=== PATIENT | female | born 1955 | race Two or more races ===

== ENCOUNTER 2021-06-09 10:42 | Emergency (ER) | payer MEDICAID, OTHER ==
[~2021-06-09] VITALS: Ht 167.6 cm; Wt 81.6 kg
[2021-06-09 15:10] LABS: Basophils # (auto) 0 10 ^3/uL (0-0.2); Basophils % (auto) 0.7 % (0.0-2.0); Eosinophils # (auto) 0.1 10 ^3/uL (0-0.8); Eosinophils % (auto) 2.3 % (0.0-7.0); Hematocrit 38.5 % (36.0-46.0); Hemoglobin 12.9 g/dL (12.2-16.2); Lymphocytes # (auto) 1.7 10 ^3/uL (0.4-5.4); Mean Corpuscular Hgb Conc. 33.6 g/dL (32.0-36.0); Mean Corpuscular Volume 83.3 fL (80.0-100.0); Monocytes # (auto) 0.3 10 ^3/uL (0-1.3); Monocytes % (auto) 5.8 % (0.0-12.0); Neutrophils # (auto) 3.1 10 ^3/uL (1.6-8.6); Neutrophils % (auto) 59.2 % (37.0-80.0); Red Blood Cells 4.62 10^6/uL (4.0-5.20); Red Cell Distribution Width 14.3 % (11.8-14.3); White Blood Cell 5.3 10^3/uL (4.4-10.8)
[2021-06-09 15:26] LABS: Albumin 3.5 g/dL (3.4-5.0); Calcium 9.7 mg/dL (8.5-10.1); Potassium 4.1 mmol/L (3.5-5.1)
[2021-06-09 15:30] LABS: BUN/Creatinine Ratio 22.8
[2021-06-09 15:33] LABS: Bilirubin, Total 0.5 mg/dL (0.2-1.0); Total Protein 8.7 g/dL (6.4-8.2)
[2021-06-09 16:07] VITALS: BP 161/87
[2021-06-11 12:00] LABS: Hepatitis B Surface Antibody Negative (Negative)
== END 2021-06-09 16:12 | disposition home or self-care (01) ==
LOC: ER 10:42
DX: R60.9 Edema, unspecified (principal); E11.9 Type 2 diabetes mellitus without complications; I10 Essential (primary) hypertension; R06.02 Shortness of breath
CPT/HCPCS: 36415; 80053; 83880; 84484; 85025; 86703; 86706; 86803; 87340; 93970

== ENCOUNTER 2021-12-01 11:33 | Emergency (ER) | payer MEDICAID ==
[~2021-12-01] VITALS: Ht 170.2 cm; Wt 78.5 kg
[2021-12-01] MEDS ORDERED: SODIUM CHLORIDE 0.9% 1,000 ML IV ONE (12:15)
[2021-12-01] MEDS ORDERED: ONDANSETRON HCL 4 MG/2 ML VIAL IV ONE ×2 (12:15→15:30)
[2021-12-01] MEDS ORDERED: MORPHINE SULFATE 4 MG/ML SYR/VIAL IV ONE (12:15)
[2021-12-01 12:32] LABS: Basophils # (auto) 0 10 ^3/uL (0-0.2); Eosinophils # (auto) 0 10 ^3/uL (0-0.8); Lymphocytes # (auto) 0.4 10 ^3/uL (0.4-5.4)
[2021-12-01 12:34] LABS: Basophils % (auto) 0.3 % (0.0-2.0); Hematocrit 37.8 % (36.0-46.0); Hemoglobin 12.3 g/dL (12.2-16.2); Mean Corpuscular Hemoglobin 26.4 pg (28.0-32.0); Mean Corpuscular Hgb Conc. 32.5 g/dL (32.0-36.0); Monocytes # (auto) 0.3 10 ^3/uL (0-1.3); Monocytes % (auto) 4.7 % (0.0-12.0); Neutrophils # (auto) 4.7 10 ^3/uL (1.6-8.6); Red Blood Cells 4.66 10^6/uL (4.0-5.20); Red Cell Distribution Width 14.2 % (11.8-14.3); White Blood Cell 5.4 10^3/uL (4.4-10.8)
[2021-12-01 12:45] LABS: INR 1.03 (0.9-1.15); Magnesium 1.7 mg/dL (1.6-2.6)
[2021-12-01 12:46] LABS: Albumin 3.5 g/dL (3.4-5.0); Calcium 9.1 mg/dL (8.5-10.1); Potassium 3.8 mmol/L (3.5-5.1)
[2021-12-01 12:48] LABS: BUN/Creatinine Ratio 14.3
[2021-12-01 12:51] LABS: Bilirubin, Total 0.6 mg/dL (0.2-1.0); Total Protein 8.2 g/dL (6.4-8.2)
[2021-12-01] MEDS ORDERED: IOHEXOL 300 MG/ML 100ML BOTTLE IJ ONE (14:38)
[2021-12-01 15:04] LABS: Urine Bacteria FEW /hpf (None Seen); Urine Blood TRACE /uL (Negative); Urine Specific Gravity 1.016 (1.001-1.035); Urine WBC 3 /hpf (0 - 5)
[2021-12-01] MEDS ORDERED: MORPHINE SULFATE INJ 2 MG/ml SYRG IV ONE (15:30)
[2021-12-01 16:00] VITALS: BP 124/67
== END 2021-12-01 17:22 | disposition home or self-care (01) ==
LOC: EDBD 11:33 → ER 11:33
DX: R10.84 Generalized abdominal pain (principal); E11.9 Type 2 diabetes mellitus without complications; I10 Essential (primary) hypertension
CPT/HCPCS: 36415; 71046; 74177; 80053; 81001; 83690; 83735; 85025; 85610; 85730; 93005; 96361; 96374; 96375; 96376; 99285; J2270; J2405; J7030; Q9967

== ENCOUNTER 2021-12-11 19:15 | Inpatient (IN) | payer MEDICAID ==
[~2021-12-11] VITALS: Ht 152.4 cm; Wt 91.5 kg
[2021-12-11] MEDS ORDERED: PIPERACILLIN-TAZOB 3.375GM 100 ML IV ONE (20:15)
[2021-12-11] MEDS ORDERED: SODIUM CHLORIDE 0.9% 2,050 ML IV ONE (20:15)
[2021-12-11 20:58] LABS: Basophils # (auto) 0 10 ^3/uL (0-0.2); Basophils % (auto) 0.4 % (0.0-2.0); Eosinophils # (auto) 0.1 10 ^3/uL (0-0.8); Monocytes # (auto) 0.4 10 ^3/uL (0-1.3); Neutrophils # (auto) 4.4 10 ^3/uL (1.6-8.6); Red Cell Distribution Width 14.6 % (11.8-14.3); White Blood Cell 6.4 10^3/uL (4.4-10.8)
[2021-12-11 21:01] LABS: Eosinophils % (auto) 1.3 % (0.0-7.0); Hematocrit 34.5 % (36.0-46.0); Lymphocytes # (auto) 1.5 10 ^3/uL (0.4-5.4); Lymphocytes % (auto) 22.8 % (10.0-50.0); Mean Corpuscular Hemoglobin 26.5 pg (28.0-32.0); Mean Corpuscular Hgb Conc. 31.9 g/dL (32.0-36.0); Monocytes % (auto) 6.9 % (0.0-12.0); Neutrophils % (auto) 68.6 % (37.0-80.0); Red Blood Cells 4.15 10^6/uL (4.0-5.20)
[2021-12-11 21:13] LABS: INR 1.01 (0.9-1.15)
[2021-12-11 21:17] LABS: Calcium 8.7 mg/dL (8.5-10.1); Magnesium 1.9 mg/dL (1.6-2.6); Potassium 4.7 mmol/L (3.5-5.1)
[2021-12-11 21:21] LABS: BUN/Creatinine Ratio 19.6; Bilirubin, Total 0.3 mg/dL (0.2-1.0); Total Protein 7.1 g/dL (6.4-8.2)
[2021-12-11 22:00] LABS: Urine Amorphous Crystal FEW /hpf (None Seen); Urine Bacteria FEW /hpf (None Seen); Urine Blood Negative /uL (Negative); Urine Specific Gravity 1.006 (1.001-1.035); Urine WBC 5 /hpf (0 - 5)
[2021-12-11] MEDS ORDERED: SODIUM CHLORIDE 0.9% 1,000 ML IV SCH (23:00)
[2021-12-11] MEDS ORDERED: ALUM & MAG HYDROX-SIMETH LIQ(MAALOX) 30 ML PO PRN (23:00)
[2021-12-11] MEDS ORDERED: MORPHINE SULFATE INJ 2 MG/ml SYRG IV PRN (23:00)
[2021-12-11] MEDS ORDERED: ACETAMINOPHEN 325 MG TAB PO PRN (23:00)
[2021-12-11] MEDS ORDERED: NITROGLYCERIN 0.4 MG SL TAB SL PRN (23:00)
[2021-12-11] MEDS ORDERED: DOCUSATE SOD 100 MG CAP PO PRN (23:00)
[2021-12-11] MEDS ORDERED: ALBUTEROL SULF 2.5 MG/0.5ML(0.5%) NEB SOLN NEB PRN (23:30)
[2021-12-11] MEDS ORDERED: DEXTROSE (50%) 50ML SYRG IV PRN (23:30)
[2021-12-12 00:05] LABS: Creatinine, Urine 21 mg/dL (30.0-125.0); Sodium Urine 86 mmol/L (40-220)
[2021-12-12 00:24] LABS: % Iron Saturation 14.6 % (15-50)
[2021-12-12 03:00] VITALS: BP 121/41
[2021-12-12 06:22] LABS: Basophils # (auto) 0.1 10 ^3/uL (0-0.2); Eosinophils # (auto) 0.3 10 ^3/uL (0-0.8); Eosinophils % (auto) 2.9 % (0.0-7.0); Mean Corpuscular Hemoglobin 25.2 pg (28.0-32.0); Monocytes % (auto) 8.4 % (0.0-12.0); Nucleated Red Blood Cells % 0.1 %; Red Cell Distribution Width 17.4 % (11.8-14.3)
[2021-12-12 06:26] LABS: Cholesterol 169 mg/dL (< 200); HDL Cholesterol 39 mg/dL (40-59); LDL Cholesterol 96 mg/dL (< 100); Triglycerides 186 mg/dL (< 150)
[2021-12-12 06:27] LABS: Basophils % (auto) 0.9 % (0.0-2.0); Hematocrit 42.4 % (36.0-46.0); Hemoglobin 13.6 g/dL (12.2-16.2); Lymphocytes # (auto) 3.1 10 ^3/uL (0.4-5.4); Lymphocytes % (auto) 27.1 % (10.0-50.0); Mean Corpuscular Hgb Conc. 32.1 g/dL (32.0-36.0); Mean Corpuscular Volume 78.5 fL (80.0-100.0); Neutrophils % (auto) 60.7 % (37.0-80.0); Red Blood Cells 5.41 10^6/uL (4.0-5.20); White Blood Cell 11.4 10^3/uL (4.4-10.8)
[2021-12-12] MEDS: PIPERACILLIN-TAZOB 3.375GM 100 ML IV SCH ×3 (06:29→22:08)
[2021-12-12] MEDS: InsuLIN REG 1unit/0.01ml Soln (100units/ml) SC SCH ×4 (07:00→22:13)
[2021-12-12] MEDS: ACCU-CHEK COMFORT CURVE STRIP VI SCH ×4 (07:59→22:13)
[2021-12-12 09:43] LABS: BUN/Creatinine Ratio 20.3; Calcium 9.4 mg/dL (8.5-10.1); Potassium 4.4 mmol/L (3.5-5.1)
[2021-12-12] MEDS ORDERED: LORazepam 2MG/ML-1ML VIAL IV PRN (09:45)
[2021-12-12] MEDS: LEVOTHYROXINE SODIUM 25 MCG TAB PO SCH (10:00)
[2021-12-12] MEDS: APIXABAN 5 MG TAB PO SCH ×2 (10:01→22:08)
[2021-12-12] MEDS: PANTOPRAZOLE 40 MG TAB PO SCH (10:01)
[2021-12-12] MEDS: SODIUM CHLORIDE 0.9% 1,000 ML IV SCH (14:21)
[2021-12-12] MEDS: HYDROcodone-ACET 5/325MG TAB PO PRN (20:09)
[2021-12-12] MEDS: ONDANSETRON HCL 4 MG/2 ML VIAL IV PRN (20:09)
[2021-12-12 22:00] VITALS: BP 140/82
[2021-12-12] MEDS ORDERED: LEVO50TA7 PO (22:29)
[2021-12-12] MEDS ORDERED: LEV50T PO (22:29)
[2021-12-12] MEDS ORDERED: ALBU108A5 INH (22:29)
[2021-12-12] MEDS ORDERED: APIX5TAB PO (22:29)
[2021-12-12] MEDS ORDERED: EMPA1TAB3 PO (22:29)
[2021-12-12] MEDS ORDERED: HYDR-4798 PO (22:29)
[2021-12-12] MEDS ORDERED: GABA-339 PO (22:29)
[2021-12-12] MEDS ORDERED: INSU1INJ19 SC (22:29)
[2021-12-12] MEDS ORDERED: TIZA4TAB7 PO (22:29)
[2021-12-12] MEDS ORDERED: OMEP-260 PO (22:29)
[2021-12-12] MEDS ORDERED: BENA10TA15 PO (22:29)
[2021-12-13] MEDS: HYDROcodone-ACET 5/325MG TAB PO PRN ×4 (00:36→20:44)
[2021-12-13] MEDS: SODIUM CHLORIDE 0.9% 1,000 ML IV SCH ×2 (03:15→17:11)
[2021-12-13 05:00] VITALS: BP 137/81
[2021-12-13] MEDS: PIPERACILLIN-TAZOB 3.375GM 100 ML IV SCH ×2 (06:50→13:51)
[2021-12-13 06:51] LABS: Calcium 9.5 mg/dL (8.5-10.1); Potassium 4.1 mmol/L (3.5-5.1)
[2021-12-13 06:54] LABS: BUN/Creatinine Ratio 17.8
[2021-12-13] MEDS: InsuLIN REG 1unit/0.01ml Soln (100units/ml) SC SCH ×4 (06:57→22:31)
[2021-12-13] MEDS: ACCU-CHEK COMFORT CURVE STRIP VI SCH ×4 (06:57→22:00)
[2021-12-13 08:00] VITALS: BP 110/70
[2021-12-13 08:32] VITALS: BP 139/82
[2021-12-13] MEDS: APIXABAN 5 MG TAB PO SCH ×2 (09:13→21:11)
[2021-12-13] MEDS: LEVOTHYROXINE SODIUM 25 MCG TAB PO SCH (09:13)
[2021-12-13] MEDS: PANTOPRAZOLE 40 MG TAB PO SCH (09:13)
[2021-12-13 09:50] LABS: Basophils # (auto) 0 10 ^3/uL (0-0.2); Basophils % (auto) 0.5 % (0.0-2.0); Eosinophils # (auto) 0.1 10 ^3/uL (0-0.8); Eosinophils % (auto) 2.3 % (0.0-7.0); Hematocrit 36.7 % (36.0-46.0); Hemoglobin 11.6 g/dL (12.2-16.2); Lymphocytes # (auto) 1.8 10 ^3/uL (0.4-5.4); Lymphocytes % (auto) 39.2 % (10.0-50.0); Mean Corpuscular Hemoglobin 26.3 pg (28.0-32.0); Mean Corpuscular Hgb Conc. 31.6 g/dL (32.0-36.0); Mean Corpuscular Volume 83.1 fL (80.0-100.0); Monocytes # (auto) 0.4 10 ^3/uL (0-1.3); Monocytes % (auto) 8.4 % (0.0-12.0); Neutrophils # (auto) 2.3 10 ^3/uL (1.6-8.6); Neutrophils % (auto) 49.6 % (37.0-80.0); Nucleated Red Blood Cells % 0.2 %; Red Blood Cells 4.41 10^6/uL (4.0-5.20); Red Cell Distribution Width 14.8 % (11.8-14.3); White Blood Cell 4.6 10^3/uL (4.4-10.8)
[2021-12-13] MEDS: ONDANSETRON HCL 4 MG/2 ML VIAL IV PRN (12:22)
[2021-12-13 12:34] VITALS: BP 149/91
[2021-12-13 16:47] VITALS: BP 147/88
[2021-12-13] MEDS ORDERED: cefTRIAXone 1GM/50ML D5W 50 ML IV SCH (20:00)
[2021-12-13] MEDS ORDERED: TEMAZEPAM 15 MG CAP PO PRN (21:15)
[2021-12-13 22:00] VITALS: BP 132/83
[2021-12-14] MEDS: HYDROcodone-ACET 5/325MG TAB PO PRN (04:54)
[2021-12-14 05:00] VITALS: BP 136/69
[2021-12-14] MEDS: InsuLIN REG 1unit/0.01ml Soln (100units/ml) SC SCH ×2 (05:51→12:23)
[2021-12-14] MEDS: ACCU-CHEK COMFORT CURVE STRIP VI SCH ×2 (05:51→11:30)
[2021-12-14] MEDS: SODIUM CHLORIDE 0.9% 1,000 ML IV SCH (06:37)
[2021-12-14 08:00] VITALS: BP 140/70
[2021-12-14 09:20] VITALS: BP 143/71
[2021-12-14] MEDS ORDERED: CEFD300C2 PO (09:33)
[2021-12-14] MEDS: APIXABAN 5 MG TAB PO SCH (10:11)
[2021-12-14] MEDS: PANTOPRAZOLE 40 MG TAB PO SCH (10:11)
[2021-12-14] MEDS: LEVOTHYROXINE SODIUM 25 MCG TAB PO SCH (10:11)
[2021-12-14 15:31] VITALS: BP 132/80
== END 2021-12-14 17:18 | disposition home or self-care (01) | DRG 720 ==
LOC: EDBD 19:15 → ER 19:17 → TELE 23:19 → TELE-WESTW 12-12 20:20
PROVIDERS: ADMIT Nurse Practitioner Family; ATTEND Nurse Practitioner Acute Care
DX: A41.9 Sepsis, unspecified organism (principal); J96.01 Acute respiratory failure with hypoxia; R65.21 Severe sepsis with septic shock; N17.9 Acute kidney failure, unspecified; E11.42 Type 2 diabetes mellitus with diabetic polyneuropathy; I95.9 Hypotension, unspecified; D64.9 Anemia, unspecified; N30.90 Cystitis, unspecified without hematuria; E03.9 Hypothyroidism, unspecified; E11.65 Type 2 diabetes mellitus with hyperglycemia; E78.5 Hyperlipidemia, unspecified; E86.0 Dehydration; F17.200 Nicotine dependence, unspecified, uncomplicated; G43.909 Migraine, unspecified, not intractable, without status migrainosus; G89.29 Other chronic pain; I10 Essential (primary) hypertension; J98.11 Atelectasis; K42.9 Umbilical hernia without obstruction or gangrene; K44.9 Diaphragmatic hernia without obstruction or gangrene; Z20.822 Contact with and (suspected) exposure to COVID-19; Z90.721 Acquired absence of ovaries, unilateral; Z86.718 Personal history of other venous thrombosis and embolism; Z83.3 Family history of diabetes mellitus; Z82.49 Family history of ischemic heart disease and other diseases of the circulatory system; R65.20 Severe sepsis without septic shock; Z79.01 Long term (current) use of anticoagulants; Z79.4 Long term (current) use of insulin
CPT/HCPCS: 36415; 36600; 70450; 70551; 71045; 71250; 72125; 74176; 80048; 80053; 80061; 81001; 82570; 82805; 82962; 83036; 83540; 83550; 83605; 83735; 83880; 84100; 84300; 84443; 84484; 85025; 85379; 85610; 85730; 86850; 86900; 86901; 87040; 87081; 87086; 93005; 93306; 93886; 95819; 96365; 96366; 97163; G0378; J0696; J1815; J2405; J2543

== ENCOUNTER 2022-01-20 17:16 | Emergency (ER) | payer MEDICAID ==
[~2022-01-20] VITALS: Ht 157.5 cm; Wt 71.0 kg
[~2022-01-20 17:16] MED LIST: ALBU108A5 INH; APIX5TAB PO; BENA10TA15 PO; CEFD300C2 PO; EMPA1TAB3 PO; GABA-339 PO; HYDR-4798 PO; INSU1INJ19 SC; LEVO50TA7 PO; OMEP-260 PO; TIZA4TAB7 PO
[2022-01-20] MEDS ORDERED: ONDANSETRON HCL 4 MG/2 ML VIAL IV ONE (17:45)
[2022-01-20 18:35] LABS: Basophils # (auto) 0 10 ^3/uL (0-0.2); Basophils % (auto) 0.5 % (0.0-2.0); Eosinophils # (auto) 0.1 10 ^3/uL (0-0.8); Lymphocytes # (auto) 1.1 10 ^3/uL (0.4-5.4); Monocytes # (auto) 0.3 10 ^3/uL (0-1.3); Nucleated Red Blood Cells % 0.1 %
[2022-01-20 18:37] LABS: Eosinophils % (auto) 1.7 % (0.0-7.0); Hematocrit 40.1 % (36.0-46.0); Hemoglobin 13.1 g/dL (12.2-16.2); Lymphocytes % (auto) 20.8 % (10.0-50.0); Mean Corpuscular Hgb Conc. 32.7 g/dL (32.0-36.0); Mean Corpuscular Volume 82.6 fL (80.0-100.0); Monocytes % (auto) 5.3 % (0.0-12.0); Neutrophils # (auto) 3.9 10 ^3/uL (1.6-8.6); Neutrophils % (auto) 71.7 % (37.0-80.0); Red Blood Cells 4.85 10^6/uL (4.0-5.20); Red Cell Distribution Width 15.1 % (11.8-14.3); White Blood Cell 5.4 10^3/uL (4.4-10.8)
[2022-01-20 18:52] LABS: Albumin 3.5 g/dL (3.4-5.0); BUN/Creatinine Ratio 26.7; Calcium 9.3 mg/dL (8.5-10.1); Potassium 4.3 mmol/L (3.5-5.1)
[2022-01-20 18:55] LABS: Bilirubin, Total 0.5 mg/dL (0.2-1.0); Total Protein 8.6 g/dL (6.4-8.2)
[2022-01-20 19:18] LABS: Urine Bacteria NONE SEEN /hpf (None Seen); Urine Blood Negative /uL (Negative); Urine Specific Gravity 1.017 (1.001-1.035); Urine WBC 21 /hpf (0 - 5)
[2022-01-20] MEDS ORDERED: ONDA-144 PO (19:58)
[2022-01-20 23:20] VITALS: BP 122/72
== END 2022-01-20 23:22 | disposition home or self-care (01) ==
LOC: EDBD 17:16 → EDSEX 17:16 → ER 17:19
DX: R11.10 Vomiting, unspecified (principal); M25.512 Pain in left shoulder; E11.9 Type 2 diabetes mellitus without complications; I10 Essential (primary) hypertension; R06.02 Shortness of breath
CPT/HCPCS: 36415; 71045; 74176; 80053; 81001; 83690; 83880; 84484; 85025; 93005; 96374; 99285; J2405

== ENCOUNTER 2022-05-05 13:36 | Inpatient (IN) | payer MEDICARE, MEDICAID ==
[~2022-05-05] VITALS: Ht 160 cm; Wt 81.1 kg
[~2022-05-05 13:36] MED LIST changes: +ONDA-144 PO
[2022-05-05 15:22] LABS: Albumin 3.3 g/dL (3.4-5.0); BUN/Creatinine Ratio 25.2; Potassium 4.3 mmol/L (3.5-5.1)
[2022-05-05 15:25] LABS: Bilirubin, Total 0.4 mg/dL (0.2-1.0); Total Protein 8.2 g/dL (6.4-8.2)
[2022-05-05 15:32] LABS: Basophils # (auto) 0 10 ^3/uL (0-0.2); Basophils % (auto) 0.4 % (0.0-2.0); Eosinophils # (auto) 0.1 10 ^3/uL (0-0.8); Eosinophils % (auto) 1.5 % (0.0-7.0); Hematocrit 36.3 % (36.0-46.0); Hemoglobin 11.8 g/dL (12.2-16.2); Lymphocytes # (auto) 1.8 10 ^3/uL (0.4-5.4); Lymphocytes % (auto) 25.4 % (10.0-50.0); Mean Corpuscular Hemoglobin 28.6 pg (28.0-32.0); Mean Corpuscular Hgb Conc. 32.5 g/dL (32.0-36.0); Mean Corpuscular Volume 88.1 fL (80.0-100.0); Monocytes # (auto) 0.4 10 ^3/uL (0-1.3); Monocytes % (auto) 5.8 % (0.0-12.0); Neutrophils # (auto) 4.6 10 ^3/uL (1.6-8.6); Neutrophils % (auto) 66.9 % (37.0-80.0); Nucleated Red Blood Cells % 0.1 %; Red Blood Cells 4.12 10^6/uL (4.0-5.20); Red Cell Distribution Width 15.4 % (11.8-14.3); White Blood Cell 6.9 10^3/uL (4.4-10.8)
[2022-05-05 17:50] LABS: Urine Bacteria MANY /hpf (None Seen); Urine Blood Negative /uL (Negative); Urine Mucus FEW (None Seen); Urine Specific Gravity 1.022 (1.001-1.035); Urine WBC 60 /hpf (0 - 5)
[2022-05-05] MEDS ORDERED: cefTRIAXone 1GM/50ML D5W 50 ML IV ONE (20:00)
[2022-05-05] MEDS ORDERED: PANTOPRAZOLE 40 MG/10 ML VIAL INJ IV ONE (20:00)
[2022-05-05] MEDS ORDERED: SODIUM CHLORIDE 0.9% 1,000 ML IV ONE (20:00)
[2022-05-05] MEDS ORDERED: ACETAMINOPHEN 325 MG TAB PO PRN (20:45)
[2022-05-05] MEDS ORDERED: DEXTROSE (50%) 50ML SYRG IV PRN (20:45)
[2022-05-05] MEDS ORDERED: MORPHINE SULFATE INJ 2 MG/ml SYRG IV PRN (22:00)
[2022-05-05] MEDS ORDERED: NITROGLYCERIN 0.4 MG SL TAB SL PRN (22:00)
[2022-05-05] MEDS: HYDROcodone-ACET 5/325MG TAB PO PRN (23:21)
[2022-05-06] MEDS: ACCU-CHEK COMFORT CURVE STRIP VI SCH ×5 (00:45→23:59)
[2022-05-06] MEDS: InsuLIN REG 1unit/0.01ml Soln (100units/ml) SC SCH ×5 (00:49→23:59)
[2022-05-06] MEDS: ONDANSETRON HCL 4 MG/2 ML VIAL IV PRN ×4 (01:17→14:31)
[2022-05-06] MEDS: MORPHINE SULFATE INJ 2 MG/ml SYRG IV PRN ×5 (01:18→21:26)
[2022-05-06] MEDS: SOD CHL 0.45% 1,000 ML IV SCH ×3 (02:02→23:25)
[2022-05-06 03:09] VITALS: BP 158/93
[2022-05-06 04:52] VITALS: BP 135/80
[2022-05-06 06:02] LABS: Basophils # (auto) 0 10 ^3/uL (0-0.2); Basophils % (auto) 0.4 % (0.0-2.0); Eosinophils # (auto) 0.2 10 ^3/uL (0-0.8); Eosinophils % (auto) 2.3 % (0.0-7.0); Hematocrit 33.1 % (36.0-46.0); Hemoglobin 10.6 g/dL (12.2-16.2); Lymphocytes # (auto) 2.2 10 ^3/uL (0.4-5.4); Mean Corpuscular Hemoglobin 28.7 pg (28.0-32.0); Mean Corpuscular Volume 89.8 fL (80.0-100.0); Monocytes # (auto) 0.5 10 ^3/uL (0-1.3); Monocytes % (auto) 8.1 % (0.0-12.0); Neutrophils # (auto) 3.5 10 ^3/uL (1.6-8.6); Neutrophils % (auto) 55.2 % (37.0-80.0); Nucleated Red Blood Cells % 0.2 %; Red Blood Cells 3.69 10^6/uL (4.0-5.20); Red Cell Distribution Width 15.5 % (11.8-14.3); White Blood Cell 6.4 10^3/uL (4.4-10.8)
[2022-05-06 06:20] LABS: Albumin 3.1 g/dL (3.4-5.0); Calcium 8.4 mg/dL (8.5-10.1); Potassium 4.1 mmol/L (3.5-5.1)
[2022-05-06 06:24] LABS: BUN/Creatinine Ratio 31.1; Bilirubin, Total 0.4 mg/dL (0.2-1.0); Total Protein 7.2 g/dL (6.4-8.2)
[2022-05-06 09:00] VITALS: BP 145/78
[2022-05-06] MEDS: cefTRIAXone 1GM/50ML D5W 50 ML IV SCH (09:37)
[2022-05-06] MEDS: PANTOPRAZOLE 40 MG/10 ML VIAL INJ IV SCH (09:37)
[2022-05-06 12:30] VITALS: BP 128/68
[2022-05-06] MEDS ORDERED: CYCLOBENZAPRINE HCL 10 MG TAB PO PRN (14:30)
[2022-05-06 17:00] VITALS: BP 154/78
[2022-05-06] MEDS: metroNIDAZOLE 500MG/100ML 100 ML IV SCH (21:25)
[2022-05-07] MEDS: MORPHINE SULFATE INJ 2 MG/ml SYRG IV PRN ×4 (01:39→22:03)
[2022-05-07 04:56] VITALS: BP 130/65
[2022-05-07] MEDS: InsuLIN REG 1unit/0.01ml Soln (100units/ml) SC SCH ×3 (06:00→20:03)
[2022-05-07 06:15] LABS: Basophils # (auto) 0 10 ^3/uL (0-0.2); Basophils % (auto) 0.6 % (0.0-2.0); Eosinophils # (auto) 0.2 10 ^3/uL (0-0.8); Eosinophils % (auto) 3.2 % (0.0-7.0); Hematocrit 35.1 % (36.0-46.0); Hemoglobin 11.4 g/dL (12.2-16.2); Lymphocytes # (auto) 1.6 10 ^3/uL (0.4-5.4); Lymphocytes % (auto) 33.3 % (10.0-50.0); Mean Corpuscular Hemoglobin 28.3 pg (28.0-32.0); Mean Corpuscular Hgb Conc. 32.4 g/dL (32.0-36.0); Mean Corpuscular Volume 87.2 fL (80.0-100.0); Monocytes # (auto) 0.3 10 ^3/uL (0-1.3); Monocytes % (auto) 7.3 % (0.0-12.0); Neutrophils # (auto) 2.7 10 ^3/uL (1.6-8.6); Neutrophils % (auto) 55.6 % (37.0-80.0); Nucleated Red Blood Cells % 0.1 %; Red Blood Cells 4.02 10^6/uL (4.0-5.20); Red Cell Distribution Width 15.3 % (11.8-14.3); White Blood Cell 4.8 10^3/uL (4.4-10.8)
[2022-05-07 06:24] LABS: BUN/Creatinine Ratio 18.9; Calcium 8.9 mg/dL (8.5-10.1)
[2022-05-07] MEDS: ACCU-CHEK COMFORT CURVE STRIP VI SCH ×3 (06:29→19:31)
[2022-05-07] MEDS: metroNIDAZOLE 500MG/100ML 100 ML IV SCH ×3 (06:29→22:10)
[2022-05-07] MEDS: LEVOTHYROXINE SODIUM 50 MCG TAB PO SCH (06:29)
[2022-05-07 09:00] VITALS: BP 124/54
[2022-05-07] MEDS: cefTRIAXone 1GM/50ML D5W 50 ML IV SCH (09:30)
[2022-05-07] MEDS: PANTOPRAZOLE 40 MG/10 ML VIAL INJ IV SCH (10:00)
[2022-05-07 13:00] VITALS: BP 132/86
[2022-05-07] MEDS: ONDANSETRON HCL 4 MG/2 ML VIAL IV PRN ×2 (15:36→22:02)
[2022-05-07 17:00] VITALS: BP 118/67
[2022-05-07] MEDS: HYDROcodone-ACET 5/325MG TAB PO PRN (19:28)
[2022-05-07 22:00] VITALS: BP 124/79
[2022-05-08] MEDS: ACCU-CHEK COMFORT CURVE STRIP VI SCH ×5 (00:37→23:34)
[2022-05-08] MEDS: InsuLIN REG 1unit/0.01ml Soln (100units/ml) SC SCH ×5 (00:40→23:39)
[2022-05-08] MEDS: HYDROcodone-ACET 5/325MG TAB PO PRN (00:41)
[2022-05-08 05:00] VITALS: BP 141/83
[2022-05-08] MEDS: metroNIDAZOLE 500MG/100ML 100 ML IV SCH ×3 (06:03→22:30)
[2022-05-08] MEDS: ONDANSETRON HCL 4 MG/2 ML VIAL IV PRN ×3 (06:28→21:17)
[2022-05-08] MEDS: MORPHINE SULFATE INJ 2 MG/ml SYRG IV PRN ×3 (06:28→21:17)
[2022-05-08] MEDS: LEVOTHYROXINE SODIUM 50 MCG TAB PO SCH (06:30)
[2022-05-08 09:00] VITALS: BP 132/65
[2022-05-08] MEDS: cefTRIAXone 1GM/50ML D5W 50 ML IV SCH (09:45)
[2022-05-08] MEDS: PANTOPRAZOLE 40 MG/10 ML VIAL INJ IV SCH (09:46)
[2022-05-08] MEDS ORDERED: OXYCODONE W/ ACETAMINOPHEN 5/325MG TABLET PO PRN (12:00)
[2022-05-08] MEDS ORDERED: TEMAZEPAM 15 MG CAP PO PRN (12:00)
[2022-05-08 13:00] VITALS: BP 145/79
[2022-05-08 16:41] VITALS: BP 125/78
[2022-05-08 22:09] VITALS: BP 136/79
[2022-05-09] MEDS ORDERED: TEMAZEPAM 15 MG CAP PO ONE (00:45)
[2022-05-09] MEDS: ONDANSETRON HCL 4 MG/2 ML VIAL IV PRN ×4 (03:01→16:46)
[2022-05-09] MEDS: MORPHINE SULFATE INJ 2 MG/ml SYRG IV PRN ×5 (03:01→21:04)
[2022-05-09 05:00] VITALS: BP 143/72
[2022-05-09] MEDS: metroNIDAZOLE 500MG/100ML 100 ML IV SCH ×2 (05:51→15:38)
[2022-05-09] MEDS: ACCU-CHEK COMFORT CURVE STRIP VI SCH ×3 (06:01→17:56)
[2022-05-09] MEDS: InsuLIN REG 1unit/0.01ml Soln (100units/ml) SC SCH ×3 (06:03→17:53)
[2022-05-09] MEDS: LEVOTHYROXINE SODIUM 50 MCG TAB PO SCH (06:05)
[2022-05-09] MEDS: PANTOPRAZOLE 40 MG/10 ML VIAL INJ IV SCH (08:13)
[2022-05-09] MEDS: cefTRIAXone 1GM/50ML D5W 50 ML IV SCH (08:14)
[2022-05-09 09:27] VITALS: BP 141/78
[2022-05-09] MEDS: levoFLOXacin 500MG 100 ML IV SCH (10:55)
[2022-05-09] MEDS ORDERED: D5W/SOD CHL 0.45%/KCL 20MEQ 1,000 ML IV ONE (11:30)
[2022-05-09 13:00] VITALS: BP 137/92
[2022-05-09 16:54] VITALS: BP 124/67
[2022-05-09 22:00] VITALS: BP 118/64
[2022-05-10] MEDS: ONDANSETRON HCL 4 MG/2 ML VIAL IV PRN ×2 (00:35→11:38)
[2022-05-10] MEDS: ACCU-CHEK COMFORT CURVE STRIP VI SCH ×3 (00:53→11:28)
[2022-05-10] MEDS: InsuLIN REG 1unit/0.01ml Soln (100units/ml) SC SCH ×3 (00:56→11:31)
[2022-05-10] MEDS: MORPHINE SULFATE INJ 2 MG/ml SYRG IV PRN ×2 (02:53→07:03)
[2022-05-10 05:00] VITALS: BP 149/83
[2022-05-10] MEDS: LEVOTHYROXINE SODIUM 50 MCG TAB PO SCH (06:26)
[2022-05-10 06:33] LABS: Basophils # (auto) 0 10 ^3/uL (0-0.2); Basophils % (auto) 0.4 % (0.0-2.0); Eosinophils # (auto) 0.1 10 ^3/uL (0-0.8); Eosinophils % (auto) 2.9 % (0.0-7.0); Hematocrit 32.9 % (36.0-46.0); Hemoglobin 11.2 g/dL (12.2-16.2); Lymphocytes # (auto) 1.5 10 ^3/uL (0.4-5.4); Lymphocytes % (auto) 33.5 % (10.0-50.0); Mean Corpuscular Hemoglobin 29.3 pg (28.0-32.0); Mean Corpuscular Hgb Conc. 33.9 g/dL (32.0-36.0); Mean Corpuscular Volume 86.3 fL (80.0-100.0); Monocytes # (auto) 0.4 10 ^3/uL (0-1.3); Monocytes % (auto) 9.2 % (0.0-12.0); Neutrophils # (auto) 2.5 10 ^3/uL (1.6-8.6); Nucleated Red Blood Cells % 0.1 %; Red Blood Cells 3.81 10^6/uL (4.0-5.20); Red Cell Distribution Width 14.7 % (11.8-14.3); White Blood Cell 4.5 10^3/uL (4.4-10.8)
[2022-05-10 06:38] LABS: BUN/Creatinine Ratio 16.7; Calcium 9.4 mg/dL (8.5-10.1); Magnesium 1.9 mg/dL (1.6-2.6); Potassium 3.9 mmol/L (3.5-5.1)
[2022-05-10] MEDS ORDERED: HYDR-4902 PO (08:34)
[2022-05-10] MEDS ORDERED: ONDA-144 PO (08:34)
[2022-05-10] MEDS ORDERED: CIPR500T4 PO (08:34)
[2022-05-10] MEDS: PANTOPRAZOLE 40 MG/10 ML VIAL INJ IV SCH (08:57)
[2022-05-10] MEDS: levoFLOXacin 500MG 100 ML IV SCH (08:58)
[2022-05-10 09:00] VITALS: BP 147/88
[2022-05-10 10:34] VITALS: BP 142/86
== END 2022-05-10 12:17 | disposition home or self-care (01) | DRG 241 ==
LOC: ER 13:36 → OVERFLOW 21:53 → CENTRAL 05-06 02:45
PROVIDERS: ADMIT Nurse Practitioner Family; ATTEND Nurse Practitioner Acute Care
DX: K25.4 Chronic or unspecified gastric ulcer with hemorrhage (principal); K56.609 Unspecified intestinal obstruction, unspecified as to partial versus complete obstruction; E11.40 Type 2 diabetes mellitus with diabetic neuropathy, unspecified; N30.01 Acute cystitis with hematuria; E03.9 Hypothyroidism, unspecified; Z20.822 Contact with and (suspected) exposure to COVID-19; E66.9 Obesity, unspecified; K52.9 Noninfective gastroenteritis and colitis, unspecified; Z82.49 Family history of ischemic heart disease and other diseases of the circulatory system; Z83.3 Family history of diabetes mellitus; Z86.718 Personal history of other venous thrombosis and embolism; Z86.010 Personal history of colon polyps; Z68.30 Body mass index [BMI] 30.0-30.9, adult
CPT/HCPCS: 36415; 74176; 80048; 80053; 81001; 82270; 82962; 83036; 83735; 84443; 85025; 86850; 86900; 86901; 87045; 87086; 87088; 87186; 87426; 87427; 87493; 96365; 96375; C9113; G0378; J0696; J1815; J1956; J2405; J3490

== ENCOUNTER 2022-11-02 17:08 | Emergency (ER) | payer MEDICARE, MEDICAID ==
[~2022-11-02] VITALS: Ht 167.6 cm; Wt 88.7 kg
[~2022-11-02 17:08] MED LIST changes: +BENA-19 PO; -BENA10TA15 PO; +CIPR500T4 PO; +NITR1CAP23 PO; -OMEP-260 PO; +OMEP1CAP70 PO; +TIZA-142 PO; -TIZA4TAB7 PO
[2022-11-02 19:32] VITALS: PULSE 77; RESP 18; O2SAT 96
[2022-11-02 19:34] VITALS: BP 148/74; PULSE 77; RESP 18; TEMP 98.5; O2SAT 96
[2022-11-02] MEDS ORDERED: cefTRIAXone SOD 1,000 MG VL IM ONE (20:30)
[2022-11-02 20:52] LABS: Urine Bacteria NONE SEEN /hpf (None Seen); Urine Color Yellow (Yellow); Urine WBC 7 /hpf (0 - 5)
[2022-11-02 20:53] LABS: Urine Clarity CLEAR (Clear); Urine Protein, UAD Trace (Negative); Urine Urobilinogen Normal (Negative)
[2022-11-02 20:54] LABS: Urine Blood 4+ /uL (Negative)
[2022-11-02] MEDS ORDERED: CEPH500T PO (21:02)
[2022-11-02] MEDS ORDERED: PHEN-1045 PO (21:02)
[2022-11-02 21:18] LABS: Basophils # (auto) 0 10 ^3/uL (0-0.2); Basophils % (auto) 0.8 % (0.0-2.0); Eosinophils # (auto) 0.2 10 ^3/uL (0-0.8); Eosinophils % (auto) 4.6 % (0.0-7.0); Hemoglobin 10.8 g/dL (12.2-16.2); Lymphocytes # (auto) 1.4 10 ^3/uL (0.4-5.4); Lymphocytes % (auto) 28.3 % (10.0-50.0); Mean Corpuscular Hgb Conc. 31.8 g/dL (32.0-36.0); Mean Corpuscular Volume 84.7 fL (80.0-100.0); Monocytes # (auto) 0.3 10 ^3/uL (0-1.3); Monocytes % (auto) 6.8 % (0.0-12.0); Neutrophils # (auto) 2.9 10 ^3/uL (1.6-8.6); Neutrophils % (auto) 59.5 % (37.0-80.0); Nucleated Red Blood Cells % 0.1 %; Red Blood Cells 4.01 10^6/uL (4.0-5.20); White Blood Cell 4.9 10^3/uL (4.4-10.8)
[2022-11-02 21:33] LABS: Albumin 3.1 g/dL (3.4-5.0); Potassium 4.7 mmol/L (3.5-5.1)
[2022-11-02 21:37] LABS: BUN/Creatinine Ratio 25.5 (10.0-20.0); Bilirubin, Total 0.2 mg/dL (0.2-1.0); Total Protein 7.8 g/dL (6.4-8.2)
== END 2022-11-03 04:18 | disposition home or self-care (01) ==
LOC: ER 17:11
DX: T83.011A Breakdown (mechanical) of indwelling urethral catheter, initial encounter (principal); N39.0 Urinary tract infection, site not specified; E11.9 Type 2 diabetes mellitus without complications; K21.9 Gastro-esophageal reflux disease without esophagitis; I10 Essential (primary) hypertension; Z90.710 Acquired absence of both cervix and uterus
CPT/HCPCS: 36415; 51702; 80053; 81001; 85025

== ENCOUNTER 2022-11-06 18:19 | Emergency (ER) | payer MEDICARE, MEDICAID ==
[~2022-11-06] VITALS: Ht 167.6 cm; Wt 81.0 kg
[~2022-11-06 18:19] MED LIST changes: +CEPH500T PO; +PHEN-1045 PO
[2022-11-06 19:40] LABS: Basophils # (auto) 0 10 ^3/uL (0-0.2); Basophils % (auto) 0.7 % (0.0-2.0); Eosinophils # (auto) 0.2 10 ^3/uL (0-0.8); Eosinophils % (auto) 4.1 % (0.0-7.0); Hematocrit 35.6 % (36.0-46.0); Hemoglobin 11.6 g/dL (12.2-16.2); Lymphocytes # (auto) 1.6 10 ^3/uL (0.4-5.4); Lymphocytes % (auto) 38.5 % (10.0-50.0); Mean Corpuscular Hemoglobin 27.4 pg (28.0-32.0); Mean Corpuscular Hgb Conc. 32.5 g/dL (32.0-36.0); Mean Corpuscular Volume 84.2 fL (80.0-100.0); Monocytes # (auto) 0.4 10 ^3/uL (0-1.3); Monocytes % (auto) 10.5 % (0.0-12.0); Neutrophils # (auto) 1.9 10 ^3/uL (1.6-8.6); Neutrophils % (auto) 46.2 % (37.0-80.0); Red Blood Cells 4.23 10^6/uL (4.0-5.20); Red Cell Distribution Width 15.3 % (11.8-14.3); White Blood Cell 4.2 10^3/uL (4.4-10.8)
[2022-11-06 20:25] LABS: Urine Bacteria NONE SEEN /hpf (None Seen); Urine Blood 3+ /uL (Negative); Urine Clarity HAZY (Clear); Urine Mucus FEW (None Seen); Urine Protein, UAD 2+ (Negative); Urine Specific Gravity 1.022 (1.001-1.035); Urine Sperm PRESENT /hpf (None Seen); Urine Urobilinogen Normal (Negative); Urine WBC 76 /hpf (0 - 5)
[2022-11-06 20:26] LABS: Urine Color Yellow (Yellow)
[2022-11-06 20:29] LABS: Albumin 3.7 g/dL (3.4-5.0); Calcium 9.2 mg/dL (8.5-10.1); Potassium 4.2 mmol/L (3.5-5.1)
[2022-11-06] MEDS ORDERED: MORPHINE SULFATE 4 MG/ML SYR/VIAL IM ONE (20:30)
[2022-11-06 20:32] LABS: Bilirubin, Total 0.3 mg/dL (0.2-1.0); Total Protein 8.3 g/dL (6.4-8.2)
[2022-11-06 21:00] VITALS: BP 134/67; PULSE 82; RESP 17; O2SAT 98
[2022-11-06] MEDS ORDERED: CIPR-173 PO (21:46)
== END 2022-11-06 22:06 | disposition home or self-care (01) ==
LOC: ER 18:19
DX: N39.0 Urinary tract infection, site not specified (principal); R33.9 Retention of urine, unspecified; N81.10 Cystocele, unspecified; R10.9 Unspecified abdominal pain; F41.9 Anxiety disorder, unspecified; I10 Essential (primary) hypertension; E11.9 Type 2 diabetes mellitus without complications; K21.9 Gastro-esophageal reflux disease without esophagitis; Z90.710 Acquired absence of both cervix and uterus; Z98.890 Other specified postprocedural states; Z79.1 Long term (current) use of non-steroidal anti-inflammatories (NSAID); Z79.899 Other long term (current) drug therapy
CPT/HCPCS: 36415; 51702; 80053; 81001; 82962; 85025; 96372; 99284; J2270

== ENCOUNTER 2022-11-15 19:08 | Emergency (ER) | payer MEDICARE, MEDICAID ==
[~2022-11-15] VITALS: Ht 167.6 cm; Wt 77.2 kg
[~2022-11-15 19:08] MED LIST changes: +CIPR-173 PO
[2022-11-15 21:10] LABS: Urine Bacteria FEW /hpf (None Seen); Urine Blood 1+ /uL (Negative); Urine Clarity Clear (Clear); Urine Color Yellow (Yellow); Urine Mucus FEW (None Seen); Urine Protein, UAD 1+ (Negative); Urine Specific Gravity 1.023 (1.001-1.035); Urine Urobilinogen Normal (Negative); Urine WBC 20 /hpf (0 - 5); Urine pH 5.5 (5.0-8.0)
[2022-11-15] MEDS ORDERED: CIPR-173 PO (21:53)
[2022-11-15] MEDS ORDERED: cefTRIAXone SOD 1,000 MG VL IM ONE (22:00)
[2022-11-15 22:32] VITALS: BP 148/98; PULSE 88; RESP 18; TEMP 98.1; O2SAT 95
== END 2022-11-15 21:55 | disposition home or self-care (01) ==
LOC: ER 19:08
DX: N81.10 Cystocele, unspecified (principal); R33.9 Retention of urine, unspecified; N39.0 Urinary tract infection, site not specified; R07.89 Other chest pain; I10 Essential (primary) hypertension; E11.9 Type 2 diabetes mellitus without complications; K21.9 Gastro-esophageal reflux disease without esophagitis; Z90.710 Acquired absence of both cervix and uterus; Z79.2 Long term (current) use of antibiotics; Z79.899 Other long term (current) drug therapy
CPT/HCPCS: 71045; 81001; 99284; J0696

== ENCOUNTER 2022-11-26 20:58 | Emergency (ER) | payer MEDICARE, MEDICAID ==
[~2022-11-26] VITALS: Ht 167.6 cm; Wt 77.2 kg
[2022-11-26 21:56] LABS: Basophils # (auto) 0 10 ^3/uL (0-0.2); Basophils % (auto) 0.5 % (0.0-2.0); Eosinophils # (auto) 0.1 10 ^3/uL (0-0.8); Eosinophils % (auto) 1.4 % (0.0-7.0); Hematocrit 36.7 % (36.0-46.0); Hemoglobin 11.9 g/dL (12.2-16.2); Lymphocytes # (auto) 1.7 10 ^3/uL (0.4-5.4); Lymphocytes % (auto) 27.1 % (10.0-50.0); Mean Corpuscular Hemoglobin 27.2 pg (28.0-32.0); Mean Corpuscular Hgb Conc. 32.5 g/dL (32.0-36.0); Mean Corpuscular Volume 83.7 fL (80.0-100.0); Monocytes # (auto) 0.4 10 ^3/uL (0-1.3); Monocytes % (auto) 5.7 % (0.0-12.0); Neutrophils # (auto) 4.2 10 ^3/uL (1.6-8.6); Neutrophils % (auto) 65.3 % (37.0-80.0); Nucleated Red Blood Cells % 0.1 %; Red Blood Cells 4.38 10^6/uL (4.0-5.20); White Blood Cell 6.4 10^3/uL (4.4-10.8)
[2022-11-26 22:17] LABS: Alanine Aminotransferase 14 U/L (7-40); Albumin 4.3 g/dL (3.2-4.8); Alkaline Phosphatase 126 U/L (46-116); Anion Gap 8.2 (5-15); Aspartate Aminotransferase 18 U/L (13-40); BUN/Creatinine Ratio 20.2 (10.0-20.0); Bilirubin, Total 0.3 mg/dL (0.2-1.0); Blood Urea Nitrogen 24 mg/dL (9-23); Calcium 9.9 mg/dL (8.7-10.4); Carbon Dioxide 21.8 mmol/L (20-30); Chloride 109 mmol/L (98-107); Glucose 205 mg/dL (74-106); Magnesium 1.8 mg/dL (1.6-2.6); Sodium 139 mmol/L (136-145)
[2022-11-27 00:41] LABS: Urine Bacteria MANY /hpf (None Seen); Urine Blood Negative /uL (Negative); Urine Clarity HAZY (Clear); Urine Color Yellow (Yellow); Urine Mucus FEW (None Seen); Urine Protein, UAD TRACE (Negative); Urine Specific Gravity 1.024 (1.001-1.035); Urine Urobilinogen Normal (Negative); Urine WBC 20 /hpf (0 - 5)
[2022-11-27] MEDS ORDERED: cefTRIAXone 1GM/50ML D5W 50 ML IV ONE (01:30)
[2022-11-27] MEDS ORDERED: HYDROcodone-ACET 5/325MG TAB PO ONE (01:30)
[2022-11-27] MEDS ORDERED: SODIUM CHLORIDE 0.9% 1,000 ML IV ONE (01:30)
[2022-11-27] MEDS ORDERED: HYDR1TAB97 PO (04:52)
[2022-11-27 05:40] VITALS: BP 134/73; PULSE 80; RESP 20; TEMP 97.8; O2SAT 100
== END 2022-11-27 05:44 | disposition home or self-care (01) ==
LOC: ER 20:58
DX: R51.9 Headache, unspecified (principal); N39.0 Urinary tract infection, site not specified; E11.65 Type 2 diabetes mellitus with hyperglycemia; I10 Essential (primary) hypertension; F41.9 Anxiety disorder, unspecified; E03.9 Hypothyroidism, unspecified; Z90.710 Acquired absence of both cervix and uterus; Z90.49 Acquired absence of other specified parts of digestive tract; Z98.890 Other specified postprocedural states
CPT/HCPCS: 36415; 70450; 70460; 80053; 81001; 83735; 84484; 85025; 93005; 96365; 99285; J0696; Q9967

== ENCOUNTER 2022-11-27 23:22 | Emergency (ER) | payer MEDICARE, MEDICAID ==
[~2022-11-27] VITALS: Ht 170.2 cm; Wt 82.3 kg
[~2022-11-27 23:22] MED LIST changes: +HYDR1TAB97 PO
[2022-11-28 00:38] LABS: Basophils # (auto) 0 10 ^3/uL (0-0.2); Basophils % (auto) 0.4 % (0.0-2.0); Eosinophils # (auto) 0.2 10 ^3/uL (0-0.8); Eosinophils % (auto) 2.6 % (0.0-7.0); Hematocrit 34.5 % (36.0-46.0); Hemoglobin 11.4 g/dL (12.2-16.2); Lymphocytes # (auto) 1.7 10 ^3/uL (0.4-5.4); Lymphocytes % (auto) 24.9 % (10.0-50.0); Mean Corpuscular Hemoglobin 27.6 pg (28.0-32.0); Mean Corpuscular Hgb Conc. 32.9 g/dL (32.0-36.0); Mean Corpuscular Volume 83.8 fL (80.0-100.0); Monocytes # (auto) 0.5 10 ^3/uL (0-1.3); Neutrophils # (auto) 4.4 10 ^3/uL (1.6-8.6); Neutrophils % (auto) 65.1 % (37.0-80.0); Red Blood Cells 4.11 10^6/uL (4.0-5.20); Red Cell Distribution Width 15.2 % (11.8-14.3); White Blood Cell 6.8 10^3/uL (4.4-10.8)
[2022-11-28 00:51] LABS: Alanine Aminotransferase 12 U/L (7-40); Albumin 4.1 g/dL (3.2-4.8); Alkaline Phosphatase 123 U/L (46-116); Anion Gap 5.6 (5-15); Aspartate Aminotransferase 16 U/L (13-40); BUN/Creatinine Ratio 20.9 (10.0-20.0); Bilirubin, Total 0.2 mg/dL (0.2-1.0); Blood Urea Nitrogen 24 mg/dL (9-23); Calcium 9.4 mg/dL (8.7-10.4); Carbon Dioxide 22.4 mmol/L (20-30); Chloride 110 mmol/L (98-107); Glucose 261 mg/dL (74-106); Potassium 4.3 mmol/L (3.5-5.1); Sodium 138 mmol/L (136-145); Total Protein 7.8 g/dL (5.7-8.2)
[2022-11-28 01:07] LABS: Urine Bacteria NONE SEEN /hpf (None Seen); Urine Blood Negative /uL (Negative); Urine Clarity Clear (Clear); Urine Color Colorless (Yellow); Urine Protein, UAD TRACE (Negative); Urine Urobilinogen Normal (Negative); Urine WBC 5 /hpf (0 - 5)
[2022-11-28 01:24] VITALS: BP 143/80
[2022-11-28 01:30] VITALS: PULSE 85; RESP 17; O2SAT 93
== END 2022-11-28 03:35 | disposition home or self-care (01) ==
LOC: ER 23:22
DX: K44.9 Diaphragmatic hernia without obstruction or gangrene (principal); K42.9 Umbilical hernia without obstruction or gangrene; R33.9 Retention of urine, unspecified; I10 Essential (primary) hypertension; E11.9 Type 2 diabetes mellitus without complications; E78.5 Hyperlipidemia, unspecified; E03.9 Hypothyroidism, unspecified; K21.9 Gastro-esophageal reflux disease without esophagitis; Z90.710 Acquired absence of both cervix and uterus; Z79.4 Long term (current) use of insulin; Z79.2 Long term (current) use of antibiotics; Z79.899 Other long term (current) drug therapy; Z90.49 Acquired absence of other specified parts of digestive tract; Z86.73 Personal history of transient ischemic attack (TIA), and cerebral infarction without residual deficits
CPT/HCPCS: 36415; 51702; 74176; 80053; 81001; 85025

== ENCOUNTER 2022-12-28 04:04 | Emergency (ER) | payer MEDICARE, MEDICAID ==
[~2022-12-28] VITALS: Ht 167.6 cm; Wt 81.2 kg
[2022-12-28 04:44] VITALS: O2SAT 98
[2022-12-28 04:47] LABS: Urine Bacteria FEW /hpf (None Seen); Urine Blood Negative /uL (Negative); Urine Clarity Clear (Clear); Urine Color Colorless (Yellow); Urine Hyaline Cast FEW /lpf (0 - 2); Urine Mucus FEW (None Seen); Urine Protein, UAD Negative (Negative); Urine Specific Gravity 1.018 (1.001-1.035); Urine Urobilinogen Normal (Negative); Urine WBC 6 /hpf (0 - 5)
[2022-12-28] MEDS ORDERED: ONDANSETRON HCL 4 MG/2 ML VIAL IV ONE (05:00)
[2022-12-28] MEDS ORDERED: MORPHINE SULFATE INJ 2 MG/ml SYRG IV ONE ×2 (05:00→09:45)
[2022-12-28 05:08] LABS: Basophils # (auto) 0 10 ^3/uL (0-0.2); Basophils % (auto) 0.5 % (0.0-2.0); Eosinophils # (auto) 0.1 10 ^3/uL (0-0.8); Eosinophils % (auto) 2.6 % (0.0-7.0); Hematocrit 35.2 % (36.0-46.0); Hemoglobin 11.5 g/dL (12.2-16.2); Lymphocytes # (auto) 1.4 10 ^3/uL (0.4-5.4); Lymphocytes % (auto) 30.6 % (10.0-50.0); Mean Corpuscular Hemoglobin 27.4 pg (28.0-32.0); Mean Corpuscular Hgb Conc. 32.6 g/dL (32.0-36.0); Monocytes # (auto) 0.4 10 ^3/uL (0-1.3); Monocytes % (auto) 7.7 % (0.0-12.0); Neutrophils # (auto) 2.7 10 ^3/uL (1.6-8.6); Neutrophils % (auto) 58.6 % (37.0-80.0); Red Blood Cells 4.19 10^6/uL (4.0-5.20); Red Cell Distribution Width 14.5 % (11.8-14.3); White Blood Cell 4.7 10^3/uL (4.4-10.8)
[2022-12-28 05:32] LABS: Alanine Aminotransferase 16 U/L (7-40); Albumin 4.1 g/dL (3.2-4.8); Alkaline Phosphatase 137 U/L (46-116); Anion Gap 8 (5-15); Aspartate Aminotransferase 20 U/L (13-40); Bilirubin, Total 0.3 mg/dL (0.2-1.0); Blood Urea Nitrogen 19 mg/dL (9-23); Calcium 9.8 mg/dL (8.7-10.4); Carbon Dioxide 20 mmol/L (20-30); Chloride 110 mmol/L (98-107); Glucose 222 mg/dL (74-106); Potassium 4.3 mmol/L (3.5-5.1); Sodium 138 mmol/L (136-145); Total Protein 7.7 g/dL (5.7-8.2)
[2022-12-28 08:46] VITALS: PULSE 80; RESP 17; O2SAT 97
[2022-12-28 10:00] VITALS: BP 118/70; PULSE 74; RESP 14; TEMP 98; O2SAT 92
== END 2022-12-28 10:29 | disposition home or self-care (01) ==
LOC: ER 04:04
DX: R10.9 Unspecified abdominal pain (principal); E11.65 Type 2 diabetes mellitus with hyperglycemia; I10 Essential (primary) hypertension; F41.9 Anxiety disorder, unspecified; E78.5 Hyperlipidemia, unspecified; K21.9 Gastro-esophageal reflux disease without esophagitis; Z90.710 Acquired absence of both cervix and uterus; Z98.890 Other specified postprocedural states; Z79.1 Long term (current) use of non-steroidal anti-inflammatories (NSAID); Z79.4 Long term (current) use of insulin; Z79.899 Other long term (current) drug therapy
CPT/HCPCS: 36415; 74176; 80053; 81001; 82962; 85025; 96374; 96375; 96376; 99285; J2270; J2405

== ENCOUNTER 2023-01-27 21:51 | Inpatient (IN) | payer MEDICARE, MEDICAID ==
[~2023-01-27] VITALS: Ht 170.2 cm; Wt 81.4 kg
[2023-01-27 22:28] LABS: Basophils # (auto) 0 10 ^3/uL (0-0.2); Basophils % (auto) 0.5 % (0.0-2.0); Eosinophils # (auto) 0.1 10 ^3/uL (0-0.8); Eosinophils % (auto) 1.9 % (0.0-7.0); Hematocrit 37.8 % (36.0-46.0); Hemoglobin 12.2 g/dL (12.2-16.2); Lymphocytes # (auto) 2.3 10 ^3/uL (0.4-5.4); Mean Corpuscular Hemoglobin 27.2 pg (28.0-32.0); Mean Corpuscular Hgb Conc. 32.4 g/dL (32.0-36.0); Mean Corpuscular Volume 83.9 fL (80.0-100.0); Monocytes # (auto) 0.5 10 ^3/uL (0-1.3); Monocytes % (auto) 6.9 % (0.0-12.0); Neutrophils # (auto) 4.1 10 ^3/uL (1.6-8.6); Neutrophils % (auto) 57.7 % (37.0-80.0); Red Blood Cells 4.51 10^6/uL (4.0-5.20); Red Cell Distribution Width 14.6 % (11.8-14.3); White Blood Cell 7.1 10^3/uL (4.4-10.8)
[2023-01-27 22:44] LABS: Alanine Aminotransferase 12 U/L (7-40); Albumin 4.3 g/dL (3.2-4.8); Alkaline Phosphatase 141 U/L (46-116); Anion Gap 8 (5-15); Aspartate Aminotransferase 18 U/L (13-40); BUN/Creatinine Ratio 15.6 (10.0-20.0); Blood Urea Nitrogen 19 mg/dL (9-23); Calcium 9.9 mg/dL (8.7-10.4); Carbon Dioxide 23 mmol/L (20-30); Chloride 108 mmol/L (98-107); Glucose 204 mg/dL (74-106); Sodium 139 mmol/L (136-145)
[2023-01-27 22:45] LABS: Bilirubin, Total 0.3 mg/dL (0.2-1.0); Total Protein 8.1 g/dL (5.7-8.2)
[2023-01-27] MEDS ORDERED: ONDANSETRON HCL 4 MG/2 ML VIAL IV ONE (23:30)
[2023-01-27] MEDS ORDERED: MORPHINE SULFATE 4 MG/ML SYR/VIAL IV ONE (23:30)
[2023-01-28 00:18] VITALS: PULSE 81; RESP 20; O2SAT 97
[2023-01-28 05:23] LABS: Urine Amorphous Crystal FEW /hpf (None Seen); Urine Bacteria FEW /hpf (None Seen); Urine Blood 3+ /uL (Negative); Urine Clarity CLOUDY (Clear); Urine Color Yellow (Yellow); Urine Mucus FEW (None Seen); Urine Protein, UAD 2+ (Negative); Urine Specific Gravity 1.021 (1.001-1.035); Urine WBC 1675 /hpf (0 - 5); Urine WBC Clumps PRESENT /hpf (None Seen); Urine pH 5.5 (5.0-8.0)
[2023-01-28 05:37] LABS: Magnesium 1.7 mg/dL (1.6-2.6)
[2023-01-28 05:58] LABS: Lactic Acid w/Reflex 2.2 mmol/L (0.4-2.0)
[2023-01-28] MEDS ORDERED: LACTATED RINGER'S 1,000 ML IV ONE (07:15)
[2023-01-28] MEDS ORDERED: PIPERACILLIN-TAZOB 3.375GM 100 ML IV ONE (07:15)
[2023-01-28] MEDS ORDERED: DEXTROSE (50%) 50ML SYRG IV PRN (09:15)
[2023-01-28] MEDS ORDERED: KETOROLAC TROMETH 30 MG/ML 1ML VIAL IV ONE (09:15)
[2023-01-28] MEDS ORDERED: ACETAMINOPHEN 325 MG TAB PO PRN (09:15)
[2023-01-28] MEDS: MAGNESIUM SULFATE 1GM/100ML 100 ML IV SCH ×2 (09:15→10:15)
[2023-01-28 09:40] LABS: Free T3 3.06 pg/mL (2.3-4.2); Free T4 (Free Thyroxine) 0.95 ng/dL (0.89-1.76)
[2023-01-28] MEDS: cefTRIAXone 1GM/50ML D5W 50 ML IV SCH (11:26)
[2023-01-28] MEDS: BENAZEPRIL HCL 10 MG TAB PO SCH ×2 (11:28→22:00)
[2023-01-28] MEDS: GABAPENTIN 300 MG CAP PO SCH ×2 (11:29→18:03)
[2023-01-28] MEDS: APIXABAN 5 MG TAB PO SCH ×2 (11:29→22:48)
[2023-01-28] MEDS: ACCU-CHEK COMFORT CURVE STRIP VI SCH ×3 (11:30→22:00)
[2023-01-28] MEDS: InsuLIN REG 1unit/0.01ml Soln (100units/ml) SC SCH ×3 (12:49→22:00)
[2023-01-28] MEDS: SODIUM CHLORIDE 0.9% 1,000 ML IV SCH ×2 (15:04→22:35)
[2023-01-28] MEDS: HYDROcodone-ACET 5/325MG TAB PO PRN ×2 (15:41→23:03)
[2023-01-29 05:52] LABS: Basophils # (auto) 0 10 ^3/uL (0-0.2); Basophils % (auto) 0.8 % (0.0-2.0); Eosinophils # (auto) 0.2 10 ^3/uL (0-0.8); Eosinophils % (auto) 2.7 % (0.0-7.0); Hematocrit 33.5 % (36.0-46.0); Hemoglobin 10.7 g/dL (12.2-16.2); Lymphocytes # (auto) 1.3 10 ^3/uL (0.4-5.4); Lymphocytes % (auto) 23.1 % (10.0-50.0); Mean Corpuscular Hemoglobin 26.8 pg (28.0-32.0); Mean Corpuscular Hgb Conc. 31.9 g/dL (32.0-36.0); Mean Corpuscular Volume 84.2 fL (80.0-100.0); Monocytes # (auto) 0.3 10 ^3/uL (0-1.3); Monocytes % (auto) 4.7 % (0.0-12.0); Neutrophils # (auto) 3.9 10 ^3/uL (1.6-8.6); Neutrophils % (auto) 68.7 % (37.0-80.0); Red Blood Cells 3.97 10^6/uL (4.0-5.20); Red Cell Distribution Width 14.7 % (11.8-14.3); White Blood Cell 5.7 10^3/uL (4.4-10.8)
[2023-01-29 06:14] LABS: Alanine Aminotransferase 17 U/L (7-40); Albumin 3.6 g/dL (3.2-4.8); Alkaline Phosphatase 108 U/L (46-116); Anion Gap 9 (5-15); Aspartate Aminotransferase 33 U/L (13-40); BUN/Creatinine Ratio 15.3 (10.0-20.0); Bilirubin, Total 0.2 mg/dL (0.2-1.0); Carbon Dioxide 21 mmol/L (20-30); Chloride 111 mmol/L (98-107); Glucose 204 mg/dL (74-106); Potassium 4.4 mmol/L (3.5-5.1); Sodium 141 mmol/L (136-145); Total Protein 6.7 g/dL (5.7-8.2)
[2023-01-29 06:34] LABS: Blood Urea Nitrogen 36 mg/dL (9-23)
[2023-01-29] MEDS ORDERED: LEVOTHYROXINE SODIUM 50 MCG TAB PO SCH (07:00)
[2023-01-29] MEDS ORDERED: OMEPRAZOLE 40MG/20ML ORAL SUSP PO SCH (07:00)
[2023-01-29] MEDS: GABAPENTIN 300 MG CAP PO SCH ×4 (07:15→17:47)
[2023-01-29] MEDS: PANTOPRAZOLE 40 MG TAB PO SCH (07:16)
[2023-01-29] MEDS: ACCU-CHEK COMFORT CURVE STRIP VI SCH ×4 (07:22→22:17)
[2023-01-29] MEDS: InsuLIN REG 1unit/0.01ml Soln (100units/ml) SC SCH ×4 (07:25→22:21)
[2023-01-29 09:07] VITALS: BP 108/60; PULSE 74; RESP 16; TEMP 97.6; O2SAT 97
[2023-01-29] MEDS: SODIUM CHLORIDE 0.9% 1,000 ML IV SCH (09:30)
[2023-01-29] MEDS: cefTRIAXone 1GM/50ML D5W 50 ML IV SCH (09:30)
[2023-01-29] MEDS: HYDROcodone-ACET 5/325MG TAB PO PRN (09:30)
[2023-01-29] MEDS: APIXABAN 5 MG TAB PO SCH ×2 (09:31→22:17)
[2023-01-29] MEDS: BENAZEPRIL HCL 10 MG TAB PO SCH ×2 (09:35→22:16)
[2023-01-29 11:40] VITALS: RESP 16
[2023-01-29] MEDS ORDERED: LEVOTHYROXINE SODIUM 100 MCG/5 ML INJ IV ONE (12:00)
[2023-01-29 13:00] VITALS: BP 98/62; PULSE 65; RESP 16; TEMP 98; O2SAT 97
[2023-01-29] MEDS: HYDROmorphone HCL 2 MG TAB PO PRN ×2 (16:27→22:17)
[2023-01-29 17:36] VITALS: BP 121/68; PULSE 84; RESP 18; TEMP 98; O2SAT 94
[2023-01-29 20:00] VITALS: BP 109/60; PULSE 78; PULSE 96; RESP 19; TEMP 98.2; O2SAT 95
[2023-01-29 22:00] VITALS: BP 109/60; PULSE 96; RESP 16; TEMP 98.2; O2SAT 96
[2023-01-30] MEDS: GABAPENTIN 300 MG CAP PO SCH ×3 (00:24→13:03)
[2023-01-30] MEDS: SODIUM CHLORIDE 0.9% 1,000 ML IV SCH ×2 (01:15→06:31)
[2023-01-30 05:00] VITALS: BP 120/74; PULSE 76; RESP 16; TEMP 98.3; O2SAT 93
[2023-01-30] MEDS: HYDROmorphone HCL 2 MG TAB PO PRN (05:05)
[2023-01-30] MEDS: PANTOPRAZOLE 40 MG TAB PO SCH (06:26)
[2023-01-30] MEDS: ACCU-CHEK COMFORT CURVE STRIP VI SCH ×2 (06:27→11:30)
[2023-01-30] MEDS: InsuLIN REG 1unit/0.01ml Soln (100units/ml) SC SCH ×2 (06:30→13:05)
[2023-01-30 09:00] VITALS: BP 126/75; PULSE 79; RESP 16; TEMP 97.8; O2SAT 95
[2023-01-30] MEDS ORDERED: HYDROmorphone HCL 2 MG TAB PO ONE (09:00)
[2023-01-30] MEDS ORDERED: HYDR2TAB58 PO (09:17)
[2023-01-30] MEDS ORDERED: LEV100T PO (09:17)
[2023-01-30] MEDS ORDERED: CIPR-173 PO (09:17)
[2023-01-30] MEDS: APIXABAN 5 MG TAB PO SCH (09:19)
[2023-01-30] MEDS: BENAZEPRIL HCL 10 MG TAB PO SCH (09:19)
[2023-01-30] MEDS: cefTRIAXone 1GM/50ML D5W 50 ML IV SCH (09:19)
[2023-01-30] MEDS ORDERED: LEVOTHYROXINE SODIUM 100 MCG/5 ML INJ IV SCH (10:00)
[2023-01-30 14:35] VITALS: BP 126/75; TEMP 36.6
[2023-01-30] MEDS ORDERED: PHEN-1045 PO (23:26)
== END 2023-01-30 15:37 | disposition home or self-care (01) | DRG 466 ==
LOC: ER 21:51 → OVERFLOW 01-28 09:07 → EAST 01-29 08:41
PROVIDERS: ADMIT Nurse Practitioner Family; ATTEND Family Medicine
DX: T83.511A Infection and inflammatory reaction due to indwelling urethral catheter, initial encounter (principal); N17.0 Acute kidney failure with tubular necrosis; A41.9 Sepsis, unspecified organism; E87.20 Acidosis, unspecified; E83.42 Hypomagnesemia; E86.0 Dehydration; I10 Essential (primary) hypertension; K21.9 Gastro-esophageal reflux disease without esophagitis; N99.3 Prolapse of vaginal vault after hysterectomy; E11.65 Type 2 diabetes mellitus with hyperglycemia; E03.9 Hypothyroidism, unspecified; E66.01 Morbid (severe) obesity due to excess calories; E78.00 Pure hypercholesterolemia, unspecified; F41.9 Anxiety disorder, unspecified; J45.909 Unspecified asthma, uncomplicated; N39.0 Urinary tract infection, site not specified; Y84.6 Urinary catheterization as the cause of abnormal reaction of the patient, or of later complication, without mention of misadventure at the time of the procedure; Z90.710 Acquired absence of both cervix and uterus; Y92.89 Other specified places as the place of occurrence of the external cause; Z68.21 Body mass index [BMI] 21.0-21.9, adult
CPT/HCPCS: 36415; 74176; 80053; 81001; 82962; 83036; 83605; 83690; 83735; 84439; 84443; 84481; 85025; 87040; 87086; 96361; 96374; 96375; G0378; J0696; J1815; J1885; J2405; J2543; J3490

== ENCOUNTER 2023-01-30 19:22 | Emergency (ER) | payer MEDICARE, MEDICAID ==
[~2023-01-30] VITALS: Ht 167.6 cm; Wt 87.1 kg
[~2023-01-30 19:22] MED LIST changes: -CEFD300C2 PO; -CEPH500T PO; -CIPR500T4 PO; -HYDR1TAB97 PO; +HYDR2TAB58 PO; +LEV100T PO; -NITR1CAP23 PO; -ONDA-144 PO; -PHEN-1045 PO
[2023-01-30 22:15] LABS: Urine Bacteria NONE SEEN /hpf (None Seen); Urine Blood 3+ /uL (Negative); Urine Clarity HAZY (Clear); Urine Color Yellow (Yellow); Urine Protein, UAD 2+ (Negative); Urine Specific Gravity 1.019 (1.001-1.035); Urine Urobilinogen Normal (Negative); Urine WBC 80 /hpf (0 - 5)
[2023-01-30] MEDS ORDERED: PHEN-1045 PO (23:26)
[2023-01-30] MEDS ORDERED: cefTRIAXone SOD 1,000 MG VL IM ONE (23:30)
[2023-01-31 00:21] VITALS: BP 142/82; PULSE 95; RESP 16; TEMP 98.4; O2SAT 95
== END 2023-01-31 00:32 | disposition home or self-care (01) ==
LOC: ER 19:22
DX: T83.091A Other mechanical complication of indwelling urethral catheter, initial encounter (principal); N39.0 Urinary tract infection, site not specified; R33.9 Retention of urine, unspecified; E11.9 Type 2 diabetes mellitus without complications; K21.9 Gastro-esophageal reflux disease without esophagitis; E78.5 Hyperlipidemia, unspecified; I10 Essential (primary) hypertension; Z90.710 Acquired absence of both cervix and uterus
CPT/HCPCS: 51702; 81001; 96372; 99284; J0696

== ENCOUNTER 2023-01-31 17:20 | Emergency (ER) | payer MEDICARE, MEDICAID ==
[~2023-01-31] VITALS: Ht 167.6 cm; Wt 82.0 kg
[~2023-01-31 17:20] MED LIST changes: +PHEN-1045 PO
[2023-01-31 17:49] VITALS: BP 144/82; PULSE 86; RESP 18; O2SAT 98
== END 2023-01-31 19:48 | disposition home or self-care (01) ==
LOC: EDBD 17:20 → ER 17:20
DX: N39.0 Urinary tract infection, site not specified (principal); E11.9 Type 2 diabetes mellitus without complications; E78.00 Pure hypercholesterolemia, unspecified; K21.9 Gastro-esophageal reflux disease without esophagitis; E78.5 Hyperlipidemia, unspecified; I10 Essential (primary) hypertension; Z90.710 Acquired absence of both cervix and uterus

== ENCOUNTER 2023-02-01 23:49 | Emergency (ER) | payer MEDICARE, MEDICAID ==
[~2023-02-01] VITALS: Ht 167.6 cm; Wt 81.8 kg
[2023-02-02] MEDS ORDERED: ACETAMINOPHEN/CODEINE#3 (300/30mg) TAB PO ONE (00:15)
[2023-02-02] MEDS ORDERED: HYDROmorphone HCL 2 MG/ML VL/or syr IM ONE (00:45)
[2023-02-02] MEDS ORDERED: ONDANSETRON ODT 4 MG TAB PO ONE (00:45)
[2023-02-02 00:49] LABS: Basophils # (auto) 0 10 ^3/uL (0-0.2); Basophils % (auto) 0.3 % (0.0-2.0); Eosinophils # (auto) 0.2 10 ^3/uL (0-0.8); Eosinophils % (auto) 4.1 % (0.0-7.0); Hematocrit 34.8 % (36.0-46.0); Hemoglobin 11.2 g/dL (12.2-16.2); Lymphocytes # (auto) 1.8 10 ^3/uL (0.4-5.4); Lymphocytes % (auto) 31.5 % (10.0-50.0); Mean Corpuscular Hemoglobin 27.2 pg (28.0-32.0); Mean Corpuscular Hgb Conc. 32.3 g/dL (32.0-36.0); Mean Corpuscular Volume 84.2 fL (80.0-100.0); Monocytes # (auto) 0.4 10 ^3/uL (0-1.3); Monocytes % (auto) 7.1 % (0.0-12.0); Neutrophils # (auto) 3.2 10 ^3/uL (1.6-8.6); Red Blood Cells 4.13 10^6/uL (4.0-5.20); Red Cell Distribution Width 14.7 % (11.8-14.3); White Blood Cell 5.7 10^3/uL (4.4-10.8)
[2023-02-02 01:04] LABS: Urine Bacteria NONE SEEN /hpf (None Seen); Urine Blood 3+ /uL (Negative); Urine Clarity Clear (Clear); Urine Color Yellow (Yellow); Urine Mucus FEW (None Seen); Urine Protein, UAD 1+ (Negative); Urine Specific Gravity 1.018 (1.001-1.035); Urine Urobilinogen Normal (Negative); Urine WBC 27 /hpf (0 - 5)
[2023-02-02 01:09] LABS: Alanine Aminotransferase 15 U/L (7-40); Albumin 4.3 g/dL (3.2-4.8); Alkaline Phosphatase 138 U/L (46-116); Anion Gap 8 (5-15); Aspartate Aminotransferase 28 U/L (13-40); BUN/Creatinine Ratio 19.2 (10.0-20.0); Blood Urea Nitrogen 19 mg/dL (9-23); Calcium 10.2 mg/dL (8.7-10.4); Carbon Dioxide 21 mmol/L (20-30); Chloride 110 mmol/L (98-107); Glucose 177 mg/dL (74-106); Lipase 55 U/L (12-53); Sodium 139 mmol/L (136-145)
[2023-02-02 01:11] LABS: Bilirubin, Total 0.3 mg/dL (0.2-1.0); Total Protein 7.9 g/dL (5.7-8.2)
[2023-02-02] MEDS ORDERED: levoFLOXacin 250 MG TAB PO ONE (01:30)
[2023-02-02] MEDS ORDERED: PERCOT PO ×3 (01:38→15:33)
[2023-02-02] MEDS ORDERED: LEVO750T8 PO (01:38)
[2023-02-02 01:54] VITALS: TEMP 98.2; O2SAT 96
[2023-02-02 02:30] VITALS: BP 142/86; PULSE 82; RESP 17
== END 2023-02-02 02:36 | disposition home or self-care (01) ==
LOC: ER 23:49
DX: N39.0 Urinary tract infection, site not specified (principal); N28.9 Disorder of kidney and ureter, unspecified; N81.10 Cystocele, unspecified; I10 Essential (primary) hypertension; E11.9 Type 2 diabetes mellitus without complications; K21.9 Gastro-esophageal reflux disease without esophagitis; E78.5 Hyperlipidemia, unspecified; F41.9 Anxiety disorder, unspecified; Z98.890 Other specified postprocedural states; Z79.4 Long term (current) use of insulin; Z79.899 Other long term (current) drug therapy
CPT/HCPCS: 36415; 80053; 81001; 83690; 85025; 96372; 99283; J1170; Q0162

== ENCOUNTER 2023-05-01 16:13 | Emergency (ER) | payer MEDICARE, MEDICAID ==
[~2023-05-01] VITALS: Ht 157.5 cm; Wt 90.9 kg
[~2023-05-01 16:13] MED LIST changes: +AMOX875T4 PO; +LEVO750T8 PO; +PERCOT PO
[2023-05-01 17:22] LABS: Basophils # (auto) 0 10 ^3/uL (0-0.2); Basophils % (auto) 0.5 % (0.0-2.0); Eosinophils # (auto) 0.3 10 ^3/uL (0-0.8); Eosinophils % (auto) 4.5 % (0.0-7.0); Hematocrit 33.4 % (36.0-46.0); Hemoglobin 10.6 g/dL (12.2-16.2); Lymphocytes # (auto) 1.4 10 ^3/uL (0.4-5.4); Lymphocytes % (auto) 24.5 % (10.0-50.0); Mean Corpuscular Hgb Conc. 31.9 g/dL (32.0-36.0); Mean Corpuscular Volume 84.6 fL (80.0-100.0); Monocytes # (auto) 0.5 10 ^3/uL (0-1.3); Monocytes % (auto) 8.3 % (0.0-12.0); Neutrophils # (auto) 3.5 10 ^3/uL (1.6-8.6); Neutrophils % (auto) 62.2 % (37.0-80.0); Nucleated Red Blood Cells % 0.2 %; Red Blood Cells 3.95 10^6/uL (4.0-5.20); Red Cell Distribution Width 14.9 % (11.8-14.3); White Blood Cell 5.6 10^3/uL (4.4-10.8)
[2023-05-01 17:33] LABS: Chloride 110 mmol/L (98-107); Potassium 4.2 mmol/L (3.5-5.1); Sodium 137 mmol/L (136-145)
[2023-05-01 17:34] LABS: Anion Gap 5 (5-15); Calcium 9.2 mg/dL (8.7-10.4); Carbon Dioxide 22 mmol/L (20-30)
[2023-05-01 17:39] LABS: BUN/Creatinine Ratio 18.3 (10.0-20.0); Blood Urea Nitrogen 17 mg/dL (9-23); Glucose 164 mg/dL (74-106)
[2023-05-01] MEDS: HYDROmorphone HCL 2 MG/ML VL/or syr IV ONE (18:22)
[2023-05-01] MEDS ORDERED: MORP15TA PO (18:58)
[2023-05-01 20:12] VITALS: TEMP 97.7; O2SAT 99
[2023-05-01 20:13] VITALS: BP 153/74; PULSE 100; RESP 16
== END 2023-05-01 20:24 | disposition home or self-care (01) ==
LOC: EDBD 16:13 → ER 16:13
DX: G89.18 Other acute postprocedural pain (principal); G89.4 Chronic pain syndrome; R10.30 Lower abdominal pain, unspecified; I10 Essential (primary) hypertension; E11.9 Type 2 diabetes mellitus without complications; K21.9 Gastro-esophageal reflux disease without esophagitis; E78.5 Hyperlipidemia, unspecified; Z90.710 Acquired absence of both cervix and uterus; Z79.2 Long term (current) use of antibiotics; Z79.4 Long term (current) use of insulin; Z79.899 Other long term (current) drug therapy
CPT/HCPCS: 36415; 74176; 80048; 85025; 93005; 96374; 99285; J1170

== ENCOUNTER 2023-06-01 07:35 | Emergency (ER) | payer MEDICARE, MEDICAID ==
[~2023-06-01] VITALS: Ht 167.6 cm; Wt 79.5 kg
[~2023-06-01 07:35] MED LIST changes: +MORP15TA PO
[2023-06-01 09:20] LABS: Urine Bacteria FEW /hpf (None Seen); Urine Blood 1+ /uL (Negative); Urine Clarity Clear (Clear); Urine Color Yellow (Yellow); Urine Mucus FEW (None Seen); Urine Protein, UAD 1+ (Negative); Urine Specific Gravity 1.024 (1.001-1.035); Urine WBC 1 /hpf (0 - 5); Urine pH 5.5 (5.0-8.0)
[2023-06-01] MEDS ORDERED: NITR-87 PO (09:41)
[2023-06-01 10:20] VITALS: BP 132/94; PULSE 70; RESP 19; TEMP 98.2; O2SAT 96
== END 2023-06-01 11:03 | disposition home or self-care (01) ==
LOC: ER 07:35
DX: N39.0 Urinary tract infection, site not specified (principal); I10 Essential (primary) hypertension; E11.9 Type 2 diabetes mellitus without complications; E78.5 Hyperlipidemia, unspecified; K21.9 Gastro-esophageal reflux disease without esophagitis; Z90.710 Acquired absence of both cervix and uterus; Z79.2 Long term (current) use of antibiotics; Z79.899 Other long term (current) drug therapy
CPT/HCPCS: 81001

== ENCOUNTER 2023-09-28 07:06 | Inpatient (IN) | payer MEDICARE, MEDICAID ==
[~2023-09-28] VITALS: Ht 167.6 cm; Wt 86.9 kg
[~2023-09-28 07:06] MED LIST changes: -BENA-19 PO; +BENA10TA90 PO; +NITR-87 PO
[2023-09-28 07:55] LABS: Basophils # (auto) 0 10 ^3/uL (0-0.2); Eosinophils # (auto) 0.1 10 ^3/uL (0-0.8); Hemoglobin 10.8 g/dL (12.2-16.2); Lymphocytes # (auto) 1.7 10 ^3/uL (0.4-5.4); Monocytes # (auto) 0.4 10 ^3/uL (0-1.3); White Blood Cell 6.1 10^3/uL (4.4-10.8)
[2023-09-28 07:57] LABS: Basophils % (auto) 0.5 % (0.0-2.0); Eosinophils % (auto) 2.2 % (0.0-7.0); Hematocrit 34.6 % (36.0-46.0); Lymphocytes % (auto) 27.1 % (10.0-50.0); Mean Corpuscular Hemoglobin 26.1 pg (28.0-32.0); Mean Corpuscular Hgb Conc. 31.2 g/dL (32.0-36.0); Mean Corpuscular Volume 83.6 fL (80.0-100.0); Monocytes % (auto) 6.4 % (0.0-12.0); Neutrophils # (auto) 3.9 10 ^3/uL (1.6-8.6); Neutrophils % (auto) 63.8 % (37.0-80.0); Nucleated Red Blood Cells % 0.1 %; Red Blood Cells 4.14 10^6/uL (4.0-5.20)
[2023-09-28 08:02] LABS: Chloride 113 mmol/L (98-107); Potassium 3.8 mmol/L (3.5-5.1); Sodium 142 mmol/L (136-145)
[2023-09-28 08:03] LABS: Anion Gap 6 (5-15); Carbon Dioxide 23 mmol/L (20-30)
[2023-09-28 08:04] LABS: Calcium 9.6 mg/dL (8.5-10.1)
[2023-09-28] MEDS: DEXTROSE (50%) 50ML SYRG IV ONE (08:04)
[2023-09-28 08:08] LABS: BUN/Creatinine Ratio 18.9 (10.0-20.0); Blood Urea Nitrogen 18 mg/dL (9-23)
[2023-09-28 08:12] LABS: Glucose 45 mg/dL (74-106)
[2023-09-28] MEDS: DEXTROSE 10% 1,000 ML IV ONE (08:12)
[2023-09-28 09:34] VITALS: PULSE 85; RESP 12; O2SAT 95
[2023-09-28 09:48] LABS: Urine Bacteria None Seen /hpf (None Seen)
[2023-09-28 10:02] LABS: Urine Blood Negative /uL (Negative); Urine Clarity Clear (Clear); Urine Color Light-Yellow (Yellow); Urine Protein, UAD Negative (Negative); Urine Specific Gravity 1.016 (1.001-1.035); Urine Urobilinogen Normal (Negative); Urine WBC <1 /hpf (0 - 5); Urine pH 6.5 (5.0-9.0)
[2023-09-28] MEDS ORDERED: NITROGLYCERIN 0.4 MG SL TAB SL PRN (13:45)
[2023-09-28] MEDS ORDERED: DOCUSATE SOD 100 MG CAP PO PRN (13:45)
[2023-09-28] MEDS ORDERED: DEXTROSE (50%) 50ML SYRG IV PRN (13:45)
[2023-09-28] MEDS ORDERED: MORPHINE SULFATE INJ 2 MG/ml SYRG IV PRN (13:45)
[2023-09-28] MEDS ORDERED: ONDANSETRON HCL 4 MG/2 ML VIAL IV PRN (13:45)
[2023-09-28] MEDS ORDERED: GABA400C PO (14:09)
[2023-09-28] MEDS ORDERED: METH-1181 PO (14:09)
[2023-09-28] MEDS ORDERED: LOSA-533 PO (14:09)
[2023-09-28] MEDS ORDERED: ATOR20TA50 PO (14:09)
[2023-09-28] MEDS ORDERED: METHOCARBAMOL 500 MG TAB PO PRN (15:30)
[2023-09-28] MEDS: MORPHINE SULFATE INJ 2 MG/ml SYRG IV PRN (16:00)
[2023-09-28] MEDS: ACCU-CHEK COMFORT CURVE STRIP VI SCH (16:08)
[2023-09-28 17:35] VITALS: BP 135/70; PULSE 72; RESP 16; O2SAT 98
[2023-09-28] MEDS ORDERED: OFL50TS OT (18:55)
[2023-09-28] MEDS ORDERED: DICL1GEL73 TD (18:57)
[2023-09-28] MEDS ORDERED: KETO2CRE4 EX (18:58)
[2023-09-28 20:00] VITALS: PULSE 81; RESP 17; O2SAT 92
[2023-09-28 21:00] VITALS: BP 144/67; PULSE 75; RESP 17; TEMP 97.8; O2SAT 92
[2023-09-28] MEDS: BENAZEPRIL HCL 10 MG TAB PO SCH (21:01)
[2023-09-28] MEDS: APIXABAN 5 MG TAB PO SCH (21:01)
[2023-09-28] MEDS: GABAPENTIN 400 MG CAP PO SCH (21:01)
[2023-09-28] MEDS ORDERED: HYDROcodone-ACET 10/325MG TAB PO PRN (22:00)
[2023-09-29] VITALS (11 sets, daily range): BP systolic 96–140; BP diastolic 53–73; PULSE 70–88; RESP 16–21; TEMP 97.6–98.6; O2SAT 92–97
[2023-09-29] MEDS ORDERED: ALBUTEROL SULF 2.5 MG/0.5ML(0.5%) NEB SOLN NEB PRN (01:15)
[2023-09-29] MEDS: TEMAZEPAM 15 MG CAP PO ONE (01:22)
[2023-09-29] MEDS: PANTOPRAZOLE 40 MG TAB PO SCH (06:08)
[2023-09-29] MEDS: LEVOTHYROXINE SODIUM 50 MCG TAB PO SCH (06:08)
[2023-09-29 06:50] LABS: Basophils # (auto) 0 10 ^3/uL (0-0.2); Basophils % (auto) 0.6 % (0.0-2.0); Eosinophils # (auto) 0.2 10 ^3/uL (0-0.8); Monocytes # (auto) 0.4 10 ^3/uL (0-1.3); Nucleated Red Blood Cells % 0.1 %
[2023-09-29 06:52] LABS: Eosinophils % (auto) 3.7 % (0.0-7.0); Hemoglobin 10.5 g/dL (12.2-16.2); Lymphocytes # (auto) 1.7 10 ^3/uL (0.4-5.4); Lymphocytes % (auto) 36.9 % (10.0-50.0); Mean Corpuscular Hemoglobin 26.4 pg (28.0-32.0); Mean Corpuscular Volume 82.5 fL (80.0-100.0); Monocytes % (auto) 9.2 % (0.0-12.0); Neutrophils # (auto) 2.3 10 ^3/uL (1.6-8.6); Neutrophils % (auto) 49.6 % (37.0-80.0); Red Cell Distribution Width 16.7 % (11.8-14.3); White Blood Cell 4.5 10^3/uL (4.4-10.8)
[2023-09-29 06:57] LABS: Alanine Aminotransferase 19 U/L (7-40); Albumin 3.4 g/dL (3.2-4.8); Alkaline Phosphatase 109 U/L (46-116); Anion Gap 4 (5-15); Aspartate Aminotransferase 28 U/L (13-40); BUN/Creatinine Ratio 20.8 (10.0-20.0); Bilirubin, Total 0.7 mg/dL (0.2-1.0); Blood Urea Nitrogen 20 mg/dL (9-23); Calcium 9.3 mg/dL (8.7-10.4); Carbon Dioxide 24 mmol/L (20-30); Chloride 110 mmol/L (98-107); Glucose 76 mg/dL (74-106); Potassium 4.4 mmol/L (3.5-5.1); Sodium 138 mmol/L (136-145); Total Protein 6.8 g/dL (5.7-8.2)
[2023-09-29] MEDS: LOSARTAN POTASSIUM 25 MG TAB PO SCH (08:27)
[2023-09-29 16:31] LABS: Triglycerides 99 mg/dL (< 150)
[2023-09-29 16:32] LABS: LDL Cholesterol 66 mg/dL (< 100)
[2023-09-29 16:33] LABS: Cholesterol 130 mg/dL (< 200); HDL Cholesterol 43 mg/dL (40-59)
[2023-09-29 17:19] LABS: Lipase 27 U/L (12-53)
[2023-09-29 17:33] LABS: % Iron Saturation 52.8 % (15-50)
[2023-09-29] MEDS: ATORVASTATIN 20 MG TAB PO SCH (21:50)
[2023-09-30] VITALS (9 sets, daily range): BP systolic 94–147; BP diastolic 50–70; PULSE 65–88; RESP 15–21; TEMP 97.7–98.3; O2SAT 92–98
[2023-09-30 08:17] LABS: Basophils # (auto) 0 10 ^3/uL (0-0.2); Eosinophils # (auto) 0.2 10 ^3/uL (0-0.8); Lymphocytes # (auto) 1.5 10 ^3/uL (0.4-5.4); Lymphocytes % (auto) 32.3 % (10.0-50.0); Monocytes # (auto) 0.4 10 ^3/uL (0-1.3)
[2023-09-30 08:20] LABS: Basophils % (auto) 0.6 % (0.0-2.0); Eosinophils % (auto) 3.4 % (0.0-7.0); Hematocrit 32.7 % (36.0-46.0); Hemoglobin 10.4 g/dL (12.2-16.2); Mean Corpuscular Hemoglobin 26.2 pg (28.0-32.0); Mean Corpuscular Hgb Conc. 31.9 g/dL (32.0-36.0); Mean Corpuscular Volume 82.1 fL (80.0-100.0); Monocytes % (auto) 8.7 % (0.0-12.0); Neutrophils # (auto) 2.6 10 ^3/uL (1.6-8.6); Red Blood Cells 3.98 10^6/uL (4.0-5.20); Red Cell Distribution Width 16.3 % (11.8-14.3); White Blood Cell 4.7 10^3/uL (4.4-10.8)
[2023-09-30] MEDS: ERGOCALCIFEROL 50,000 UNIT(1.25MG) CAP PO SCH (16:40)
[2023-09-30] MEDS: INSULIN LANTUS (GLARGINE) 1 /0.01ml (100units/ml) SC SCH (16:42)
[2023-10-01] VITALS (8 sets, daily range): BP systolic 105–144; BP diastolic 60–77; PULSE 77–86; RESP 16–20; TEMP 36.6; O2SAT 93–96
[2023-10-01] MEDS: TEMAZEPAM 15 MG CAP PO ONE (01:37)
[2023-10-01 06:51] LABS: Basophils # (auto) 0 10 ^3/uL (0-0.2); Basophils % (auto) 0.4 % (0.0-2.0); Neutrophils # (auto) 2.9 10 ^3/uL (1.6-8.6); Nucleated Red Blood Cells % 0.1 %; Red Blood Cells 3.84 10^6/uL (4.0-5.20); Red Cell Distribution Width 16.2 % (11.8-14.3)
[2023-10-01 06:53] LABS: Eosinophils # (auto) 0.2 10 ^3/uL (0-0.8); Hematocrit 31.6 % (36.0-46.0); Hemoglobin 10.4 g/dL (12.2-16.2); Lymphocytes # (auto) 1.6 10 ^3/uL (0.4-5.4); Lymphocytes % (auto) 30.4 % (10.0-50.0); Mean Corpuscular Hgb Conc. 32.7 g/dL (32.0-36.0); Mean Corpuscular Volume 82.4 fL (80.0-100.0); Monocytes # (auto) 0.4 10 ^3/uL (0-1.3); Monocytes % (auto) 8.5 % (0.0-12.0); Neutrophils % (auto) 57.7 % (37.0-80.0); White Blood Cell 5.1 10^3/uL (4.4-10.8)
[2023-10-01 07:00] LABS: Calcium 9.4 mg/dL (8.5-10.1); Chloride 113 mmol/L (98-107); Potassium 4.9 mmol/L (3.5-5.1); Sodium 141 mmol/L (136-145)
[2023-10-01 07:01] LABS: Anion Gap 4 (5-15); Carbon Dioxide 24 mmol/L (20-30)
[2023-10-01 07:06] LABS: BUN/Creatinine Ratio 29.4 (10.0-20.0); Blood Urea Nitrogen 35 mg/dL (9-23); Glucose 133 mg/dL (74-106)
[2023-10-01] MEDS: LOPERAMIDE HCL 2 MG CAP/TAB PO ONE (11:53)
[2023-10-01] MEDS ORDERED: ERGO1CAP23 PO (13:43)
[2023-10-01] MEDS ORDERED: INSLANTI SC (13:43)
[2023-10-01] MEDS ORDERED: INSU-1639 XX (13:43)
[2023-10-01] MEDS ORDERED: INSREGI IV (13:43)
[2023-10-01] MEDS ORDERED: LANC28MI44 XX (13:43)
[2023-10-01] MEDS ORDERED: INSU100S4 SC (13:45)
[2023-10-01] MEDS ORDERED: INSU100I33 SC (16:19)
== END 2023-10-01 18:23 | disposition home or self-care (01) | DRG 639 ==
LOC: ER 07:06 → TELE 13:39 → TELE-CENTR 16:32
PROVIDERS: ADMIT Internal Medicine; ATTEND Internal Medicine
DX: E11.649 Type 2 diabetes mellitus with hypoglycemia without coma (principal); D64.9 Anemia, unspecified; I10 Essential (primary) hypertension; E78.5 Hyperlipidemia, unspecified; E11.40 Type 2 diabetes mellitus with diabetic neuropathy, unspecified; F41.9 Anxiety disorder, unspecified; M1A.9XX0 Chronic gout, unspecified, without tophus (tophi); E03.9 Hypothyroidism, unspecified; J44.89 Other specified chronic obstructive pulmonary disease; E55.9 Vitamin D deficiency, unspecified; K21.9 Gastro-esophageal reflux disease without esophagitis; Z90.710 Acquired absence of both cervix and uterus; Z87.440 Personal history of urinary (tract) infections; Z79.4 Long term (current) use of insulin; Z95.828 Presence of other vascular implants and grafts
CPT/HCPCS: 36415; 80048; 80053; 80061; 81001; 82270; 82306; 82962; 83036; 83540; 83550; 83690; 84439; 84443; 85025; 99291; G0378; J1815

== ENCOUNTER 2023-10-02 17:08 | Inpatient (IN) | payer MEDICARE, MEDICAID ==
[~2023-10-02] VITALS: Ht 167.6 cm; Wt 91.0 kg
[~2023-10-02 17:08] MED LIST changes: -ALBU108A5 INH; -AMOX875T4 PO; +ATOR20TA50 PO; -BENA10TA90 PO; -CIPR-173 PO; +DICL1GEL73 TD; -EMPA1TAB3 PO; +ERGO1CAP23 PO; -GABA-339 PO; +GABA400C PO; -HYDR2TAB58 PO; +INSREGI IV; +INSU-1639 XX; +INSU100I33 SC; -INSU1INJ19 SC; +KETO2CRE4 EX; +LANC28MI44 XX; -LEVO50TA7 PO; -LEVO750T8 PO; +LOSA-533 PO; +METH-1181 PO; -MORP15TA PO; -NITR-87 PO; +OFL50TS OT; -OMEP1CAP70 PO; -PERCOT PO; -PHEN-1045 PO; -TIZA-142 PO
[2023-10-02] MEDS: D5W 5% 1,000 ML IV ONE (19:45)
[2023-10-02 19:47] LABS: Basophils # (auto) 0 10 ^3/uL (0-0.2); Basophils % (auto) 0.5 % (0.0-2.0); Eosinophils # (auto) 0.1 10 ^3/uL (0-0.8); Eosinophils % (auto) 1.7 % (0.0-7.0); Hematocrit 33.3 % (36.0-46.0); Hemoglobin 10.5 g/dL (12.2-16.2); Lymphocytes # (auto) 0.9 10 ^3/uL (0.4-5.4); Lymphocytes % (auto) 14.1 % (10.0-50.0); Mean Corpuscular Hemoglobin 26.1 pg (28.0-32.0); Mean Corpuscular Hgb Conc. 31.7 g/dL (32.0-36.0); Mean Corpuscular Volume 82.5 fL (80.0-100.0); Monocytes # (auto) 0.5 10 ^3/uL (0-1.3); Monocytes % (auto) 8.5 % (0.0-12.0); Neutrophils # (auto) 4.8 10 ^3/uL (1.6-8.6); Neutrophils % (auto) 75.2 % (37.0-80.0); Red Blood Cells 4.04 10^6/uL (4.0-5.20); Red Cell Distribution Width 16.6 % (11.8-14.3); White Blood Cell 6.4 10^3/uL (4.4-10.8)
[2023-10-02 20:07] LABS: Alanine Aminotransferase 20 U/L (7-40); Albumin 4.2 g/dL (3.2-4.8); Alkaline Phosphatase 149 U/L (46-116); Anion Gap 6 (5-15); Aspartate Aminotransferase 22 U/L (13-40); BUN/Creatinine Ratio 28.6 (10.0-20.0); Blood Urea Nitrogen 34 mg/dL (9-23); Calcium 9.7 mg/dL (8.5-10.1); Carbon Dioxide 23 mmol/L (20-30); Chloride 113 mmol/L (98-107); Glucose 61 mg/dL (74-106); Potassium 4.7 mmol/L (3.5-5.1); Sodium 142 mmol/L (136-145)
[2023-10-02 20:08] LABS: Bilirubin, Total 0.3 mg/dL (0.2-1.0); Total Protein 7.8 g/dL (5.7-8.2)
[2023-10-02] MEDS: HYDROcodone-ACET 10/325MG TAB PO ONE (20:40)
[2023-10-03] MEDS: DEXTROSE 10% 1,000 ML IV ONE ×2 (03:17→08:50)
[2023-10-03 04:00] VITALS: PULSE 97; RESP 16; O2SAT 97
[2023-10-03] MEDS ORDERED: NITROGLYCERIN 0.4 MG SL TAB SL PRN (04:45)
[2023-10-03] MEDS ORDERED: DEXTROSE (50%) 50ML SYRG IV PRN (04:45)
[2023-10-03] MEDS ORDERED: DOCUSATE SOD 100 MG CAP PO PRN (04:45)
[2023-10-03] MEDS: SODIUM CHLORIDE 0.9% 1,000 ML IV SCH (05:40)
[2023-10-03] MEDS: LEVOTHYROXINE SODIUM 100 MCG TAB PO SCH (06:10)
[2023-10-03 06:12] LABS: Basophils # (auto) 0 10 ^3/uL (0-0.2); Eosinophils # (auto) 0.1 10 ^3/uL (0-0.8); Eosinophils % (auto) 1.9 % (0.0-7.0); Hemoglobin 9.8 g/dL (12.2-16.2); Lymphocytes # (auto) 0.7 10 ^3/uL (0.4-5.4); Monocytes # (auto) 0.5 10 ^3/uL (0-1.3)
[2023-10-03 06:15] LABS: Basophils % (auto) 0.3 % (0.0-2.0); Hematocrit 30.3 % (36.0-46.0); Lymphocytes % (auto) 14.7 % (10.0-50.0); Mean Corpuscular Hgb Conc. 32.2 g/dL (32.0-36.0); Mean Corpuscular Volume 83.8 fL (80.0-100.0); Monocytes % (auto) 10.5 % (0.0-12.0); Neutrophils # (auto) 3.5 10 ^3/uL (1.6-8.6); Neutrophils % (auto) 72.6 % (37.0-80.0); Nucleated Red Blood Cells % 0.1 %; Red Blood Cells 3.62 10^6/uL (4.0-5.20); Red Cell Distribution Width 16.8 % (11.8-14.3); White Blood Cell 4.8 10^3/uL (4.4-10.8)
[2023-10-03 06:33] LABS: Alanine Aminotransferase 17 U/L (7-40); Albumin 3.6 g/dL (3.2-4.8); Alkaline Phosphatase 118 U/L (46-116); Anion Gap 6 (5-15); Aspartate Aminotransferase 19 U/L (13-40); BUN/Creatinine Ratio 20.7 (10.0-20.0); Bilirubin, Total 0.5 mg/dL (0.2-1.0); Calcium 9.2 mg/dL (8.5-10.1); Carbon Dioxide 22 mmol/L (20-30); Chloride 108 mmol/L (98-107); Glucose 203 mg/dL (74-106); Potassium 4.4 mmol/L (3.5-5.1); Total Protein 6.8 g/dL (5.7-8.2)
[2023-10-03 06:35] LABS: Blood Urea Nitrogen 23 mg/dL (9-23); Sodium 136 mmol/L (136-145)
[2023-10-03] MEDS: InsuLIN REG 1unit/0.01ml Soln (100units/ml) SC SCH (06:54)
[2023-10-03] MEDS: ACCU-CHEK COMFORT CURVE STRIP VI SCH (06:55)
[2023-10-03] MEDS: ASPirin 81 mg TAB PO SCH (10:00)
[2023-10-03] MEDS: HYDROcodone-ACET 5/325MG TAB PO PRN (11:41)
[2023-10-03] MEDS: FAMOTIDINE (10MG/ML) 2ML VL IV ONE (18:00)
[2023-10-03 18:41] VITALS: PULSE 107; RESP 18; O2SAT 91
[2023-10-03 20:00] VITALS: PULSE 107; PULSE 109; RESP 18; O2SAT 91
[2023-10-03] MEDS: ONDANSETRON HCL 4 MG/2 ML VIAL IV PRN (20:09)
[2023-10-03] MEDS: MORPHINE SULFATE INJ 2 MG/ml SYRG IV PRN ×2 (20:11)
[2023-10-03 21:00] VITALS: BP 141/74; PULSE 107; RESP 18; TEMP 100.1; O2SAT 91
[2023-10-03] MEDS: ATORVASTATIN 20 MG TAB PO SCH (22:22)
[2023-10-03] MEDS: APIXABAN 5 MG TAB PO SCH (22:23)
[2023-10-03] MEDS: LOSARTAN POTASSIUM 25 MG TAB PO ONE (22:24)
[2023-10-03] MEDS: ACETAMINOPHEN 325 MG TAB PO PRN (22:24)
[2023-10-04] VITALS (8 sets, daily range): BP systolic 112–130; BP diastolic 62–74; PULSE 76–107; RESP 17–20; TEMP 97.9–98.9; O2SAT 93–98
[2023-10-04 07:21] LABS: Basophils # (auto) 0 10 ^3/uL (0-0.2); Basophils % (auto) 0.3 % (0.0-2.0); Eosinophils # (auto) 0.1 10 ^3/uL (0-0.8); Eosinophils % (auto) 2.5 % (0.0-7.0); Hematocrit 30.3 % (36.0-46.0); Lymphocytes # (auto) 0.9 10 ^3/uL (0.4-5.4); Lymphocytes % (auto) 22.9 % (10.0-50.0); Mean Corpuscular Hemoglobin 27.2 pg (28.0-32.0); Mean Corpuscular Volume 82.5 fL (80.0-100.0); Monocytes # (auto) 0.6 10 ^3/uL (0-1.3); Monocytes % (auto) 15.2 % (0.0-12.0); Neutrophils # (auto) 2.4 10 ^3/uL (1.6-8.6); Neutrophils % (auto) 59.1 % (37.0-80.0); Red Blood Cells 3.67 10^6/uL (4.0-5.20); Red Cell Distribution Width 16.5 % (11.8-14.3); White Blood Cell 4.1 10^3/uL (4.4-10.8)
[2023-10-04 07:38] LABS: Alanine Aminotransferase 17 U/L (7-40); Albumin 3.6 g/dL (3.2-4.8); Alkaline Phosphatase 106 U/L (46-116); Anion Gap 5 (5-15); Aspartate Aminotransferase 23 U/L (13-40); BUN/Creatinine Ratio 17.7 (10.0-20.0); Bilirubin, Total 0.5 mg/dL (0.2-1.0); Blood Urea Nitrogen 17 mg/dL (9-23); Calcium 9.7 mg/dL (8.7-10.4); Carbon Dioxide 24 mmol/L (20-30); Chloride 109 mmol/L (98-107); Glucose 127 mg/dL (74-106); Potassium 4.3 mmol/L (3.5-5.1); Sodium 138 mmol/L (136-145); Total Protein 7.1 g/dL (5.7-8.2)
[2023-10-04] MEDS: LOSARTAN POTASSIUM 25 MG TAB PO SCH (09:28)
[2023-10-04] MEDS: FAMOTIDINE (10MG/ML) 2ML VL IV SCH (09:28)
[2023-10-04] MEDS: ERGOCALCIFEROL 50,000 UNIT(1.25MG) CAP PO SCH (15:19)
[2023-10-04] MEDS: INSULIN LANTUS (GLARGINE) 1 /0.01ml (100units/ml) SC SCH (18:35)
[2023-10-05] VITALS (7 sets, daily range): BP systolic 118–169; BP diastolic 68–85; PULSE 82–91; RESP 18–20; TEMP 97.8–98.6; O2SAT 93–97
[2023-10-05 09:01] LABS: Basophils # (auto) 0 10 ^3/uL (0-0.2); Basophils % (auto) 0.6 % (0.0-2.0); Eosinophils # (auto) 0.2 10 ^3/uL (0-0.8); Eosinophils % (auto) 5.5 % (0.0-7.0); Hematocrit 33.2 % (36.0-46.0); Hemoglobin 10.9 g/dL (12.2-16.2); Lymphocytes % (auto) 30.5 % (10.0-50.0); Mean Corpuscular Hgb Conc. 32.7 g/dL (32.0-36.0); Mean Corpuscular Volume 82.6 fL (80.0-100.0); Monocytes # (auto) 0.5 10 ^3/uL (0-1.3); Monocytes % (auto) 15.5 % (0.0-12.0); Neutrophils # (auto) 1.5 10 ^3/uL (1.6-8.6); Neutrophils % (auto) 47.9 % (37.0-80.0); Nucleated Red Blood Cells % 0.1 %; Red Blood Cells 4.02 10^6/uL (4.0-5.20); Red Cell Distribution Width 15.9 % (11.8-14.3); White Blood Cell 3.1 10^3/uL (4.4-10.8)
[2023-10-05 09:10] LABS: Chloride 107 mmol/L (98-107); Potassium 4.6 mmol/L (3.5-5.1); Sodium 137 mmol/L (136-145)
[2023-10-05 09:11] LABS: Anion Gap 5 (5-15); Calcium 10.1 mg/dL (8.7-10.4); Carbon Dioxide 25 mmol/L (20-30)
[2023-10-05 09:16] LABS: BUN/Creatinine Ratio 18.9 (10.0-20.0); Blood Urea Nitrogen 18 mg/dL (9-23); Glucose 113 mg/dL (74-106)
[2023-10-05] MEDS: guaiFENesin-DM 100/10mg/5ml SYR PO PRN (15:54)
[2023-10-05] MEDS ORDERED: DEXT1SYP9 PO (16:24)
[2023-10-05] MEDS ORDERED: INSLANTI SC (16:24)
[2023-10-06 01:00] VITALS: BP 160/67; PULSE 90; RESP 19; TEMP 98.2; O2SAT 95
[2023-10-06 05:00] VITALS: BP 150/83; PULSE 77; RESP 18; TEMP 98; O2SAT 98
[2023-10-06 08:10] VITALS: PULSE 76; RESP 18
[2023-10-06 08:50] VITALS: BP 103/79; PULSE 76; RESP 18; TEMP 97.8; O2SAT 96
== END 2023-10-06 11:12 | disposition home or self-care (01) | DRG 639 ==
LOC: ER 17:08 → TELE 10-03 04:48 → TELE-CENTR 10-03 18:46 → CENTRAL 10-04 03:05
PROVIDERS: ADMIT Internal Medicine Geriatric Medicine; ATTEND Internal Medicine Geriatric Medicine
DX: E11.649 Type 2 diabetes mellitus with hypoglycemia without coma (principal); N17.9 Acute kidney failure, unspecified; E03.9 Hypothyroidism, unspecified; I10 Essential (primary) hypertension; T38.3X5A Adverse effect of insulin and oral hypoglycemic [antidiabetic] drugs, initial encounter; K21.9 Gastro-esophageal reflux disease without esophagitis; F41.9 Anxiety disorder, unspecified; J44.89 Other specified chronic obstructive pulmonary disease; E78.5 Hyperlipidemia, unspecified; N81.10 Cystocele, unspecified; E55.9 Vitamin D deficiency, unspecified; E11.40 Type 2 diabetes mellitus with diabetic neuropathy, unspecified; M1A.9XX0 Chronic gout, unspecified, without tophus (tophi); M19.09 Primary osteoarthritis, other specified site; Z79.01 Long term (current) use of anticoagulants; Z90.710 Acquired absence of both cervix and uterus; Z79.4 Long term (current) use of insulin; Y92.89 Other specified places as the place of occurrence of the external cause
CPT/HCPCS: 36415; 80048; 80053; 82533; 82962; 85025; 87081; 96360; 96361; 99291; G0378; J1815; J2405; J3490

== ENCOUNTER 2023-11-28 00:05 | Emergency (ER) | payer MEDICARE, MEDICAID ==
[~2023-11-28] VITALS: Ht 167.6 cm; Wt 80.0 kg
[~2023-11-28 00:05] MED LIST changes: +DEXT1SYP9 PO; +INSLANTI SC; -INSREGI IV; -INSU100I33 SC; -LEV100T PO; +LEVO-849 PO
[2023-11-28 00:39] VITALS: RESP 16
[2023-11-28] MEDS: HYDROcodone-ACET 5/325MG TAB PO ONE (01:37)
[2023-11-28] MEDS ORDERED: CEPH500C PO (04:15)
[2023-11-28 04:33] VITALS: BP 119/71; PULSE 77; TEMP 97.8; O2SAT 97
== END 2023-11-28 04:45 | disposition home or self-care (01) ==
LOC: ER 00:05
DX: L03.115 Cellulitis of right lower limb (principal); I10 Essential (primary) hypertension; E11.9 Type 2 diabetes mellitus without complications; K21.9 Gastro-esophageal reflux disease without esophagitis; E78.5 Hyperlipidemia, unspecified; F41.9 Anxiety disorder, unspecified; Z98.890 Other specified postprocedural states; Z90.710 Acquired absence of both cervix and uterus; Z79.899 Other long term (current) drug therapy
CPT/HCPCS: 93971

== ENCOUNTER → 2024-03-03 | Outpatient (CLI) | payer MEDICARE, MEDICAID ==
[~2024-03-03] VITALS: Ht 162.6 cm; Wt 77.1 kg
[~2024-03-03] MED LIST changes: +CEPH500C PO
[2024-03-03] MEDS: REGADENOSON 0.4 MG/5 ML SYRG IV ONE ×2 (11:16→11:18)
--- NOTE | 2024-03-03 17:21 | DVHSR ---
APPROVED REPORT Exam: Nuclear Stress Test Indication: cardiac clearance BMI: 0 Medical History Medical History: Asthma, Former smoker, PE, HTN, COPD, Syncope Stress Test Details Stress Test: Pharmacologic stress testing performed using 0.4 mg of regadenoson per 5 mL given IV ov er 10 seconds. HR Resting HR: 81 bpmMax Heart Rate (APMHR): 153.324034 bpm Max HR Achieved: 102 bpmTarget HR (85% APMHR): 130.082954 bpm % of APMHR: 66.67 Recovery HR: 92 bpm BP Resting BP: 137/74 mmHg Recovery BP: 120/68 mmHg ECG Resting ECG: Sinus Rhythm Clinical Reason for Termination: Completed protocol Stress ECG Conclusion Resting ECG shows normal sinus rhythm. At peak stress level no dynamic EKG changes was noted to sugg est ischemia. Resting images shows near homogeneous uptake of radioactive tracer throughout the myocardium without evidence of myocardial infarction. Stress images shows near homogeneous uptake of radioactive tracer throughout the myocardium without e vidence of myocardial ischemia. Well-preserved left ventricular systolic function at 73%. Impression: Negative stress test for ischemia, low risk study. NM EXAM: Myocardial Perfusion REST/STRESS Imaging Protocol: Rest Tc-99m/Stress Tc-99m 1 day Resting Data Rest SPECT myocardial perfusion imaging was performed in supine position 60 minutes following the int ravenous injection of 13.5 mCi of Tc-99m Sestamibi. Time of rest injection: 1010 Time of rest imagin Administration Route: IV Administration Site: Right AC Pharmacologic Stress Pharmacologic stress test was performed by injecting Regadenoson 0.4 mg IV push followed by the intra venous injection of 31.7 mCi of Tc-99m Sestamibi. Time of stress injection: 1119 Time of stress imagin Administration Route: IV Administration Site: Right AC Gated Stress SPECT was performed 60 minutes after stress injection. The images were gated to evaluate regional wall motion and calculate left ventricular ejection fracti on. Stress only was performed in the Supine position. Nuclear Conclusion ECG Findings: negative for ischemia Clinical Findings: negative for ischemia Nuclear Findings: negative for ischemia Exercise Capacity: not assessed Left Ventricular Function: normal Risk Study: low Resting ECG shows normal sinus rhythm. At peak stress level no dynamic EKG changes was noted to sugg est ischemia. Resting images shows near homogeneous uptake of radioactive tracer throughout the myocardium without evidence of myocardial infarction. Stress images shows near homogeneous uptake of radioactive tracer throughout the myocardium without e vidence of myocardial ischemia. Well-preserved left ventricular systolic function at 73%. Impression: Negative stress test for ischemia, low risk study.
== END | disposition home or self-care (01) ==
LOC: XYW 09:41
PROVIDERS: ATTEND Student in an Organized Health Care Education/Training Program
DX: Z01.810 Encounter for preprocedural cardiovascular examination (principal); I10 Essential (primary) hypertension; R32 Unspecified urinary incontinence; E11.65 Type 2 diabetes mellitus with hyperglycemia; E78.5 Hyperlipidemia, unspecified; R26.89 Other abnormalities of gait and mobility; D68.69 Other thrombophilia; Z79.4 Long term (current) use of insulin; Z86.718 Personal history of other venous thrombosis and embolism; Z86.711 Personal history of pulmonary embolism; Z87.891 Personal history of nicotine dependence
CPT/HCPCS: 78452; 93017; A9500; J2785

== ENCOUNTER 2024-06-08 10:06 | Emergency (ER) | payer MEDICARE, MEDICAID ==
[~2024-06-08] VITALS: Ht 167.6 cm; Wt 79.6 kg
[2024-06-08 10:47] VITALS: BP 165/85; PULSE 79; RESP 16; TEMP 97.9; O2SAT 96
--- NOTE | 2024-06-08 11:26 | ED.PDOC ---
[facility] [employer] HPI Comments 69 year old female presents for concerns of a papule to the L breast at 6 o'clock Noted yesterday and concerned about cx She is UPD on mammograms and never had breast issues Denies red flags Chief Complaint: Breast pain Time Seen by MD: 10:38 Reviewed Notes: Nurses Notes, Medications, Allergies Allergies: Coded Allergies: NO KNOWN ALLERGIES (Unverified , 06/09/21) Home Meds Active Scripts Cephalexin Monohydrate (Cephalexin) 500 Mg Cap, 500 MG PO TID for 7 Days, #21 MG Prov:RICHIE CRESPO [employer]ISON OFFICER 11/28/23 Dextromethorphan-Guaifenesin (Robitussin-Dm) 10 Ml Sr, 10 ML PO Q4HP PRN for 10 Days, #1 SYP Prov:BARBARA TOVAR MD 10/05/23 Insulin Glargine (Lantus) 100 Unit/Ml Inj, 10 UNITS SC QPM for 30 Days, #30 INJ Prov:BARBARA TOVAR MD 10/05/23 Lancets (ACTI-TOMAS LANCETS 28G) 28 G Mis, G XX AC, #200 3 Refills use to measure blood glucuse Prov:AKSHAT JENSEN RESIDENT 10/01/23 Insulin Syringe/Needle U-100 (Aq Insulin Syringe/1Ml/29 29G X 1/2" 1 ml) 1 Mis Mis, MIS XX AC, #200 3 Refills use to admisitration of insulin Prov:AKSHAT JENSEN RESIDENT 10/01/23 Ergocalciferol (VITAMIN D 85075 UNIT) 50,[place], [address] UNIT PO Q7D for 42 Days, #6 CAP take once every week Prov:AKSHAT JENSEN RESIDENT 10/01/23 Levothyroxine Sodium (SYNTHROID TABLET) 100 Mcg Tb, 1.5 TAB PO DAILY, #90 TAB 3 Refills Prov:KACEY VANG MD 01/30/23 Hydrocodone-Acetaminophen (Hydrocodone Bitartrate/AC 10-325 mg) 1 Tab Tab, 1 TAB PO TIDPRN, #30 TAB Prov:CHILO HILTON MD 11/01/22 Reported Medications Ketoconazole (Ketoconazole) 2 % Cre, 2 % EX DAILY for nail fungus, CRE 09/28/23 Diclofenac Sodium (Topical) (Diclofenac Sodium) 1 % Gel, 1 % TD DAILY for foot pain, GEL 09/28/23 Ofloxacin (Otic) (FLOXIN OTIC) [address], 1 DROP OT DAILY PRN for DRY EYES, DROP 09/28/23 Gabapentin (Neurontin) 400 Mg Cap, 1 CAP PO BID, #90 CAP 1 Refill 09/28/23 Methocarbamol (Methocarbamol) 500 Mg Tab, 500 MG PO BIDP PRN for FOR MUSCLE SPASM for 30 Days, MG 09/28/23 Losartan Potassium (Losartan Potassium) 25 Mg Tab, 25 MG PO DAILY for 30 Days, MG 09/28/23 Atorvastatin Calcium (ATORVASTATIN CALCIUM) 20 Mg Tab, 1 TAB PO DAILY, #30 TAB 5 Refills 09/28/23 Apixaban Base (ELIQUIS) 5 Mg Tab, 1 TAB PO BID 12/12/21 Information Source: Patient Past Medical History PAST MEDICAL HISTORY: Anxiety, DM, GERD, High Lipids, HTN, UTI'S Surgical History: , Hernia Repair, Hysterectomy APPARATUS CLEANER History: No Pertinent APPARATUS CLEANER History Family History Family History: Unknown Social History Smoker: Non-Smoker Alcohol: Denies ETOH Use Drugs: Denies Drug Use Lives In: Home All Other Systems: Reviewed and Negative (per hpi) Physical Exam General Appearance: No Apparent Distress, Normal HEENT: Normal ENT Inspection, Pharynx Normal, TMs Normal Neck: Full Range of Motion, Non-Tender, Normal, Normal Inspection Respiratory: Chest Non-Tender, Lungs Clear, No Accessory Muscle Use, No Respiratory Distress, Normal Breath Sounds Cardiovascular: No Edema, No JVD, No Murmur, No Gallop, Normal Peripheral Pulses, Regular Rate/Rhythm Breast Exam: Deferred Gastrointestinal: No Organomegaly, Non Tender, No Pulsatile Mass, Normal Bowel Sounds, Soft Genitalia: Deferred Pelvic: Deferred Rectal: Deferred Extremities: No calf tenderness, Normal capillary refill, Normal inspection, Normal range of motion, Non-tender, No pedal edema Musculoskeletal : Apperance: Normal Neurologic: Alert, desk manager II-XII nml as Tested, No Motor Deficits, Normal Affect, Normal Mood, No Sensory Deficits Cerebellar Function: Normal Reflexes: Normal Skin: Dry, Normal Color, Warm Lymphatic: No Adenopathy Was a procedure done? Was a procedure done?: No Images 1 - 1x1 mm circular brown mole. Differential Diagnosis (APPARATUS CLEANER) Vaginal Bleeding: Other X-Ray, Labs, Meds, VS Vital Signs Date Time Temp Pulse Resp B/P (MAP) Pulse Ox O2 Delivery O2 Flow Rate FiO2 06/08/24 10:47 79 16 96 Room Air 06/08/24 10:47 97.9 79 16 165/85 (111) 96 97.9 06/08/24 10:28 97.9 79 16 165/86 (112) 96 97.9 X-Ray, Labs, Meds, VS Comment Reassurance provided. Patient is stable for discharge at this time. External notes reviewed. Follow-up with PCP in 2 to 3 days Patient verbalized understanding and agreed to treatment plan Vital signs stable, afebrile, no acute distress noted Patient ambulatory with strong steady gait Advised to return precautions for any new or worsening symptoms, return to ER immediately for re-evaluation Patient is aware that the purpose of this visit was for an acute medical emergency requiring emergent stabilization. Chronic conditions, including malignancies have not been ruled out. Patient is instructed to follow up with PCP as directed and discharge instructions for continued care and workup. If unable to arrange follow-up, patient is to return to the emergency department for reassessment. Patient (parent or legal guardian if applicable) was given verbal and written discharge instructions and acknowledges understanding. Time of 1ST Reevaluation: 11:15 Reevaluation 1ST: Improved Patient Education/Counseling: Diagnosis, Treatment Family Education/Counseling: Diagnosis, Treatment Departure 1 Departure Time of Disposition: 11:25 Impression: Primary Impression: Neoplasm of left breast Disposition: HOME / SELF CARE / HOMELESS Condition: Stable Critical Care Note Critical Care Time?: No Stability Stability form required: No Heart Score Heart Score: Heart Score Response (Comments) Value History N/A 0 EKG N/A 0 Age N/A 0 Risk Factors N/A 0 Troponin N/A 0 Total 0 MORALES MONZON NP Jun 08, 2024 11:26
== END 2024-06-08 11:48 | disposition home or self-care (01) ==
LOC: ER 10:06
DX: D49.3 Neoplasm of unspecified behavior of breast (principal); I10 Essential (primary) hypertension; E11.9 Type 2 diabetes mellitus without complications; K21.9 Gastro-esophageal reflux disease without esophagitis; E78.5 Hyperlipidemia, unspecified; Z90.710 Acquired absence of both cervix and uterus; Z79.01 Long term (current) use of anticoagulants; Z79.890 Hormone replacement therapy; Z79.899 Other long term (current) drug therapy; Z98.890 Other specified postprocedural states

== ENCOUNTER → 2024-06-25 | Outpatient (CLI) | payer MEDICARE, MEDICAID ==
[~2024-06-25] MED LIST changes: +ALBUTEROL SULF 2.5 MG/0.5ML(0.5%) NEB SOLN ONE
== END | disposition home or self-care (01) ==
LOC: XYW 10:50
PROVIDERS: ATTEND Internal Medicine Pulmonary Disease
DX: J45.909 Unspecified asthma, uncomplicated (principal); R06.00 Dyspnea, unspecified
CPT/HCPCS: 94060; 94727; 94729

== ENCOUNTER → 2024-07-28 | Outpatient (CLI) | payer MEDICARE, MEDICAID ==
[~2024-07-28] MED LIST changes: -ALBUTEROL SULF 2.5 MG/0.5ML(0.5%) NEB SOLN ONE
== END | disposition home or self-care (01) ==
LOC: LAB 13:03
PROVIDERS: ATTEND Internal Medicine
DX: E03.9 Hypothyroidism, unspecified (principal); I10 Essential (primary) hypertension; E11.42 Type 2 diabetes mellitus with diabetic polyneuropathy
CPT/HCPCS: 36415; 84439; 84443

== ENCOUNTER 2024-08-11 13:47 | Inpatient (IN) | payer MEDICARE, MEDICAID ==
[~2024-08-11] VITALS: Ht 167.6 cm; Wt 92.0 kg
--- NOTE | 2024-08-11 16:06 | ED.PDOC ---
Musculoskeletal HPI Comments 69 year old female presents to the ED with chief complaint of fall injury. Patient reports that she had accidentally tripped and fell at 12pm today, landing on her knees and elbows. Patient relays that she now has bilateral knee and elbow pain along with lower back pain when getting up. Patient notes she is currently on Eliquis. Patient denies any head injury, LOC, dizziness, or further injury. Chief Complaint: Fall Injury Time Seen by MD: 16:02 Primary Care Provider: DR TODD Reviewed Notes: Nurses Notes, Medications, Allergies Allergies: Coded Allergies: NO KNOWN ALLERGIES (Unverified , 06/09/21) Home Meds Active Scripts Cephalexin Monohydrate (Cephalexin) 500 Mg Cap, 500 MG PO TID for 7 Days, #21 MG Prov:RICHIE CRESPO [employer]GER [employer] 11/28/23 Dextromethorphan-Guaifenesin (Robitussin-Dm) 10 Ml Sr, 10 ML PO Q4HP PRN for 10 Days, #1 SYP Prov:BARBARA TOVAR MD 10/05/23 Insulin Glargine (Lantus) 100 Unit/Ml Inj, 10 UNITS SC QPM for 30 Days, #30 INJ Prov:BARBARA TOVAR MD 10/05/23 Lancets (ACTI-TOMAS LANCETS 28G) 28 G Mis, G XX AC, #200 3 Refills use to measure blood glucuse Prov:AKSHAT JENSEN RESIDENT 10/01/23 Insulin Syringe/Needle U-100 (Aq Insulin Syringe/1Ml/29 29G X 1/2" 1 ml) 1 Mis Mis, MIS XX AC, #200 3 Refills use to admisitration of insulin Prov:AKSHAT JENSEN RESIDENT 10/01/23 Ergocalciferol (VITAMIN D 22152 UNIT) 50,000 [place], [address] UNIT PO Q7D for 42 Days, #6 CAP take once every week Prov:AKSHAT JENSEN RESIDENT 10/01/23 Levothyroxine Sodium (SYNTHROID TABLET) 100 Mcg Tb, 1.5 TAB PO DAILY, #90 TAB 3 Refills Prov:KACEY VANG MD 01/30/23 Hydrocodone-Acetaminophen (Hydrocodone Bitartrate/AC 10-325 mg) 1 Tab Tab, 1 TAB PO TIDPRN, #30 TAB Prov:CHILO HILTON MD 11/01/22 Reported Medications Ketoconazole (Ketoconazole) 2 % Cre, 2 % EX DAILY for nail fungus, CRE 09/28/23 Diclofenac Sodium (Topical) (Diclofenac Sodium) 1 % Gel, 1 % TD DAILY for foot pain, GEL 09/28/23 Ofloxacin (Otic) (FLOXIN OTIC) [address], 1 DROP OT DAILY PRN for DRY EYES, DROP 09/28/23 Gabapentin (Neurontin) 400 Mg Cap, 1 CAP PO BID, #90 CAP 1 Refill 09/28/23 Methocarbamol (Methocarbamol) 500 Mg Tab, 500 MG PO BIDP PRN for FOR MUSCLE SPASM for 30 Days, MG 09/28/23 Losartan Potassium (Losartan Potassium) 25 Mg Tab, 25 MG PO DAILY for 30 Days, MG 09/28/23 Atorvastatin Calcium (ATORVASTATIN CALCIUM) 20 Mg Tab, 1 TAB PO DAILY, #30 TAB 5 Refills 09/28/23 Apixaban Base (ELIQUIS) 5 Mg Tab, 1 TAB PO BID 12/12/21 Information Source: Patient Mode of Arrival: Ambulatory Location: Bilateral Extremity Location: Back, Elbow, Knee Timing: Hours Prehospital treatment: None Severity: Moderate Able to Move Extremity: Yes Bear Weight: Fully Pain: Moderate Mechanism: Blunt Trauma Circumstances: Fall Onset of Symptoms: After Trauma Symptoms: Pain DVT Risk Factors: NONE Associated signs and symptoms: Knee pain, Back pain, Elbow pain Past Medical History PAST MEDICAL HISTORY: Anxiety, Cancer, DM, GERD, High Lipids, HTN, UTI'S Surgical History: , Hernia Repair, Hysterectomy EDUCATIONAL INSTITUTION PRESIDENT History: No Pertinent EDUCATIONAL INSTITUTION PRESIDENT History Family History Family History: Unknown Social History Smoker: Non-Smoker Alcohol: Denies ETOH Use Drugs: Denies Drug Use Lives In: Home Constitutional: denies: chills, diaphoresis, fatigue, fever, malaise, sweats, weakness, others EENTM: denies: blurred vision, double vision, ear bleeding, ear discharge, ear drainage, ear pain, ear ringing, eye pain, eye redness, hearing loss, mouth pain, mouth swelling, nasal discharge, nose bleeding, nose congestion, nose pain, photophobia, tearing, throat pain, throat swelling, voice changes, others Respiratory: denies: cough, hemoptysis, orthopnea, SOB at rest, shortness of breath, SOB with excertion, stridor, wheezing, others Cardiovascular: denies: chest pain, dizzy spells, diaphoresis, Dyspnea on exertion, edema, irregular heart beat, left arm pain, lightheadedness, palpitations, PND, syncope, others Gastrointestinal: denies: abdomen distended, abdominal pain, blood streaked bowels, constipated, diarrhea, dysphagia, difficulty swallowing, hematemesis, melena, nausea, poor appetite, poor fluid intake, rectal bleeding, rectal pain, vomiting, others Genitourinary: denies: abnormal vagina bleeding, burning, dyspareunia, dysuria, flank pain, frequency, hematuria, incontinence, pain, , vagina discharge, urgency, others Neurological: denies: dizziness, fainting, headache, left sided numbness, left sided weakness, numbness, paresthesia, pre-existing deficit, right sided numbness, right sided weakness, seizure, speech problems, tingling, tremors, weakness, others Musculoskeletal: reports: back pain, others (Bilateral knee and elbow pain); denies: gout, joint pain, joint swelling, muscle pain, muscle stiffness, neck pain Integumetry: denies: bruises, change in color, change in hair/nails, dryness, laceration, lesions, lumps, rash, wounds, others Allergic/Immunocompromised: denies: Difficulty Healing, Frequent Infections, Hives, Itching, others Hematologic/Lymphatic: denies: anemia, blood clots, easy bleeding, easy br uising, swollen glands, others Endocrine: denies: excessive hunger, excessive sweating, excessive thirst, excessive urination, flushing, intolerance to cold, intolerance to heat, unexplained weight gain, unexplained weight loss, others Psychiatric: denies: anxiety, bipolar disorder, depression, hopeless, panic disorder, schizophrenia, sleepless, suicidal, others All Other Systems: Reviewed and Negative Physical Exam General Appearance: No Apparent Distress, Normal HEENT: Normal ENT Inspection, Pharynx Normal, TMs Normal Neck: Full Range of Motion, Non-Tender, Normal, Normal Inspection Respiratory: Chest Non-Tender, Lungs Clear, No Accessory Muscle Use, No Respiratory Distress, Normal Breath Sounds Cardiovascular: No Edema, No JVD, No Murmur, No Gallop, Normal Peripheral Pulses, Regular Rate/Rhythm Breast Exam: Deferred Gastrointestinal: No Organomegaly, Non Tender, No Pulsatile Mass, Normal Bowel Sounds, Soft Genitalia: Deferred Pelvic: Deferred Rectal: Deferred Extremities: No calf tenderness, Normal capillary refill, Normal inspection, Normal range of motion, Non-tender, No pedal edema Musculoskeletal : Location: Bilateral Extremity Location: Back, Elbow, Knee Apperance: Normal, Tenderness (Bilateral knee and elbow tenderness. Lumbar paraspinal tenderness.) Neurologic: Alert, group director II-XII nml as Tested, No Motor Deficits, Normal Affect, Normal Mood, No Sensory Deficits Cerebellar Function: Normal Reflexes: Normal Skin: Dry, Normal Color, Warm Lymphatic: No Adenopathy Was a procedure done? Was a procedure done?: No Differential Diagnosis EXT Differential Diagnosis: Fracture, Sprain, Dislocation, Contusion, Strain X-Ray, Labs, Meds, VS Vital Signs Date Time Temp Pulse Resp B/P (MAP) Pulse Ox O2 Delivery O2 Flow Rate FiO2 08/11/24 16:35 98.0 76 18 132/67 (88) 98 98.0 08/11/24 16:26 Room Air* 0 21 08/11/24 14:05 98.9 90 16 128/74 (92) 96 98.9 Lab Test 08/11/24 13:54 Range/Units POC Glucose 182 H 70-106 mg/dl Current Medications Medications (Trade) Dose Ordered Sig/Iliana Route Start Time Stop Time Status Last Admin Acetaminophen/ Hydrocodone Bitart ([place] 5/325MG Tab) 1 tab ONCE ONCE PO 08/11/24 15:45 08/11/24 15:46 DC 08/11/24 16:32 Time of 1ST Reevaluation: 17:02 Reevaluation 1ST: Unchanged Patient Education/Counseling: Diagnosis, Treatment Family Education/Counseling: No Family Present Additional Information Reviewed patient's previous visit(s): 06/08/24 for neoplasm of left breast The following tests were ordered, and results were reviewed by me: XR L-Spine, XR Rt Knee, XR Lt Knee, XR Rt Elbow, XR Lt Elbow Additional information was gathered from interviewing the following independent historian: None I reviewed and agreed with the following test results read by other provider: XR L-Spine, XR Rt Knee, XR Lt Knee, XR Rt Elbow, XR Lt Elbow I discussed treatments and results with medical personnel and: PATIENT Comprehensive systems review obtained and negative except for what is stated in the HPI. Departure 1 Departure Time of Disposition: 18:15 (Patient with intractable back pain with a recent fall found to have a fracture of T12 and L2. We will treat patient with analgesia and admit patient for further imaging and expert consultation) Impression: Primary Impression: T12 compression fracture Qualified Codes: S22.080A - Wedge compression fracture of T11-T12 vertebra, initial encounter for closed fracture Additional Impressions: L2 vertebral fracture Qualified Codes: S32.020A - Wedge compression fracture of second lumbar vertebra, initial encounter for closed fracture Fall Qualified Codes: W19.XXXA - Unspecified fall, initial encounter Intractable back pain Disposition: ADMITTED INPATIENT Admit to: Med Surg Condition: Serious Critical Care Note Critical Care Time?: No Stability Stability form required: No Heart Score Heart Score: Heart Score Response (Comments) Value History N/A 0 EKG N/A 0 Age N/A 0 Risk Factors N/A 0 Troponin N/A 0 Total 0 I personally scribed for MICKEY THAYER MD ([email or web address]) on 08/11/24 at 16:06. Electronically submitted by Eb Mcleod ([email or web address]). MICKEY THAYER MD August 11, 2024 16:06
--- NOTE | 2024-08-11 16:22 | DVH ---
EXAM: XY R ELBOW 2V XRAY CLINICAL INDICATION: FALL TECHNIQUE: XY R ELBOW 2V XRAY Comparison: None FINDINGS/IMPRESSION: There is no evidence of acute fracture or dislocation. The visualized joint space is well maintained. The alignment is anatomical. There is no radiopaque foreign body. Mild osteopenia
--- NOTE | 2024-08-11 16:23 | DVH ---
EXAM: XY L ELBOW 2 VIEW XRAY CLINICAL INDICATION: FALL TECHNIQUE: XY L ELBOW 2 VIEW XRAY Comparison: None FINDINGS/IMPRESSION: There is no evidence of acute fracture or dislocation. The visualized joint space is well maintained. The alignment is anatomical. There is no radiopaque foreign body.
--- NOTE | 2024-08-11 16:27 | DVH ---
INDICATION: FALL TECHNIQUE: Frontal and lateral views of the lumbar spine were obtained. COMPARISON: None FINDINGS: There is severe osteopenia. Vertebral body augmentation of T12. There is grade 3 compressio n fracture of L2 vertebral body. There are no fractures or subluxations. Vertebral body heights and d isc spaces are well maintained. Paravertebral soft tissues are unremarkable. There is an IVC filter at the level of L3-L4. There are surgical clips in the right upper quadrant fr om prior cholecystectomy IMPRESSION: 1. Compression fracture of T12 with vertebral body augmentation 2. Grade 3 compression fracture of L2 vertebral body 3 Severe osteopenia.
--- NOTE | 2024-08-11 16:28 | DVH ---
EXAM: XY R KNEE 3V XRAY CLINICAL INDICATION: FALL TECHNIQUE: XY R KNEE 3V XRAY Comparison: None FINDINGS/IMPRESSION: There is no evidence of acute fracture or dislocation. The visualized joint space is well maintained. The alignment is anatomical. There is no radiopaque foreign body. Mild osteopenia Atherosclerotic change of the right popliteal artery right superficial femoral artery and trifurcatio n vessels with calcified plaque.
[2024-08-11] MEDS: HYDROcodone-ACET 5/325MG TAB PO ONE (16:32)
--- NOTE | 2024-08-11 16:35 | DVH ---
EXAM: XY L KNEE 3V XRAY CLINICAL INDICATION: FALL TECHNIQUE: XY L KNEE 3V XRAY Comparison: None FINDINGS/IMPRESSION: There is no evidence of acute fracture or dislocation. The visualized joint space is well maintained. The alignment is anatomical. There is no radiopaque foreign body. There is atherosclerotic changes of the left popliteal artery and superficial femoral artery and trif urcation vessels with calcified plaque..
[2024-08-11 19:18] LABS: Basophils # (auto) 0 10 ^3/uL (0-0.2); Basophils % (auto) 0.3 % (0.0-2.0); Eosinophils # (auto) 0.1 10 ^3/uL (0-0.8); Eosinophils % (auto) 2.2 % (0.0-7.0); Hematocrit 37.2 % (36.0-46.0); Hemoglobin 11.9 g/dL (12.2-16.2); Lymphocytes # (auto) 1.3 10 ^3/uL (0.4-5.4); Mean Corpuscular Hemoglobin 26.7 pg (28.0-32.0); Mean Corpuscular Hgb Conc. 32.1 g/dL (32.0-36.0); Monocytes # (auto) 0.4 10 ^3/uL (0-1.3); Monocytes % (auto) 8.4 % (0.0-12.0); Neutrophils # (auto) 3.1 10 ^3/uL (1.6-8.6); Neutrophils % (auto) 63.1 % (37.0-80.0); Nucleated Red Blood Cells % 0.1 %; Platelet Count (auto) 202 10^3/uL (140-450); Red Blood Cells 4.48 10^6/uL (4.0-5.20); Red Cell Distribution Width 15.9 % (11.8-14.3); White Blood Cell 4.9 10^3/uL (4.4-10.8)
[2024-08-11 19:21] LABS: Potassium 4.4 mmol/L (3.5-5.1); Sodium 142 mmol/L (136-145)
[2024-08-11 19:22] LABS: Anion Gap 8 (5-15); Calcium 10.3 mg/dL (8.7-10.4); Carbon Dioxide 23 mmol/L (20-31)
[2024-08-11 19:27] LABS: BUN/Creatinine Ratio 20.9 (10.0-20.0)
[2024-08-11 19:30] LABS: Blood Urea Nitrogen 36 mg/dL (9-23); Chloride 111 mmol/L (98-107); Glucose 121 mg/dL (74-106)
[2024-08-11 19:32] LABS: Partial Thromboplastin Time 26.8 SEC (24.5-34.5); Prothrombin Time 10.6 sec (9.3-11.8)
[2024-08-11] MEDS ORDERED: ACETAMINOPHEN 325 MG TAB PO PRN (21:15)
--- NOTE | 2024-08-11 21:23 | DVHHP2 ---
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 As per patient she tripped and fell around 11:30 a.m. today on her knee and elbow. Following fall she has been having pain in the knee and elbow and of the back, initially it was 10/10. Patient denied any neurological deficit. Patient denied any fever, chest pain or shortness of odalis th. Initial lab workup revealed hemoglobin 11.9, RDW 15.9, serum creatinine 1.72, BUN 36, GFR 32. HB A1c 7.9. X-ray lumbar pain-1. Compression fracture of T12 with vertebral body augmentation. 2. Grade 3 compression fracture of L2 vertebral body. 3 Severe osteopenia. X-ray elbow no fracture, osteopenia. X- ray knee- Mild osteopenia. Atherosclerotic change of the right popliteal artery right superficial femoral artery and trifurcation vessels with calcified plaque. Past Medical History hypertension, diabetes mellitus type 2, hyperlipidemia, history of DVT x2, status post IVC filter for 4 years, GERD, anxiety, history of recurrent UTI Past Surgical History History of , hernia repair, hysterectomy Past Social History Lives with daughter, denies smoking/alcoholism/drug abuse Review of Systems Review of Systems Allergy- NKDA Patient was seen today at the bedside. Cardiovascular- deny acute chest pain or shortness of breath or cough or palpitation Respiratory denies cough or short of breath or wheezing Gastrointestinal- denies any rectal bleeding, nausea or vomiting Neurological- denies acute dysarthria, dysphagia, change in vision Psychiatry- denies depression or SI or HI Skin- denies acute rash or purpura Allergies: Coded Allergies: NO KNOWN ALLERGIES (Unverified , 06/09/21) Medications Current Medications Medications Dose Ordered Sig/Iliana Route Start Time Stop Time Status Last Admin Dose Admin Sodium Chloride 10 ml Q8HR IV 08/11/24 22:00 UNV Docusate Sodium 100 mg BIDPRN PRN PO 08/11/24 21:15 UNV Acetaminophen 650 mg Q6HP PRN PO 08/11/24 21:15 UNV Morphine Sulfate 1 mg Q4HP PRN IV 08/11/24 21:15 UNV Pantoprazole Sodium 40 mg DAILY@0600 PO 08/12/24 06:00 UNV Exam Vital Signs Vital Signs Date Time Temp Pulse Resp B/P (MAP) Pulse Ox O2 Delivery O2 Flow Rate FiO2 08/11/24 21:17 71 16 119/64 (82) 97 08/11/24 19:04 98.6 98.6 08/11/24 16:26 Room Air* 0 21 Exam General examination- awoke, alert, oriented HEENT- PEERLA, no acute nasal discharge Cardiovascular- S1-S2 audible, rate and rhythm regular, no murmur Respiratory- CTAB, no wheeze or rhonchi Gastrointestinal-nontender, bowel sound+. Nondistended Musculoskeletal-mild tenderness on the back of the lower thoracic vertebra Lower extremity- no leg edema Neurological- cranial nerves intact, no acute dysarthria or dysphagia Psychiatry- denies depression or SI or HI Skin- no acute rash or purpura Labs/Xrays Labs Test 08/11/24 18:46 08/11/24 13:54 Range/Units White Blood Count 4.9 4.4-10.8 10^3/uL Red Blood Count 4.48 4.0-5.20 10^6/uL Hemoglobin 11.9 L 12.2-16.2 g/dL Hematocrit 37.2 36.0-46.0 % Mean Corpuscular Volume 83.0 80.0-100.0 fL Mean Corpuscular Hemoglobin 26.7 L 28.0-32.0 pg Mean Corpuscular Hemoglobin Concent 32.1 32.0-36.0 g/dL Red Cell Distribution Width 15.9 H 11.8-14.3 % Platelet Count 202 140-450 10^3/uL Mean Platelet Volume 8.6 6.9-10.8 fL Neutrophils (%) (Auto) 63.1 37.0-80.0 % Lymphocytes (%) (Auto) 26.0 10.0-50.0 % Monocytes (%) (Auto) 8.4 0.0-12.0 % Eosinophils (%) (Auto) 2.2 0.0-7.0 % Basophils (%) (Auto) 0.3 0.0-2.0 % Neutrophils # (Auto) 3.1 1.6-8.6 10 ^3/uL Lymphocytes # (Auto) 1.3 0.4-5.4 10 ^3/uL Monocytes # (Auto) 0.4 0-1.3 10 ^3/uL Eosinophils # (Auto) 0.1 0-0.8 10 ^3/uL Basophils # (Auto) 0 0-0.2 10 ^3/uL Nucleated Red Blood Cells 0.1 % Prothrombin Time 10.6 9.3-11.8 sec Prothrombin Time INR 1.00 0.9-1.15 Activated Partial Thromboplast Time 26.8 24.5-34.5 SEC Sodium Level 142 136-145 mmol/L Potassium Level 4.4 3.5-5.1 mmol/L Chloride Level 111 H 98-107 mmol/L Carbon Dioxide Level 23 20-31 mmol/L Anion Gap 8 5-15 Blood Urea Nitrogen 36 H 9-23 mg/dL Creatinine 1.72 H 0.550-1.02 mg/dL Glomerular Filtration Rate Calc 32 >90 mL/min BUN/Creatinine Ratio 20.9 H 10.0-20.0 Serum Glucose 121 H 74-106 mg/dL Calcium Level 10.3 8.7-10.4 mg/dL POC Glucose 182 H 70-106 mg/dl Assessment/Plan Assessment/Plan Assessment and plan Fall Compression fracture of the T12 to L2 vertebra back pain and knee pain s/p fall NAN likely due to VMN Osteopenia Hypertension Diabetes mellitus type 2- HBA1C 7.9 Hyperlipidemia History of Of DVT x2 , on IVC filter for last 4 years, hypothyroidism GERD Anxiety Atherosclerotic change of the right popliteal artery right superficial femoral artery and trifurcation vessels with calcified plaque. Chronic Gouty Arthritis diabetic neuropathy COPD no acute exacerbation X-ray lumbar pain-1. Compression fracture of T12 with vertebral body augmentation. 2. Grade 3 compression fracture of L2 vertebral body. 3 Severe osteopenia. X-ray elbow no fracture, osteopenia. X-ray knee- Mild osteopenia. Atherosclerotic change of the right popliteal artery right superficial femoral artery and trifurcation vessels with calcified plaque. TSH 5.0, FT3, F T4 with a normal limit Hgb 11.9, RDW 15.9 HGB A1c 7.9 Serum creatinine 1.72, BUN 36, GFR 32 Plan Ordered MRI of the thoracolumbar spine Restarted home medication levothyroxine, primary team is to follow up regarding dose adjustment based on lab reports Lovenox 80 mg subcutaneously b.i.d. Atorvastatin 20 mg p.o. q.h.s. Pantoprazole prophylaxis Pending serum sodium, serum creatinine, serum albumin creatinine ratio pnding Urinalysis Pending A1c, vitamin B12, folic acid Ordered social service consult for lumbar brace Ordered physical therapy Goals of care, Code status ; discussed with >15 minutes PUD prophylaxis: Pantoprazole DVT prophylaxis: Lovenox Plan discussed with Dr. Schmid , nursing staff, Total time spent on patient evaluation, chart review, assessment and plan, discussion discussion >35 minutes Plan discussed with: Patient, Other (RN) My Orders Orders - HARRY DONATO Procedure Category Date Status Time Admit ADMIT 08/11/24 Transmitted 21:09 Code Status CODE 08/11/24 Transmitted 21:09 Sodium Chloride Lock PHA 08/11/24 Logged (Saline Lock Ns) 22:00 Docusate Sodium PHA 08/11/24 Logged Capsule (Colace 21:15 Complete Blood Count LAB 08/12/24 Verified 04:00 Comprehensive LAB 08/12/24 Verified Metabolic Panel 04:00 Cardiac DIET 08/12/24 Transmitted Diet-2gna,Lofat,Lochol Breakfast Acetaminophen Tablet PHA 08/11/24 Logged (Tylenol Tablet) 21:15 Notify Md Of Changes HAYDEN 08/11/24 In Process From Base 21:09 Thyroid Stimulating LAB 08/11/24 Logged Hormone 21:12 Morphine Sulfate PHA 08/11/24 Logged Injection 21:15 Pantoprazole Tablet PHA 08/11/24 Logged (Protonix Tablet) 21:15 Pantoprazole Tablet PHA 08/12/24 Logged (Protonix Tablet) 06:00 Date of Service: August 11, 2024 Billing Provider: MICHAEL SCHMID MD Common Visit Codes: 06498-BPCZXLV INP/OBS CARE (HIGH) Secondary Visit Codes: 24246-[id number] CARE PLAN 30 MINUTES HARRY DONATO August 11, 2024 21:23
[2024-08-11] MEDS: ONDANSETRON HCL 4 MG/2 ML VIAL IV ONE (21:42)
[2024-08-11] MEDS: MORPHINE SULFATE 4 MG/ML SYR/VIAL IV ONE (21:43)
[2024-08-11] MEDS ORDERED: DEXTROSE (50%) 50ML SYRG IV PRN (22:00)
[2024-08-11] MEDS ORDERED: ENOXAPARIN SOD 80 MG/0.8ML SYRINGE SC ONE (22:00)
[2024-08-11 22:42] LABS: Free T3 2.33 pg/mL (2.3-4.2); Free T4 (Free Thyroxine) 1.01 ng/dL (0.89-1.76)
[2024-08-11 22:43] VITALS: PULSE 78; RESP 18; O2SAT 98
[2024-08-11 22:43] LABS: Folate (Folic Acid) 17.99 ng/mL (>5.38)
[2024-08-11 23:05] VITALS: BP 140/79; PULSE 86; RESP 18; TEMP 98; O2SAT 98
[2024-08-11] MEDS: MORPHINE SULFATE INJ 2 MG/ml SYRG IV PRN (23:47)
[2024-08-11] MEDS: GABAPENTIN 400 MG CAP PO ONE (23:53)
[2024-08-11] MEDS: PANTOPRAZOLE 40 MG TAB PO ONE (23:53)
[2024-08-11] MEDS: ERGOCALCIFEROL 50,000 UNIT(1.25MG) CAP PO SCH (23:53)
[2024-08-11] MEDS: SODIUM CHLOR 0.9% PF (SALINE LOCK) 10ML VIAL/SYR IV SCH (23:56)
[2024-08-11] MEDS: ACCU-CHEK COMFORT CURVE STRIP VI SCH (23:57)
[2024-08-11] MEDS: ENOXAPARIN SOD 80 MG/0.8ML SYRINGE SC SCH (23:57)
[2024-08-12] VITALS (7 sets, daily range): BP systolic 98–145; BP diastolic 59–77; PULSE 71–83; RESP 16–18; TEMP 97.4–98.2; O2SAT 93–99
[2024-08-12] MEDS: InsuLIN REG 1unit/0.01ml Soln (100units/ml) SC SCH (00:11)
[2024-08-12] MEDS: SODIUM CHLORIDE 0.9% 1,000 ML IV ONE (00:33)
[2024-08-12 03:15] LABS: Urine Bacteria None Seen /hpf (None Seen)
[2024-08-12 04:17] LABS: Urine Blood Negative /uL (Negative); Urine Clarity Clear (Clear); Urine Color Light-Yellow (Yellow); Urine Hyaline Cast FEW /lpf (0 - 2); Urine Protein, UAD Negative (Negative); Urine Squamous Epithelial Cell FEW /hpf (<5); Urine Urobilinogen Normal (Negative); Urine WBC < 1 /HPF (0-5); Urine pH 5.5 (5.0-9.0)
[2024-08-12] MEDS: LEVOTHYROXINE SODIUM 100 MCG TAB PO SCH (06:21)
[2024-08-12] MEDS: PANTOPRAZOLE 40 MG TAB PO SCH (06:21)
[2024-08-12 07:12] LABS: Albumin 3.8 g/dL (3.2-4.8); Alkaline Phosphatase 108 U/L (46-116); Anion Gap 9 (5-15); BUN/Creatinine Ratio 22.5 (10.0-20.0); Calcium 9.4 mg/dL (8.7-10.4); Potassium 4.3 mmol/L (3.5-5.1); Sodium 143 mmol/L (136-145); Total Protein 7.1 g/dL (5.7-8.2)
[2024-08-12 07:17] LABS: Basophils # (auto) 0 10 ^3/uL (0-0.2); Basophils % (auto) 0.8 % (0.0-2.0); Eosinophils # (auto) 0.1 10 ^3/uL (0-0.8); Eosinophils % (auto) 3.3 % (0.0-7.0); Hematocrit 31.2 % (36.0-46.0); Hemoglobin 10.2 g/dL (12.2-16.2); Lymphocytes # (auto) 1.2 10 ^3/uL (0.4-5.4); Lymphocytes % (auto) 35.3 % (10.0-50.0); Mean Corpuscular Hgb Conc. 32.7 g/dL (32.0-36.0); Mean Corpuscular Volume 82.5 fL (80.0-100.0); Monocytes # (auto) 0.4 10 ^3/uL (0-1.3); Monocytes % (auto) 11.9 % (0.0-12.0); Neutrophils # (auto) 1.7 10 ^3/uL (1.6-8.6); Neutrophils % (auto) 48.7 % (37.0-80.0); Nucleated Red Blood Cells % 0.1 %; Platelet Count (auto) 159 10^3/uL (140-450); Red Blood Cells 3.78 10^6/uL (4.0-5.20); White Blood Cell 3.4 10^3/uL (4.4-10.8)
[2024-08-12 07:33] LABS: Alanine Aminotransferase 43 U/L (7-40); Aspartate Aminotransferase 55 U/L (13-40); Bilirubin, Total 0.2 mg/dL (0.2-1.0); Blood Urea Nitrogen 34 mg/dL (9-23); Carbon Dioxide 20 mmol/L (20-31); Chloride 114 mmol/L (98-107); Glucose 120 mg/dL (74-106)
[2024-08-12] MEDS: ATORVASTATIN 20 MG TAB PO SCH (08:57)
[2024-08-12] MEDS: GABAPENTIN 400 MG CAP PO SCH (08:57)
[2024-08-12 09:17] LABS: Creatinine, Urine 114.64 mg/dL (30.0-125.0); Protein, Urine 23.7 mg/dL (1-14); Urine Protein/Creatinine Ratio 0.21
[2024-08-12] MEDS: LORazepam 2MG/ML-1ML VIAL IV ONE (12:00)
--- NOTE | 2024-08-12 14:46 | DVH ---
EXAM: MRI LUMBAR SPINE WO CONTRAST HISTORY: FALL , BACK PAIN COMPARISON: Radiograph dated 08/11/2024 TECHNIQUE: MRI of the lumbar spine was performed without IV contrast. Sagittal T2, sagittal T1 axial T2 sequences were obtained. FINDINGS: For the purposes of this report, the last square-shaped vertebra is considered L5. Prior to any surg sharon, correlation with lumbar spine radiographs should be done. VERTEBRAE: Severe chronic anterior compression deformity of the L2 with near-complete loss of height anteriorly with 4 mm retropulsion noted. There is 4 mm degenerative grade 1 anterolisthesis of L2 o n L4 without pars defects. Chronic mild compression deformity of T12 with approximately 30% loss of h eight anteriorly, status post vertebroplasty. SPINAL CORD: Terminates at the L1 level. No evidence of cord edema or myelomalacia within the parti ally visualized conus medullaris. PARASPINAL SOFT TISSUES: Unremarkable. INTERVERTEBRAL DISCS: T12-L1: No disc herniation, central canal stenosis or neural foramina narrowing. The posterior facet s and ligamentum flavum are unremarkable. L1-L2: Mild broad-based posterior disc bulge, mild bilateral posterior facet and ligamenta flava hype rtrophy with resultant mild central canal stenosis and mild bilateral neural foramina stenosis withou t definite nerve impingement. L2-L3: Mild broad-based posterior disc bulge, mild bilateral posterior facet and ligamenta flava hyp ertrophy with resultant mild central canal stenosis and mild bilateral neural foramina stenosis witho ut definite nerve impingement. L3-L4: Mild broad-based posterior disc bulge, mild bilateral posterior facet and ligamenta flava hy pertrophy with resultant mild central canal stenosis and mild bilateral neural foramina stenosis with out definite nerve impingement. L4-L5: Mild broad-based posterior disc bulge, mild bilateral posterior facet and ligamenta flava hy pertrophy with resultant mild central canal stenosis and mild bilateral neural foramina stenosis with abutment of the bilateral emerging nerve roots. L5-S1: Mild broad-based posterior disc bulge, moderate bilateral posterior facet and ligamentum flav um hypertrophy with mild central canal stenosis and mild bilateral neural foramina stenosis with impi ngement of the left emerging S1 nerve roots. OTHER: None. IMPRESSION: 1. Chronic compression deformities of L2 and T12. There is 4 mm retropulsion of L2. T12 vertebroplas ty noted. No acute compression deformities are seen. 2. Chronic mild degenerative grade 1 retrolisthesis of L2 on L3 without pars defects. 3. Multilevel degenerative disc disease and posterior facet arthropathy with evidence of nerve imping ement at L4-L5 and L5-S1 levels.
[2024-08-12] MEDS: INSULIN LANTUS (GLARGINE) 1 /0.01ml (100units/ml) SC SCH (17:04)
--- NOTE | 2024-08-12 17:09 | DVHINCON2 ---
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 As per patient she tripped and fell around 11:30 a.m. today on her knee and elbow. Following fall she has been having pain in the knee and elbow and of the back, initially it was 10/10. Patient denied any neurological deficit. Patient denied any fever, chest pain or shortness of breath. Initial lab workup revealed hemoglobin 11.9, RDW 15.9, serum creatinine 1.72, BUN 36, GFR 32. HB A1c 7.9. X-ray lumbar pain-1. Compression fracture of T12 with vertebral body augmentation. 2. Grade 3 compression fracture of L2 vertebral body. 3 Severe osteopenia. X-ray elbow no fracture, osteopenia. X- ray knee- Mild osteopenia. Atherosclerotic change of the right popliteal artery right superficial femoral artery and trifurcation vessels with calcified plaque. Past Medical/Surgical History Past Medical/Surgical History Past Medical History hypertension, diabetes mellitus type 2, hyperlipidemia, history of DVT x2, status post IVC filter for 4 years, GERD, anxiety, history of recurrent UTI Past Surgical History History of , hernia repair, hysterectomy Family and Social History Family and Social History Past Social History Lives with daughter, denies smoking/alcoholism/drug abuse Allergies and medications Allergies: Coded Allergies: NO KNOWN ALLERGIES (Unverified , 06/09/21) Home Meds Active Scripts Cephalexin Monohydrate (Cephalexin) 500 Mg Cap, 500 MG PO TID for 7 Days, #21 MG Prov:RICHIE CRESPO 11/28/23 Dextromethorphan-Guaifenesin (Robitussin-Dm) 10 Ml Sr, 10 ML PO Q4HP PRN for 10 Days, #1 SYP Prov:BARBARA TOVAR MD 10/05/23 Insulin Glargine (Lantus) 100 Unit/Ml Inj, 10 UNITS SC QPM for 30 Days, #30 INJ Prov:BARBARA TOVAR MD 10/05/23 Lancets (ACTI-TOMAS LANCETS 28G) 28 G Mis, G XX AC, #200 3 Refills use to measure blood glucuse Prov:AKSHAT JENSEN RESIDENT 10/01/23 Insulin Syringe/Needle U-100 (Aq Insulin Syringe/1Ml/29 29G X 1/2" 1 ml) 1 Mis Mis, MIS XX AC, #200 3 Refills use to admisitration of insulin Prov:AKSHAT JENSEN RESIDENT 10/01/23 Ergocalciferol (VITAMIN D 92369 UNIT) 50,000 [place], [address] UNIT PO Q7D for 42 Days, #6 CAP take once every week Prov:AKSHAT JENSEN RESIDENT 10/01/23 Levothyroxine Sodium (SYNTHROID TABLET) 100 Mcg Tb, 1.5 TAB PO DAILY, #90 TAB 3 Refills Prov:KACEY VANG MD 01/30/23 Hydrocodone-Acetaminophen (Hydrocodone Bitartrate/AC 10-325 mg) 1 Tab Tab, 1 TAB PO TIDPRN, #30 TAB Prov:CHILO HILTON MD 11/01/22 Reported Medications Solifenacin Succinate (Solifenacin Succinate) 10 Mg Tab, 10 MG PO, TAB 08/13/24 Alendronate Sodium (Alendronate Sodium) 70 Mg Tab, 70 MG PO Q7D, TAB 08/13/24 Pantoprazole Sodium Sesquihydr (Pantoprazole Sodium Dr) 40 Mg Tab, 40 MG PO, TAB 08/13/24 Prednisone (Prednisone) 20 Mg Tab, 20 MG PO, MG 08/13/24 Albuterol Sulfate (VENTOLIN MDI) 90 Mcg Ih, 90 MCG IN, INH 08/13/24 Insulin Degludec (Tresiba) 100 Unit/Ml Inj, 100 UNIT SC, INJ 08/13/24 Ketoconazole (Ketoconazole) 2 % Cre, 2 % EX DAILY for nail fungus, CRE 09/28/23 Diclofenac Sodium (Topical) (Diclofenac Sodium) 1 % Gel, 1 % TD DAILY for foot p ain, GEL 09/28/23 Ofloxacin (Otic) (FLOXIN OTIC) [address], 1 DROP OT DAILY PRN for DRY EYES, DROP 09/28/23 Gabapentin (Neurontin) 400 Mg Cap, 1 CAP PO BID, #90 CAP 1 Refill 09/28/23 Methocarbamol (Methocarbamol) 500 Mg Tab, 500 MG PO BIDP PRN for FOR MUSCLE SPASM for 30 Days, MG 09/28/23 Losartan Potassium (Losartan Potassium) 25 Mg Tab, 25 MG PO DAILY for 30 Days, MG 09/28/23 Atorvastatin Calcium (ATORVASTATIN CALCIUM) 20 Mg Tab, 1 TAB PO DAILY, #30 TAB 5 Refills 09/28/23 Apixaban Base (ELIQUIS) 5 Mg Tab, 1 TAB PO BID 12/12/21 Review of systems Review of Systems: HEENT:Normal, CVS:Normal, RESPIRATORY:Normal, GI:Normal, :Normal, MSK:Normal, NEURO:Normal Examination Vital signs Imaging EXAM: MRI LUMBAR SPINE WO CONTRAST HISTORY: FALL , BACK PAIN COMPARISON: Radiograph dated 08/11/2024 TECHNIQUE: MRI of the lumbar spine was performed without IV contrast. Sagittal T2, sagittal T1 axial T2 sequences were obtained. FINDINGS: For the purposes of this report, the last square-shaped vertebra is considered L5. Prior to any surgery, correlation with lumbar spine radiographs should be done. VERTEBRAE: Severe chronic anterior compression deformity of the L2 with near- complete loss of height anteriorly with 4 mm retropulsion noted. There is 4 mm degenerative grade 1 anterolisthesis of L2 on L4 without pars defects. Chronic mild compression deformity of T12 with approximately 30% loss of height anteriorly, status post vertebroplasty. SPINAL CORD: Terminates at the L1 level. No evidence of cord edema or myelomalacia within the partially visualized conus medullaris. PARASPINAL SOFT TISSUES: Unremarkable. INTERVERTEBRAL DISCS: T12-L1: No disc herniation, central canal stenosis or neural foramina narrowing. The posterior facets and ligamentum flavum are unremarkable. L1-L2: Mild broad-based posterior disc bulge, mild bilateral posterior facet and ligamenta flava hypertrophy with resultant mild central canal stenosis and mild bilateral neural foramina stenosis without definite nerve impingement. L2-L3: Mild broad-based posterior disc bulge, mild bilateral posterior facet and ligamenta flava hypertrophy with resultant mild central canal stenosis and mild bilateral neural foramina stenosis without definite nerve impingement. L3-L4: Mild broad-based posterior disc bulge, mild bilateral posterior facet and ligamenta flava hypertrophy with resultant mild central canal stenosis and mild bilateral neural foramina stenosis without definite nerve impingement. L4-L5: Mild broad-based posterior disc bulge, mild bilateral posterior facet and ligamenta flava hypertrophy with resultant mild central canal stenosis and mild bilateral neural foramina stenosis with abutment of the bilateral emerging nerve roots. L5-S1: Mild broad-based posterior disc bulge, moderate bilateral posterior facet and ligamentum flavum hypertrophy with mild central canal stenosis and mild bilateral neural foramina stenosis with impingement of the left emerging S1 nerve roots. OTHER: None. IMPRESSION: 1. Chronic compression deformities of L2 and T12. There is 4 mm retropulsion of L2. T12 vertebroplasty noted. No acute compression deformities are seen. 2. Chronic mild degenerative grade 1 retrolisthesis of L2 on L3 without pars defects. 3. Multilevel degenerative disc disease and posterior facet arthropathy with evidence of nerve impingement at L4-L5 and L5-S1 levels. Vital Signs Date Time Temp Pulse Resp B/P (MAP) Pulse Ox O2 Delivery O2 Flow Rate FiO2 08/12/24 16:33 97.7 71 18 98/60 (73) 93 97.7 08/12/24 08:15 Room Air* 0 21 Medications Current Medications Medications (Trade) Dose Ordered Sig/Iliana Route PRN Reason Start Time Stop Time Status Last Admin Sodium Chloride (Saline Lock Ns) 10 ml Q8HR IV 08/11/24 22:00 08/12/24 13:33 Docusate Sodium (Colace Capsule) 100 mg BIDPRN PRN PO FOR CONSTIPATION 08/11/24 21:15 Acetaminophen (Tylenol Tablet) 650 mg Q6HP PRN PO PAIN SCALE 1-3 OR TEMP>100.4 08/11/24 21:15 Morphine Sulfate 1 mg Q4HP PRN IV SEVERE PAIN (7-10 PAIN SCALE) 08/11/24 21:15 08/12/24 06:20 Pantoprazole Sodium (Protonix Tablet) 40 mg DAILY@0600 PO 08/12/24 06:00 08/12/24 06:21 Enoxaparin Sodium (Lovenox) 80 mg Q12HR SC 08/11/24 22:00 08/12/24 08:57 Diagnostic Test (Pha) (Accu-Chek Comfort Curve T) 1 strip ACHS 08/11/24 22:00 08/12/24 17:04 Insulin Human Regular (InsuLIN R) ACHS SC 08/11/24 22:00 08/12/24 11:33 Dextrose 50 ml UD PRN IV Blood Sugar LESS THAN 60 08/11/24 22:00 Atorvastatin Calcium (Lipitor) 20 mg DAILY PO 08/12/24 10:00 08/12/24 08:57 Ergocalciferol (Vitamin D 50,000 Unit) 50,000 unit Q7D PO 08/11/24 22:00 08/11/24 23:53 Insulin Glargine (Lantus) 10 units QPM SC 08/12/24 18:00 Levothyroxine Sodium (Synthroid Tablet) 150 mcg DAILY@0700 PO 08/12/24 07:00 08/12/24 06:21 Gabapentin (Neurontin Capsule) 400 mg BID PO 08/12/24 10:00 08/12/24 08:57 Laboratory Labs Test 08/12/24 10:56 08/12/24 06:29 08/12/24 03:14 08/11/24 22:12 Range/Units POC Glucose 213 H 70-106 mg/dl White Blood Count 3.4 #L 4.4-10.8 10^3/uL Red Blood Count 3.78 L 4.0-5.20 10^6/uL Hemoglobin 10.2 L 12.2-16.2 g/dL Hematocrit 31.2 #L 36.0-46.0 % Mean Corpuscular Volume 82.5 80.0-100.0 fL Mean Corpuscular Hemoglobin 27.0 L 28.0-32.0 pg Mean Corpuscular Hemoglobin Concent 32.7 32.0-36.0 g/dL Red Cell Distribution Width 16.0 H 11.8-14.3 % Platelet Count 159 140-450 10^3/uL Mean Platelet Volume 9.1 6.9-10.8 fL Neutrophils (%) (Auto) 48.7 37.0-80.0 % Lymphocytes (%) (Auto) 35.3 10.0-50.0 % Monocytes (%) (Auto) 11.9 0.0-12.0 % Eosinophils (%) (Auto) 3.3 0.0-7.0 % Basophils (%) (Auto) 0.8 0.0-2.0 % Neutrophils # (Auto) 1.7 1.6-8.6 10 ^3/uL Lymphocytes # (Auto) 1.2 0.4-5.4 10 ^3/uL Monocytes # (Auto) 0.4 0-1.3 10 ^3/uL Eosinophils # (Auto) 0.1 0-0.8 10 ^3/uL Basophils # (Auto) 0 0-0.2 10 ^3/uL Nucleated Red Blood Cells 0.1 % Sodium Level 143 136-145 mmol/L Potassium Level 4.3 3.5-5.1 mmol/L Chloride Level 114 H 98-107 mmol/L Carbon Dioxide Level 20 20-31 mmol/L Anion Gap 9 5-15 Blood Urea Nitrogen 34 H 9-23 mg/dL Creatinine 1.51 H 0.550-1.02 mg/dL Glomerular Filtration Rate Calc 38 >90 mL/min BUN/Creatinine Ratio 22.5 H 10.0-20.0 Serum Glucose 120 H 74-106 mg/dL Calcium Level 9.4 8.7-10.4 mg/dL Total Bilirubin 0.2 0.2-1.0 mg/dL Aspartate Amino Transferase (AST) 55 H 13-40 U/L Alanine Aminotransferase (ALT) 43 H 7-40 U/L Alkaline Phosphatase 108 46-116 U/L Total Protein 7.1 5.7-8.2 g/dL Albumin 3.8 3.2-4.8 g/dL Urine Color Light-yellow Yellow Urine Clarity Clear Clear Urine pH 5.5 5.0-9.0 Urine Specific [place] 1.020 1.001-1.035 Urine Protein Negative Negative Urine Ketones Negative Negative Urine Blood Negative Negative /uL Urine Nitrite Negative Negative Urine Bilirubin Negative Negative Urine Urobilinogen Normal Negative mg/dL Urine Leukocyte Esterase Negative Negative /uL Urine RBC 1 0 - 4 /hpf Urine Microscopic WBC < 1 0-5 /HPF Urine Squamous Epithelial Cells Few <5 /hpf Urine Bacteria None seen None Seen /hpf Urine Hyaline Casts Few 0 - 2 /lpf Urine Creatinine 114.64 30.0-125.0 mg/dL Urine Protein/Creatinine Ratio 0.21 Urine Sodium 79 40-220 mmol/L Urine Glucose Normal Normal mg/dL Urine Total Protein 23.7 H 1-14 mg/dL Magnesium Level 1.7 1.6-2.6 mg/dL Vitamin B12 Level 310 211-911 pg/mL Vitamin D 25-Hydroxy 50.2 30.0-100 ng/mL Folic Acid 17.99 >5.38 ng/mL Free Thyroxine (T4) Calculated 1.01 0.89-1.76 ng/dL Free Triiodothyronine (T3) pg/mL 2.33 2.3-4.2 pg/mL Test 08/11/24 18:46 Range/Units Prothrombin Time 10.6 9.3-11.8 sec Prothrombin Time INR 1.00 0.9-1.15 Activated Partial Thromboplast Time 26.8 24.5-34.5 SEC Hemoglobin A1c 7.9 H <5.7 % A1C Thyroid Stimulating Hormone (TSH) 5.00 H 0.55-4.78 uIU/mL Examination: GENERAL:Normal, HEENT:Normal, NECK:Normal, LUNGS:Normal, CVS:Normal, ABDOMEN:Normal, MSK:Normal ( patient able to reposition herself in bed, she states that she does have some low back pain and muscle spasms when she moves), SKIN:Normal (Patient expressing ecchymosis to bilateral knees and elbows after her fall), NEURO:Normal (Patient able to stand at bedside with physical therapy, states she starts having pain when she starts walking limited ability to bend over), :Normal Problem List/Assessment/Plan Problems: (1) Compression fx, lumbar spine (2) Compression fx, thoracic spine (3) Herniated intervertebral disc of lumbar spine (4) Lumbar degenerative disc disease Assessment and Plan Chronic compression deformities of L2 and T12. There is 4 mm retropulsion of L2. Chronic mild degenerative grade 1 retrolisthesis of L2 on L3 without pars defects Multilevel degenerative disc disease and posterior facet arthropathy with evidence of nerve impingement at L4-L5 and L5-S1 levels, patient does not need emergent spine surgery at this time conservative management with muscle relaxers, TLSO brace for mobilization, follow up with the primary care doctor for an odor or referral for physical therapy that is lumbar spine specific for strengthening, posture, conditioning. Patient will need a repeat x-ray in 6-8 weeks to assess the healing process of her T12, L2 fractures Magnesium level, patient states that she is having multiple muscle skeletal cramps to all extremities continue supportive care per admitting team discretion Outpatient follow up, patient should see her PCP for spine surgery referral if she is nonhealing in 6-8 weeks after conservative management Once the patient's is safe to discharge with ambulation there are no barriers to discharge from a spine surgery perspective Call with questions [facility] Orthopaedic Spine Surgery nurse practitioner For Dr Yoan Flores Patient was examined, chart reviewed, labs evaluated, and diagnostic studies and findings analyzed. Case was discussed with Dr. Josh Flores who formulated the plan of care. This medical document was created using an electronic medical record system with [employer] dictation system. Although this document has been carefully reviewed, there might still be some phonetic and typographical errors. These areas are purely typographical due to imperfections of the software programs, and do not reflect any compromise in the patient's medical care. Plan discussed with Plan discussed with: Patient, Other (Ruth CORTES [id number]) ALICIA VITAL NP August 12, 2024 17:09
[2024-08-13] MEDS ORDERED: PANT40TA57 PO (03:19)
[2024-08-13] MEDS ORDERED: INSU100I33 SC (03:19)
[2024-08-13] MEDS ORDERED: ALEN70TA74 PO (03:19)
[2024-08-13] MEDS ORDERED: ALBUAER3 IN (03:19)
[2024-08-13] MEDS ORDERED: PRED20TA2 PO (03:19)
[2024-08-13] MEDS ORDERED: SOLI10TA39 PO (03:19)
[2024-08-13 05:00] VITALS: BP 102/51; PULSE 67; RESP 18; TEMP 98.1; O2SAT 94
[2024-08-13 09:00] VITALS: BP 130/71; PULSE 77; RESP 18; TEMP 97.9; O2SAT 97
[2024-08-13 13:00] VITALS: BP 131/73; PULSE 77; RESP 18; TEMP 98.2; O2SAT 94
[2024-08-13 17:00] VITALS: BP 155/65; PULSE 79; RESP 18; TEMP 98.2; O2SAT 96
[2024-08-13 20:00] VITALS: RESP 18
[2024-08-13 21:00] VITALS: BP 142/92; PULSE 88; RESP 15; TEMP 97.6; O2SAT 96
[2024-08-14] MEDS: MELATONIN 5 MG TAB PO ONE (00:14)
[2024-08-14] MEDS: MELATONIN 5 MG TAB ONE (00:23)
[2024-08-14 01:00] VITALS: BP 120/55; PULSE 83; RESP 14; TEMP 98; O2SAT 93
[2024-08-14 05:00] VITALS: BP 113/53; PULSE 69; RESP 15; TEMP 97.4; O2SAT 93
--- NOTE | 2024-08-14 07:36 | DVHPN2 ---
Reviewed: Care Plan, H&P, Labs, Medications, Previous Orders Changes from previous H/P or p: No Changes General: Per HPI Objective Vitals Vital Signs Date Time Temp Pulse Resp B/P (MAP) Pulse Ox O2 Delivery O2 Flow Rate FiO2 08/14/24 05:00 97.4 69 15 113/53 (73) 93 97.4 08/13/24 20:00 Room Air* 0 21 Intake/Output Intake and Output 08/14/24 07:00 Intake Total 1780 ml Output Total 300 ml Balance 1480 ml Intake Oral 1780 ml Output Urine Total 300 ml # Voids 5 Medications Current Medications Medications Dose Ordered Sig/Iliana Route Start Time Stop Time Status Last Admin Dose Admin Sodium Chloride 10 ml Q8HR IV 08/11/24 22:00 08/14/24 06:16 10 ML Docusate Sodium 100 mg BIDPRN PRN PO 08/11/24 21:15 Acetaminophen 650 mg Q6HP PRN PO 08/11/24 21:15 Morphine Sulfate 1 mg Q4HP PRN IV 08/11/24 21:15 08/14/24 03:47 1 MG Pantoprazole Sodium 40 mg DAILY@0600 PO 08/12/24 06:00 08/14/24 06:14 40 MG Enoxaparin Sodium 80 mg Q12HR SC 08/11/24 22:00 08/13/24 21:34 80 MG Diagnostic Test (Pha) 1 strip ACHS 08/11/24 22:00 08/14/24 06:02 1 STRIP Insulin Human Regular ACHS SC 08/11/24 22:00 08/13/24 21:36 3 UNITS Dextrose 50 ml UD PRN IV 08/11/24 22:00 Atorvastatin Calcium 20 mg DAILY PO 08/12/24 10:00 08/13/24 09:21 20 MG Ergocalciferol 50,000 unit Q7D PO 08/11/24 22:00 08/11/24 23:53 50,000 UNIT Insulin Glargine 10 units QPM SC 08/12/24 18:00 08/13/24 17:18 10 UNITS Levothyroxine Sodium 150 mcg DAILY@0700 PO 08/12/24 07:00 08/14/24 06:14 150 MCG Gabapentin 400 mg BID PO 08/12/24 10:00 08/13/24 21:32 400 MG Melatonin 5 mg HS PO 08/14/24 22:00 Laboratory Results Laboratory Tests 08/12/24 06:29 Urinalysis Test 08/12/24 03:14 Urine Color Light-yellow (Yellow) Urine Clarity Clear (Clear) Urine pH 5.5 (5.0-9.0) Urine Specific [place] 1.020 (1.001-1.035) Urine Protein Negative (Negative) Urine Ketones Negative (Negative) Urine Blood Negative /uL (Negative) Urine Nitrite Negative (Negative) Urine Bilirubin Negative (Negative) Urine Urobilinogen Normal mg/dL (Negative) Urine Leukocyte Esterase Negative /uL (Negative) Urine RBC 1 /hpf (0 - 4) Urine Microscopic WBC < 1 /HPF (0-5) Urine Squamous Epithelial Cells Few /hpf (<5) Urine Bacteria None seen /hpf (None Seen) Urine Hyaline Casts Few /lpf (0 - 2) Urine Creatinine 114.64 mg/dL (30.0-125.0) Urine Protein/Creatinine Ratio 0.21 Urine Sodium 79 mmol/L (40-220) Urine Glucose Normal mg/dL (Normal) Urine Total Protein 23.7 mg/dL (1-14) H Assessment/Plan Assessment/Plan Patient is 69 years old female with past medical history of hypertension, diabetes mellitus type 2, hyperlipidemia, 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 As per patient she tripped and fell around 11:30 a.m. today on her knee and elbow. Following fall she has been having pain in the knee and elbow and of the back, initially it was 10/10. Patient denied any neurological deficit. Patient denied any fever, chest pain or shortness of breath. Initial lab workup revealed hemoglobin 11.9, RDW 15.9, serum creatinine 1.72, BUN 36, GFR 32. HB A1c 7.9. X-ray lumbar pain-1. Compression fracture of T12 with vertebral body augmentation. 2. Grade 3 compression fracture of L2 vertebral body. 3 Severe osteopenia. X-ray elbow no fracture, osteopenia. X- ray knee- Mild osteopenia. Atherosclerotic change of the right popliteal artery right superficial femoral artery and trifurcation vessels with calcified plaque. 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 Chronic Gouty Arthritis diabetic neuropathy COPD no acute exacerbation 08/12/2024 pt has back pain consult spine surgery, likely not a surgical case PT/OT would be beneficial Plan discussed with: Patient Date of Service: August 12, 2024 Billing Provider: BARRIE QUIJANO DO Common Visit Codes: [id number] INP/OBS CARE(HIGH) BARRIE QUIJANO DO August 14, 2024 07:36
--- NOTE | 2024-08-14 07:40 | DVHPN2 ---
Reviewed: Care Plan, H&P, Labs, Medications, Previous Orders Changes from previous H/P or p: No Changes General: Per HPI Objective Vitals Vital Signs Date Time Temp Pulse Resp B/P (MAP) Pulse Ox O2 Delivery O2 Flow Rate FiO2 08/14/24 05:00 97.4 69 15 113/53 (73) 93 97.4 08/13/24 20:00 Room Air* 0 21 Intake/Output Intake and Output 08/14/24 07:00 Intake Total 1780 ml Output Total 300 ml Balance 1480 ml Intake Oral 1780 ml Output Urine Total 300 ml # Voids 5 Medications Current Medications Medications Dose Ordered Sig/Iliana Route Start Time Stop Time Status Last Admin Dose Admin Sodium Chloride 10 ml Q8HR IV 08/11/24 22:00 08/14/24 06:16 10 ML Docusate Sodium 100 mg BIDPRN PRN PO 08/11/24 21:15 Acetaminophen 650 mg Q6HP PRN PO 08/11/24 21:15 Morphine Sulfate 1 mg Q4HP PRN IV 08/11/24 21:15 08/14/24 03:47 1 MG Pantoprazole Sodium 40 mg DAILY@0600 PO 08/12/24 06:00 08/14/24 06:14 40 MG Enoxaparin Sodium 80 mg Q12HR SC 08/11/24 22:00 08/13/24 21:34 80 MG Diagnostic Test (Pha) 1 strip ACHS 08/11/24 22:00 08/14/24 06:02 1 STRIP Insulin Human Regular ACHS SC 08/11/24 22:00 08/13/24 21:36 3 UNITS Dextrose 50 ml UD PRN IV 08/11/24 22:00 Atorvastatin Calcium 20 mg DAILY PO 08/12/24 10:00 08/13/24 09:21 20 MG Ergocalciferol 50,000 unit Q7D PO 08/11/24 22:00 08/11/24 23:53 50,000 UNIT Insulin Glargine 10 units QPM SC 08/12/24 18:00 08/13/24 17:18 10 UNITS Levothyroxine Sodium 150 mcg DAILY@0700 PO 08/12/24 07:00 08/14/24 06:14 150 MCG Gabapentin 400 mg BID PO 08/12/24 10:00 08/13/24 21:32 400 MG Melatonin 5 mg HS PO 08/14/24 22:00 Laboratory Results Laboratory Tests 08/12/24 06:29 Urinalysis Test 08/12/24 03:14 Urine Color Light-yellow (Yellow) Urine Clarity Clear (Clear) Urine pH 5.5 (5.0-9.0) Urine Specific [place] 1.020 (1.001-1.035) Urine Protein Negative (Negative) Urine Ketones Negative (Negative) Urine Blood Negative /uL (Negative) Urine Nitrite Negative (Negative) Urine Bilirubin Negative (Negative) Urine Urobilinogen Normal mg/dL (Negative) Urine Leukocyte Esterase Negative /uL (Negative) Urine RBC 1 /hpf (0 - 4) Urine Microscopic WBC < 1 /HPF (0-5) Urine Squamous Epithelial Cells Few /hpf (<5) Urine Bacteria None seen /hpf (None Seen) Urine Hyaline Casts Few /lpf (0 - 2) Urine Creatinine 114.64 mg/dL (30.0-125.0) Urine Protein/Creatinine Ratio 0.21 Urine Sodium 79 mmol/L (40-220) Urine Glucose Normal mg/dL (Normal) Urine Total Protein 23.7 mg/dL (1-14) H Assessment/Plan Assessment/Plan Patient is 69 years old female with past medical history of hypertension, diabetes mellitus type 2, hyperlipidemia, 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 As per patient she tripped and fell around 11:30 a.m. today on her knee and elbow. Following fall she has been having pain in the knee and elbow and of the back, initially it was 10/10. Patient denied any neurological deficit. Patient denied any fever, chest pain or shortness of breath. Initial lab workup revealed hemoglobin 11.9, RDW 15.9, serum creatinine 1.72, BUN 36, GFR 32. HB A1c 7.9. X-ray lumbar pain-1. Compression fracture of T12 with vertebral body augmentation. 2. Grade 3 compression fracture of L2 vertebral body. 3 Severe osteopenia. X-ray elbow no fracture, osteopenia. X- ray knee- Mild osteopenia. Atherosclerotic change of the right popliteal artery right superficial femoral artery and trifurcation vessels with calcified plaque. 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 Chronic Gouty Arthritis diabetic neuropathy COPD no acute exacerbation 08/12/2024 pt has back pain consult spine surgery, likely not a surgical case PT/OT would be beneficial 08/13/2024 pt was seen by PT and able to stand up but could not walk much i discussed with pt, she agreed for home PT but hesitant about rehab, though did not exclusively deny it pt needs to be evaluated by PT/OT and discharged to either home with PT vs Rehab Plan discussed with: Patient Date of Service: August 13, 2024 Billing Provider: BARRIE QUIJANO DO Common Visit Codes: [id number] INP/OBS CARE(HIGH) BARRIE QUIJANO DO August 14, 2024 07:40
[2024-08-14 08:00] VITALS: PULSE 79; RESP 18; O2SAT 95
[2024-08-14 09:00] VITALS: BP 126/61; PULSE 79; RESP 18; TEMP 98; O2SAT 95
[2024-08-14 13:00] VITALS: BP 117/55; PULSE 70; RESP 18; TEMP 98.1; O2SAT 95
[2024-08-14 16:53] VITALS: BP 129/64; PULSE 79; RESP 18; TEMP 97.8; O2SAT 96
--- NOTE | 2024-08-14 19:48 | DVHPN2 ---
Subjective in bed feeling well Reviewed: Care Plan, H&P, Labs, Medications, Previous Orders Changes from previous H/P or p: No Changes General: Per HPI Objective Vitals Vital Signs Date Time Temp Pulse Resp B/P (MAP) Pulse Ox O2 Delivery O2 Flow Rate FiO2 08/14/24 16:53 97.8 79 18 129/64 (85) 96 97.8 08/14/24 08:00 Room Air* 0 21 Intake/Output Intake and Output 08/14/24 07:00 Intake Total 1780 ml Output Total 300 ml Balance 1480 ml Intake Oral 1780 ml Output Urine Total 300 ml # Voids 5 General Appearance: Alert, Oriented X3 Lungs: Clear to auscultation Cardiovascular: Regular rate, Normal S1, Normal S2 Medications Current Medications Medications Dose Ordered Sig/Iliana Route Start Time Stop Time Status Last Admin Dose Admin Sodium Chloride 10 ml Q8HR IV 08/11/24 22:00 08/14/24 14:00 10 ML Docusate Sodium 100 mg BIDPRN PRN PO 08/11/24 21:15 Acetaminophen 650 mg Q6HP PRN PO 08/11/24 21:15 Morphine Sulfate 1 mg Q4HP PRN IV 08/11/24 21:15 08/14/24 10:14 1 MG Pantoprazole Sodium 40 mg DAILY@0600 PO 08/12/24 06:00 08/14/24 06:14 40 MG Enoxaparin Sodium 80 mg Q12HR SC 08/11/24 22:00 08/14/24 10:12 80 MG Diagnostic Test (Pha) 1 strip ACHS 08/11/24 22:00 08/14/24 17:00 1 STRIP Insulin Human Regular ACHS SC 08/11/24 22:00 08/14/24 11:47 3 UNITS Dextrose 50 ml UD PRN IV 08/11/24 22:00 Atorvastatin Calcium 20 mg DAILY PO 08/12/24 10:00 08/14/24 10:12 20 MG Ergocalciferol 50,000 unit Q7D PO 08/11/24 22:00 08/11/24 23:53 50,000 UNIT Insulin Glargine 10 units QPM SC 08/12/24 18:00 08/13/24 17:18 10 UNITS Levothyroxine Sodium 150 mcg DAILY@0700 PO 08/12/24 07:00 08/14/24 06:14 150 MCG Gabapentin 400 mg BID PO 08/12/24 10:00 08/14/24 10:12 400 MG Melatonin 5 mg HS PO 08/14/24 22:00 Laboratory Results Laboratory Tests 08/12/24 06:29 Urinalysis Test 08/12/24 03:14 Urine Color Light-yellow (Yellow) Urine Clarity Clear (Clear) Urine pH 5.5 (5.0-9.0) Urine Specific [place] 1.020 (1.001-1.035) Urine Protein Negative (Negative) Urine Ketones Negative (Negative) Urine Blood Negative /uL (Negative) Urine Nitrite Negative (Negative) Urine Bilirubin Negative (Negative) Urine Urobilinogen Normal mg/dL (Negative) Urine Leukocyte Esterase Negative /uL (Negative) Urine RBC 1 /hpf (0 - 4) Urine Microscopic WBC < 1 /HPF (0-5) Urine Squamous Epithelial Cells Few /hpf (<5) Urine Bacteria None seen /hpf (None Seen) Urine Hyaline Casts Few /lpf (0 - 2) Urine Creatinine 114.64 mg/dL (30.0-125.0) Urine Protein/Creatinine Ratio 0.21 Urine Sodium 79 mmol/L (40-220) Urine Glucose Normal mg/dL (Normal) Urine Total Protein 23.7 mg/dL (1-14) H Assessment/Plan Assessment/Plan Patient is 69 years old female with past medical history of hypertension, diabetes mellitus type 2, hyperlipidemia, 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 As per patient she tripped and fell around 11:30 a.m. today on her knee and elbow. Following fall she has been having pain in the knee and elbow and of the back, initially it was 10/10. Patient denied any neurological deficit. Patient denied any fever, chest pain or shortness of breath. Initial lab workup revealed hemoglobin 11.9, RDW 15.9, serum creatinine 1.72, BUN 36, GFR 32. HB A1c 7.9. X-ray lumbar pain-1. Compression fracture of T12 with vertebral body augmentation. 2. Grade 3 compression fracture of L2 vertebral body. 3 Severe osteopenia. X-ray elbow no fracture, osteopenia. X- ray knee- Mild osteopenia. Atherosclerotic change of the right popliteal artery right superficial femoral artery and trifurcation vessels with calcified plaque. 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 Chronic Gouty Arthritis diabetic neuropathy COPD no acute exacerbation 08/12/2024 pt has back pain consult spine surgery, likely not a surgical case PT/OT would be beneficial 08/13/2024 pt was seen by PT and able to stand up but could not walk much i discussed with pt, she agreed for home PT but hesitant about rehab, though did not exclusively deny it pt needs to be evaluated by PT/OT and discharged to either home with PT vs Rehab 08/14 Working with PT Per ortho needs brace which will be delivered friday Plan discussed with: Patient Date of Service: August 14, 2024 Billing Provider: BARRERA GALVAN MD Common Visit Codes: [id number] INP/OBS CARE(HIGH) BARRERA GALVAN MD August 14, 2024 19:48
[2024-08-14] MEDS: DOCUSATE SOD 100 MG CAP PO PRN (21:35)
[2024-08-15] VITALS (7 sets, daily range): BP systolic 101–145; BP diastolic 50–85; PULSE 66–83; RESP 18–20; TEMP 97.5–98.3; O2SAT 94–99
[2024-08-15] MEDS: MELATONIN 5 MG TAB PO SCH (00:12)
--- NOTE | 2024-08-15 17:54 | DVHPN2 ---
Subjective in bed feeling well Reviewed: Care Plan, H&P, Labs, Medications, Previous Orders Changes from previous H/P or p: No Changes General: Per HPI Objective Vitals Vital Signs Date Time Temp Pulse Resp B/P (MAP) Pulse Ox O2 Delivery O2 Flow Rate FiO2 08/15/24 17:00 98.1 73 18 122/68 (86) 98 98.1 08/15/24 08:00 Room Air* 0 21 Intake/Output Intake and Output 08/15/24 07:00 Intake Total 1880 ml Balance 1880 ml Intake Oral 1880 ml # Voids 10 # Bowel Movements 1 General Appearance: Alert, Oriented X3 Lungs: Clear to auscultation Cardiovascular: Regular rate, Normal S1, Normal S2 Medications Current Medications Medications Dose Ordered Sig/Iliana Route Start Time Stop Time Status Last Admin Dose Admin Sodium Chloride 10 ml Q8HR IV 08/11/24 22:00 08/15/24 14:00 10 ML Docusate Sodium 100 mg BIDPRN PRN PO 08/11/24 21:15 08/15/24 11:05 100 MG Acetaminophen 650 mg Q6HP PRN PO 08/11/24 21:15 Morphine Sulfate 1 mg Q4HP PRN IV 08/11/24 21:15 08/15/24 11:05 1 MG Pantoprazole Sodium 40 mg DAILY@0600 PO 08/12/24 06:00 08/15/24 05:32 40 MG Enoxaparin Sodium 80 mg Q12HR SC 08/11/24 22:00 08/15/24 09:32 80 MG Diagnostic Test (Pha) 1 strip ACHS 08/11/24 22:00 08/15/24 11:30 1 STRIP Insulin Human Regular ACHS SC 08/11/24 22:00 08/15/24 13:39 3 UNITS Dextrose 50 ml UD PRN IV 08/11/24 22:00 Atorvastatin Calcium 20 mg DAILY PO 08/12/24 10:00 08/15/24 09:32 20 MG Ergocalciferol 50,000 unit Q7D PO 08/11/24 22:00 08/11/24 23:53 50,000 UNIT Insulin Glargine 10 units QPM SC 08/12/24 18:00 08/13/24 17:18 10 UNITS Levothyroxine Sodium 150 mcg DAILY@0700 PO 08/12/24 07:00 08/15/24 06:30 150 MCG Gabapentin 400 mg BID PO 08/12/24 10:00 08/15/24 09:32 400 MG Melatonin 5 mg HS PO 08/14/24 22:00 08/15/24 00:12 5 MG Laboratory Results Laboratory Tests 08/12/24 06:29 Urinalysis Test 08/12/24 03:14 Urine Color Light-yellow (Yellow) Urine Clarity Clear (Clear) Urine pH 5.5 (5.0-9.0) Urine Specific [place] 1.020 (1.001-1.035) Urine Protein Negative (Negative) Urine Ketones Negative (Negative) Urine Blood Negative /uL (Negative) Urine Nitrite Negative (Negative) Urine Bilirubin Negative (Negative) Urine Urobilinogen Normal mg/dL (Negative) Urine Leukocyte Esterase Negative /uL (Negative) Urine RBC 1 /hpf (0 - 4) Urine Microscopic WBC < 1 /HPF (0-5) Urine Squamous Epithelial Cells Few /hpf (<5) Urine Bacteria None seen /hpf (None Seen) Urine Hyaline Casts Few /lpf (0 - 2) Urine Creatinine 114.64 mg/dL (30.0-125.0) Urine Protein/Creatinine Ratio 0.21 Urine Sodium 79 mmol/L (40-220) Urine Glucose Normal mg/dL (Normal) Urine Total Protein 23.7 mg/dL (1-14) H Assessment/Plan Assessment/Plan Patient is 69 years old female with past medical history of hypertension, diabetes mellitus type 2, hyperlipidemia, 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 As per patient she tripped and fell around 11:30 a.m. today on her knee and elbow. Following fall she has been having pain in the knee and elbow and of the back, initially it was 10/10. Patient denied any neurological deficit. Patient denied any fever, chest pain or shortness of breath. Initial lab workup revealed hemoglobin 11.9, RDW 15.9, serum creatinine 1.72, BUN 36, GFR 32. HB A1c 7.9. X-ray lumbar pain-1. Compression fracture of T12 with vertebral body augmentation. 2. Grade 3 compression fracture of L2 vertebral body. 3 Severe osteopenia. X-ray elbow no fracture, osteopenia. X- ray knee- Mild osteopenia. Atherosclerotic change of the right popliteal artery right superficial femoral artery and trifurcation vessels with calcified plaque. 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 Chronic Gouty Arthritis diabetic neuropathy COPD no acute exacerbation 08/12/2024 pt has back pain consult spine surgery, likely not a surgical case PT/OT would be beneficial 08/13/2024 pt was seen by PT and able to stand up but could not walk much i discussed with pt, she agreed for home PT but hesitant about rehab, though did not exclusively deny it pt needs to be evaluated by PT/OT and discharged to either home with PT vs Rehab 08/14 Working with PT Per ortho needs brace which will be delivered friday Plan discussed with: Patient Date of Service: August 15, 2024 Billing Provider: BARRERA GALVAN MD Common Visit Codes: [id number] INP/OBS CARE(HIGH) BARRERA GALVAN MD August 15, 2024 17:54
[2024-08-16] VITALS (7 sets, daily range): BP systolic 105–147; BP diastolic 47–66; PULSE 59–72; RESP 16–20; TEMP 97.7–98.3; O2SAT 94–98
--- NOTE | 2024-08-16 21:21 | DVHPN2 ---
Subjective in bed feeling well Reviewed: Care Plan, H&P, Labs, Medications, Previous Orders Changes from previous H/P or p: No Changes General: Per HPI Objective Vitals Vital Signs Date Time Temp Pulse Resp B/P (MAP) Pulse Ox O2 Delivery O2 Flow Rate FiO2 08/16/24 17:45 75 16 112/65 08/16/24 17:00 97.7 96 97.7 08/16/24 08:07 Room Air* 0 21 Intake/Output Intake and Output 08/16/24 07:00 Intake Total 460 ml Balance 460 ml Intake Oral 460 ml # Voids 9 # Bowel Movements 2 General Appearance: Alert, Oriented X3 Lungs: Clear to auscultation Cardiovascular: Regular rate, Normal S1, Normal S2 Medications Current Medications Medications Dose Ordered Sig/Iliana Route Start Time Stop Time Status Last Admin Dose Admin Sodium Chloride 10 ml Q8HR IV 08/11/24 22:00 08/16/24 17:15 10 ML Docusate Sodium 100 mg BIDPRN PRN PO 08/11/24 21:15 08/16/24 08:25 100 MG Acetaminophen 650 mg Q6HP PRN PO 08/11/24 21:15 Morphine Sulfate 1 mg Q4HP PRN IV 08/11/24 21:15 08/16/24 17:15 1 MG Pantoprazole Sodium 40 mg DAILY@0600 PO 08/12/24 06:00 08/16/24 06:06 40 MG Enoxaparin Sodium 80 mg Q12HR SC 08/11/24 22:00 08/16/24 08:26 80 MG Diagnostic Test (Pha) 1 strip ACHS 08/11/24 22:00 08/16/24 17:21 1 STRIP Insulin Human Regular ACHS SC 08/11/24 22:00 08/16/24 17:16 2 UNITS Dextrose 50 ml UD PRN IV 08/11/24 22:00 Atorvastatin Calcium 20 mg DAILY PO 08/12/24 10:00 08/16/24 08:25 20 MG Ergocalciferol 50,000 unit Q7D PO 08/11/24 22:00 08/11/24 23:53 50,000 UNIT Insulin Glargine 10 units QPM SC 08/12/24 18:00 08/16/24 17:20 10 UNITS Levothyroxine Sodium 150 mcg DAILY@0700 PO 08/12/24 07:00 08/16/24 06:07 150 MCG Gabapentin 400 mg BID PO 08/12/24 10:00 08/16/24 08:25 400 MG Melatonin 5 mg HS PO 08/14/24 22:00 08/16/24 00:14 5 MG Laboratory Results Laboratory Tests 08/12/24 06:29 Urinalysis Test 08/12/24 03:14 Urine Color Light-yellow (Yellow) Urine Clarity Clear (Clear) Urine pH 5.5 (5.0-9.0) Urine Specific [place] 1.020 (1.001-1.035) Urine Protein Negative (Negative) Urine Ketones Negative (Negative) Urine Blood Negative /uL (Negative) Urine Nitrite Negative (Negative) Urine Bilirubin Negative (Negative) Urine Urobilinogen Normal mg/dL (Negative) Urine Leukocyte Esterase Negative /uL (Negative) Urine RBC 1 /hpf (0 - 4) Urine Microscopic WBC < 1 /HPF (0-5) Urine Squamous Epithelial Cells Few /hpf (<5) Urine Bacteria None seen /hpf (None Seen) Urine Hyaline Casts Few /lpf (0 - 2) Urine Creatinine 114.64 mg/dL (30.0-125.0) Urine Protein/Creatinine Ratio 0.21 Urine Sodium 79 mmol/L (40-220) Urine Glucose Normal mg/dL (Normal) Urine Total Protein 23.7 mg/dL (1-14) H Assessment/Plan Assessment/Plan Patient is 69 years old female with past medical history of hypertension, diabetes mellitus type 2, hyperlipidemia, 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 As per patient she tripped and fell around 11:30 a.m. today on her knee and elbow. Following fall she has been having pain in the knee and elbow and of the back, initially it was 10/10. Patient denied any neurological deficit. Patient denied any fever, chest pain or shortness of breath. Initial lab workup revealed hemoglobin 11.9, RDW 15.9, serum creatinine 1.72, BUN 36, GFR 32. HB A1c 7.9. X-ray lumbar pain-1. Compression fracture of T12 with vertebral body augmentation. 2. Grade 3 compression fracture of L2 vertebral body. 3 Severe osteopenia. X-ray elbow no fracture, osteopenia. X- ray knee- Mild osteopenia. Atherosclerotic change of the right popliteal artery right superficial femoral artery and trifurcation vessels with calcified plaque. 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 Chronic Gouty Arthritis diabetic neuropathy COPD no acute exacerbation 08/12/2024 pt has back pain consult spine surgery, likely not a surgical case PT/OT would be beneficial 08/13/2024 pt was seen by PT and able to stand up but could not walk much i discussed with pt, she agreed for home PT but hesitant about rehab, though did not exclusively deny it pt needs to be evaluated by PT/OT and discharged to either home with PT vs Rehab 08/14 Working with PT Per ortho needs brace which will be delivered friday Plan discussed with: Patient Date of Service: August 16, 2024 Billing Provider: BARRERA GALVAN MD Common Visit Codes: [id number] INP/OBS CARE(HIGH) BARRERA GALVAN MD August 16, 2024 21:21
[2024-08-17 08:10] VITALS: PULSE 62; RESP 15; O2SAT 96
[2024-08-17 09:00] VITALS: BP 118/57; PULSE 62; RESP 15; TEMP 98.2; O2SAT 96
[2024-08-17 12:30] VITALS: BP 111/61; PULSE 67; RESP 18; TEMP 97.8; O2SAT 97
[2024-08-17 17:00] VITALS: BP 145/79; PULSE 71; RESP 17; TEMP 97.8; O2SAT 94
--- NOTE | 2024-08-17 19:09 | DVHPN2 ---
Subjective in bed feeling well Reviewed: Care Plan, H&P, Labs, Medications, Previous Orders Changes from previous H/P or p: No Changes General: Per HPI Objective Vitals Vital Signs Date Time Temp Pulse Resp B/P (MAP) Pulse Ox O2 Delivery O2 Flow Rate FiO2 08/17/24 17:50 71 17 145/79 08/17/24 17:00 97.8 94 97.8 08/17/24 08:10 Room Air* 0 21 Intake/Output Intake and Output 08/17/24 07:00 Intake Total 1550 ml Output Total 150 ml Balance 1400 ml Intake Oral 1550 ml Output Urine Total 150 ml # Voids 8 # Bowel Movements 3 General Appearance: Alert, Oriented X3 Lungs: Clear to auscultation Cardiovascular: Regular rate, Normal S1, Normal S2 Medications Current Medications Medications Dose Ordered Sig/Iliana Route Start Time Stop Time Status Last Admin Dose Admin Sodium Chloride 10 ml Q8HR IV 08/11/24 22:00 08/17/24 11:45 10 ML Docusate Sodium 100 mg BIDPRN PRN PO 08/11/24 21:15 08/16/24 08:25 100 MG Acetaminophen 650 mg Q6HP PRN PO 08/11/24 21:15 Morphine Sulfate 1 mg Q4HP PRN IV 08/11/24 21:15 08/17/24 17:50 1 MG Pantoprazole Sodium 40 mg DAILY@0600 PO 08/12/24 06:00 08/17/24 06:30 40 MG Enoxaparin Sodium 80 mg Q12HR SC 08/11/24 22:00 08/16/24 08:26 80 MG Diagnostic Test (Pha) 1 strip ACHS 08/11/24 22:00 08/17/24 16:43 1 STRIP Insulin Human Regular ACHS SC 08/11/24 22:00 08/17/24 11:49 3 UNITS Dextrose 50 ml UD PRN IV 08/11/24 22:00 Atorvastatin Calcium 20 mg DAILY PO 08/12/24 10:00 08/17/24 09:23 20 MG Ergocalciferol 50,000 unit Q7D PO 08/11/24 22:00 08/11/24 23:53 50,000 UNIT Insulin Glargine 10 units QPM SC 08/12/24 18:00 08/17/24 17:58 10 UNITS Levothyroxine Sodium 150 mcg DAILY@0700 PO 08/12/24 07:00 08/17/24 06:30 150 MCG Gabapentin 400 mg BID PO 08/12/24 10:00 08/17/24 09:23 400 MG Melatonin 5 mg HS PO 08/14/24 22:00 08/16/24 21:22 5 MG Laboratory Results Laboratory Tests 08/12/24 06:29 Urinalysis Test 08/12/24 03:14 Urine Color Light-yellow (Yellow) Urine Clarity Clear (Clear) Urine pH 5.5 (5.0-9.0) Urine Specific [place] 1.020 (1.001-1.035) Urine Protein Negative (Negative) Urine Ketones Negative (Negative) Urine Blood Negative /uL (Negative) Urine Nitrite Negative (Negative) Urine Bilirubin Negative (Negative) Urine Urobilinogen Normal mg/dL (Negative) Urine Leukocyte Esterase Negative /uL (Negative) Urine RBC 1 /hpf (0 - 4) Urine Microscopic WBC < 1 /HPF (0-5) Urine Squamous Epithelial Cells Few /hpf (<5) Urine Bacteria None seen /hpf (None Seen) Urine Hyaline Casts Few /lpf (0 - 2) Urine Creatinine 114.64 mg/dL (30.0-125.0) Urine Protein/Creatinine Ratio 0.21 Urine Sodium 79 mmol/L (40-220) Urine Glucose Normal mg/dL (Normal) Urine Total Protein 23.7 mg/dL (1-14) H Assessment/Plan Assessment/Plan Patient is 69 years old female with past medical history of hypertension, diabetes mellitus type 2, hyperlipidemia, 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 As per patient she tripped and fell around 11:30 a.m. today on her knee and elbow. Following fall she has been having pain in the knee and elbow and of the back, initially it was 10/10. Patient denied any neurological deficit. Patient denied any fever, chest pain or shortness of breath. Initial lab workup revealed hemoglobin 11.9, RDW 15.9, serum creatinine 1.72, BUN 36, GFR 32. HB A1c 7.9. X-ray lumbar pain-1. Compression fracture of T12 with vertebral body augmentation. 2. Grade 3 compression fracture of L2 vertebral body. 3 Severe osteopenia. X-ray elbow no fracture, osteopenia. X- ray knee- Mild osteopenia. Atherosclerotic change of the right popliteal artery right superficial femoral artery and trifurcation vessels with calcified plaque. 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 Chronic Gouty Arthritis diabetic neuropathy COPD no acute exacerbation Plan Working with PT Per ortho needs brace which will be delivered friday Plan discussed with: Patient Date of Service: August 17, 2024 Billing Provider: BARRERA GALVAN MD Common Visit Codes: [id number] INP/OBS CARE(HIGH) BARRERA GALVAN MD August 17, 2024 19:09
[2024-08-17 21:00] VITALS: BP 143/72; PULSE 69; RESP 17; TEMP 97.9; O2SAT 99
[2024-08-18 01:00] VITALS: BP 117/79; PULSE 75; RESP 16; TEMP 97.9; O2SAT 95
[2024-08-18 05:00] VITALS: BP_SYST 116; BP_SYST 117; BP_DIAS 48; BP_DIAS 55; PULSE 71; PULSE 77; RESP 16; RESP 17; TEMP 97.5; O2SAT 98; O2SAT 99
[2024-08-18 08:30] VITALS: PULSE 73; RESP 18; O2SAT 92
[2024-08-18 09:00] VITALS: BP 118/45; PULSE 73; RESP 18; TEMP 97.9; O2SAT 92
[2024-08-18 13:00] VITALS: BP 116/68; PULSE 86; RESP 17; TEMP 98.4; O2SAT 98
[2024-08-18 13:05] VITALS: BP 118/45; PULSE 73; RESP 18; TEMP 36.6; O2SAT 92
[2024-08-18] MEDS ORDERED: CALC50TA PO (15:12)
[2024-08-18] MEDS ORDERED: FLUT250M2 IN (15:12)
== END 2024-08-18 13:37 | disposition home health service (06) | DRG 551 ==
LOC: ER 13:52 → OVERFLOW 21:09 → WEST WING 22:43
PROVIDERS: ADMIT Hospitalist; ATTEND Hospitalist
DX: S22.089A Unspecified fracture of T11-T12 vertebra, initial encounter for closed fracture (principal); N17.0 Acute kidney failure with tubular necrosis; S32.019A Unspecified fracture of first lumbar vertebra, initial encounter for closed fracture; S32.029A Unspecified fracture of second lumbar vertebra, initial encounter for closed fracture; M85.80 Other specified disorders of bone density and structure, unspecified site; W01.0XXA Fall on same level from slipping, tripping and stumbling without subsequent striking against object, initial encounter; M51.379 Other intervertebral disc degeneration, lumbosacral region without mention of lumbar back pain or lower extremity pain; M51.369 Other intervertebral disc degeneration, lumbar region without mention of lumbar back pain or lower extremity pain; K21.9 Gastro-esophageal reflux disease without esophagitis; J44.9 Chronic obstructive pulmonary disease, unspecified; I70.201 Unspecified atherosclerosis of native arteries of extremities, right leg; E78.5 Hyperlipidemia, unspecified; F41.9 Anxiety disorder, unspecified; E03.9 Hypothyroidism, unspecified; E11.40 Type 2 diabetes mellitus with diabetic neuropathy, unspecified; I10 Essential (primary) hypertension; M1A.9XX0 Chronic gout, unspecified, without tophus (tophi); M43.16 Spondylolisthesis, lumbar region; Z79.2 Long term (current) use of antibiotics; Z79.4 Long term (current) use of insulin; Z79.899 Other long term (current) drug therapy; Z79.891 Long term (current) use of opiate analgesic; Z79.1 Long term (current) use of non-steroidal anti-inflammatories (NSAID); Z79.01 Long term (current) use of anticoagulants; Z90.710 Acquired absence of both cervix and uterus; Z86.718 Personal history of other venous thrombosis and embolism; Z87.440 Personal history of urinary (tract) infections; Z95.828 Presence of other vascular implants and grafts
CPT/HCPCS: 36415; 72100; 72148; 73070; 73562; 80048; 80053; 81001; 82306; 82570; 82607; 82746; 82962; 83036; 83735; 84156; 84300; 84439; 84443; 84481; 85025; 85610; 85730; 96374; 96375; 97110; 97116; 97163; 97530; G0378; J1815; J2405

== ENCOUNTER 2024-08-19 06:38 | Day surgery (SDC) | payer MEDICARE, MEDICAID ==
[2024-08-18 15:08] LABS: Basophils # (auto) 0 10 ^3/uL (0-0.2); Basophils % (auto) 0.3 % (0.0-2.0); Eosinophils # (auto) 0.1 10 ^3/uL (0-0.8); Eosinophils % (auto) 2.2 % (0.0-7.0); Hematocrit 36.2 % (36.0-46.0); Hemoglobin 11.8 g/dL (12.2-16.2); Lymphocytes # (auto) 1.6 10 ^3/uL (0.4-5.4); Lymphocytes % (auto) 31.6 % (10.0-50.0); Mean Corpuscular Hemoglobin 27.2 pg (28.0-32.0); Mean Corpuscular Hgb Conc. 32.7 g/dL (32.0-36.0); Mean Corpuscular Volume 83.2 fL (80.0-100.0); Monocytes # (auto) 0.3 10 ^3/uL (0-1.3); Monocytes % (auto) 6.9 % (0.0-12.0); Neutrophils # (auto) 2.9 10 ^3/uL (1.6-8.6); Platelet Count (auto) 182 10^3/uL (140-450); Red Blood Cells 4.35 10^6/uL (4.0-5.20); Red Cell Distribution Width 16.2 % (11.8-14.3); White Blood Cell 4.9 10^3/uL (4.4-10.8)
[2024-08-18 15:23] LABS: Albumin 4.5 g/dL (3.2-4.8); Anion Gap 7 (5-15); BUN/Creatinine Ratio 23.8 (10.0-20.0); Carbon Dioxide 27 mmol/L (20-31); Potassium 4.2 mmol/L (3.5-5.1); Sodium 143 mmol/L (136-145)
[2024-08-18 15:25] LABS: Alanine Aminotransferase 121 U/L (7-40); Alkaline Phosphatase 134 U/L (46-116); Aspartate Aminotransferase 94 U/L (13-40); Bilirubin, Total 0.3 mg/dL (0.2-1.0); Blood Urea Nitrogen 30 mg/dL (9-23); Calcium 10.7 mg/dL (8.7-10.4); Chloride 109 mmol/L (98-107); Glucose 160 mg/dL (74-106); INR 0.97 (0.9-1.15); Partial Thromboplastin Time 26.2 SEC (24.5-34.5); Prothrombin Time 10.3 sec (9.3-11.8); Total Protein 8.2 g/dL (5.7-8.2)
[~2024-08-19] VITALS: Ht 165.1 cm; Wt 81.2 kg
[~2024-08-19 06:38] MED LIST changes: +ALBUAER3 IN; +ALEN70TA74 PO; +CALC50TA PO; -CEPH500C PO; -DEXT1SYP9 PO; -DICL1GEL73 TD; +FLUT250M2 IN; +INSU100I33 SC; -KETO2CRE4 EX; -LEVO-849 PO; -METH-1181 PO; -OFL50TS OT; +PANT40TA57 PO; +PRED20TA2 PO; +SOLI10TA39 PO
[2024-08-19] MEDS ORDERED: ceFAZolin 2 GM/D5W50ml 50 ML IV ONE (07:48)
[2024-08-19] MEDS ORDERED: PROPOFOL 10 MG/ML 20 ML IV ONE (08:25)
[2024-08-19] MEDS ORDERED: GLYCOPYRROLATE 0.2 MG/ML 1ML VIAL ONE (08:25)
[2024-08-19] MEDS ORDERED: KETAMINE 50mg/ML 1ml syringe ONE (08:25)
[2024-08-19] MEDS ORDERED: ONDANSETRON HCL 4 MG/2 ML VIAL ONE (08:25)
[2024-08-19] MEDS ORDERED: MIDAZOLAM HCL 2MG/2ML 2ml VIAL (1mg/ml) ONE (08:25)
[2024-08-19] MEDS ORDERED: IOHEXOL 300 MG/ML 100ML BOTTLE IJ ONE (09:16)
[2024-08-19] MEDS ORDERED: KETOROLAC TROMETH 30 MG/ML 1ML VIAL ONE (09:41)
[2024-08-19 10:12] VITALS: PULSE 75; RESP 12; O2SAT 98
--- NOTE | 2024-08-19 10:19 | DVHNC2 ---
Procedure - OPERATIVE REPORT Pre-op. Diagnosis: Stress Urinary Incontinence Intrinsic Sphincteric Deficiency Post-op. Diagnosis: Same as pre-op diagnosis Operation: Cystoscopy, Injection of Bulking Agent Fluoroscopy Anesthesia: General Indications: Patient has Stress Urinary Incontinence secondary to Intrinsic Sphincteric Deficiency. Indications, risks, complications, alternatives and benefits of cystoscopy with injection of bulking agent were discussed with patient. All questions were encouraged and answered. Patient is aware of specific risks/complications inc luding but not limited to infection, bleeding, persistent urinary hematuria, urinary incontinence and urinary retention. Informed consent was obtained. Details of Procedure: Patient is taken to Operating suite and given appropriate anesthesia. After prepping and draping, the patient was placed in the lithotomy position. A 21 F rigid cystoscope was introduced and the bladder was emptied. Next, the scope was positioned in the urethra and injection of Coaptite (Bulking agent) at 4 thru 8 O'clock position using a long transurethral needle was performed. Fluoroscopy was utilized to confirm the proper placement of the radioopaque bulking agent. Coaptation of bladder neck was noted. Bladder was emptied. Patient tolerated the procedure well. Patient is awakened and taken to RR in stable condition. Specimens: None Complications: None Findings: Notes: DISPOSITION: Discharge to home after voided . RTC 2 weeks. Visit Code: Procedure Codes: 12919 ENDOSCOPIC INJ IMPLANT. MERY RAINEY MD August 19, 2024 10:19
--- NOTE | 2024-08-19 10:20 | DVHDS2 ---
New Physician D'charge PN Admitting Diagnosis Admitting Diagnosis Stress urinary incontinence Discharge Diagnosis Same Operations or Procedures Trans urethral injection of Coaptite Fluoroscopy Reason(s) For Hospitalization Surgery Treatment Plan Discharge Condition of Discharge Fair Disposition Home Discharge Instructions Diet: Regular Activity: Light activity Activity comment: Activity as tolerated Medications: Given Follow Up Care Follow Up/Referral: Follow-up in two weeks Discharge Statement: "Patient was advised to return to the ER or call 911 if any headaches, dizziness, shortness of breath, chest pain, abdominal pain, bleeding, fevers, or worsening of medical condition. Patient was counseled about treatment plan, medications, possible side effects, patientverbalized understanding. All questions were answered to the best of my ability. This discharge took greater then 30 minutes in planning, reviewing do cumentation, counseling the patient, and discussing with other team members." MERY RAINEY MD August 19, 2024 10:20
[2024-08-19] MEDS: HYDROmorphone HCL 2 MG/ML VL/or syr IV PRN (10:30)
[2024-08-19] MEDS ORDERED: HYDROmorphone HCL 2 MG/ML VL/or syr ONE ×2 (10:30→10:53)
[2024-08-19 11:10] VITALS: BP 124/62; PULSE 75; RESP 12; O2SAT 98
--- NOTE | 2024-08-19 12:19 | DVH ---
FLUOROSCOPY TIME: 12 seconds TECHNIQUE: Intraoperative radiographs of the pelvis were obtained. COMPARISON: None FINDINGS: Refer to intraoperative report for further evaluation. IMPRESSION: Refer to intraoperative report for further evaluation.
== END 2024-08-19 12:00 | disposition home or self-care (01) ==
LOC: SUR 06:38
PROVIDERS: ATTEND Urology
DX: N36.42 Intrinsic sphincter deficiency (ISD) (principal); N39.3 Stress incontinence (female) (male); I10 Essential (primary) hypertension; I42.9 Cardiomyopathy, unspecified; E11.9 Type 2 diabetes mellitus without complications; E03.9 Hypothyroidism, unspecified; E78.00 Pure hypercholesterolemia, unspecified; M81.0 Age-related osteoporosis without current pathological fracture; Z79.899 Other long term (current) drug therapy; Z90.710 Acquired absence of both cervix and uterus; Z98.890 Other specified postprocedural states
CPT/HCPCS: 36415; 51715; 72170; 80053; 82962; 85025; 85610; 85730; 87086; J0690; J1171; J1885; J2250; J2405; J2704; L8606; 76000

== ENCOUNTER 2024-09-17 11:16 | Inpatient (IN) | payer MEDICARE, MEDICAID ==
[~2024-09-17] VITALS: Ht 167.6 cm; Wt 87.1 kg
--- NOTE | 2024-09-17 11:34 | ED.PDOC ---
GI ASSESSMENT HPI Comments 69-year-old female presents with a chief complaint of abdominal pain x 3 days. Patient states that her pain is localized to her LUQ, nonradiating, describes as sharp, and rates her pain a 8/10. Patient denies any nausea, vomiting, or diarrhea at this time. Patient mentions that she has not been able to sleep well at night due to the pain in her abdomen. Time Seen by MD: 11:20 Primary Care Provider: DR TODD Reviewed Notes: Medications, Allergies Allergies: Coded Allergies: NO KNOWN ALLERGIES (Unverified , 06/09/21) Home Meds Active Scripts Insulin Glargine (Lantus) 100 Unit/Ml Inj, 10 UNITS SC QPM for 30 Days, #30 INJ Prov:BARBARA TOVAR MD 10/05/23 Lancets (ACTI-TOMAS LANCETS 28G) 28 G Mis, G XX AC, #200 3 Refills use to measure blood glucuse Prov:AKSHAT JENSEN RESIDENT 10/01/23 Insulin Syringe/Needle U-100 (Aq Insulin Syringe/1Ml/29 29G X 1/2" 1 ml) 1 Mis Mis, MIS XX AC, #200 3 Refills use to admisitration of insulin Prov:AKSHAT JENSEN RESIDENT 10/01/23 Ergocalciferol (VITAMIN D 22003 UNIT) 50,000 [place], [address] UNIT PO Q7D for 42 Days, #6 CAP take once every week Prov:AKSHAT JENSEN RESIDENT 10/01/23 Hydrocodone-Acetaminophen (Hydrocodone Bitartrate/AC 10-325 mg) 1 Tab Tab, 1 TAB PO TIDPRN, #30 TAB Prov:CHILO HILTON MD 11/01/22 Reported Medications Calcium Gluconate (Calcium Gluconate) 50 Mg Tab, 500 MG PO DAILY, TAB 08/18/24 Fluticasone-Salmeterol (Advair Diskus 250/50) 1 Puff Ih, 1 PUFF IN BID, INH 08/18/24 Solifenacin Succinate (Solifenacin Succinate) 10 Mg Tab, 10 MG PO, TAB 08/13/24 Alendronate Sodium (Alendronate Sodium) 70 Mg Tab, 70 MG PO Q7D, TAB 08/13/24 Pantoprazole Sodium Sesquihydr (Pantoprazole Sodium Dr) 40 Mg Tab, 40 MG PO, TAB 08/13/24 Prednisone (Prednisone) 20 Mg Tab, 20 MG PO, MG 08/13/24 Albuterol Sulfate (VENTOLIN MDI) 90 Mcg Ih, 90 MCG IN, INH 08/13/24 Insulin Degludec (Tresiba) 100 Unit/Ml Inj, 100 UNIT SC, INJ 08/13/24 Gabapentin (Neurontin) 400 Mg Cap, 1 CAP PO BID, #90 CAP 1 Refill 09/28/23 Losartan Potassium (Losartan Potassium) 25 Mg Tab, 25 MG PO DAILY for 30 Days, MG 09/28/23 Atorvastatin Calcium (ATORVASTATIN CALCIUM) 20 Mg Tab, 1 TAB PO DAILY, #30 TAB 5 Refills 09/28/23 Apixaban Base (ELIQUIS) 5 Mg Tab, 1 TAB PO BID 12/12/21 Information Source: Patient Mode of Arrival: Ambulatory Timing: Days Duration: Since onset Prehospital treatment: None Quality: Sharp Vomitus: None Stool: Normal Severity: Moderate Recent: None Recent Hx of: None Pain Location: LUQ Associated sign and symptoms: Abdominal Pain Past Medical History PAST MEDICAL HISTORY: Anxiety, Cancer, DM, GERD, High Lipids, HTN, UTI'S Surgical History: , Hernia Repair, Hysterectomy [employer] History: 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 Family History Family History: Unknown Social History Smoker: Non-Smoker Alcohol: Denies ETOH Use Drugs: Denies Drug Use Lives In: Home Constitutional: denies: chills, diaphoresis, fatigue, fever, malaise, sweats, weakness, others EENTM: denies: blurred vision, double vision, ear bleeding, ear discharge, ear drainage, ear pain, ear ringing, eye pain, eye redness, hearing loss, mouth pain, mouth swelling, nasal discharge, nose bleeding, nose congestion, nose pain, photophobia, tearing, throat pain, throat swelling, voice changes, others Respiratory: denies: cough, hemoptysis, orthopnea, SOB at rest, shortness of breath, SOB with excertion, stridor, wheezing, others Cardiovascular: denies: chest pain, dizzy spells, diaphoresis, Dyspnea on exertion, edema, irregular heart beat, left arm pain, lightheadedness, palpitations, PND, syncope, others Gastrointestinal: reports: abdominal pain; denies: abdomen distended, blood streaked bowels, constipated, diarrhea, dysphagia, difficulty swallowing, hematemesis, melena, nausea, poor appetite, poor fluid intake, rectal bleeding, rectal pain, vomiting, others Genitourinary: denies: abnormal vagina bleeding, burning, dyspareunia, dysuria, flank pain, frequency, hematuria, incontinence, pain, , vagina discharge, urgency, others Neurological: denies: dizziness, fainting, headache, left sided numbness, left sided weakness, numbness, paresthesia, pre-existing deficit, right sided numbness, right sided weakness, seizure, speech problems, tingling, tremors, weakness, others Musculoskeletal: denies: back pain, gout, joint pain, joint swelling, muscle pain, muscle stiffness, neck pain, others Integumetry: denies: bruises, change in color, change in hair/nails, dryness, laceration, lesions, lumps, rash, wounds, others Allergic/Immunocompromised: denies: Difficulty Healing, Frequent Infections, Hives, Itching, others Hematologic/Lymphatic: denies: anemia, blood clots, easy bleeding, easy bruising, swollen glands, others Endocrine: denies: excessive hunger, excessive sweating, excessive thirst, excessive urination, flushing, intolerance to cold, intolerance to heat, unexplained weight gain, unexplained weight loss, others Psychiatric: denies: anxiety, bipolar disorder, depression, hopeless, panic disorder, schizophrenia, sleepless, suicidal, others All Other Systems: Reviewed and Negative Physical Exam General Appearance: Moderate Distress, Normal HEENT: Normal ENT Inspection, Pharynx Normal, TMs Normal Neck: Full Range of Motion, Non-Tender, Normal, Normal Inspection Respiratory: Chest Non-Tender, Lungs Clear, No Accessory Muscle Use, No Respiratory Distress, Normal Breath Sounds Cardiovascular: No Edema, No JVD, No Murmur, No Gallop, Normal Peripheral Pulses, Regular Rate/Rhythm Breast Exam: Deferred Gastrointestinal: LLQ, No Organomegaly, No Pulsatile Mass, Normal Bowel Sounds, Soft Genitalia: Deferred Pelvic: Deferred Rectal: Deferred Extremities: No calf tenderness, Normal capillary refill, Normal inspection, Normal range of motion, Non-tender, No pedal edema Musculoskeletal : Apperance: Normal Neurologic: Alert, leather toggler II-XII nml as Tested, No Motor Deficits, Normal Affect, Normal Mood, No Sensory Deficits Cerebellar Function: Normal Reflexes: Normal Skin: Dry, Normal Color, Warm Peripheral Pulses: 3+ Radial (R), 3+ Radial (L) Lymphatic: No Adenopathy Was a procedure done? Was a procedure done?: No GI differential Dx Differential Diagnosis: Constipation, Diverticular disease, Esophagitis, Gastritis/PUD, Gastroenteritis X-Ray, Labs, Meds, VS Vital Signs Date Time Temp Pulse Resp B/P (MAP) Pulse Ox O2 Delivery O2 Flow Rate FiO2 09/17/24 12:58 86 14 96 Room Air 09/17/24 12:58 98.0 86 14 118/76 (90) 96 98.0 09/17/24 11:27 98.0 91 16 143/78 (99) 97 98.0 Lab Test 09/17/24 11:45 09/17/24 11:25 Range/Units White Blood Count 5.0 4.4-10.8 10^3/uL Red Blood Count 4.30 4.0-5.20 10^6/uL Hemoglobin 11.7 L 12.2-16.2 g/dL Hematocrit 35.3 L 36.0-46.0 % Mean Corpuscular Volume 82.1 80.0-100.0 fL Mean Corpuscular Hemoglobin 27.1 L 28.0-32.0 pg Mean Corpuscular Hemoglobin Concent 33.0 32.0-36.0 g/dL Red Cell Distribution Width 15.8 H 11.8-14.3 % Platelet Count 196 140-450 10^3/uL Mean Platelet Volume 8.8 6.9-10.8 fL Neutrophils (%) (Auto) 60.3 37.0-80.0 % Lymphocytes (%) (Auto) 29.0 10.0-50.0 % Monocytes (%) (Auto) 7.4 0.0-12.0 % Eosinophils (%) (Auto) 2.7 0.0-7.0 % Basophils (%) (Auto) 0.6 0.0-2.0 % Neutrophils # (Auto) 3.0 1.6-8.6 10 ^3/uL Lymphocytes # (Auto) 1.4 0.4-5.4 10 ^3/uL Monocytes # (Auto) 0.4 0-1.3 10 ^3/uL Eosinophils # (Auto) 0.1 0-0.8 10 ^3/uL Basophils # (Auto) 0 0-0.2 10 ^3/uL Nucleated Red Blood Cells 0.0 % Sodium Level 142 136-145 mmol/L Potassium Level 4.7 3.5-5.1 mmol/L Chloride Level 112 H 98-107 mmol/L Carbon Dioxide Level 20 20-31 mmol/L Anion Gap 10 5-15 Blood Urea Nitrogen 33 H 9-23 mg/dL Creatinine 1.22 H 0.550-1.02 mg/dL Glomerular Filtration Rate Calc 49 >90 mL/min BUN/Creatinine Ratio 27.0 H 10.0-20.0 Serum Glucose 161 H 74-106 mg/dL Hemoglobin A1c 8.0 H <5.7 % A1C Calcium Level 10.2 8.7-10.4 mg/dL Urine Color Light-yellow Yellow Urine Clarity Clear Clear Urine pH 5.5 5.0-9.0 Urine Specific [place] 1.015 1.001-1.035 Urine Protein Negative Negative Urine Ketones Negative Negative Urine Blood Negative Negative /uL Urine Nitrite Negative Negative Urine Bilirubin Negative Negative Urine Urobilinogen Normal Negative mg/dL Urine Leukocyte Esterase Negative Negative /uL Urine RBC <1 0 - 4 /hpf Urine Microscopic WBC 1 0-5 /HPF Urine Squamous Epithelial Cells Few <5 /hpf Urine Bacteria None seen None Seen /hpf Urine Glucose Normal Normal mg/dL Patient alert. Complaining of left lower quadrant pain. Vitals stable. Answering all questions. Possibly will need colonoscopy. GI consultation. WBC within normal limits. Blood sugar elevated. CT scan of the abdomen chronic changes. Explained to the patient. Continue monitoring. Possibly need colonoscopy. Time of 1ST Reevaluation: 11:50 Reevaluation 1ST: Unchanged Patient Education/Counseling: Diagnosis, Treatment, Need For Follow Up Family Education/Counseling: No Family Present SEPSIS Sepsis Screen Physician Orders Ct Ab Pel Wo Con-No Oral Or Iv (09/17/24 13:06) Vital Signs Date Time Temp Pulse Resp B/P (MAP) Pulse Ox O2 Delivery O2 Flow Rate FiO2 09/17/24 12:58 86 14 96 Room Air 09/17/24 12:58 98.0 86 14 118/76 (90) 96 98.0 09/17/24 11:27 98.0 91 16 143/78 (99) 97 98.0 Laboratory Tests Test 09/17/24 11:45 White Blood Count 5.0 10^3/uL (4.4-10.8) Departure 1 Departure Time of Disposition: 11:41 Impression: Primary Impression: Uncontrolled diabetes mellitus Qualified Codes: E13.65 - Other specified diabetes mellitus with hyperglycemia Additional Impression: Acute abdominal pain Disposition: 09 ADMITTED INPATIENT Admit to: Med Surg Condition: Guarded Critical Care Note Critical Care Time?: No Stability Stability form required: No Heart Score Heart Score: Heart Score Response (Comments) Value History N/A 0 EKG N/A 0 Age N/A 0 Risk Factors N/A 0 Troponin N/A 0 Total 0 I personally scribed for SIXTO PFEIFFER MD ([email or web address]) on 09/17/24 at 11:34. Electronically submitted by Jose Maria Gordon ([email or web address]). SIXTO PFEIFFER MD Sep 17, 2024 11:34
[2024-09-17 11:57] LABS: Hematocrit 35.3 % (36.0-46.0); Hemoglobin 11.7 g/dL (12.2-16.2); Mean Corpuscular Hemoglobin 27.1 pg (28.0-32.0); Mean Corpuscular Volume 82.1 fL (80.0-100.0); Nucleated Red Blood Cells % 0.0 %
[2024-09-17 12:07] LABS: Potassium 4.7 mmol/L (3.5-5.1); Sodium 142 mmol/L (136-145)
[2024-09-17 12:08] LABS: Anion Gap 10 (5-15); Calcium 10.2 mg/dL (8.7-10.4)
[2024-09-17 12:11] LABS: Carbon Dioxide 20 mmol/L (20-31); Chloride 112 mmol/L (98-107)
[2024-09-17 12:13] LABS: Urine Protein, UAD Negative (Negative)
[2024-09-17 12:13] LABS: BUN/Creatinine Ratio 27.0 (10.0-20.0)
[2024-09-17 12:14] LABS: Blood Urea Nitrogen 33 mg/dL (9-23); Glucose 161 mg/dL (74-106)
--- NOTE | 2024-09-17 14:26 | DVH ---
Exam: CT CT AB PEL WO CON-NO ORAL OR IV History: diffusepain Comparison Study: CT CT AB PEL WO CON-NO ORAL OR IV on DOS: 05/01/23, CT CT AB PEL WO CON-NO ORAL OR IV on DOS: 01/28/23, CT CT AB PEL WO CON-NO ORAL OR IV on DOS: 12/28/22, CT CT AB PEL WO CON-NO ORAL OR I V on DOS: 11/27/22, CT CT AB PEL WO CON-NO ORAL OR IV on DOS: 10/28/22 Technique: Multidetector spiral CT of the abdomen was performed from lung bases to pubic symphysis. I maging was performed without IV contrast. Axial, coronal and sagittal multiplanar reformats were obta ined from the axial data set by the technologist. Radiation Dose : 1. Abdomen/Pelvis: CTDIvol 24.13 mGy, DLP 1203.62 mGy*cm. Findings: Evaluation of solid organs is limited due to lack of intravenous contrast use. Lung Bases: Cardiomegaly. Coronary artery calcifications. Liver: Hepatomegaly. Mildly nodular hepatic contours may represent changes of cirrhosis. Gallbladder and Biliary Tree: Gallbladder is surgically absent. Spleen: Unremarkable Pancreas: Pancreatic atrophy. Adrenal Glands: Unremarkable Kidneys: Kidneys are grossly normal without calculi or hydronephrosis. Bladder: Grossly unremarkable for degree of distention. Bowel: Moderate to large hiatal hernia. Small bowel and colon are normal in caliber and distribution. The appendix is not visualized; however, no secondary findings of acute appendicitis identified. Ascites: Absent Lymphadenopathy: No mesenteric, retroperitoneal or periportal lymphadenopathy. Abdominal Wall and Mesentery: Small fat containing umbilical hernia. Vasculature: IVC filter in-situ. The visualized abdominal aorta is normal in size and caliber. Evalu ation of abdominal and pelvic vessels is limited due to lack of intravenous contrast. Pelvic Organs: The uterus is surgically absent. Musculoskeletal: No aggressive focal bony lesions, acute fractures or dislocation. Multilevel degener ative changes of the spine. Chronic L2 vertebral body compression fracture. Post kyphoplasty changes at T12. IMPRESSION: No acute abdominal or pelvic findings. Radiation optimization: All CT scans at this facility use at least one of these dose optimization maria m hniques: automated exposure control mA and/or kV adjustment per patient size (includes targeted exam s where dose is matched to clinical indication) or iterative reconstruction.
[2024-09-17] MEDS: ALENDRONATE SODIUM 70 MG PO SCH (14:45)
[2024-09-17] MEDS ORDERED: HYDROcodone-ACET 5/325MG TAB PO PRN (14:45)
[2024-09-17] MEDS ORDERED: NITROGLYCERIN 0.4 MG SL TAB SL PRN (14:45)
[2024-09-17] MEDS: ERGOCALCIFEROL 50,000 UNIT(1.25MG) CAP PO SCH (14:45)
[2024-09-17] MEDS ORDERED: ONDANSETRON HCL 4 MG/2 ML VIAL IV PRN (14:45)
[2024-09-17] MEDS ORDERED: DEXTROSE (50%) 50ML SYRG IV PRN (14:45)
[2024-09-17] MEDS ORDERED: ACETAMINOPHEN 325 MG TAB PO PRN (14:45)
[2024-09-17] MEDS ORDERED: MORPHINE SULFATE INJ 2 MG/ml SYRG IV PRN (14:45)
[2024-09-17] MEDS ORDERED: ALBUTEROL SULF 2.5 MG/0.5ML(0.5%) NEB SOLN NEB PRN (15:30)
[2024-09-17] MEDS ORDERED: IPRATROPIUM BROM 0.5 MG/2.5ML INH SOL NEB PRN (15:30)
--- NOTE | 2024-09-17 15:37 | DVHHP2 ---
History of Present Illness Reason for Visit: Abdominal pain History of Present Illness Dimple Chambers is a 69-year-old female with past medical history of hypertension, hyperlipidemia, diabetes, chronic back pain, GERD, anxiety, UTI, right DVT, IVC filter placed at [facility] 5 years ago, , hernia, and hysterectomy who presents to the ED with abdominal pain that starts from her left upper quadrant and radiates down to her left lower extremities as well as her right upper quadrant x 3 days. Patient states that there are no triggering or alleviating factors. She states that she took [place] that she usually takes for chronic back pain with no relief. Patient is seen ambulating with a Rollator. Patient denies any recent trauma or injury, recent sick contacts, recent travels, recent ingestion of spoiled food, nausea, vomiting and diarrhea, chest pain, shortness of breath, fever, chills, lightheadedness, weakness, or dizziness. Patient also reports that she has told previous doctors that she has an IVC filter was supposed to get it removed however when she went back to [facility] they told her that she would have to keep it in. On patient's prior chart shows that she has cancer however upon examination patient states that she had never had cancer. Cardiovascular: HTN, hyperipidemia GI: GERD Psych: Anxiety Renal/: UTI Endocrine: Diabetes Past Medical History Right lower extremity DVT Hernia Past Surgical History: , Hysterectomy, Other (IVC filter placed at [facility] 5 years ago) Family History: DM, Other (Mom and dad with diabetes) Smoke: No ALCOHOL: none Drugs: None Lives: with Family Domestic Violence: Neg Review of Systems Gastrointestinal: Abdominal Pain Allergies: Coded Allergies: NO KNOWN ALLERGIES (Unverified , 06/09/21) Medications Current Medications Medications Dose Ordered Sig/Iliana Route Start Time Stop Time Status Last Admin Dose Admin Diagnostic Test (Pha) 1 strip ACHS 09/17/24 17:00 UNV Insulin Human Regular ACHS SC 09/17/24 17:00 UNV Dextrose 50 ml UD PRN IV 09/17/24 14:45 UNV Acetaminophen/ Hydrocodone Bitart 1 tab Q4HP PRN PO 09/17/24 14:45 UNV Ondansetron HCl 4 mg Q4HP PRN IV 09/17/24 14:45 UNV Acetaminophen 650 mg Q6HP PRN PO 09/17/24 14:45 UNV Morphine Sulfate 2 mg Q4HPRN PRN IV 09/17/24 14:45 UNV Nitroglycerin 0.4 mg Q5MINP PRN SL 09/17/24 14:45 UNV Morphine Sulfate 2 mg Q30M PRN IV 09/17/24 14:45 UNV Apixaban 5 mg BID PO 09/17/24 22:00 UNV Atorvastatin Calcium 20 mg DAILY PO 09/18/24 10:00 UNV Ergocalciferol 50,000 unit Q7D PO 09/17/24 14:45 UNV Gabapentin 400 mg BID PO 09/17/24 22:00 UNV Losartan Potassium 25 mg DAILY PO 09/18/24 10:00 UNV Pantoprazole Sodium 40 mg DAILY PO 09/18/24 10:00 UNV Patient Own Medication 70 mg Q7D PO 09/17/24 14:45 UNV Patient Own Medication 500 mg DAILY PO 09/18/24 10:00 UNV Exam Vital Signs Vital Signs Date Time Temp Pulse Resp B/P (MAP) Pulse Ox O2 Delivery O2 Flow Rate FiO2 09/17/24 12:58 86 14 96 Room Air 09/17/24 12:58 98.0 118/76 (90) 98.0 General Appearance: Alert, Oriented X3, Cooperative, No acute distress HEENT: Atraumatic, PERRLA, EOMI, Mucous membr. moist/pink Respiratory: Clear to auscultation, Normal air movement Cardiovascular: Regular rate, Normal S1, Normal S2 Abdominal: Normal bowel sounds, Soft Extremities: No clubbing, No cyanosis, No edema, Normal pulses Skin: No significant lesion Neuro: Normal gait, Normal speech, Strength at 5/5 X4 ext, Normal tone, Sensation intact Psych/Mental Status: Mental status NL, Mood NL Labs/Xrays Labs Test 09/17/24 11:45 09/17/24 11:25 Range/Units White Blood Count 5.0 4.4-10.8 10^3/uL Red Blood Count 4.30 4.0-5.20 10^6/uL Hemoglobin 11.7 L 12.2-16.2 g/dL Hematocrit 35.3 L 36.0-46.0 % Mean Corpuscular Volume 82.1 80.0-100.0 fL Mean Corpuscular Hemoglobin 27.1 L 28.0-32.0 pg Mean Corpuscular Hemoglobin Concent 33.0 32.0-36.0 g/dL Red Cell Distribution Width 15.8 H 11.8-14.3 % Platelet Count 196 140-450 10^3/uL Mean Platelet Volume 8.8 6.9-10.8 fL Neutrophils (%) (Auto) 60.3 37.0-80.0 % Lymphocytes (%) (Auto) 29.0 10.0-50.0 % Monocytes (%) (Auto) 7.4 0.0-12.0 % Eosinophils (%) (Auto) 2.7 0.0-7.0 % Basophils (%) (Auto) 0.6 0.0-2.0 % Neutrophils # (Auto) 3.0 1.6-8.6 10 ^3/uL Lymphocytes # (Auto) 1.4 0.4-5.4 10 ^3/uL Monocytes # (Auto) 0.4 0-1.3 10 ^3/uL Eosinophils # (Auto) 0.1 0-0.8 10 ^3/uL Basophils # (Auto) 0 0-0.2 10 ^3/uL Nucleated Red Blood Cells 0.0 % Sodium Level 142 136-145 mmol/L Potassium Level 4.7 3.5-5.1 mmol/L Chloride Level 112 H 98-107 mmol/L Carbon Dioxide Level 20 20-31 mmol/L Anion Gap 10 5-15 Blood Urea Nitrogen 33 H 9-23 mg/dL Creatinine 1.22 H 0.550-1.02 mg/dL Glomerular Filtration Rate Calc 49 >90 mL/min BUN/Creatinine Ratio 27.0 H 10.0-20.0 Serum Glucose 161 H 74-106 mg/dL Calcium Level 10.2 8.7-10.4 mg/dL Urine Color Light-yellow Yellow Urine Clarity Clear Clear Urine pH 5.5 5.0-9.0 Urine Specific [place] 1.015 1.001-1.035 Urine Protein Negative Negative Urine Ketones Negative Negative Urine Blood Negative Negative /uL Urine Nitrite Negative Negative Urine Bilirubin Negative Negative Urine Urobilinogen Normal Negative mg/dL Urine Leukocyte Esterase Negative Negative /uL Urine RBC <1 0 - 4 /hpf Urine Microscopic WBC 1 0-5 /HPF Urine Squamous Epithelial Cells Few <5 /hpf Urine Bacteria None seen None Seen /hpf Urine Glucose Normal Normal mg/dL Exam: CT CT AB PEL WO CON-NO ORAL OR IV History: diffusepain Comparison Study: CT CT AB PEL WO CON-NO ORAL OR IV on DOS: 05/01/23, CT CT AB PEL WO CON-NO ORAL OR IV on DOS: 01/28/23, CT CT AB PEL WO CON-NO ORAL OR IV on DOS: 12/28/22, CT CT AB PEL WO CON-NO ORAL OR IV on DOS: 11/27/22, CT CT AB PEL WO CON- NO ORAL OR IV on DOS: 10/28/22 Technique: Multidetector spiral CT of the abdomen was performed from lung bases to pubic symphysis. Imaging was performed without IV contrast. Axial, coronal a nd sagittal multiplanar reformats were obtained from the axial data set by the technologist. Radiation Dose : 1. Abdomen/Pelvis: CTDIvol 24.13 mGy, DLP 1203.62 mGy*cm. Findings: Evaluation of solid organs is limited due to lack of intravenous contrast use. Lung Bases: Cardiomegaly. Coronary artery calcifications. Liver: Hepatomegaly. Mildly nodular hepatic contours may represent changes of cirrhosis. Gallbladder and Biliary Tree: Gallbladder is surgically absent. Spleen: Unremarkable Pancreas: Pancreatic atrophy. Adrenal Glands: Unremarkable Kidneys: Kidneys are grossly normal without calculi or hydronephrosis. Bladder: Grossly unremarkable for degree of distention. Bowel: Moderate to large hiatal hernia. Small bowel and colon are normal in caliber and distribution. The appendix is not visualized; however, no secondary findings of acute appendicitis identified. Ascites: Absent Lymphadenopathy: No mesenteric, retroperitoneal or periportal lymphadenopathy. Abdominal Wall and Mesentery: Small fat containing umbilical hernia. Vasculature: IVC filter in-situ. The visualized abdominal aorta is normal in size and caliber. Evaluation of abdominal and pelvic vessels is limited due to lack of intravenous contrast. Pelvic Organs: The uterus is surgically absent. Musculoskeletal: No aggressive focal bony lesions, acute fractures or dislocation. Multilevel degenerative changes of the spine. Chronic L2 vertebral body compression fracture. Post kyphoplasty changes at T12. IMPRESSION: No acute abdominal or pelvic findings. Assessment/Plan Assessment/Plan Assessment Intractable abdominal pain Anemia NAN Diabetes type 2 History of hypertension History of hyperlipidemia History of GERD History of chronic back pain History of right lower extremity DVT with IVC filter placed at [facility] 5 years ago History of anxiety History of UTIs History of History of hernia History of hysterectomy Plan Admit to med surge Antiemetics Pain management CT abdomen and pelvis noted UA Duo nebs Hemoglobin A1c ISS Accu-Cheks Kidney ultrasound Bilateral lower extremity venous ultrasound Diet Home medications reconciled DVT prophylaxis-patient on Eliquis PUD prophylaxis-PPIs Discussed plan of care with patient and nurse Plan discussed with: Patient My Orders Orders - DIONICIO SYED [employer] Procedure Category Date Status Time Kidney US 09/17/24 Logged 14:43 Hemoglobin A1c LAB 09/17/24 Logged 14:43 Glucose Blood PHA 09/17/24 Logged (Accu-Chek Comfort 17:00 Insulin R (Human) PHA 09/17/24 Logged (Insulin R) 17:00 Dextrose 50% Syringe PHA 09/17/24 Logged 14:45 Admit ADMIT 09/17/24 Transmitted 14:43 Allergies [facility] 09/17/24 In Process 14:43 Code Status CODE 09/17/24 Transmitted 14:43 Hydrocodone-Acet PHA 09/17/24 Logged 5/325mg Tab ([place] 14:45 Ondansetron Hcl PHA 09/17/24 Logged (Zofran) 14:45 Complete Blood Count LAB 09/18/24 Verified 04:00 Comprehensive LAB 09/18/24 Verified Metabolic Panel 04:00 Cardiac DIET 09/17/24 Transmitted Diet-2gna,Lofat,Lochol Dinner Acetaminophen Tablet PHA 09/17/24 Logged (Tylenol Tablet) 14:45 Morphine Sulfate PHA 09/17/24 Logged Injection 14:45 Nitroglycerin PHA 09/17/24 Logged Sublingual (Ntrostat 14:45 Morphine Sulfate [facility] 09/17/24 Logged Injection 14:45 Stat Ekg For Chest [facility] 09/17/24 In Process Pain 14:43 Notify Md Of Changes [facility] 09/17/24 In Process From Base 14:43 Suction [employer] For [facility] 09/17/24 In Process 24 Hours 14:43 Emergency Dysrhythmia [facility] 09/17/24 In Process Protocol 14:43 Rhythm Strips Once [facility] 09/17/24 In Process Every Shift 14:43 Oxygen By Nasal RT 09/17/24 Transmitted Cannula 14:43 Apixaban (Eliquis) PHA 09/17/24 Logged 22:00 Atorvastatin (Lipitor) PHA 09/18/24 Logged 10:00 Ergocalciferol PHA 09/17/24 Logged (Vitamin D 50,000 14:45 Gabapentin Capsule PHA 09/17/24 Logged (Neurontin Capsule) 22:00 Losartan Tablet PHA 09/18/24 Logged (Cozaar Tablet) 10:00 Pantoprazole Tablet PHA 09/18/24 Logged (Protonix Tablet) 10:00 (Nf) Alendronate PHA 09/17/24 Logged Sodium 14:45 (Nf) Calcium Gluconate PHA 09/18/24 Logged 10:00 Albuterol Medneb [facility] 09/17/24 Verified (Ventolin Medneb) 15:30 Ipratropium Medneb [facility] 09/17/24 Verified (Atrovent Medneb) 15:30 Date of Service: Sep 17, 2024 Billing Provider: DIONICIO SYED Common Visit Codes: [id number] INP/OBS CARE (HIGH) DIONICIO SYED Sep 17, 2024 15:37
[2024-09-17 15:45] VITALS: BP 118/76; PULSE 86; RESP 14; TEMP 98; O2SAT 96
--- NOTE | 2024-09-17 15:58 | DVH ---
INDICATION: pain TECHNIQUE: Multiple real-time sonographic images of the kidneys and bladder were obtained. COMPARISON: None FINDINGS: The right kidney measures 9.6 cm in length, which is normal in size. There is increased cor tical echogenicity and decreased cortical thickness suggesting chronic renal disease. No hydronephros is. The left kidney measures 10.3 cm in length, which is normal in size. There is increased cortical echo genicity and decreased cortical thickness suggesting chronic renal disease. No hydronephrosis. No large intraluminal masses are seen in the bladder. Prior to voiding the bladder volume measures vo lume 103 mL cc. Patient had no urge to void IMPRESSION: 1. Right kidney measures 9.6 cm, left kidney measures 10.3 cm. 2. Increased echogenicity to the renal cortex bilaterally with decreased cortical thickness suggesti ng chronic renal disease. 3. Prevoid bladder volume 103 mL patient had no urge to void
[2024-09-17] MEDS: ACCU-CHEK COMFORT CURVE STRIP VI SCH (17:00)
[2024-09-17] MEDS: InsuLIN REG 1unit/0.01ml Soln (100units/ml) SC SCH (17:00)
--- NOTE | 2024-09-17 17:37 | DVH ---
Technique: Real-time ultrasound imaging, with color Doppler and compression of the bilateral common femoral vein, femoral vein, greater saphenous vein, and popliteal vein. Indication: r/o new dvt Comparison: US RT LOWER DVT on DOS: 11/28/23 Findings: There is normal compressibility and flow augmentation in all of the imaged deep veins. There are no f illing defects. Impression: No evidence of DVT in the bilateral lower extremities
[2024-09-17 18:55] VITALS: O2SAT 98
[2024-09-17] MEDS: MORPHINE SULFATE INJ 2 MG/ml SYRG IV PRN (18:57)
[2024-09-17 18:58] VITALS: PULSE 71; RESP 20; O2SAT 97
[2024-09-17] MEDS ORDERED: INSU1INJ14 SC (23:38)
[2024-09-17] MEDS ORDERED: INSRTEST SC (23:38)
[2024-09-18] VITALS (9 sets, daily range): BP systolic 106–127; BP diastolic 57–81; PULSE 71–88; RESP 17–19; TEMP 97.5–98.6; O2SAT 94–98
[2024-09-18] MEDS: GABAPENTIN 400 MG CAP PO SCH (00:09)
[2024-09-18] MEDS: APIXABAN 5 MG TAB PO SCH (00:09)
[2024-09-18] MEDS ORDERED: CETI5SOL52 PO (00:31)
[2024-09-18] MEDS ORDERED: MELA3TAB27 PO (00:37)
[2024-09-18 07:09] LABS: Hematocrit 33.2 % (36.0-46.0); Hemoglobin 10.9 g/dL (12.2-16.2); Mean Corpuscular Hemoglobin 27.1 pg (28.0-32.0); Mean Corpuscular Volume 82.8 fL (80.0-100.0); Nucleated Red Blood Cells % 0.1 %
[2024-09-18 07:23] LABS: Alanine Aminotransferase 20 U/L (7-40); Albumin 4.0 g/dL (3.2-4.8); Alkaline Phosphatase 105 U/L (46-116); Anion Gap 10 (5-15); BUN/Creatinine Ratio 24.2 (10.0-20.0); Calcium 10.2 mg/dL (8.7-10.4); Carbon Dioxide 21 mmol/L (20-31); Potassium 4.3 mmol/L (3.5-5.1); Sodium 144 mmol/L (136-145); Total Protein 7.4 g/dL (5.7-8.2)
[2024-09-18 07:24] LABS: Bilirubin, Total 0.5 mg/dL (0.2-1.0)
[2024-09-18 07:30] LABS: Blood Urea Nitrogen 32 mg/dL (9-23); Chloride 113 mmol/L (98-107); Glucose 120 mg/dL (74-106)
[2024-09-18] MEDS: ATORVASTATIN 20 MG TAB PO SCH (09:56)
[2024-09-18] MEDS: LOSARTAN POTASSIUM 25 MG TAB PO SCH (09:57)
[2024-09-18] MEDS: PANTOPRAZOLE 40 MG TAB PO SCH (09:57)
[2024-09-18 10:34] LABS: Urine Protein, UAD Negative (Negative)
--- NOTE | 2024-09-18 10:41 | DVHPN2 ---
Subjective Seen and examined at bedside, patient is known to me from outpatient clinic. C/o of intractable pain. Patient has had pain shots in the past. Consider MRI Changes from previous H/P or p: No Changes Gastrointestinal: Abdominal Pain Objective Vitals Vital Signs Date Time Temp Pulse Resp B/P (MAP) Pulse Ox O2 Delivery O2 Flow Rate FiO2 09/18/24 09:57 119/72 09/18/24 09:34 98.5 77 17 97 98.5 09/18/24 06:16 Room Air* 0 21 Intake/Output Intake and Output 09/18/24 07:00 Intake Total 200 ml Balance 200 ml Intake Oral 200 ml # Voids 1 # Bowel Movements 1 General Appearance: Alert, Oriented X3, Cooperative, No acute distress Lungs: Clear to auscultation, Other (Foreign tenderness) Cardiovascular: Regular rate, Normal S1, Normal S2 Abdomen: Normal bowel sounds, Soft, Other (Obese) Psych/Mental Status: Mental status NL Medications Current Medications Medications Dose Ordered Sig/Iliana Route Start Time Stop Time Status Last Admin Dose Admin Diagnostic Test (Pha) 1 strip ACHS 09/17/24 17:00 09/18/24 05:55 1 STRIP Insulin Human Regular ACHS SC 09/17/24 17:00 09/18/24 00:23 2 UNITS Dextrose 50 ml UD PRN IV 09/17/24 14:45 Acetaminophen/ Hydrocodone Bitart 1 tab Q4HP PRN PO 09/17/24 14:45 Ondansetron HCl 4 mg Q4HP PRN IV 09/17/24 14:45 Acetaminophen 650 mg Q6HP PRN PO 09/17/24 14:45 Morphine Sulfate 2 mg Q4HPRN PRN IV 09/17/24 14:45 09/18/24 06:50 2 MG Nitroglycerin 0.4 mg Q5MINP PRN SL 09/17/24 14:45 Morphine Sulfate 2 mg Q30M PRN IV 09/17/24 14:45 Apixaban 5 mg BID PO 09/17/24 22:00 09/18/24 09:57 5 MG Atorvastatin Calcium 20 mg DAILY PO 09/18/24 10:00 09/18/24 09:56 20 MG Ergocalciferol 50,000 unit Q7D PO 09/17/24 14:45 Hold Gabapentin 400 mg BID PO 09/17/24 22:00 09/18/24 09:57 400 MG Losartan Potassium 25 mg DAILY PO 09/18/24 10:00 09/18/24 09:57 25 MG Pantoprazole Sodium 40 mg DAILY PO 09/18/24 10:00 09/18/24 09:57 40 MG Patient Own Medication 70 mg Q7D PO 09/17/24 14:45 Patient Own Medication 500 mg DAILY@1200 PO 09/18/24 12:00 Albuterol 2.5 mg Q4HPRN PRN NEB 09/17/24 15:30 Ipratropium [place] 0.5 mg Q4HPRN PRN NEB 09/17/24 15:30 Melatonin 10 mg HS PO 09/18/24 22:00 Laboratory Results Laboratory Tests 09/18/24 06:29 Chemistry Test 09/17/24 11:45 09/18/24 06:29 Calcium Level 10.2 mg/dL (8.7-10.4) 10.2 mg/dL (8.7-10.4) Albumin 4.0 g/dL (3.2-4.8) Total Protein 7.4 g/dL (5.7-8.2) LFT Test 09/18/24 06:29 Alanine Aminotransferase (ALT) 20 U/L (7-40) Alkaline Phosphatase 105 U/L (46-116) Aspartate Amino Transferase (AST) 25 U/L (<34) Total Bilirubin 0.5 mg/dL (0.2-1.0) HgA1c, TSH Test 09/17/24 11:45 Hemoglobin A1c 8.0 % A1C (<5.7) H Urinalysis Test 09/18/24 10:23 Urine Color Light-yellow (Yellow) Urine Clarity Clear (Clear) Urine pH 5.5 (5.0-9.0) Urine Specific [place] 1.016 (1.001-1.035) Urine Protein Negative (Negative) Urine Ketones Negative (Negative) Urine Blood Trace /uL (Negative) H Urine Nitrite Negative (Negative) Urine Bilirubin Negative (Negative) Urine Urobilinogen Normal mg/dL (Negative) Urine Leukocyte Esterase Negative /uL (Negative) Urine RBC 8 /hpf (0 - 4) Urine Microscopic WBC 2 /HPF (0-5) Urine Squamous Epithelial Cells Few /hpf (<5) Urine Bacteria Few /hpf (None Seen) H Urine Hyaline Casts Few /lpf (0 - 2) Urine Glucose Normal mg/dL (Normal) Assessment/Plan Assessment/Plan Intractable abdominal pain/Sciatica??? Try Flexeril Anemia- Monitor CKDa- Monitor Diabetes type 2 A1c 8.0- SSI HTN- Monitor and adjust meds as needed History of right lower extremity D[place] with [place]C filter [place] [facility] [place] Goals of care discussion >17 mins FULL CODE Plan discussed with: Patient My Orders Orders - MICHAEL SCHMID MD Procedure Category Date Status Time Melatonin (Melatonin) PHA 09/18/24 In Process 22:00 Incentive Spirometry ORDERS 09/18/24 Transmitted Q 1hr 10:35 Cyanocobalamin PHA 09/18/24 Logged (Vitamin B-12) 10:45 Cyanocobalamin PHA 09/19/24 Logged (Vitamin B-12) 10:00 Date of Service: Sep 18, 2024 Billing Provider: MICHAEL SCHMID MD Common Visit Codes: [id number] INP/OBS CARE(HIGH) Secondary Visit Codes: [id number] CARE PLAN 30 MINUTES MICHAEL SCHMID MD Sep 18, 2024 10:41
[2024-09-18] MEDS: CYANOCOBALAMIN 500 MCG TAB PO ONE (11:40)
[2024-09-18] MEDS: CALCIUM GLUCONATE 500 MG PO SCH (11:49)
[2024-09-18] MEDS: MELATONIN 5 MG TAB PO SCH (22:54)
[2024-09-19] VITALS (9 sets, daily range): BP systolic 98–121; BP diastolic 59–78; PULSE 65–81; RESP 17–20; TEMP 97.1–98.6; O2SAT 92–98
[2024-09-19] MEDS: CYANOCOBALAMIN 500 MCG TAB PO SCH (09:46)
[2024-09-19] MEDS: CYCLOBENZAPRINE HCL 10 MG TAB PO PRN (20:12)
[2024-09-20] VITALS (9 sets, daily range): BP systolic 109–148; BP diastolic 60–106; PULSE 75–113; RESP 16–22; TEMP 97.7–100; O2SAT 91–98
--- NOTE | 2024-09-20 12:54 | DVHPN2 ---
Subjective Seen and examined at bedside, patient is known to me from outpatient clinic. C/o of severe back pain radiating down her left leg. Will get MRI L Spine. Changes from previous H/P or p: No Changes Musculoskeletal: back pain Objective Vitals Vital Signs Date Time Temp Pulse Resp B/P (MAP) Pulse Ox O2 Delivery O2 Flow Rate FiO2 09/20/24 12:46 80 20 148/106 09/20/24 09:00 97.9 96 97.9 09/20/24 08:00 Room Air* 0 21 Intake/Output Intake and Output 09/20/24 07:00 Intake Total 1108 ml Balance 1108 ml Intake Oral 750 ml Tube Feeding 358 ml # Voids 6 General Appearance: Alert, Oriented X3, Cooperative, No acute distress Lungs: Clear to auscultation, Other (Foreign tenderness) Cardiovascular: Regular rate, Normal S1, Normal S2 Abdomen: Normal bowel sounds, Soft, Other (Obese) Psych/Mental Status: Mental status NL Medications Current Medications Medications Dose Ordered Sig/Iliana Route Start Time Stop Time Status Last Admin Dose Admin Diagnostic Test (Pha) 1 strip ACHS 09/17/24 17:00 09/20/24 11:58 1 STRIP Insulin Human Regular ACHS SC 09/17/24 17:00 09/20/24 11:58 2 UNITS Dextrose 50 ml UD PRN IV 09/17/24 14:45 Acetaminophen/ Hydrocodone Bitart 1 tab Q4HP PRN PO 09/17/24 14:45 Ondansetron HCl 4 mg Q4HP PRN IV 09/17/24 14:45 Acetaminophen 650 mg Q6HP PRN PO 09/17/24 14:45 Morphine Sulfate 2 mg Q4HPRN PRN IV 09/17/24 14:45 09/20/24 12:46 2 MG Nitroglycerin 0.4 mg Q5MINP PRN SL 09/17/24 14:45 Morphine Sulfate 2 mg Q30M PRN IV 09/17/24 14:45 Apixaban 5 mg BID PO 09/17/24 22:00 09/20/24 08:24 5 MG Atorvastatin Calcium 20 mg DAILY PO 09/18/24 10:00 09/20/24 08:25 20 MG Ergocalciferol 50,000 unit Q7D PO 09/17/24 14:45 Hold Gabapentin 400 mg BID PO 09/17/24 22:00 09/20/24 08:25 400 MG Losartan Potassium 25 mg DAILY PO 09/18/24 10:00 09/20/24 08:24 25 MG Pantoprazole Sodium 40 mg DAILY PO 09/18/24 10:00 09/20/24 08:25 40 MG Patient Own Medication 70 mg Q7D PO 09/17/24 14:45 Patient Own Medication 500 mg DAILY@1200 PO 09/18/24 12:00 Albuterol 2.5 mg Q4HPRN PRN NEB 09/17/24 15:30 Cancel Ipratropium [place] 0.5 mg Q4HPRN PRN NEB 09/17/24 15:30 Cancel Melatonin 10 mg HS PO 09/18/24 22:00 09/19/24 21:08 10 MG Cyanocobalamin 1,000 mcg DAILY PO 09/19/24 10:00 09/20/24 08:25 1,000 MCG Cyclobenzaprine HCl 5 mg Q8HPRN PRN PO 09/18/24 10:45 09/19/24 20:12 5 MG Laboratory Results Laboratory Tests 09/18/24 06:29 Urinalysis Test 09/18/24 10:23 Urine Color Light-yellow (Yellow) Urine Clarity Clear (Clear) Urine pH 5.5 (5.0-9.0) Urine Specific [place] 1.016 (1.001-1.035) Urine Protein Negative (Negative) Urine Ketones Negative (Negative) Urine Blood Trace /uL (Negative) H Urine Nitrite Negative (Negative) Urine Bilirubin Negative (Negative) Urine Urobilinogen Normal mg/dL (Negative) Urine Leukocyte Esterase Negative /uL (Negative) Urine RBC 8 /hpf (0 - 4) Urine Microscopic WBC 2 /HPF (0-5) Urine Squamous Epithelial Cells Few /hpf (<5) Urine Bacteria Few /hpf (None Seen) H Urine Hyaline Casts Few /lpf (0 - 2) Urine Glucose Normal mg/dL (Normal) Assessment/Plan Assessment/Plan Intractable abdominal pain/Sciatica??? Try Flexeril. Get MRI Anemia- Monitor CKDa- Monitor Diabetes type 2 A1c 8.0- SSI HTN- Monitor and adjust meds as needed History of right lower extremity DVT with IVC filter placed at [facility] 5 years ago Goals of care discussion >17 mins FULL CODE Plan discussed with: Patient My Orders Orders - SCHMID,IMRAN M MD Procedure Category Date Status Time Lumbar Spine Wo MRI 09/20/24 Logged Contrast 12:30 Date of Service: Sep 20, 2024 Billing Provider: MICHAEL SCHMID MD Common Visit Codes: [id number] INP/OBS CARE(MOD) MICHAEL SCHMID MD Sep 20, 2024 12:54
[2024-09-20] MEDS: LORazepam 0.5 MG TAB PO ONE (15:15)
--- NOTE | 2024-09-20 16:18 | DVH ---
PROCEDURE: MRI LUMBAR SPINE WO CONTRAST INDICATION: Lumbar Spine Exam Date: 09/20/2024 03:31 PM COMPARISON: MRI LUMBAR SPINE WO CONTRAST on DOS: 08/12/24 TECHNIQUE: MRI lumbar spine without intravenous contrast. FINDINGS: Severe chronic anterior compression fracture of L2 with near complete loss of the height of the verte bral body and 4 mm retropulsion unchanged from the prior study. Mild compression deformity T12 with a pproximately 30% loss of height anteriorly, stable. Patient is status post vertebroplasty at this [facility]. Conus ends at L1. Normal distal thoracic cord. No aortic aneurysm. No obstructive uropathy. No re troperitoneal adenopathy. No paraspinal mass. The following axial levels are detailed below: T12-L1: No disc protrusion. L1-L2: Moderate bilateral facet arthropathy. Minimal disc bulge. L2-L3: Mild stable disc bulge. L3-L4: Mild stable central spinal canal narrowing. Mild bilateral neural foraminal narrowing. [address]-based disc bulge. L4-L5: Moderate central spinal canal stenosis. Moderate bilateral lateral recess stenosis. Moderate bilateral facet arthropathy. 3 mm broad-based disc bulge. Moderate bilateral neural foramen narrowin g. No significant change from the prior study. Moderate disc space narrowing. L5-S1: 4 mm left foraminal disc protrusion, sagittal image 13, series 6. Moderately severe left-sided neural foraminal narrowing. Right neural foramen is mildly narrowed. Mild central spinal canal steno sis. Moderate bilateral facet arthropathy, left greater than right. [id number] central spinal canal stenosis. IMPRESSION: 1. No acute vertebral body fracture No vertebral body subluxations 4 mm left foraminal disc protrusion impinges upon the left L5 nerve within the neural foramen. Moderate multilevel degenerative disc disease
[2024-09-21] VITALS (8 sets, daily range): BP systolic 108–137; BP diastolic 73–85; PULSE 76–92; RESP 16–20; TEMP 97.8–99.8; O2SAT 95–100
--- NOTE | 2024-09-21 15:58 | DVHPN2 ---
Subjective Seen and examined at bedside, still c/o of Lumbar pain. Await spine consult in AM. Changes from previous H/P or p: No Changes Musculoskeletal: back pain Objective Vitals Vital Signs Date Time Temp Pulse Resp B/P (MAP) Pulse Ox O2 Delivery O2 Flow Rate FiO2 09/21/24 13:00 97.8 85 16 121/73 (89) 96 97.8 09/21/24 10:00 Room Air 0.0 09/21/24 10:00 21 Intake/Output Intake and Output 09/21/24 07:00 Intake Total 2380 ml Balance 2380 ml Intake Oral 2380 ml # Voids 6 General Appearance: Alert, Oriented X3, Cooperative, No acute distress Lungs: Clear to auscultation, Other (Foreign tenderness) Cardiovascular: Regular rate, Normal S1, Normal S2 Abdomen: Normal bowel sounds, Soft, Other (Obese) Psych/Mental Status: Mental status NL Medications Current Medications Medications Dose Ordered Sig/Iliana Route Start Time Stop Time Status Last Admin Dose Admin Diagnostic Test (Pha) 1 strip ACHS 09/17/24 17:00 09/21/24 11:30 1 STRIP Insulin Human Regular ACHS SC 09/17/24 17:00 09/21/24 12:07 2 UNITS Dextrose 50 ml UD PRN IV 09/17/24 14:45 Acetaminophen/ Hydrocodone Bitart 1 tab Q4HP PRN PO 09/17/24 14:45 Ondansetron HCl 4 mg Q4HP PRN IV 09/17/24 14:45 Acetaminophen 650 mg Q6HP PRN PO 09/17/24 14:45 Morphine Sulfate 2 mg Q4HPRN PRN IV 09/17/24 14:45 09/21/24 12:42 2 MG Nitroglycerin 0.4 mg Q5MINP PRN SL 09/17/24 14:45 Morphine Sulfate 2 mg Q30M PRN IV 09/17/24 14:45 Apixaban 5 mg BID PO 09/17/24 22:00 09/21/24 08:18 5 MG Atorvastatin Calcium 20 mg DAILY PO 09/18/24 10:00 09/21/24 08:18 20 MG Ergocalciferol 50,000 unit Q7D PO 09/17/24 14:45 Hold Gabapentin 400 mg BID PO 09/17/24 22:00 09/21/24 08:18 400 MG Losartan Potassium 25 mg DAILY PO 09/18/24 10:00 09/21/24 08:19 25 MG Pantoprazole Sodium 40 mg DAILY PO 09/18/24 10:00 09/21/24 08:18 40 MG Patient Own Medication 70 mg Q7D PO 09/17/24 14:45 Patient Own Medication 500 mg DAILY@1200 PO 09/18/24 12:00 Albuterol 2.5 mg Q4HPRN PRN NEB 09/17/24 15:30 Cancel Ipratropium [place] 0.5 mg Q4HPRN PRN NEB 09/17/24 15:30 Cancel Melatonin 10 mg HS PO 09/18/24 22:00 09/20/24 22:22 10 MG Cyanocobalamin 1,000 mcg DAILY PO 09/19/24 10:00 09/21/24 08:18 1,000 MCG Cyclobenzaprine HCl 5 mg Q8HPRN PRN PO 09/18/24 10:45 09/19/24 20:12 5 MG Laboratory Results Laboratory Tests 09/18/24 06:29 Urinalysis Test 09/18/24 10:23 Urine Color Light-yellow (Yellow) Urine Clarity Clear (Clear) Urine pH 5.5 (5.0-9.0) Urine Specific [place] 1.016 (1.001-1.035) Urine Protein Negative (Negative) Urine Ketones Negative (Negative) Urine Blood Trace /uL (Negative) H Urine Nitrite Negative (Negative) Urine Bilirubin Negative (Negative) Urine Urobilinogen Normal mg/dL (Negative) Urine Leukocyte Esterase Negative /uL (Negative) Urine RBC 8 /hpf (0 - 4) Urine Microscopic WBC 2 /HPF (0-5) Urine Squamous Epithelial Cells Few /hpf (<5) Urine Bacteria Few /hpf (None Seen) H Urine Hyaline Casts Few /lpf (0 - 2) Urine Glucose Normal mg/dL (Normal) Assessment/Plan Assessment/Plan 4 mm left foraminal disc protrusion impinges L5 Try Flexeril. Spine Cx Anemia- Monitor CKDa- Monitor Diabetes type 2 A1c 8.0- SSI HTN- Monitor and adjust meds as needed History of right lower extremity DVT with IVC filter placed at [facility] [place] 5 years ago Goals of care discussion >17 mins FULL CODE Plan discussed with: Patient My Orders Orders - MICHAEL SCHMID MD Procedure Category Date Status Time Consultdr. Josh CONS 09/21/24 Transmitted [place](Spine) 07:32 Date of Service: Sep 21, 2024 Billing Provider: MICHAEL SCHMID MD Common Visit Codes: [id number] INP/OBS CARE(MOD) MICHAEL SCHMID MD Sep 21, 2024 15:58
[2024-09-22] VITALS (7 sets, daily range): BP systolic 117–141; BP diastolic 59–89; PULSE 69–82; RESP 14–18; TEMP 97.7–98.3; O2SAT 92–96
--- NOTE | 2024-09-22 10:19 | DVHINCON2 ---
Consultation - Spinal Surgery Date Seen: Sep 22, 2024 Referring Physician Referring Physician Attending Doctor: Sebas Florez MD Reason for Consultation Reason for Visit: Abdominal pain History of Present Illness History of Present Illness History of Present Illness Dimple Chambers is a 69-year-old female with past medical history of hypertension, hyperlipidemia, diabetes, chronic back pain, GERD, anxiety, UTI, right DVT, IVC filter placed at [facility] [place] 5 years ago, , hernia, and hysterectomy who presents to the ED with abdominal pain that starts from her left upper quadrant and radiates down to her left lower extremities as well as her right upper quadrant x 3 days. Patient states that there are no triggering or alleviating factors. She states that she took [place] that she usually takes for chronic back pain with no relief. Patient is seen ambulating with a Rollator. Patient denies any recent trauma or injury, recent sick contacts, recent travels, recent ingestion of spoiled food, nausea, vomiting and diarrhea, chest pain, shortness of breath, fever, chills, lightheadedness, weakness, or dizziness. Patient also reports that she has told previous doctors that she has an IVC filter was supposed to get it removed however when she went back to [facility] they told her that she would have to keep it in. On patient's prior chart shows that she has cancer however upon examination patient states that she had never had cancer. Past Medical/Surgical History Past Medical/Surgical History Cardiovascular: HTN, hyperipidemia GI: GERD Psych: Anxiety Renal/: UTI Endocrine: Diabetes Past Medical History Right lower extremity DVT Hernia Past Surgical History: , Hysterectomy, Other (IVC filter placed at [facility] 5 years ago) Family and Social History Family and Social History Family History: DM, Other (Mom and dad with diabetes) Smoke: No ALCOHOL: none Drugs: None Lives: with Family Domestic Violence: Neg Allergies and medications Allergies: Coded Allergies: NO KNOWN ALLERGIES (Unverified , 06/09/21) Home Meds Active Scripts Lancets (ACTI-TOMAS LANCETS 28G) 28 G Mis, G XX AC, #200 3 Refills use to measure blood glucuse Prov:AKSHAT JENSEN RESIDENT 10/01/23 Insulin Syringe/Needle U-100 (Aq Insulin Syringe/1Ml/29 29G X 1/2" 1 ml) 1 Mis Mis, MIS XX AC, #200 3 Refills use to admisitration of insulin Prov:AKSHAT JENSEN RESIDENT 10/01/23 Ergocalciferol (VITAMIN D 79313 UNIT) 50,000 [place], [address] UNIT PO Q7D for 42 Days, #6 CAP take once every week Prov:AKSHAT JENSEN RESIDENT 10/01/23 Hydrocodone-Acetaminophen (Hydrocodone Bitartrate/AC 10-325 mg) 1 Tab Tab, 1 TAB PO TIDPRN, #30 TAB Prov:CHILO HILTON MD 11/01/22 Reported Medications Melatonin ( MELATONIN) 3 Mg Tab, 10 MG PO HS, TAB 09/18/24 Cetirizine Hcl (CETIRIZINE HCL ALLERGY CH) 5 Mg/5 Ml [place], 5 MG PO DAILY, ML 09/18/24 Insulin Regular (Human) (Novolin R) 100 Unit/Ml Inj, 10 UNIT SC TID, INJ 09/17/24 Insulin Degludec (Tresiba Flextouch) 100 Unit/Ml Inj, 10 UNIT SC HS, INJ 09/17/24 Fluticasone-Salmeterol (Advair Diskus 250/50) 1 Puff Ih, 1 PUFF IN BID, INH 08/18/24 Alendronate Sodium (Alendronate Sodium) 70 Mg Tab, 70 MG PO Q7D, TAB 08/13/24 Pantoprazole Sodium Sesquihydr (Pantoprazole Sodium Dr) 40 Mg Tab, 40 MG PO DAILY, TAB 08/13/24 Albuterol Sulfate (VENTOLIN MDI) 90 Mcg Ih, 90 MCG IN, INH 08/13/24 Gabapentin (Neurontin) 400 Mg Cap, 1 CAP PO BID, #90 CAP 1 Refill 09/28/23 Losartan Potassium (Losartan Potassium) 25 Mg Tab, 25 MG PO DAILY for 30 Days, MG 09/28/23 Atorvastatin Calcium (ATORVASTATIN CALCIUM) 20 Mg Tab, 1 TAB PO DAILY, #30 TAB 5 Refills 09/28/23 Apixaban Base (ELIQUIS) 5 Mg Tab, 1 TAB PO BID 12/12/21 Review of systems Review of Systems: HEENT:Normal, CVS:Normal, RESPIRATORY:Normal, GI:Abnormal (Complaints of abdominal pain), MSK:Abnormal (Left midfoot amputation history of), NEURO:Abnormal (Sciatic pain to the left leg) Examination Vital signs Imaging PROCEDURE: MRI LUMBAR SPINE WO CONTRAST INDICATION: Lumbar Spine Exam Date: 09/20/2024 03:31 PM COMPARISON: MRI LUMBAR SPINE WO CONTRAST on DOS: 08/12/24 TECHNIQUE: MRI lumbar spine without intravenous contrast. FINDINGS: Severe chronic anterior compression fracture of L2 with near complete loss of the height of the vertebral body and 4 mm retropulsion unchanged from the prior study. Mild compression deformity T12 with approximately 30% loss of height anteriorly, stable. Patient is status post vertebroplasty at this level. Conus ends at L1. Normal distal thoracic cord. No aortic aneurysm. No obstructive uropathy. No retroperitoneal adenopathy. No paraspinal mass. The following axial levels are detailed below: T12-L1: No disc protrusion. L1-L2: Moderate bilateral facet arthropathy. Minimal disc bulge. L2-L3: Mild stable disc bulge. L3-L4: Mild stable central spinal canal narrowing. Mild bilateral neural foraminal narrowing. 3 mm broad-based disc bulge. L4-L5: Moderate central spinal canal stenosis. Moderate bilateral lateral recess stenosis. Moderate bilateral facet arthropathy. 3 mm broad-based disc bulge. Moderate bilateral neural foramen narrowing. No significant change from the prior study. Moderate disc space narrowing. L5-S1: 4 mm left foraminal disc protrusion, sagittal image 13, series 6. Moderately severe left-sided neural foraminal narrowing. Right neural foramen is mildly narrowed. Mild central spinal canal stenosis. Moderate bilateral facet arthropathy, left greater than right. [id number] central spinal canal stenosis. IMPRESSION: 1. No acute vertebral body fracture No vertebral body subluxations 4 mm left foraminal disc protrusion impinges upon the left L5 nerve within the neural foramen. Moderate multilevel degenerative disc disease Vital Signs Date Time Temp Pulse Resp B/P (MAP) Pulse Ox O2 Delivery O2 Flow Rate FiO2 09/22/24 08:41 75 18 97/57 09/22/24 08:30 97.7 96 97.7 09/22/24 08:14 Room Air* 0 21 Laboratory Labs Test 09/21/24 17:07 09/18/24 10:23 09/18/24 06:29 6/27/25 11:45 Range/Units POC Glucose 154 H 70-106 mg/dl Urine Color Light-yellow Yellow Urine Clarity Clear Clear Urine pH 5.5 5.0-9.0 Urine Specific [place] 1.016 1.001-1.035 Urine Protein Negative Negative Urine Ketones Negative Negative Urine Blood Trace H Negative /uL Urine Nitrite Negative Negative Urine Bilirubin Negative Negative Urine Urobilinogen Normal Negative mg/dL Urine Leukocyte Esterase Negative Negative /uL Urine RBC 8 0 - 4 /hpf Urine Microscopic WBC 2 0-5 /HPF Urine Squamous Epithelial Cells Few <5 /hpf Urine Bacteria Few H None Seen /hpf Urine Hyaline Casts Few 0 - 2 /lpf Urine Glucose Normal Normal mg/dL White Blood Count 4.8 4.4-10.8 10^3/uL Red Blood Count 4.01 4.0-5.20 10^6/uL Hemoglobin 10.9 L 12.2-16.2 g/dL Hematocrit 33.2 L 36.0-46.0 % Mean Corpuscular Volume 82.8 80.0-100.0 fL Mean Corpuscular Hemoglobin 27.1 L 28.0-32.0 pg Mean Corpuscular Hemoglobin Concent 32.7 32.0-36.0 g/dL Red Cell Distribution Width 15.6 H 11.8-14.3 % Platelet Count 172 140-450 10^3/uL Mean Platelet Volume 8.7 6.9-10.8 fL Neutrophils (%) (Auto) 59.7 37.0-80.0 % Lymphocytes (%) (Auto) 27.4 10.0-50.0 % Monocytes (%) (Auto) 9.8 0.0-12.0 % Eosinophils (%) (Auto) 2.9 0.0-7.0 % Basophils (%) (Auto) 0.2 0.0-2.0 % Neutrophils # (Auto) 2.9 1.6-8.6 10 ^3/uL Lymphocytes # (Auto) 1.3 0.4-5.4 10 ^3/uL Monocytes # (Auto) 0.5 0-1.3 10 ^3/uL Eosinophils # (Auto) 0.1 0-0.8 10 ^3/uL Basophils # (Auto) 0 0-0.2 10 ^3/uL Nucleated Red Blood Cells 0.1 % Sodium Level 144 136-145 mmol/L Potassium Level 4.3 3.5-5.1 mmol/L Chloride Level 113 H 98-107 mmol/L Carbon Dioxide Level 21 20-31 mmol/L Anion Gap 10 5-15 Blood Urea Nitrogen 32 H 9-23 mg/dL Creatinine 1.32 H 0.550-1.02 mg/dL Glomerular Filtration Rate Calc 44 >90 mL/min BUN/Creatinine Ratio 24.2 H 10.0-20.0 Serum Glucose 120 H 74-106 mg/dL Calcium Level 10.2 8.7-10.4 mg/dL Total Bilirubin 0.5 0.2-1.0 mg/dL Aspartate Amino Transferase (AST) 25 <34 U/L Alanine Aminotransferase (ALT) 20 7-40 U/L Alkaline Phosphatase 105 46-116 U/L Total Protein 7.4 5.7-8.2 g/dL Albumin 4.0 3.2-4.8 g/dL Hemoglobin A1c 8.0 H <5.7 % A1C Examination: GENERAL:Normal, HEENT:Normal, NECK:Normal, LUNGS:Normal, CVS:Normal, MSK:Abnormal (Left leg weakness), SKIN:Normal, NEURO:Abnormal (Difficulty lifting, or walking due to foot dragging, left leg 3/5), :Normal Problem List/Assessment/Plan Problems: (1) Herniated lumbar intervertebral disc Assessment and Plan 4 mm left foraminal disc protrusion impinges upon the left L5 nerve within the neural foramen. Moderate multilevel degenerative disc disease Further care and management per admitting team's discretion Physical therapy evaluation, treatment recommendations, discharge recommendations Muscle relaxers to prevent muscle spasms Patient is open to having lumbar spine surgery two correct her herniated disc Scheduling will be dependent on OR availability Patient will need cardiac and medical clearance prior to surgery Call with kameron Vital [facility] Orthopaedic Spine Surgery nurse practitioner For Dr Yoan Flores Patient was examined, chart reviewed, labs evaluated, and diagnostic studies and findings analyzed. Case was discussed with Dr. Josh Flores who formulated the plan of care. This medical document was created using an electronic medical record system with [employer] system. Although this document has been carefully reviewed, there might still be some phonetic and typographical errors. These areas are purely typographical due to imperfections of the software programs, and do not reflect any compromise in the patient's medical care. Plan discussed with Plan discussed with: Patient, Daughter AMADEO VITALRUPERTO Harp ORDER ANALYST Sep 22, 2024 10:19
--- NOTE | 2024-09-22 18:18 | DVHPN2 ---
Subjective Seen and examined at bedside, still c/o of Lumbar pain. For surgery tomorrow AM. NPO after midnight Changes from previous H/P or p: No Changes Musculoskeletal: back pain Objective Vitals Vital Signs Date Time Temp Pulse Resp B/P (MAP) Pulse Ox O2 Delivery O2 Flow Rate FiO2 09/22/24 16:46 75 18 119/72 09/22/24 16:30 98.0 92 98.0 09/22/24 10:03 Room Air* 0 21 Intake/Output Intake and Output 09/22/24 07:00 Intake Total 3250 ml Output Total 475 ml Balance 2775 ml Intake Oral 3250 ml Output Urine Total 475 ml # Voids 4 General Appearance: Alert, Oriented X3, Cooperative, No acute distress Lungs: Clear to auscultation, Other (Foreign tenderness) Cardiovascular: Regular rate, Normal S1, Normal S2 Abdomen: Normal bowel sounds, Soft, Other (Obese) Psych/Mental Status: Mental status NL Medications Current Medications Medications Dose Ordered Sig/Iliana Route Start Time Stop Time Status Last Admin Dose Admin Diagnostic Test (Pha) 1 strip ACHS 09/17/24 17:00 09/22/24 16:35 1 STRIP Insulin Human Regular ACHS SC 09/17/24 17:00 09/22/24 16:43 3 UNITS Dextrose 50 ml UD PRN IV 09/17/24 14:45 Acetaminophen/ Hydrocodone Bitart 1 tab Q4HP PRN PO 09/17/24 14:45 Ondansetron HCl 4 mg Q4HP PRN IV 09/17/24 14:45 Acetaminophen 650 mg Q6HP PRN PO 09/17/24 14:45 Morphine Sulfate 2 mg Q4HPRN PRN IV 09/17/24 14:45 09/22/24 16:16 2 MG Nitroglycerin 0.4 mg Q5MINP PRN SL 09/17/24 14:45 Morphine Sulfate 2 mg Q30M PRN IV 09/17/24 14:45 Apixaban 5 mg BID PO 09/17/24 22:00 09/22/24 10:28 5 MG Atorvastatin Calcium 20 mg DAILY PO 09/18/24 10:00 09/22/24 10:28 20 MG Ergocalciferol 50,000 unit Q7D PO 09/17/24 14:45 Hold Gabapentin 400 mg BID PO 09/17/24 22:00 09/22/24 10:27 400 MG Losartan Potassium 25 mg DAILY PO 09/18/24 10:00 09/22/24 10:27 25 MG Pantoprazole Sodium 40 mg DAILY PO 09/18/24 10:00 09/22/24 10:28 40 MG Patient Own Medication 70 mg Q7D PO 09/17/24 14:45 Patient Own Medication 500 mg DAILY@1200 PO 09/18/24 12:00 Albuterol 2.5 mg Q4HPRN PRN NEB 09/17/24 15:30 Cancel Ipratropium [place] 0.5 mg Q4HPRN PRN NEB 09/17/24 15:30 Cancel Melatonin 10 mg HS PO 09/18/24 22:00 09/21/24 23:19 10 MG Cyanocobalamin 1,000 mcg DAILY PO 09/19/24 10:00 09/22/24 10:28 1,000 MCG Cyclobenzaprine HCl 5 mg Q8HPRN PRN PO 09/18/24 10:45 09/19/24 20:12 5 MG Laboratory Results Laboratory Tests 09/18/24 06:29 Urinalysis Test 09/18/24 10:23 Urine Color Light-yellow (Yellow) Urine Clarity Clear (Clear) Urine pH 5.5 (5.0-9.0) Urine Specific [place] 1.016 (1.001-1.035) Urine Protein Negative (Negative) Urine Ketones Negative (Negative) Urine Blood Trace /uL (Negative) H Urine Nitrite Negative (Negative) Urine Bilirubin Negative (Negative) Urine Urobilinogen Normal mg/dL (Negative) Urine Leukocyte Esterase Negative /uL (Negative) Urine RBC 8 /hpf (0 - 4) Urine Microscopic WBC 2 /HPF (0-5) Urine Squamous Epithelial Cells Few /hpf (<5) Urine Bacteria Few /hpf (None Seen) H Urine Hyaline Casts Few /lpf (0 - 2) Urine Glucose Normal mg/dL (Normal) Assessment/Plan Assessment/Plan 4 mm left foraminal disc protrusion impinges L5 Try Flexeril. Spine Cx noted. Surgery in AM Anemia- Monitor CKDa- Monitor Diabetes type 2 A1c 8.0- SSI HTN- Monitor and adjust meds as needed History of right lower extremity D[place] [facility] [place] Goals of care discussion >17 mins FULL CODE Plan discussed with: Patient Date of Service: Sep 22, 2024 Billing Provider: MICHAEL SCHMID MD Common Visit Codes: [id number] INP/OBS CARE(HIGH) MICHAEL SCHMID MD Sep 22, 2024 18:18
--- NOTE | 2024-09-22 19:58 | DVH ---
EXAM: XY CHEST XRAY 1 VIEW TECHNIQUE: Single frontal chest radiograph CLINICAL HISTORY: pre op surgery COMPARISON: XY CHEST PORTABLE on DOS: 11/15/22, XY CHEST PORTABLE on DOS: 10/28/22, CXRP on DOS: 2 Findings/Impression: Frontal chest radiograph demonstrates no acute osseous or superficial soft tissue abnormalities. The trachea is midline. Mild cardiomegaly with pulmonary vascular congestion. No pneumothorax, pleural effusions, or consolidations. Moderate hiatal hernia.
[2024-09-22 20:09] LABS: INR 1.0 (0.9-1.15); Partial Thromboplastin Time 29.6 SEC (24.5-34.5); Prothrombin Time 10.6 sec (9.3-11.8)
[2024-09-23 04:45] VITALS: BP 112/60; PULSE 73; RESP 17; TEMP 98.5; O2SAT 98
[2024-09-23 05:41] LABS: Hematocrit 29.6 % (36.0-46.0); Hemoglobin 9.7 g/dL (12.2-16.2); Mean Corpuscular Hemoglobin 27.4 pg (28.0-32.0); Mean Corpuscular Volume 83.4 fL (80.0-100.0); Nucleated Red Blood Cells % 0.0 %
[2024-09-23 05:53] LABS: INR 1.01 (0.9-1.15); Partial Thromboplastin Time 28.3 SEC (24.5-34.5); Prothrombin Time 10.7 sec (9.3-11.8); Sodium 142 mmol/L (136-145)
[2024-09-23 05:54] LABS: Anion Gap 7 (5-15); Calcium 10.4 mg/dL (8.7-10.4); Carbon Dioxide 24 mmol/L (20-31)
[2024-09-23 05:59] LABS: BUN/Creatinine Ratio 28.9 (10.0-20.0)
[2024-09-23 06:07] LABS: Blood Urea Nitrogen 43 mg/dL (9-23); Chloride 111 mmol/L (98-107); Glucose 114 mg/dL (74-106); Potassium 5.2 mmol/L (3.5-5.1)
[2024-09-23] MEDS: SODIUM CHLORIDE 0.9% 500 ML IV ONE (07:45)
--- NOTE | 2024-09-23 07:49 | ECG ---
[facility] Test Date: 2024-09-22 Test Time: 19:59:21 Pat Name: ARIEL ROBLES Department: Room: [facility] A Gender: F Cupola Patcher Helper: MARCIA : 1955 Requested By: MICHAEL SCHMID Order Number: [id number] Reading MD: Measurements Intervals [place] Rate: 78 P: 30 TN: 181 QRS: 0 QRSD: 85 T: 59 QT: 357 QTc: 407 Interpretive Statements Sinus rhythm Please click the below link to view image of tracing.
[2024-09-23 09:00] VITALS: BP 103/75; PULSE 87; RESP 18; TEMP 98; O2SAT 96
--- NOTE | 2024-09-23 09:32 | DVHDS2 ---
Discharge Summary Date of Admission Sep 17, 2024 at 14:43 Date of Discharge: Sep 23, 2024 Labs/Diagnostic Data: Laboratory Results Test 09/23/24 04:32 09/22/24 16:33 09/18/24 10:23 09/18/24 06:29 White Blood Count 4.6 10^3/uL (4.4-10.8) Red Blood Count 3.55 10^6/uL (4.0-5.20) Hemoglobin 9.7 g/dL (12.2-16.2) Hematocrit 29.6 % (36.0-46.0) Mean Corpuscular Volume 83.4 fL (80.0-100.0) Mean Corpuscular Hemoglobin 27.4 pg (28.0-32.0) Mean Corpuscular Hemoglobin Concent 32.9 g/dL (32.0-36.0) Red Cell Distribution Width 15.2 % (11.8-14.3) Platelet Count 164 10^3/uL (140-450) Mean Platelet Volume 8.7 fL (6.9-10.8) Neutrophils (%) (Auto) 58.6 % (37.0-80.0) Lymphocytes (%) (Auto) 26.5 % (10.0-50.0) Monocytes (%) (Auto) 8.6 % (0.0-12.0) Eosinophils (%) (Auto) 5.9 % (0.0-7.0) Basophils (%) (Auto) 0.4 % (0.0-2.0) Neutrophils # (Auto) 2.7 10 ^3/uL (1.6-8.6) Lymphocytes # (Auto) 1.2 10 ^3/uL (0.4-5.4) Monocytes # (Auto) 0.4 10 ^3/uL (0-1.3) Eosinophils # (Auto) 0.3 10 ^3/uL (0-0.8) Basophils # (Auto) 0 10 ^3/uL (0-0.2) Nucleated Red Blood Cells 0.0 % Prothrombin Time 10.7 sec (9.3-11.8) Prothrombin Time INR 1.01 (0.9-1.15) Activated Partial Thromboplast Time 28.3 SEC (24.5-34.5) Sodium Level 142 mmol/L (136-145) Potassium Level 5.2 mmol/L (3.5-5.1) Chloride Level 111 mmol/L (98-107) Carbon Dioxide Level 24 mmol/L (20-31) Anion Gap 7 (5-15) Blood Urea Nitrogen 43 mg/dL (9-23) Creatinine 1.49 mg/dL (0.550-1.02) Glomerular Filtration Rate Calc 38 mL/min (>90) BUN/Creatinine Ratio 28.9 (10.0-20.0) Serum Glucose 114 mg/dL (74-106) Calcium Level 10.4 mg/dL (8.7-10.4) POC Glucose 168 mg/dl (70-106) Urine Color Light-yellow (Yellow) Urine Clarity Clear (Clear) Urine pH 5.5 (5.0-9.0) Urine Specific [place] 1.016 (1.001-1.035) Urine Protein Negative (Negative) Urine Ketones Negative (Negative) Urine Blood Trace /uL (Negative) Urine Nitrite Negative (Negative) Urine Bilirubin Negative (Negative) Urine Urobilinogen Normal mg/dL (Negative) Urine Leukocyte Esterase Negative /uL (Negative) Urine RBC 8 /hpf (0 - 4) Urine Microscopic WBC 2 /HPF (0-5) Urine Squamous Epithelial Cells Few /hpf (<5) Urine Bacteria Few /hpf (None Seen) Urine Hyaline Casts Few /lpf (0 - 2) Urine Glucose Normal mg/dL (Normal) Total Bilirubin 0.5 mg/dL (0.2-1.0) Aspartate Amino Transferase (AST) 25 U/L (<34) Alanine Aminotransferase (ALT) 20 U/L (7-40) Alkaline Phosphatase 105 U/L (46-116) Total Protein 7.4 g/dL (5.7-8.2) Albumin 4.0 g/dL (3.2-4.8) Test 09/17/24 11:45 Hemoglobin A1c 8.0 % A1C (<5.7) Other Laboratory Tests 09/23/24 04:32 Brief Hx & Hospital Course: Dimple Chambers is a 69-year-old female with past medical history of hypertension, hyperlipidemia, diabetes, chronic back pain, GERD, anxiety, UTI, right DVT, [place] [facility] [place], , hernia, and hysterectomy who presents to the ED with abdominal pain that starts from her left upper quadrant and radiates down to her left lower extremities as well as her right upper quadrant x 3 days. Patient states that there are no triggering or alleviating factors. She states that she took [place] that she usually takes for chronic back pain with no relief. Patient is seen ambulating with a Rollator. Patient denies any recent trauma or injury, recent sick contacts, recent travels, recent ingestion of spoiled food, nausea, vomiting and diarrhea, chest pain, shortness of breath, fever, chills, lightheadedness, weakness, or dizziness. MRI L Spine was done which showed 4 mm left foraminal disc protrusion impinges upon the left L5 nerve within the neural foramen.. Patient will need spine surgery in 1 week when shes off Eliquis. Patient is being discharged to SNF. Operations or Procedures PROCEDURE: MRI LUMBAR SPINE WO CONTRAST INDICATION: Lumbar Spine Exam Date: 09/20/2024 03:31 PM COMPARISON: MRI LUMBAR SPINE WO CONTRAST on DOS: 08/12/24 TECHNIQUE: MRI lumbar spine without intravenous contrast. FINDINGS: Severe chronic anterior compression fracture of L2 with near complete loss of the height of the vertebral body and 4 mm retropulsion unchanged from the prior study. Mild compression deformity T12 with approximately 30% loss of height anteriorly, stable. Patient is status post vertebroplasty at this level. Conus ends at L1. Normal distal thoracic cord. No aortic aneurysm. No obstructive uropathy. No retroperitoneal adenopathy. No paraspinal mass. The following axial levels are detailed below: T12-L1: No disc protrusion. L1-L2: Moderate bilateral facet arthropathy. Minimal disc bulge. L2-L3: Mild stable disc bulge. L3-L4: Mild stable central spinal canal narrowing. Mild bilateral neural foraminal narrowing. 3 mm broad-based disc bulge. L4-L5: Moderate central spinal canal stenosis. Moderate bilateral lateral recess stenosis. Moderate bilateral facet arthropathy. 3 mm broad-based disc bulge. Moderate bilateral neural foramen narrowing. No significant change from the prior study. Moderate disc space narrowing. L5-S1: 4 mm left foraminal disc protrusion, sagittal image 13, series 6. Moderately severe left-sided neural foraminal narrowing. Right neural foramen is mildly narrowed. Mild central spinal canal stenosis. Moderate bilateral facet arthropathy, left greater than right. [id number] central spinal canal stenosis. IMPRESSION: 1. No acute vertebral body fracture No vertebral body subluxations 4 mm left foraminal disc protrusion impinges upon the left L5 nerve within the neural foramen. Moderate multilevel degenerative disc disease Condition at Discharge: Stable Final Diagnosis/Problems List 4 mm left foraminal disc protrusion impinges L5 Try Flexeril. Spine Cx noted. Surgery in AM Anemia- Monitor CKDa- Monitor Diabetes type 2 A1c 8.0- SSI HTN- Monitor and adjust meds as needed History of right lower extremity DVT with [place]C [place] [facility] [place] Goals of care discussion >17 mins FULL CODE Discharge Disposition: [facility] Facility Discharge Instruct/Medications Diet: Consistent carbohydrate Activity: Light activity Scheduled Alendronate Sodium (Alendronate Sodium), 70 MG PO Q7D, (Reported) Apixaban Base (Eliquis), 1 TAB PO BID, (Reported) Atorvastatin Calcium (Atorvastatin Calcium), 1 TAB PO DAILY, (Reported) Cetirizine Hcl (Cetirizine Hcl Allergy Ch), 5 MG PO DAILY, (Reported) Ergocalciferol (Vitamin D 99800 Unit), 50,000 UNIT PO Q7D Fluticasone-Salmeterol (Advair Diskus 250/50), 1 PUFF IN BID, (Reported) Gabapentin (Neurontin), 1 CAP PO BID, (Reported) Hydrocodone-Acetaminophen (Hydrocodone Bitartrate/AC 10-325 mg), 1 TAB PO TIDPRN Insulin Degludec (Tresiba Flextouch), 10 UNIT SC HS, (Reported) Insulin Regular (Human) (Novolin R), 10 UNIT SC TID, (Reported) Losartan Potassium (Losartan Potassium), 25 MG PO DAILY, (Reported) Melatonin (Kp Melatonin), 10 MG PO HS, (Reported) Pantoprazole Sodium Sesquihydr (Pantoprazole Sodium Dr), 40 MG PO DAILY, (Reported) Miscellaneous Medications Albuterol Sulfate (Ventolin Mdi), 90 MCG IN, (Reported) Durable Medical Equipment Insulin Syringe/Needle U-100 (Aq Insulin Syringe/1Ml/29 29G X 1/2" 1 ml), MIS XX AC, (DME) Lancets (Acti-Arsen Lancets 28G), G XX AC, (DME) Discharge Statement: "Patient was advised to return to the ER or call 911 if any headaches, dizziness, shortness of breath, chest pain, abdominal pain, bleeding, fevers, or worsening of medical condition. Patient was counseled about treatment plan, medications, possible side effects, patientverbalized understanding. All questions were answered to the best of my ability. This discharge took greater then 30 minutes in planning, reviewing documentation, counseling the patient, and discussing with other team members." ASSESSMENT ASSESSMENT Assessment Date of Service: Sep 23, 2024 Billing Provider: MICHAEL SCHMID MD Common Visit Codes: 24652-ADB/OBS DISCH DAY >30min MICHAEL SCHMID MD Sep 23, 2024 09:32
[2024-09-23 09:50] VITALS: BP 112/62; TEMP 36.9
[2024-09-23 10:01] VITALS: O2SAT 96
[2024-09-23 12:42] VITALS: BP 123/82; PULSE 83; RESP 18; TEMP 97.9; O2SAT 95
== END 2024-09-23 14:50 | disposition home or self-care (01) | DRG 552 ==
LOC: ER 11:16 → OVERFLOW 14:43 → WEST WING 22:50
PROVIDERS: ADMIT Internal Medicine; ATTEND Internal Medicine
DX: M51.26 Other intervertebral disc displacement, lumbar region (principal); N17.9 Acute kidney failure, unspecified; M48.56XA Collapsed vertebra, not elsewhere classified, lumbar region, initial encounter for fracture; D64.9 Anemia, unspecified; N18.9 Chronic kidney disease, unspecified; E11.22 Type 2 diabetes mellitus with diabetic chronic kidney disease; Z95.828 Presence of other vascular implants and grafts; I12.9 Hypertensive chronic kidney disease with stage 1 through stage 4 chronic kidney disease, or unspecified chronic kidney disease; K21.9 Gastro-esophageal reflux disease without esophagitis; G89.29 Other chronic pain; F41.9 Anxiety disorder, unspecified; E78.5 Hyperlipidemia, unspecified; M51.369 Other intervertebral disc degeneration, lumbar region without mention of lumbar back pain or lower extremity pain; M47.898 Other spondylosis, sacral and sacrococcygeal region; M48.061 Spinal stenosis, lumbar region without neurogenic claudication; Z90.710 Acquired absence of both cervix and uterus; Z87.440 Personal history of urinary (tract) infections; Z86.718 Personal history of other venous thrombosis and embolism; Z83.3 Family history of diabetes mellitus
CPT/HCPCS: 36415; 71045; 72148; 74176; 76775; 80048; 80053; 81001; 82962; 83036; 85025; 85610; 85730; 86850; 86900; 86901; 93005; 93970; 97163; G0378; J1815

== ENCOUNTER 2024-09-29 15:06 | Inpatient (IN) | payer MEDICARE, MEDICAID ==
[~2024-09-29] VITALS: Ht 167.6 cm; Wt 93.2 kg
[~2024-09-29 15:06] MED LIST changes: -CALC50TA PO; +CETI5SOL52 PO; -INSLANTI SC; +INSRTEST SC; -INSU100I33 SC; +INSU1INJ14 SC; +MELA3TAB27 PO; -PRED20TA2 PO; -SOLI10TA39 PO
--- NOTE | 2024-09-29 16:52 | ED.PDOC ---
Back pain HPI HPI Comments This is a 69 year old female presenting to the ED with chief complaint of back pain. Patient reports that she has been experiencing lower back pain that radiates down her left leg for the past few days. Patient relays that she was previously admitted to the ED on 09/17 and was told she was supposed to have back surgery performed while admitted, however, for some reason she was discharged on 09/23 with no plans for outpatient back surgery. Patient states that she has been taking her chronic back pain medication with no relief. Patient denies any numbness, weakness, chest pain, SOB, dizziness, fall, or injury. Chief Complaint: Back Pain Time Seen by MD: 16:50 Primary Care Provider: DR TODD Reviewed Notes: Nurses Notes, Medications, Allergies Allergies: Coded Allergies: NO KNOWN ALLERGIES (Unverified , 06/09/21) Home Meds Active Scripts Lancets (ACTI-TOMAS LANCETS 28G) 28 G Mis, G XX AC, #200 3 Refills use to measure blood glucuse Prov:AKSHAT JENSEN RESIDENT 10/01/23 Insulin Syringe/Needle U-100 (Aq Insulin Syringe/1Ml/29 29G X 1/2" 1 ml) 1 Mis Mis, MIS XX AC, #200 3 Refills use to admisitration of insulin Prov:AKSHAT JENSEN RESIDENT 10/01/23 Ergocalciferol (VITAMIN D 08537 UNIT) 50,000 [place], 17088 UNIT PO Q7D for 42 Days, #6 CAP take once every week Prov:AKSHAT JENSEN RESIDENT 10/01/23 Hydrocodone-Acetaminophen (Hydrocodone Bitartrate/AC 10-325 mg) 1 Tab Tab, 1 TAB PO TIDPRN, #30 TAB Prov:CHILO HILTON MD 11/01/22 Reported Medications Melatonin (KP MELATONIN) 3 Mg Tab, 10 MG PO HS, TAB 09/18/24 Cetirizine Hcl (CETIRIZINE HCL ALLERGY CH) 5 Mg/5 Ml [place], 5 MG PO DAILY, ML 09/18/24 Insulin Regular (Human) (Novolin R) 100 Unit/Ml Inj, 10 UNIT SC TID, INJ 09/17/24 Insulin Degludec (Tresiba Flextouch) 100 Unit/Ml Inj, 10 UNIT SC HS, INJ 6/27/25 Fluticasone-Salmeterol (Advair Diskus 250/50) 1 Puff Ih, 1 PUFF IN BID, INH 08/18/24 Alendronate Sodium (Alendronate Sodium) 70 Mg Tab, 70 MG PO Q7D, TAB 08/13/24 Pantoprazole Sodium Sesquihydr (Pantoprazole Sodium Dr) 40 Mg Tab, 40 MG PO DAILY, TAB 08/13/24 Albuterol Sulfate (VENTOLIN MDI) 90 Mcg Ih, 90 MCG IN, INH 08/13/24 Gabapentin (Neurontin) 400 Mg Cap, 1 CAP PO BID, #90 CAP 1 Refill 09/28/23 Losartan Potassium (Losartan Potassium) 25 Mg Tab, 25 MG PO DAILY for 30 Days, MG 09/28/23 Atorvastatin Calcium (ATORVASTATIN CALCIUM) 20 Mg Tab, 1 TAB PO DAILY, #30 TAB 5 Refills 09/28/23 Apixaban Base (ELIQUIS) 5 Mg Tab, 1 TAB PO BID 12/12/21 Information Source: Patient Mode of Arrival: Ambulatory Timing: Days Duration: Since onset Location of Back pain: (B) Lower back Radiates to: Posterior: (L) Foot Severity: Moderate Prehospital treatment: None Quality: Aching Onset: Spontaneous History of: Chronic Back Pain Past Medical History PAST MEDICAL HISTORY: Anxiety, Cancer, COPD, DM, GERD, High Lipids, HTN, UTI'S Past Medical History (Other): Osteoporosis Surgical History: , Hernia Repair, Hysterectomy 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 History Family History Family History: Unknown Social History Smoker: Non-Smoker Alcohol: Denies ETOH Use Drugs: Denies Drug Use Lives In: Home Constitutional: denies: chills, diaphoresis, fatigue, fever, malaise, sweats, weakness, others EENTM: denies: blurred vision, double vision, ear bleeding, ear discharge, ear drainage, ear pain, ear ringing, eye pain, eye redness, hearing loss, mouth pain, mouth swelling, nasal discharge, nose bleeding, nose congestion, nose pain, photophobia, tearing, throat pain, throat swelling, voice changes, others Respiratory: denies: cough, hemoptysis, orthopnea, SOB at rest, shortness of breath, SOB with excertion, stridor, wheezing, others Cardiovascular: denies: chest pain, dizzy spells, diaphoresis, Dyspnea on exertion, edema, irregular heart beat, left arm pain, lightheadedness, palpitations, PND, syncope, others Gastrointestinal: denies: abdomen distended, abdominal pain, blood streaked bowels, constipated, diarrhea, dysphagia, difficulty swallowing, hematemesis, melena, nausea, poor appetite, poor fluid intake, rectal bleeding, rectal pain, vomiting, others Genitourinary: denies: abnormal vagina bleeding, burning, dyspareunia, dysuria, flank pain, frequency, hematuria, incontinence, pain, , vagina discharge, urgency, others Neurological: denies: dizziness, fainting, headache, left sided numbness, left sided weakness, numbness, paresthesia, pre-existing deficit, right sided numbness, right sided weakness, seizure, speech problems, tingling, tremors, weakness, others Musculoskeletal: reports: back pain; denies: gout, joint pain, joint swelling, muscle pain, muscle stiffness, neck pain, others Integumetry: denies: bruises, change in color, change in hair/nails, dryness, laceration, lesions, lumps, rash, wounds, others Allergic/Immunocompromised: denies: Difficulty Healing, Frequent Infections, Hives, Itching, others Hematologic/Lymphatic: denies: anemia, blood clots, easy bleeding, easy bruising, swollen glands, others Endocrine: denies: excessive hunger, excessive sweating, excessive thirst, excessive urination, flushing, intolerance to cold, intolerance to heat, unexplained weight gain, unexplained weight loss, others Psychiatric: denies: anxiety, bipolar disorder, depression, hopeless, panic disorder, schizophrenia, sleepless, suicidal, others All Other Systems: Reviewed and Negative Physical Exam General Appearance: Moderate Distress, Obese HEENT: Normal ENT Inspection, PERRL/EOMI Neck: Full Range of Motion, Non-Tender, Normal, Normal Inspection Respiratory: Chest Non-Tender, Lungs Clear, No Accessory Muscle Use, No Respiratory Distress, Normal Breath Sounds Cardiovascular: No Edema, No JVD, No Murmur, No Gallop, Normal Peripheral Pulses, Regular Rate/Rhythm Breast Exam: Deferred Gastrointestinal: No Organomegaly, Non Tender, No Pulsatile Mass, Normal Bowel Sounds, Soft Genitalia: Deferred Pelvic: Deferred Rectal: Deferred Extremities: No calf tenderness, Normal capillary refill, Normal inspection, Normal range of motion, Non-tender, No pedal edema Musculoskeletal : Location: Bilateral Extremity Location: Back Apperance: Limited ROM, Tenderness: Moderate, NOT DONE (Radiculitis to left leg) 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 Was a procedure done?: No Back Pain Differential Dx Differential Diagnosis: DJD, Musculoskeletal Pain, Strain, N/A (Of ruptured disc) X-Ray, Labs, Meds, VS Vital Signs Date Time Temp Pulse Resp B/P (MAP) Pulse Ox O2 Delivery O2 Flow Rate FiO2 09/29/24 15:49 98.7 97 17 114/69 (84) 95 98.7 X-Ray, Labs, Meds, VS Comment Patient came back with a severe back pain for few days was not able to have surgery on her back because of the Eliquis which she has stopped She is back today because of the radiculopathy to the left leg and severe pain Patient has footdrop left side Patient will be admitted for further care Dr. Florez expect to have surgery on her Time of 1ST Reevaluation: 17:50 Reevaluation 1ST: Unchanged Patient Education/Counseling: Diagnosis, Treatment Family Education/Counseling: No Family Present SEPSIS Sepsis Screen Date sepsis recognized/suspect: Sep 29, 2024 Time Sepsis recognized/suspect: 1546 Recent Procedure: No On Antibiotic Therapy: No Respiratory Rate >20: No Heart Rate >90: No Temp<36 C (96.8 F) or >38.3 C: No SBP <90 or MAP <65 mmHG: No New Acute Mental Status Change: No Is the patient on CPAP, BIPAP,: No Vital Signs Date Time Temp Pulse Resp B/P (MAP) Pulse Ox O2 Delivery O2 Flow Rate FiO2 09/29/24 15:49 98.7 97 17 114/69 (84) 95 98.7 Departure 1 Departure Time of Disposition: 17:32 Impression: Primary Impression: Lumbar radiculitis Additional Impression: Foot drop, left foot Disposition: 09 ADMITTED INPATIENT Admit to: Med Surg Condition: Serious Critical Care Note Critical Care Time?: No Stability Stability form required: Yes Unstable for transfer: Requires medication (Requires Med for stabilization) Heart Score Heart Score: Heart Score Response (Comments) Value History N/A 0 EKG N/A 0 Age >65 2 Risk Factors 1 or 2 risk factors 1 Troponin N/A 0 Total 3 I personally scribed for TARAH BENJAMIN MD ([email or web address]) on 09/29/24 at 16:52. Electronically submitted by Eb Mcleod ([email or web address]). TARAH BENJAMIN MD Sep 29, 2024 16:52
[2024-09-29 18:49] LABS: Hematocrit 35.4 % (36.0-46.0); Hemoglobin 11.5 g/dL (12.2-16.2); Mean Corpuscular Hemoglobin 27.2 pg (28.0-32.0); Mean Corpuscular Volume 83.5 fL (80.0-100.0); Nucleated Red Blood Cells % 0.1 %
[2024-09-29 19:04] LABS: Alanine Aminotransferase 20 U/L (7-40); Albumin 4.5 g/dL (3.2-4.8); Alkaline Phosphatase 108 U/L (46-116); Anion Gap 11 (5-15); BUN/Creatinine Ratio 20.8 (10.0-20.0); Carbon Dioxide 23 mmol/L (20-31); Potassium 4.3 mmol/L (3.5-5.1); Sodium 142 mmol/L (136-145)
[2024-09-29 19:05] LABS: Bilirubin, Total 0.4 mg/dL (0.2-1.0)
[2024-09-29 19:12] LABS: Blood Urea Nitrogen 31 mg/dL (9-23); Calcium 10.6 mg/dL (8.7-10.4); Chloride 108 mmol/L (98-107); Glucose 231 mg/dL (74-106); Total Protein 8.3 g/dL (5.7-8.2)
[2024-09-29] MEDS: ONDANSETRON HCL 4 MG/2 ML VIAL IV ONE (21:07)
[2024-09-29] MEDS: MORPHINE SULFATE INJ 2 MG/ml SYRG IV ONE (21:07)
[2024-09-29] MEDS ORDERED: HYDROcodone-ACET 5/325MG TAB PO PRN (21:15)
[2024-09-29] MEDS ORDERED: DEXTROSE (50%) 50ML SYRG IV PRN (21:15)
[2024-09-29] MEDS ORDERED: MORPHINE SULFATE INJ 2 MG/ml SYRG IV PRN (21:15)
[2024-09-29] MEDS ORDERED: NITROGLYCERIN 0.4 MG SL TAB SL PRN (21:15)
[2024-09-29] MEDS ORDERED: ACETAMINOPHEN 325 MG TAB PO PRN (21:15)
[2024-09-29] MEDS ORDERED: BACLOFEN 10 MG TAB PO PRN (21:30)
[2024-09-29] MEDS: ACCU-CHEK COMFORT CURVE STRIP VI SCH (22:00)
[2024-09-29] MEDS: APIXABAN 5 MG TAB PO SCH (22:00)
[2024-09-29] MEDS: ATORVASTATIN 20 MG TAB PO SCH (22:25)
[2024-09-29] MEDS: GABAPENTIN 400 MG CAP PO SCH (22:25)
[2024-09-29 22:38] VITALS: BP 146/76; PULSE 99; RESP 20; TEMP 98.6; O2SAT 100
[2024-09-29 22:57] VITALS: BP 144/85; PULSE 82; RESP 14; TEMP 98.2; O2SAT 98
[2024-09-29] MEDS: InsuLIN REG 1unit/0.01ml Soln (100units/ml) SC SCH (23:25)
--- NOTE | 2024-09-29 23:37 | DVHHP2 ---
History of Present Illness Reason for Visit: Back pain History of Present Illness 69-year-old female presents for evaluation of lower back pain. The patient reports presenting two weeks ago with similar complaints and was told she had a herniated lumbar disc. Patient states she was supposed to have surgery and was discharged and has not been able to follow up with an orthopedic surgeon. Today she returns with worsening lower back pain and reports having to drag her left foot. No numbness or tingling. No other acute complaints reported. Past Medical History COPD, diabetes mellitus, GERD, dyslipidemia, hypertension, cancer Past Surgical History Hysterectomy, hernia repair, Family History Noncontributory Smoke: No ALCOHOL: none Drugs: None Lives: with Family Review of Systems Review of Systems Review of systems are currently negative otherwise addressed in HPI. Allergies: Coded Allergies: NO KNOWN ALLERGIES (Unverified , 06/09/21) Medications Current Medications Medications Dose Ordered Sig/Iliana Route Start Time Stop Time Status Last Admin Dose Admin Atorvastatin Calcium 20 mg HS PO 09/29/24 22:00 09/29/24 22:25 20 MG Gabapentin 400 mg BID PO 09/29/24 22:00 09/29/24 22:25 400 MG Levothyroxine Sodium 100 mcg QAM@0600 PO 09/30/24 06:00 Losartan Potassium 25 mg DAILY PO 09/30/24 10:00 Diagnostic Test (Pha) 1 strip ACHS 09/29/24 22:00 09/29/24 22:00 1 STRIP Insulin Human Regular ACHS SC 09/29/24 22:00 09/29/24 23:25 8 UNITS Dextrose 50 ml UD PRN IV 09/29/24 21:15 Acetaminophen/ Hydrocodone Bitart 1 tab Q4HP PRN PO 09/29/24 21:15 Ondansetron HCl 4 mg Q4HP PRN IV 09/29/24 21:15 Acetaminophen 650 mg Q6HP PRN PO 09/29/24 21:15 Morphine Sulfate 2 mg Q4HPRN PRN IV 09/29/24 21:15 Nitroglycerin 0.4 mg Q5MINP PRN SL 09/29/24 21:15 Morphine Sulfate 2 mg Q30M PRN IV 09/29/24 21:15 Baclofen 5 mg Q8HP PRN PO 09/29/24 21:30 Exam Vital Signs Vital Signs Date Time Temp Pulse Resp B/P (MAP) Pulse Ox O2 Delivery O2 Flow Rate FiO2 09/29/24 22:57 98.2 82 14 144/85 (104) 98 98.2 09/29/24 19:11 Room Air Exam Gen: 69-year-old female in mild distress Skin: Warm, dry, normal color and texture, no rash. HEENT: Normocephalic atraumatic, mucous membranes moist and pink. Neck: Cervical and supraclavicular nodes normal without enlargement, trachea is midline, thyroid gland is normal without masses. Pulmonary: Clear to auscultation and percussion bilaterally. Cardiac: Regular rate and rhythm. No murmur Abdomen: Soft, nontender, nondistended, bowel sounds present all 4 quadrants, no guarding, no rigidity, no organomegaly. Extremities: No cyanosis, clubbing, left foot drop Neuro: Cranial nerves II through XII grossly intact, normal affect and speech, no focal motor deficits. Labs/Xrays ORDERING PHYSICIAN: MICHAEL SCHMID MD PROCEDURE(s): MSL - LUMBAR SPINE WO CONTRAST REASON: Lumbar Spine ORDER NUMBER(s): [id number], ACCESSION NUMBER(s): [id number] PROCEDURE: MRI LUMBAR SPINE WO CONTRAST INDICATION: Lumbar Spine Exam Date: 09/20/2024 03:31 PM COMPARISON: MRI LUMBAR SPINE WO CONTRAST on DOS: 08/12/24 TECHNIQUE: MRI lumbar spine without intravenous contrast. FINDINGS: Severe chronic anterior compression fracture of L2 with near complete loss of the height of the vertebral body and 4 mm retropulsion unchanged from the prior study. Mild compression deformity T12 with approximately 30% loss of height anteriorly, stable. Patient is status post vertebroplasty at this level. Conus ends at L1. Normal distal thoracic cord. No aortic aneurysm. No obstructive uropathy. No retroperitoneal adenopathy. No paraspinal mass. The following axial levels are detailed below: T12-L1: No disc protrusion. L1-L2: Moderate bilateral facet arthropathy. Minimal disc bulge. L2-L3: Mild stable disc bulge. L3-L4: Mild stable central spinal canal narrowing. Mild bilateral neural f oraminal narrowing. 3 mm broad-based disc bulge. L4-L5: Moderate central spinal canal stenosis. Moderate bilateral lateral rec ess stenosis. Moderate bilateral facet arthropathy. 3 mm broad-based disc bulge. Moderate bilateral neural foramen narrowing. No significant change from the prior study. Moderate disc space narrowing. L5-S1: 4 mm left foraminal disc protrusion, sagittal image 13, series 6. Moderately severe left-sided neural foraminal narrowing. Right neural foramen is mildly narrowed. Mild central spinal canal stenosis. Moderate bilateral facet arthropathy, left greater than right. [id number] central spinal canal stenosis. IMPRESSION: 1. No acute vertebral body fracture No vertebral body subluxations 4 mm left foraminal disc protrusion impinges upon the left L5 nerve within the neural foramen. Moderate multilevel degenerative disc disease Labs Test 09/29/24 18:28 Range/Units White Blood Count 6.3 # 4.4-10.8 10^3/uL Red Blood Count 4.23 4.0-5.20 10^6/uL Hemoglobin 11.5 #L 12.2-16.2 g/dL Hematocrit 35.4 #L 36.0-46.0 % Mean Corpuscular Volume 83.5 80.0-100.0 fL Mean Corpuscular Hemoglobin 27.2 L 28.0-32.0 pg Mean Corpuscular Hemoglobin Concent 32.6 32.0-36.0 g/dL Red Cell Distribution Width 15.2 H 11.8-14.3 % Platelet Count 257 140-450 10^3/uL Mean Platelet Volume 8.0 6.9-10.8 fL Neutrophils (%) (Auto) 63.3 37.0-80.0 % Lymphocytes (%) (Auto) 26.5 10.0-50.0 % Monocytes (%) (Auto) 6.9 0.0-12.0 % Eosinophils (%) (Auto) 2.9 0.0-7.0 % Basophils (%) (Auto) 0.4 0.0-2.0 % Neutrophils # (Auto) 4.0 1.6-8.6 10 ^3/uL Lymphocytes # (Auto) 1.7 0.4-5.4 10 ^3/uL Monocytes # (Auto) 0.4 0-1.3 10 ^3/uL Eosinophils # (Auto) 0.2 0-0.8 10 ^3/uL Basophils # (Auto) 0 0-0.2 10 ^3/uL Nucleated Red Blood Cells 0.1 % Sodium Level 142 136-145 mmol/L Potassium Level 4.3 3.5-5.1 mmol/L Chloride Level 108 H 98-107 mmol/L Carbon Dioxide Level 23 20-31 mmol/L Anion Gap 11 5-15 Blood Urea Nitrogen 31 H 9-23 mg/dL Creatinine 1.49 H 0.550-1.02 mg/dL Glomerular Filtration Rate Calc 38 >90 mL/min BUN/Creatinine Ratio 20.8 H 10.0-20.0 Serum Glucose 231 H 74-106 mg/dL Calcium Level 10.6 H 8.7-10.4 mg/dL Total Bilirubin 0.4 0.2-1.0 mg/dL Aspartate Amino Transferase (AST) 27 13-40 U/L Alanine Aminotransferase (ALT) 20 7-40 U/L Alkaline Phosphatase 108 46-116 U/L Total Protein 8.3 H 5.7-8.2 g/dL Albumin 4.5 3.2-4.8 g/dL SEPSIS Sepsis Screen Date sepsis recognized/suspect: Sep 29, 2024 Time Sepsis recognized/suspect: 1545 Recent Procedure: No On Antibiotic Therapy: No Respiratory Rate >20: No Heart Rate >90: No Temp<36 C (96.8 F) or >38.3 C: No SBP <90 or MAP <65 mmHG: No New Acute Mental Status Change: No Is the patient on CPAP, BIPAP,: No Physician Orders Urinalysis (09/29/24 17:49) * Orthopedic Consult (09/29/24 21:15) Atorvastatin (Lipitor) (09/29/24 22:00) Gabapentin Capsule (Neurontin Capsule) (09/29/24 22:00) Levothyroxine Tablet (Synthroid Tablet) (09/30/24 06:00) Losartan Tablet (Cozaar Tablet) (09/30/24 10:00) * Cardiology Consult (09/29/24 21:15) Basic Metabolic Panel (09/30/24 04:00) Glucose Blood (Accu-Chek Comfort Curve T (09/29/24 22:00) Insulin R (Human) (Insulin R) (09/29/24 22:00) Dextrose 50% Syringe (09/29/24 21:15) Admit (09/29/24 21:15) Hydrocodone-Acet 5/325mg Tab ([place] /32 (09/29/24 21:15) Ondansetron Hcl (Zofran) (09/29/24 21:15) Cardiac Diet-2gna,Lofat,Lochol (09/30/24 Breakfast) Condition: Stable (09/29/24 21:15) Acetaminophen Tablet (Tylenol Tablet) (09/29/24 21:15) Bedrest With Bathroom Privileg (09/29/24 21:15) Morphine Sulfate Injection (09/29/24 21:15) Nitroglycerin Sublingual (Ntrostat Subli (09/29/24 21:15) Morphine Sulfate Injection (09/29/24 21:15) Stat Ekg For Chest Pain (09/29/24 21:15) Notify Of Changes From Base (09/29/24 21:15) Automatic Seamer For 24 Hours (09/29/24 21:15) Emergency Dysrhythmia Protocol (09/29/24 21:15) Rhythm Strips Once Every Shift (09/29/24 21:15) Oxygen By Nasal Cannula (09/29/24 21:15) Baclofen Tablet (Liorisal Tablet) (09/29/24 21:30) Mrsa Screen (09/29/24 23:08) Vital Signs Date Time Temp Pulse Resp B/P (MAP) Pulse Ox O2 Delivery O2 Flow Rate FiO2 09/29/24 22:57 98.2 82 14 144/85 (104) 98 98.2 09/29/24 21:37 85 14 125/69 09/29/24 21:07 87 18 158/83 09/29/24 20:36 98.2 87 18 158/83 (108) 94 98.2 09/29/24 19:11 98.2 87 18 106/62 (77) 97 98.2 09/29/24 19:11 87 18 97 Room Air 09/29/24 15:49 98.7 97 17 114/69 (84) 95 98.7 Laboratory Tests Test 09/29/24 18:28 White Blood Count 6.3 10^3/uL (4.4-10.8) # Medications Medications Dose Ordered Sig/Iliana Route Start Time Stop Time Status Last Admin Dose Admin Atorvastatin Calcium 20 mg HS PO 09/29/24 22:00 09/29/24 22:25 20 MG Diagnostic Test (Pha) 1 strip ACHS 09/29/24 22:00 09/29/24 22:00 1 STRIP Gabapentin 400 mg BID PO 09/29/24 22:00 09/29/24 22:25 400 MG Insulin Human Regular ACHS SC 09/29/24 22:00 09/29/24 23:25 8 UNITS Morphine Sulfate 2 mg ONCE ONCE IV 09/29/24 19:00 09/29/24 19:01 DC 09/29/24 21:07 2 MG Ondansetron HCl 4 mg ONCE ONCE IV 09/29/24 19:00 09/29/24 19:01 DC 09/29/24 21:07 4 MG Assessment/Plan Assessment/Plan Assessment Herniated lumbar intervertebral disc Lumbar radiculopathy Left foot drop Diabetes mellitus Hypertension Acute kidney injury Plan Admit the patient to [facility] to the hospitalist Pain management Orthopedic consult Resume home medications Continue treatment per orders. Plan discussed with: Patient My Orders Orders - MYA FRENCH AGACNRenée Procedure Category Date Status Time * Orthopedic Consult CONS 09/29/24 Transmitted 21:15 Atorvastatin (Lipitor) PHA 09/29/24 In Process 22:00 Gabapentin Capsule PHA 09/29/24 In Process (Neurontin Capsule) 22:00 Levothyroxine Tablet PHA 09/30/24 In Process (Synthroid Tablet) 06:00 Losartan Tablet PHA 09/30/24 In Process (Cozaar Tablet) 10:00 * Cardiology Consult CONS 09/29/24 Transmitted 21:15 Basic Metabolic Panel LAB 09/30/24 Verified 04:00 Glucose Blood PHA 09/29/24 In Process (Accu-Chek Comfort 22:00 Insulin R (Human) PHA 09/29/24 In Process (Insulin R) 22:00 Dextrose 50% Syringe PHA 09/29/24 In Process 21:15 Admit ADMIT 09/29/24 Transmitted 21:15 Hydrocodone-Acet PHA 09/29/24 In Process 5/325mg Tab ([place] 21:15 Ondansetron Hcl PHA 09/29/24 In Process (Zofran) 21:15 Cardiac DIET 09/30/24 Transmitted Diet-2gna,Lofat,Lochol Breakfast Condition: Stable [place] 09/29/24 In Process 21:15 Acetaminophen Tablet PHA 09/29/24 In Process (Tylenol Tablet) 21:15 Bedrest With Bathroom [place] 09/29/24 In Process Privileg 21:15 Morphine Sulfate PHA 09/29/24 In Process Injection 21:15 Nitroglycerin PHA 09/29/24 In Process Sublingual (Ntrostat 21:15 Morphine Sulfate PHA 09/29/24 In Process Injection 21:[address] [facility] 09/29/24 In Process Pain 21:[address] Md Of Changes [facility] 09/29/24 In Process From Base 21:[address] [facility] 09/29/24 In Process 24 Hours 21:[address] [facility] 09/29/24 In Process Protocol 21:[address] [facility] 09/29/24 In Process Every Shift 21:15 Oxygen By Nasal RT 09/29/24 Transmitted Cannula 21:15 Baclofen Tablet PHA 09/29/24 In Process (Liorisal Tablet) 21:30 Mrsa Screen JAMES 09/29/24 Uncollected 23:08 Date of Service: Sep 29, 2024 Billing Provider: MYA FRENCH Common Visit Codes: [id number] INP/OBS CARE (MOD) MYA FRENCH Sep 29, 2024 23:37
[2024-09-30] VITALS (8 sets, daily range): BP systolic 105–140; BP diastolic 64–81; PULSE 69–101; RESP 18–19; TEMP 96.6–98.6; O2SAT 93–99
[2024-09-30] MEDS ORDERED: LEVO150T10 PO (00:01)
[2024-09-30] MEDS ORDERED: CIPR-173 PO (00:01)
[2024-09-30] MEDS ORDERED: METH-1181 PO (00:01)
[2024-09-30] MEDS: MORPHINE SULFATE INJ 2 MG/ml SYRG IV PRN (02:12)
[2024-09-30] MEDS: LEVOTHYROXINE SODIUM 100 MCG TAB PO SCH (05:19)
[2024-09-30 06:49] LABS: Potassium 3.9 mmol/L (3.5-5.1); Sodium 144 mmol/L (136-145)
[2024-09-30 06:50] LABS: Anion Gap 9 (5-15); Carbon Dioxide 25 mmol/L (20-31)
[2024-09-30 06:51] LABS: Calcium 9.3 mg/dL (8.7-10.4)
[2024-09-30 06:55] LABS: BUN/Creatinine Ratio 22.9 (10.0-20.0)
[2024-09-30 06:57] LABS: Blood Urea Nitrogen 36 mg/dL (9-23); Chloride 110 mmol/L (98-107); Glucose 111 mg/dL (74-106)
[2024-09-30] MEDS: LOSARTAN POTASSIUM 25 MG TAB PO SCH (09:04)
--- NOTE | 2024-09-30 10:57 | DVHINCON2 ---
Date Seen: Sep 30, 2024 Referring Physician SHAWN Rojas Reason for Consultation Cardiac risk stratification History of Present Illness This is a 69 year old female patient who presents to emergency room with chief complaint of back pain. The patient was recently seen at this facility for si milar complaints and sent home on 09/23/24 without surgical intervention. Cardiology has been consulted at this time for cardiac risk stratification for possible surgical intervention. Initial twelve lead electrocardiogram reveals normal sinus rhythm without any significant ST segment changes. No troponin levels drawn at time of assessment. Patient denies any cardiac symptoms inc luding chest pain, shortness of breath, or palpitations. 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 Past Medical History Past medical history reviewed. No other significant than mentioned above. Past Surgical History Spinal surgery x 2 Removal of all toes to left foot Left ovarian removal Hysterectomy Family History: Diabetes mellitus G8 MOTHER, G8 FATHER, FH: HTN (hypertension) FH: chronic kidney disease G8 MOTHER, FH: diabetes mellitus Hypertension G8 MOTHER, G8 FATHER, Family History Family history reviewed. Social History Patient has a 25 pack-year history, quit smoking approximately eight years ago Denies any illicit drug use Denies any alcohol use Allergies: Coded Allergies: NO KNOWN ALLERGIES (Unverified , 06/09/21) Home Meds Active Scripts Lancets (ACTI-TOMAS LANCETS 28G) 28 G Mis, G XX AC, #200 3 Refills use to measure blood glucuse Prov:AKSHAT JENSEN RESIDENT 10/01/23 Insulin Syringe/Needle U-100 (Aq Insulin Syringe/1Ml/29 29G X 1/2" 1 ml) 1 Mis Mis, MIS XX AC, #200 3 Refills use to admisitration of insulin Prov:AKSHAT JENSEN RESIDENT 10/01/23 Ergocalciferol (VITAMIN D 02626 UNIT) 50,000 [place], [address] UNIT PO Q7D for 42 Days, #6 CAP take once every week Prov:AKSHAT JENSEN RESIDENT 10/01/23 Hydrocodone-Acetaminophen (Hydrocodone Bitartrate/AC 10-325 mg) 1 Tab Tab, 1 TAB PO TIDPRN, #30 TAB Prov:CHILO HILTON MD 11/01/22 Reported Medications Methocarbamol (Methocarbamol) 500 Mg Tab, 500 MG PO BID for 30 Days, MG 09/30/24 Ciprofloxacin Hcl (Cipro) 500 Mg Tab, 500 MG PO BID 09/30/24 Levothyroxine Sodium (Levothyroxine Sodium) 150 Mcg Tab, 150 MCG PO QAM for 30 Days 09/30/24 Melatonin (KP MELATONIN) 3 Mg Tab, 10 MG PO HS, TAB 09/18/24 Cetirizine Hcl (CETIRIZINE HCL ALLERGY CH) 5 Mg/5 Ml Whitney, 5 MG PO DAILY, ML 09/18/24 Insulin Regular (Human) (Novolin R) 100 Unit/Ml Inj, 10 UNIT SC TID, INJ 09/17/24 Insulin Degludec (Tresiba Flextouch) 100 Unit/Ml Inj, 10 UNIT SC HS, INJ 09/17/24 Fluticasone-Salmeterol (Advair Diskus 250/50) 1 Puff Ih, 1 PUFF IN BID, INH 08/18/24 Alendronate Sodium (Alendronate Sodium) 70 Mg Tab, 70 MG PO Q7D, TAB 08/13/24 Pantoprazole Sodium Sesquihydr (Pantoprazole Sodium Dr) 40 Mg Tab, 40 MG PO DAILY, TAB 08/13/24 Albuterol Sulfate (VENTOLIN MDI) 90 Mcg Ih, 90 MCG IN, INH 08/13/24 Gabapentin (Neurontin) 400 Mg Cap, 1 CAP PO BID, #90 CAP 1 Refill 09/28/23 Losartan Potassium (Losartan Potassium) 25 Mg Tab, 25 MG PO DAILY for 30 Days, MG 09/28/23 Atorvastatin Calcium (ATORVASTATIN CALCIUM) 20 Mg Tab, 1 TAB PO DAILY, #30 TAB 5 Refills 09/28/23 Apixaban Base (ELIQUIS) 5 Mg Tab, 1 TAB PO BID 12/12/21 Home Meds Home medications reviewed. Current Medications Current Medications Medications (Trade) Dose Ordered Sig/Iliana Route PRN Reason Start Time Stop Time Status Last Admin Apixaban (Eliquis) 5 mg BID PO 09/29/24 22:00 09/29/24 23:28 DC Atorvastatin Calcium (Lipitor) 20 mg HS PO 09/29/24 22:00 09/29/24 22:25 Gabapentin (Neurontin Capsule) 400 mg BID PO 09/29/24 22:00 09/30/24 09:27 Levothyroxine Sodium (Synthroid Tablet) 100 mcg QAM@0600 PO 09/30/24 06:00 09/30/24 05:19 Losartan Potassium (Cozaar Tablet) 25 mg DAILY PO 09/30/24 10:00 09/30/24 09:04 Diagnostic Test (Pha) (Accu-Chek Comfort Curve T) 1 strip ACHS 09/29/24 22:00 09/30/24 06:12 Insulin Human Regular (InsuLIN R) ACHS SC 09/29/24 22:00 09/29/24 23:25 Dextrose 50 ml UD PRN IV Blood Sugar LESS THAN 60 09/29/24 21:15 Acetaminophen/ Hydrocodone Bitart ([place] 5/325MG Tab) 1 tab Q4HP PRN PO MODERATE PAIN (4-6 PAIN SCALE) 09/29/24 21:15 Ondansetron HCl (Zofran) 4 mg Q4HP PRN IV NAUSEA / VOMITING 09/29/24 21:15 Acetaminophen (Tylenol Tablet) 650 mg Q6HP PRN PO PAIN SCALE 1-3 OR TEMP>100.4 09/29/24 21:15 Morphine Sulfate 2 mg Q4HPRN PRN IV SEVERE PAIN (7-10 PAIN SCALE) 09/29/24 21:15 09/30/24 06:55 Nitroglycerin (Ntrostat Sublingual) 0.4 mg Q5MINP PRN SL FOR CHEST PAIN 09/29/24 21:15 Morphine Sulfate 2 mg Q30M PRN IV FOR CHEST PAIN 09/29/24 21:15 Baclofen (Liorisal Tablet) 5 mg Q8HP PRN PO FOR MUSCLE SPASM 09/29/24 21:30 Review of Systems Constitutional: No symptom reported Ears, Nose, & Throat: No symptom reported Eyes: No symptom reported Neurological: No symptoms reported Pulmonary/Respiratory: No symptoms reported Cardiovascular: No symptom reported Gastrointestinal: No symptom reported Genitourinary: No symptom reported Musculoskeletal: Back pain Skin: No symptom reported Psychiatric: No symptom reported Endocrine: No symptom reported Hematologic/Lymphatic: No symptom reported Vital Signs Vital Signs Date Time Temp Pulse Resp B/P (MAP) Pulse Ox O2 Delivery O2 Flow Rate FiO2 09/30/24 09:04 131/81 09/30/24 09:00 98.5 82 19 93 98.5 09/30/24 08:00 Room Air* 0 21 Physical Exam General Appearance: Cooperative. Well-developed. Well-nourished. No acute distress. Pulmonary/Respiratory: Clear, bilateral breaths sounds. Cardiovascular/Chest: Regular rate and rhythm. Peripheral Pulses: 2+ Radial (R). 2+ Radial (L). 2+ Pedal (R). 2+ Pedal (L) Abdominal Exam: Normal bowel sounds. Ankle Exam: Negative ankle edema Lower extremities: Negative lower extremity edema Neuro/Mental Status: A/OX4, coherent. Thoughts/Psych: Normal thought pattern. Appropriate mood and affect. Good judgment and insight. Appearance: No acute distress. Skin Exam: Missing all toes on left foot. Normal inspection. Normal color. Warm and dry. Labs/Diagnostic Data Labs Test 09/30/24 05:51 09/30/24 05:48 09/29/24 18:28 Range/Units POC Glucose 119 H 70-106 mg/dl Sodium Level 144 136-145 mmol/L Potassium Level 3.9 3.5-5.1 mmol/L Chloride Level 110 H 98-107 mmol/L Carbon Dioxide Level 25 20-31 mmol/L Anion Gap 9 5-15 Blood Urea Nitrogen 36 H 9-23 mg/dL Creatinine 1.57 H 0.550-1.02 mg/dL Glomerular Filtration Rate Calc 36 >90 mL/min BUN/Creatinine Ratio 22.9 H 10.0-20.0 Serum Glucose 111 H 74-106 mg/dL Calcium Level 9.3 8.7-10.4 mg/dL White Blood Count 6.3 # 4.4-10.8 10^3/uL Red Blood Count 4.23 4.0-5.20 10^6/uL Hemoglobin 11.5 #L 12.2-16.2 g/dL Hematocrit 35.4 #L 36.0-46.0 % Mean Corpuscular Volume 83.5 80.0-100.0 fL Mean Corpuscular Hemoglobin 27.2 L 28.0-32.0 pg Mean Corpuscular Hemoglobin Concent 32.6 32.0-36.0 g/dL Red Cell Distribution Width 15.2 H 11.8-14.3 % Platelet Count 257 140-450 10^3/uL Mean Platelet Volume 8.0 6.9-10.8 fL Neutrophils (%) (Auto) 63.3 37.0-80.0 % Lymphocytes (%) (Auto) 26.5 10.0-50.0 % Monocytes (%) (Auto) 6.9 0.0-12.0 % Eosinophils (%) (Auto) 2.9 0.0-7.0 % Basophils (%) (Auto) 0.4 0.0-2.0 % Neutrophils # (Auto) 4.0 1.6-8.6 10 ^3/uL Lymphocytes # (Auto) 1.7 0.4-5.4 10 ^3/uL Monocytes # (Auto) 0.4 0-1.3 10 ^3/uL Eosinophils # (Auto) 0.2 0-0.8 10 ^3/uL Basophils # (Auto) 0 0-0.2 10 ^3/uL Nucleated Red Blood Cells 0.1 % Total Bilirubin 0.4 0.2-1.0 mg/dL Aspartate Amino Transferase (AST) 27 13-40 U/L Alanine Aminotransferase (ALT) 20 7-40 U/L Alkaline Phosphatase 108 46-116 U/L Total Protein 8.3 H 5.7-8.2 g/dL Albumin 4.5 3.2-4.8 g/dL Assessment Preprocedural cardiovascular examination Hypertension Dyslipidemia Tricuspid valve regurgitation, mild to moderate degree Right lower extremity DVT with IVC filter (on Eliquis) Herniated lumbar intervertebral disc COPD Asthma Acute kidney injury Thyroid disease History of tobacco use Plan/Recommendation We will continue with the following plan/recommendations (Dr. Taylor): Case discussed with Dr. Taylor.Transthoracic echocardiogram reveals EF of 60% with noted sigmoid septum. Chest x-ray reveals no acute cardiopulmonary disease. Revised Cardiac Risk Index (Isaac criteria): 1 point (1.1% risk of major cardiac event). There is no underlying history of congestive heart failure, coronary artery disease, or equivalent of cardiac symptoms. The patient reports a fair functional capacity prior to emergency room arrival. Per cardiology sta ndpoint, patient is at an acceptable risk for moderate-risk surgery. There is no additional cardiac work-up indicated prior to surgery. Thank you for allowing us to participate in this patient's care. Please call if you have any questions or concerns. Critical care time spent: 44 minutes This medical document was created using an electronic medical record system with voice recognition software and computerized dictation system. Although this document has been carefully reviewed, there might still be some phonetic and typographical errors. Occasional wrong-word or ``sound-alike substitutions may have occurred due to the inherent limitations of voice recognition software. These areas are purely typographical due to imperfections of the software programs and do not reflect any compromise in the patient's medical care. Please read the chart carefully and recognize, using context, where these substitutions have occurred. Plan discussed with: Patient NYHA Physical activity limitations: NA Date of Service: Sep 30, 2024 Billing Provider: JANES GALLEGOS Cardiology Common Codes: [id number] INP/OBS CARE (High) JANES GALLEGOS Sep 30, 2024 10:57
--- NOTE | 2024-09-30 12:14 | DVH ---
EXAM: XY CHEST XRAY 1 VIEW Indication: Pain Technique: Single frontal view of the chest was obtained Comparison: XY CHEST XRAY 1 VIEW on DOS: 09/22/24, XY CHEST PORTABLE on DOS: 11/15/22, XY CHEST PORTABLE on DOS: 10/28/22, CXRP on DOS: 01/20/22, CHEST PORTABLE on DOS: 01/20/22 FINDINGS: Lines and Tubes: None Lungs: No focal consolidation. Pleura: No effusion. No pneumothorax. Cardiomediastinal contours: Unremarkable. Atherosclerotic vascular calcifications of the thoracic ao rta are noted. Bones: No acute osseous abnormality. IMPRESSION: No acute cardiopulmonary disease.
--- NOTE | 2024-09-30 13:10 | DVHPN2 ---
Reviewed: Care Plan, H&P, Labs, Medications, Previous Orders, Radiology Changes from previous H/P or p: No Changes Objective Vitals Vital Signs Date Time Temp Pulse Resp B/P (MAP) Pulse Ox O2 Delivery O2 Flow Rate FiO2 09/30/24 11:38 80 18 128/78 09/30/24 09:00 98.5 93 98.5 09/30/24 08:00 Room Air* 0 21 Intake/Output Intake and Output 09/30/24 07:00 Intake Total 0 ml Balance 0 ml Intake Oral 0 ml Medications Current Medications Medications Dose Ordered Sig/Iliana Route Start Time Stop Time Status Last Admin Dose Admin Atorvastatin Calcium 20 mg HS PO 09/29/24 22:00 09/29/24 22:25 20 MG Gabapentin 400 mg BID PO 09/29/24 22:00 09/30/24 09:27 400 MG Levothyroxine Sodium 100 mcg QAM@0600 PO 09/30/24 06:00 09/30/24 05:19 100 MCG Losartan Potassium 25 mg DAILY PO 09/30/24 10:00 09/30/24 09:04 25 MG Diagnostic Test (Pha) 1 strip ACHS 09/29/24 22:00 09/30/24 11:43 1 STRIP Insulin Human Regular ACHS SC 09/29/24 22:00 09/30/24 11:47 6 UNITS Dextrose 50 ml UD PRN IV 09/29/24 21:15 Acetaminophen/ Hydrocodone Bitart 1 tab Q4HP PRN PO 09/29/24 21:15 Ondansetron HCl 4 mg Q4HP PRN IV 09/29/24 21:15 Acetaminophen 650 mg Q6HP PRN PO 09/29/24 21:15 Morphine Sulfate 2 mg Q4HPRN PRN IV 09/29/24 21:15 09/30/24 11:38 2 MG Nitroglycerin 0.4 mg Q5MINP PRN SL 09/29/24 21:15 Morphine Sulfate 2 mg Q30M PRN IV 09/29/24 21:15 Baclofen 5 mg Q8HP PRN PO 09/29/24 21:30 Laboratory Results Laboratory Tests 09/29/24 18:28 09/30/24 05:48 Chemistry Test 09/29/24 18:28 09/30/24 05:48 Albumin 4.5 g/dL (3.2-4.8) Calcium Level 10.6 mg/dL (8.7-10.4) H 9.3 mg/dL (8.7-10.4) Total Protein 8.3 g/dL (5.7-8.2) H LFT Test 09/29/24 18:28 Alanine Aminotransferase (ALT) 20 U/L (7-40) Alkaline Phosphatase 108 U/L (46-116) Aspartate Amino Transferase (AST) 27 U/L (13-40) Total Bilirubin 0.4 mg/dL (0.2-1.0) Labs and/or images reviewed: Labs reviewed by me, Image(s) reviewed by me Assessment/Plan Assessment/Plan Acute exacerbation of chronic low back pain Hypertension Dyslipidemia Right lower extremity DVT with IVC filter (on Eliquis) Herniated lumbar intervertebral disc Lumbar radiculopathy Diabetes COPD Asthma Thyroid disease History of tobacco use Time spent 70 minutes Advanced care planning time 20 minutes Patient is full code Plan discussed with: Patient Date of Service: Sep 30, 2024 Billing Provider: KACEY VANG MD Common Visit Codes: [id number] CARE 30-74 MIN KACEY VANG MD Sep 30, 2024 13:10
--- NOTE | 2024-09-30 13:19 | DVHSR ---
APPROVED REPORT EXAM: Two-dimensional and M-mode echocardiogram with Doppler and color Doppler. Blood Pressure: 127/68 mmHg INDICATION Pre-Op evaluate cardiac function RISK FACTORS Height: 5'6, Weight: 171 DIMENSIONS LVDd3.4 (3.8-5.7cm)LA (2D)4.6 (1.9-4.0cm)Aortic Root3.1 (2.0-3.7cm) LVDs2.3 (2.5-4.0cm)LA (MM) (1.9-4.0cm)Aortic Cusp Exc1.7 (1.5-2.0cm) EF (%) 55.0 (55-70%)Rt. Atrium4.1 (1.9-4.0cm)Asc. Aorta cm IVSd1.0 (0.7-1.1cm)RV (D)4.3 (1.8-2.4cm) PWd0.9 (0.7-1.1cm) Mitral Valve MitralMitral Stenosis E wave0.62m/sMV Mean GR.mmHg A wave0.99m/sMV Peak GR.mmHg E/A ratio0.62D MVAcm2 DECEL [id number] 1/2 Timems Aortic Valve Aortic ValveAortic Stenosis V11.09m/Leisa Mean GR.4mmHg V21.22m/Leisa Peak GR.6mmHg LVOT Diameter2.3 (1.8-2.4cm)Doppler AVA3.71cm2 Pulmonic Valve V21.04m/s Other Information Technically limited study due to body habitus. Conclusion Sinus rhythm. Concentric LVH with biatrial enlargement. Aortic root enlargement. Notable sigmoid septum. Valves appear to be structurally normal. EF of 60% with normal RV function. [id number] tricuspid regurgitation. No pericardial effusion masses or vegetations discernible.
--- NOTE | 2024-09-30 16:40 | DVHINCON2 ---
Date of service: Sep 30, [address] Jamil DANIELLE Reason for Consultation Reason for Visit: Back pain History of Present Illness History Source: Patient, RN Notes, MD Notes HPI History of Present Illness 69-year-old female presents for evaluation of lower back pain. The patient reports presenting two weeks ago with similar complaints and was told she had a herniated lumbar disc. Patient states she was supposed to have surgery and was discharged and has not been able to follow up with an orthopedic surgeon. Today she returns with worsening lower back pain and reports having to drag her left foot. No numbness or tingling. No other acute complaints reported. Home Meds Active Scripts Lancets (ACTI-TOMAS LANCETS 28G) 28 G Mis, G XX AC, #200 3 Refills use to measure blood glucuse Prov:AKSHAT JENSEN RESIDENT 10/01/23 Insulin Syringe/Needle U-100 (Aq Insulin Syringe/1Ml/29 29G X 1/2" 1 ml) 1 Mis Mis, MIS XX AC, #200 3 Refills use to admisitration of insulin Prov:AKSHAT JENSEN RESIDENT 10/01/23 Ergocalciferol (VITAMIN D 06572 UNIT) 50,000 [place], [address] UNIT PO Q7D for 42 Days, #6 CAP take once every week Prov:AKSHAT JENSEN RESIDENT 10/01/23 Hydrocodone-Acetaminophen (Hydrocodone Bitartrate/AC 10-325 mg) 1 Tab Tab, 1 TAB PO TIDPRN, #30 TAB Prov:CHILO HILTON MD 11/01/22 Reported Medications Methocarbamol (Methocarbamol) 500 Mg Tab, 500 MG PO BID for 30 Days, MG 09/30/24 Ciprofloxacin Hcl (Cipro) 500 Mg Tab, 500 MG PO BID 09/30/24 Levothyroxine Sodium (Levothyroxine Sodium) 150 Mcg Tab, 150 MCG PO QAM for 30 Days 09/30/24 Melatonin (KP MELATONIN) 3 Mg Tab, 10 MG PO HS, TAB 09/18/24 Cetirizine Hcl (CETIRIZINE HCL ALLERGY CH) 5 Mg/5 Ml Whitney, 5 MG PO DAILY, ML 09/18/24 Insulin Regular (Human) (Novolin R) 100 Unit/Ml Inj, 10 UNIT SC TID, INJ 09/17/24 Insulin Degludec (Tresiba Flextouch) 100 Unit/Ml Inj, 10 UNIT SC HS, INJ 09/17/24 Fluticasone-Salmeterol (Advair Diskus 250/50) 1 Puff Ih, 1 PUFF IN BID, INH 08/18/24 Alendronate Sodium (Alendronate Sodium) 70 Mg Tab, 70 MG PO Q7D, TAB 08/13/24 Pantoprazole Sodium Sesquihydr (Pantoprazole Sodium Dr) 40 Mg Tab, 40 MG PO DAILY, TAB 08/13/24 Albuterol Sulfate (VENTOLIN MDI) 90 Mcg Ih, 90 MCG IN, INH 08/13/24 Gabapentin (Neurontin) 400 Mg Cap, 1 CAP PO BID, #90 CAP 1 Refill 09/28/23 Losartan Potassium (Losartan Potassium) 25 Mg Tab, 25 MG PO DAILY for 30 Days, MG 09/28/23 Atorvastatin Calcium (ATORVASTATIN CALCIUM) 20 Mg Tab, 1 TAB PO DAILY, #30 TAB 5 Refills 09/28/23 Apixaban Base (ELIQUIS) 5 Mg Tab, 1 TAB PO BID 12/12/21 Past Medical History Others Past Medical History COPD, diabetes mellitus, GERD, dyslipidemia, hypertension, cancer Past Surgical History Hysterectomy, hernia repair, Patient Family History: Diabetes mellitus G8 MOTHER, G8 FATHER, FH: HTN (hypertension) FH: chronic kidney disease G8 MOTHER, FH: diabetes mellitus Hypertension G8 MOTHER, G8 FATHER, Review of Systems Comments COPD, diabetes mellitus, GERD, dyslipidemia, hypertension, cancer Musculoskeletal: Back pain H&P Exam Vital Signs Vital Signs Date Time Temp Pulse Resp B/P (MAP) Pulse Ox O2 Delivery O2 Flow Rate FiO2 09/30/24 13:00 98.3 83 18 137/80 (99) 93 98.3 09/30/24 08:00 Room Air* 0 21 General Appeara: Well developed, Well nourished, Normal Appearance, Obese Head Exam: Normal inspection Neck Exam: Normal inspection, Non-tender, Normal alignment Pulmonary/Respiratory: Normal inspection, Other (no complaints hx copd) Cardiovascular/Chest: Normal inspection, Other (no complaints skin PWD- hx htn) Abdominal Exam: Other (no complaints ) Back Exam: Decreased range of motion, Muscle spasm, Vertebral tenderness Shoulder Exam: Normal inspection Elbow/Forearm Exam: Normal inspection Legs: left leg other (dragging) Tendon/ Neuro: Normal sensation, Motor deficit, Other (LBP) Motor/Sensory: Weak motor strength RLE, Weak motor strength LLE Neuro/Mental St: Alert, Oriented, Other (dragging left foot) Appearance: Appropriate appearance, Appropriate insight Eye contact/ Speech: Cooperative, Good eye contact, Normal speech Thoughts/Psych: Normal thought pattern Coordination/Gait: Abnormal gait Skin Exam: Normal inspection Labs/Xrays Imaging: MRI from 09/20/24 hospital stay PROCEDURE: MRI LUMBAR SPINE WO CONTRAST INDICATION: Lumbar Spine Exam Date: 09/20/2024 03:31 PM COMPARISON: MRI LUMBAR SPINE WO CONTRAST on DOS: 08/12/24 TECHNIQUE: MRI lumbar spine without intravenous contrast. FINDINGS: Severe chronic anterior compression fracture of L2 with near complete loss of the height of the vertebral body and 4 mm retropulsion unchanged from the prior study. Mild compression deformity T12 with approximately 30% loss of height anteriorly, stable. Patient is status post vertebroplasty at this level. Conus ends at L1. Normal distal thoracic cord. No aortic aneurysm. No obstructive uropathy. No retroperitoneal adenopathy. No paraspinal mass. The following axial levels are detailed below: T12-L1: No disc protrusion. L1-L2: Moderate bilateral facet arthropathy. Minimal disc bulge. L2-L3: Mild stable disc bulge. L3-L4: Mild stable central spinal canal narrowing. Mild bilateral neural foraminal narrowing. 3 mm broad-based disc bulge. L4-L5: Moderate central spinal canal stenosis. Moderate bilateral lateral recess stenosis. Moderate bilateral facet arthropathy. 3 mm broad-based disc bulge. Moderate bilateral neural foramen narrowing. No significant change from the prior study. Moderate disc space narrowing. L5-S1: 4 mm left foraminal disc protrusion, sagittal image 13, series 6. Mode rately severe left-sided neural foraminal narrowing. Right neural foramen is mildly narrowed. Mild central spinal canal stenosis. Moderate bilateral facet arthropathy, left greater than right. Vvyi-qe-kggnzwyw central spinal canal stenosis. IMPRESSION: 1. No acute vertebral body fracture No vertebral body subluxations 4 mm left foraminal disc protrusion impinges upon the left L5 nerve within the neural foramen. Moderate multilevel degenerative disc disease Labs Test 09/30/24 11:33 09/30/24 05:48 09/29/24 18:28 Range/Units POC Glucose 253 H 70-106 mg/dl Sodium Level 144 136-145 mmol/L Potassium Level 3.9 3.5-5.1 mmol/L Chloride Level 110 H 98-107 mmol/L Carbon Dioxide Level 25 20-31 mmol/L Anion Gap 9 5-15 Blood Urea Nitrogen 36 H 9-23 mg/dL Creatinine 1.57 H 0.550-1.02 mg/dL Glomerular Filtration Rate Calc 36 >90 mL/min BUN/Creatinine Ratio 22.9 H 10.0-20.0 Serum Glucose 111 H 74-106 mg/dL Calcium Level 9.3 8.7-10.4 mg/dL White Blood Count 6.3 # 4.4-10.8 10^3/uL Red Blood Count 4.23 4.0-5.20 10^6/uL Hemoglobin 11.5 #L 12.2-16.2 g/dL Hematocrit 35.4 #L 36.0-46.0 % Mean Corpuscular Volume 83.5 80.0-100.0 fL Mean Corpuscular Hemoglobin 27.2 L 28.0-32.0 pg Mean Corpuscular Hemoglobin Concent 32.6 32.0-36.0 g/dL Red Cell Distribution Width 15.2 H 11.8-14.3 % Platelet Count 257 140-450 10^3/uL Mean Platelet Volume 8.0 6.9-10.8 fL Neutrophils (%) (Auto) 63.3 37.0-80.0 % Lymphocytes (%) (Auto) 26.5 10.0-50.0 % Monocytes (%) (Auto) 6.9 0.0-12.0 % Eosinophils (%) (Auto) 2.9 0.0-7.0 % Basophils (%) (Auto) 0.4 0.0-2.0 % Neutrophils # (Auto) 4.0 1.6-8.6 10 ^3/uL Lymphocytes # (Auto) 1.7 0.4-5.4 10 ^3/uL Monocytes # (Auto) 0.4 0-1.3 10 ^3/uL Eosinophils # (Auto) 0.2 0-0.8 10 ^3/uL Basophils # (Auto) 0 0-0.2 10 ^3/uL Nucleated Red Blood Cells 0.1 % Total Bilirubin 0.4 0.2-1.0 mg/dL Aspartate Amino Transferase (AST) 27 13-40 U/L Alanine Aminotransferase (ALT) 20 7-40 U/L Alkaline Phosphatase 108 46-116 U/L Total Protein 8.3 H 5.7-8.2 g/dL Albumin 4.5 3.2-4.8 g/dL Microbiology Date/Time Source Procedure Growth Status 09/30/24 01:00 Nose MRSA Screen - Final Complete Assessment/Plan Problem List: (1) Lumbar stenosis with neurogenic claudication (2) Herniated lumbar intervertebral disc Primary Diagnosis Multi level lumbar degenerative disease with lumbar spinal stenosis causing incapacitating neurogenic claudication Admitting Diagnosis: Multilevel lumbar degenerative disc disease Plan 4 mm left foraminal disc protrusion impinges upon the left L5 nerve within the neural foramen. Moderate multilevel degenerative disc disease Patient went is here and had a MRI on 09/20/2024 at that time it was agreed that she would follow up as an outpatient for potential surgery patient has presented again to the hospital, we will discuss her surgical options with her at this time. Cardiac clearance is done- she stopped her Eliquis on 09/23/24 she had decided at that time surgery was her only option. Further care and management per admitting team's discretion Oral analgesics and muscle relaxers recommended Original discussion was for physical therapy and outpatient follow up however patient has presented again to the hospital and has had no imptovment in pain and is dragging her foot. She has been cleared by cardiology for surgery. Patient is agreeable to proceed with surgery. Call with questions Angle Vital [facility] Orthopaedic Spine Surgery nurse practitioner For Dr Yoan Flores Patient was examined, chart reviewed, labs evaluated, and diagnostic studies and findings analyzed. Case was discussed with Dr. Josh Flores who formulated the plan of care. This medical document was created using an electronic medical record system with [employer] dictation system. Although this document has been carefully reviewed, there might still be some phonetic and typographical errors. These areas are purely typographical due to imperfections of the software programs, and do not reflect any compromise in the patient's medical care. Addendum: I reviewed above note and I also examined the patient and fully agree with findings of Lindsey Vital NP. We initially saw this patient about a week and a half ago and she was on Eliquis at that time and it was stopped to allow us to be able to perform her surgery without issue The risks/benefits/alternatives of surgery including but not limited to pain, bleeding, infection, damage to surrounding soft tissue structures, need for reoperation or future surgery, persistent pain/disability/deformity, pseudarthrosis, bone graft collapse or extrusion of interbody device, instrumentation failure, need for instrumentation removal, dural tear, temporary or permanent nerve root damage, paralysis, stroke, deep venous thrombosis, pulmonary embolism, and any associated anesthetic risks (dry mouth, sore throat, dental damage, myocardial infarction, respiratory depression, blindness) were described to the patient in detail and she wished to proceed. No guarantee of surgical outcome/improvement was implied. All of the questions were answered thoroughly and consents were obtained. We will obtain the necessary pre-op tests in order for her to be cleared medically. After discussion the the risks and benefits, I offered the patient a lumbar 4 to 5 posterior spinal decompression with Lumbar 4/5 posterior spinal interbody fusion with PEEK cage/bone graft and instrumentation with possible Lumbar 3/4 posterior spinal decompression. Plan discussed with: Patient Visit Coding Surgery Date of Service if different f: Sep 30, 2024 Billing Provider: LINDSEY VITAL NP Surgery Visit Codes: [id number] - INP CONSULT <40 MIN LINDSEY VITAL NP Sep 30, 2024 16:40 JOSH FLORES MD Oct 05, 2024 16:10
[2024-10-01] VITALS (8 sets, daily range): BP systolic 99–137; BP diastolic 60–87; PULSE 70–80; RESP 18; TEMP 97.8–98.8; O2SAT 93–99
--- NOTE | 2024-10-01 09:48 | ECG ---
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
--- NOTE | 2024-10-01 12:18 | DVHPN2 ---
Reviewed: Care Plan, H&P, Labs, Medications, Previous Orders, Radiology Objective Vitals Vital Signs Date Time Temp Pulse Resp B/P (MAP) Pulse Ox O2 Delivery O2 Flow Rate FiO2 10/01/24 10:37 78 16 115/62 10/01/24 09:00 98.1 95 98.1 09/30/24 20:00 Room Air* 0 21 Intake/Output Intake and Output 10/01/24 07:00 Intake Total 1158 ml Balance 1158 ml Intake Oral 1158 ml # Voids 6 Medications Current Medications Medications Dose Ordered Sig/Iliana Route Start Time Stop Time Status Last Admin Dose Admin Atorvastatin Calcium 20 mg HS PO 09/29/24 22:00 09/30/24 21:39 20 MG Gabapentin 400 mg BID PO 09/29/24 22:00 09/30/24 21:39 400 MG Levothyroxine Sodium 100 mcg QAM@0600 PO 09/30/24 06:00 10/01/24 06:17 100 MCG Losartan Potassium 25 mg DAILY PO 09/30/24 10:00 09/30/24 09:04 25 MG Diagnostic Test (Pha) 1 strip ACHS 09/29/24 22:00 10/01/24 12:10 1 STRIP Insulin Human Regular ACHS SC 09/29/24 22:00 10/01/24 12:10 6 UNITS Dextrose 50 ml UD PRN IV 09/29/24 21:15 Acetaminophen/ Hydrocodone Bitart 1 tab Q4HP PRN PO 09/29/24 21:15 Ondansetron HCl 4 mg Q4HP PRN IV 09/29/24 21:15 Acetaminophen 650 mg Q6HP PRN PO 09/29/24 21:15 Morphine Sulfate 2 mg Q4HPRN PRN IV 09/29/24 21:15 10/01/24 10:37 2 MG Nitroglycerin 0.4 mg Q5MINP PRN SL 09/29/24 21:15 Morphine Sulfate 2 mg Q30M PRN IV 09/29/24 21:15 Baclofen 5 mg Q8HP PRN PO 09/29/24 21:30 Laboratory Results Laboratory Tests 09/29/24 18:28 09/30/24 05:48 Microbiology Microbiology Date/Time Source Procedure Growth Status 09/30/24 01:00 Nose MRSA Screen - Final Complete Labs and/or images reviewed: Labs reviewed by me, Image(s) reviewed by me Assessment/Plan Assessment/Plan Acute exacerbation of chronic low back pain Hypertension Dyslipidemia Right lower extremity DVT with IVC filter (on Eliquis) Herniated lumbar intervertebral disc Lumbar radiculopathy Diabetes COPD Asthma Thyroid disease History of tobacco use Time spent 50 minutes Advanced care planning time 20 minutes Patient is full code My Orders Orders - KACEY VANG MD Procedure Category Date Status Time * Orthopedic Consult CONS 09/30/24 Transmitted 13:02 KACEY VANG MD Oct 01, 2024 12:18
--- NOTE | 2024-10-01 12:22 | DVHPN2 ---
Reviewed: Care Plan, H&P, Labs, Medications, Previous Orders, Radiology Changes from previous H/P or p: No Changes Objective Vitals Vital Signs Date Time Temp Pulse Resp B/P (MAP) Pulse Ox O2 Delivery O2 Flow Rate FiO2 10/01/24 10:37 78 16 115/62 10/01/24 09:00 98.1 95 98.1 09/30/24 20:00 Room Air* 0 21 Intake/Output Intake and Output 10/01/24 07:00 Intake Total 1158 ml Balance 1158 ml Intake Oral 1158 ml # Voids 6 Medications Current Medications Medications Dose Ordered Sig/Iliana Route Start Time Stop Time Status Last Admin Dose Admin Atorvastatin Calcium 20 mg HS PO 09/29/24 22:00 09/30/24 21:39 20 MG Gabapentin 400 mg BID PO 09/29/24 22:00 09/30/24 21:39 400 MG Levothyroxine Sodium 100 mcg QAM@0600 PO 09/30/24 06:00 10/01/24 06:17 100 MCG Losartan Potassium 25 mg DAILY PO 09/30/24 10:00 09/30/24 09:04 25 MG Diagnostic Test (Pha) 1 strip ACHS 09/29/24 22:00 10/01/24 12:10 1 STRIP Insulin Human Regular ACHS SC 09/29/24 22:00 10/01/24 12:10 6 UNITS Dextrose 50 ml UD PRN IV 09/29/24 21:15 Acetaminophen/ Hydrocodone Bitart 1 tab Q4HP PRN PO 09/29/24 21:15 Ondansetron HCl 4 mg Q4HP PRN IV 09/29/24 21:15 Acetaminophen 650 mg Q6HP PRN PO 09/29/24 21:15 Morphine Sulfate 2 mg Q4HPRN PRN IV 09/29/24 21:15 10/01/24 10:37 2 MG Nitroglycerin 0.4 mg Q5MINP PRN SL 09/29/24 21:15 Morphine Sulfate 2 mg Q30M PRN IV 09/29/24 21:15 Baclofen 5 mg Q8HP PRN PO 09/29/24 21:30 Laboratory Results Laboratory Tests 09/29/24 18:28 09/30/24 05:48 Microbiology Microbiology Date/Time Source Procedure Growth Status 09/30/24 01:00 Nose MRSA Screen - Final Complete Labs and/or images reviewed: Labs reviewed by me, Image(s) reviewed by me Assessment/Plan Assessment/Plan Acute exacerbation of chronic low back pain Hypertension Dyslipidemia Right lower extremity DVT with IVC filter (on Eliquis) Herniated lumbar intervertebral disc, Dr. Flores planning for surgery, cleared for surgery by Cardiology Lumbar radiculopathy Diabetes COPD Asthma Thyroid disease History of tobacco use Time spent 50 minutes Advanced care planning time 20 minutes Patient is full code Plan discussed with: Patient My Orders Orders - KACEY VANG MD Procedure Category Date Status Time * Orthopedic Consult CONS 09/30/24 Transmitted 13:02 Date of Service: Oct 01, 2024 Billing Provider: KACEY VANG MD Common Visit Codes: [id number] INP/OBS CARE(HIGH) KACEY VANG MD Oct 01, 2024 12:22
[2024-10-02 05:00] VITALS: BP 130/81; PULSE 66; RESP 18; TEMP 98.4; O2SAT 96
[2024-10-02 08:00] VITALS: PULSE 76; RESP 18
[2024-10-02 09:00] VITALS: BP 130/77; PULSE 77; RESP 18; TEMP 98.2; O2SAT 93
--- NOTE | 2024-10-02 11:24 | DVHPN2 ---
Reviewed: Care Plan, H&P, Labs, Medications, Previous Orders, Radiology Changes from previous H/P or p: No Changes Objective Vitals Vital Signs Date Time Temp Pulse Resp B/P (MAP) Pulse Ox O2 Delivery O2 Flow Rate FiO2 10/02/24 09:35 77 20 130/77 10/02/24 09:00 98.2 93 98.2 10/01/24 20:00 Room Air* 0 21 Intake/Output Intake and Output 10/02/24 07:00 Intake Total 1980 ml Balance 1980 ml Intake Oral 1980 ml # Voids 6 Medications Current Medications Medications Dose Ordered Sig/Iliana Route Start Time Stop Time Status Last Admin Dose Admin Atorvastatin Calcium 20 mg HS PO 09/29/24 22:00 10/01/24 21:54 20 MG Gabapentin 400 mg BID PO 09/29/24 22:00 09/30/24 21:39 400 MG Levothyroxine Sodium 100 mcg QAM@0600 PO 09/30/24 06:00 10/02/24 04:06 100 MCG Losartan Potassium 25 mg DAILY PO 09/30/24 10:00 09/30/24 09:04 25 MG Diagnostic Test (Pha) 1 strip ACHS 09/29/24 22:00 10/02/24 05:19 1 STRIP Insulin Human Regular ACHS SC 09/29/24 22:00 10/01/24 21:38 4 UNITS Dextrose 50 ml UD PRN IV 09/29/24 21:15 Acetaminophen/ Hydrocodone Bitart 1 tab Q4HP PRN PO 09/29/24 21:15 Ondansetron HCl 4 mg Q4HP PRN IV 09/29/24 21:15 Acetaminophen 650 mg Q6HP PRN PO 09/29/24 21:15 Morphine Sulfate 2 mg Q4HPRN PRN IV 09/29/24 21:15 10/02/24 09:35 2 MG Nitroglycerin 0.4 mg Q5MINP PRN SL 09/29/24 21:15 Morphine Sulfate 2 mg Q30M PRN IV 09/29/24 21:15 Baclofen 5 mg Q8HP PRN PO 09/29/24 21:30 Laboratory Results Laboratory Tests 09/29/24 18:28 09/30/24 05:48 Microbiology Microbiology Date/Time Source Procedure Growth Status 09/30/24 01:00 Nose MRSA Screen - Final Complete Labs and/or images reviewed: Labs reviewed by me, Image(s) reviewed by me Assessment/Plan Assessment/Plan Acute exacerbation of chronic low back pain Hypertension Dyslipidemia Right lower extremity DVT with IVC filter (on Eliquis) Herniated lumbar intervertebral disc, Dr. Flores planning for surgery, cleared for surgery by Cardiology Lumbar radiculopathy Diabetes COPD Asthma Thyroid disease History of tobacco use Time spent 55 minutes Advanced care planning time 20 minutes Patient is full code Plan discussed with: Patient Date of Service: Oct 02, 2024 Billing Provider: KACEY VANG MD Common Visit Codes: [id number] INP/OBS CARE(HIGH) KACEY VANG MD Oct 02, 2024 11:24
[2024-10-02 13:00] VITALS: BP 137/80; PULSE 72; RESP 18; TEMP 97.6; O2SAT 94
[2024-10-02] MEDS: DOCUSATE SOD 100 MG CAP PO PRN (15:32)
[2024-10-02 17:00] VITALS: BP 142/78; PULSE 72; RESP 20; TEMP 97.8; O2SAT 94
[2024-10-02 21:00] VITALS: BP 118/80; PULSE 78; RESP 14; TEMP 98; O2SAT 93
[2024-10-03] VITALS (7 sets, daily range): BP systolic 117–146; BP diastolic 72–88; PULSE 73–84; RESP 14–20; TEMP 97.4–98.5; O2SAT 92–97
--- NOTE | 2024-10-03 13:20 | DVHPN2 ---
Reviewed: Care Plan, H&P, Labs, Medications, Previous Orders, Radiology Changes from previous H/P or p: No Changes Objective Vitals Vital Signs Date Time Temp Pulse Resp B/P (MAP) Pulse Ox O2 Delivery O2 Flow Rate FiO2 10/03/24 11:46 141/70 10/03/24 10:20 69 16 10/03/24 09:00 97.4 92 97.4 10/03/24 07:39 Room Air* 0 21 Intake/Output Intake and Output 10/03/24 07:00 Intake Total 2140 ml Balance 2140 ml Intake Oral 2140 ml # Voids 9 Medications Current Medications Medications Dose Ordered Sig/Iliana Route Start Time Stop Time Status Last Admin Dose Admin Atorvastatin Calcium 20 mg HS PO 09/29/24 22:00 10/02/24 21:05 20 MG Gabapentin 400 mg BID PO 09/29/24 22:00 10/02/24 21:05 400 MG Levothyroxine Sodium 100 mcg QAM@0600 PO 09/30/24 06:00 10/03/24 05:20 100 MCG Losartan Potassium 25 mg DAILY PO 09/30/24 10:00 10/03/24 11:46 25 MG Diagnostic Test (Pha) 1 strip ACHS 09/29/24 22:00 10/03/24 11:50 1 STRIP Insulin Human Regular ACHS SC 09/29/24 22:00 10/03/24 12:22 3 UNITS Dextrose 50 ml UD PRN IV 09/29/24 21:15 Acetaminophen/ Hydrocodone Bitart 1 tab Q4HP PRN PO 09/29/24 21:15 Ondansetron HCl 4 mg Q4HP PRN IV 09/29/24 21:15 Acetaminophen 650 mg Q6HP PRN PO 09/29/24 21:15 Morphine Sulfate 2 mg Q4HPRN PRN IV 09/29/24 21:15 10/03/24 09:50 2 MG Nitroglycerin 0.4 mg Q5MINP PRN SL 09/29/24 21:15 Morphine Sulfate 2 mg Q30M PRN IV 09/29/24 21:15 Baclofen 5 mg Q8HP PRN PO 09/29/24 21:30 Docusate Sodium 100 mg BIDPRN PRN PO 10/02/24 13:15 10/02/24 15:32 100 MG Laboratory Results Laboratory Tests 09/29/24 18:28 09/30/24 05:48 Microbiology Microbiology Date/Time Source Procedure Growth Status 09/30/24 01:00 Nose MRSA Screen - Final Complete Labs and/or images reviewed: Labs reviewed by me, Image(s) reviewed by me Assessment/Plan Assessment/Plan Acute exacerbation of chronic low back pain Hypertension Dyslipidemia Right lower extremity DVT with IVC filter (on Eliquis) Herniated lumbar intervertebral disc, Dr. Flores planning for surgery, cleared for surgery by Cardiology Lumbar radiculopathy Diabetes COPD Asthma Thyroid disease History of tobacco use Time spent 55 minutes Advanced care planning time 20 minutes Patient is full code Plan discussed with: Patient Date of Service: Oct 03, 2024 Billing Provider: KACEY VANG MD Common Visit Codes: [id number] INP/OBS CARE(HIGH) KACEY VANG MD Oct 03, 2024 13:20
[2024-10-04 01:00] VITALS: BP 136/88; PULSE 77; RESP 18; TEMP 97.7; O2SAT 94
[2024-10-04 05:00] VITALS: BP 117/68; PULSE 74; RESP 18; TEMP 98; O2SAT 94
[2024-10-04 09:00] VITALS: BP 119/68; PULSE 81; RESP 16; TEMP 98.1; O2SAT 93
--- NOTE | 2024-10-04 13:47 | DVHPN2 ---
Reviewed: Care Plan, H&P, Labs, Medications, Previous Orders, Radiology Changes from previous H/P or p: No Changes Objective Vitals Vital Signs Date Time Temp Pulse Resp B/P (MAP) Pulse Ox O2 Delivery O2 Flow Rate FiO2 10/04/24 13:39 82 18 112/64 10/04/24 09:00 98.1 93 98.1 10/04/24 08:12 Room Air* 0 21 Intake/Output Intake and Output 10/04/24 07:00 Intake Total 1598 ml Balance 1598 ml Intake Oral 1598 ml # Voids 9 # Bowel Movements 4 Medications Current Medications Medications Dose Ordered Sig/Iliana Route Start Time Stop Time Status Last Admin Dose Admin Atorvastatin Calcium 20 mg HS PO 09/29/24 22:00 10/03/24 21:15 20 MG Gabapentin 400 mg BID PO 09/29/24 22:00 10/04/24 08:47 400 MG Levothyroxine Sodium 100 mcg QAM@0600 PO 09/30/24 06:00 10/04/24 06:04 100 MCG Losartan Potassium 25 mg DAILY PO 09/30/24 10:00 10/04/24 08:47 25 MG Diagnostic Test (Pha) 1 strip ACHS 09/29/24 22:00 10/04/24 11:29 1 STRIP Insulin Human Regular ACHS SC 09/29/24 22:00 10/04/24 11:34 3 UNITS Dextrose 50 ml UD PRN IV 09/29/24 21:15 Acetaminophen/ Hydrocodone Bitart 1 tab Q4HP PRN PO 09/29/24 21:15 Ondansetron HCl 4 mg Q4HP PRN IV 09/29/24 21:15 Acetaminophen 650 mg Q6HP PRN PO 09/29/24 21:15 Morphine Sulfate 2 mg Q4HPRN PRN IV 09/29/24 21:15 10/04/24 11:30 2 MG Nitroglycerin 0.4 mg Q5MINP PRN SL 09/29/24 21:15 Morphine Sulfate 2 mg Q30M PRN IV 09/29/24 21:15 Baclofen 5 mg Q8HP PRN PO 09/29/24 21:30 Docusate Sodium 100 mg BIDPRN PRN PO 10/02/24 13:15 10/02/24 15:32 100 MG Laboratory Results Laboratory Tests 09/29/24 18:28 09/30/24 05:48 Microbiology Microbiology Date/Time Source Procedure Growth Status 09/30/24 01:00 Nose MRSA Screen - Final Complete Labs and/or images reviewed: Labs reviewed by me, Image(s) reviewed by me Assessment/Plan Assessment/Plan Acute exacerbation of chronic low back pain Hypertension Dyslipidemia Right lower extremity DVT with IVC filter (on Eliquis) Herniated lumbar intervertebral disc, Dr. Flores planning for surgery, cleared for surgery by Cardiology Lumbar radiculopathy Diabetes COPD Asthma Thyroid disease History of tobacco use Patient is full code Plan discussed with: Patient Date of Service: Oct 04, 2024 Billing Provider: KACEY VANG MD Common Visit Codes: [id number] INP/OBS CARE(HIGH) KACEY VANG MD Oct 04, 2024 13:47
[2024-10-04 16:50] VITALS: BP 104/66; PULSE 77; RESP 18; TEMP 97.5; O2SAT 96
[2024-10-04 21:00] VITALS: BP 138/83; PULSE 79; RESP 18; TEMP 98; O2SAT 97
[2024-10-05] VITALS (7 sets, daily range): BP systolic 112–147; BP diastolic 61–79; PULSE 70–97; RESP 16–28; TEMP 97.3–98.3; O2SAT 90–97
[2024-10-05 03:41] LABS: Urine Protein, UAD Negative (Negative)
[2024-10-05 05:36] LABS: Anion Gap 7 (5-15); Carbon Dioxide 25 mmol/L (20-31); Potassium 4.8 mmol/L (3.5-5.1); Sodium 141 mmol/L (136-145)
[2024-10-05 05:37] LABS: INR 0.98 (0.9-1.15); Partial Thromboplastin Time 24.9 SEC (24.5-34.5); Prothrombin Time 10.4 sec (9.3-11.8)
[2024-10-05 05:39] LABS: Hematocrit 31.6 % (36.0-46.0); Hemoglobin 10.3 g/dL (12.2-16.2); Mean Corpuscular Hemoglobin 27.2 pg (28.0-32.0); Mean Corpuscular Volume 83.7 fL (80.0-100.0); Nucleated Red Blood Cells % 0.1 %
[2024-10-05 05:42] LABS: BUN/Creatinine Ratio 25.6 (10.0-20.0)
[2024-10-05 05:48] LABS: Chloride 109 mmol/L (98-107); Glucose 134 mg/dL (74-106)
[2024-10-05 05:49] LABS: Blood Urea Nitrogen 34 mg/dL (9-23); Calcium 10.5 mg/dL (8.7-10.4)
--- NOTE | 2024-10-05 11:14 | DVHPN2 ---
Reviewed: Care Plan, H&P, Labs, Medications, Previous Orders, Radiology Changes from previous H/P or p: No Changes Objective Vitals Vital Signs Date Time Temp Pulse Resp B/P (MAP) Pulse Ox O2 Delivery O2 Flow Rate FiO2 10/05/24 10:31 70 18 112/61 10/05/24 09:00 98.1 96 98.1 10/05/24 08:13 Room Air* 0 21 Intake/Output Intake and Output 10/05/24 07:00 Intake Total 1150 ml Balance 1150 ml Intake Oral 1150 ml # Voids 10 # Bowel Movements 6 Medications Current Medications Medications Dose Ordered Sig/Iliana Route Start Time Stop Time Status Last Admin Dose Admin Atorvastatin Calcium 20 mg HS PO 09/29/24 22:00 10/04/24 21:17 20 MG Gabapentin 400 mg BID PO 09/29/24 22:00 10/04/24 08:47 400 MG Levothyroxine Sodium 100 mcg QAM@0600 PO 09/30/24 06:00 10/05/24 05:32 100 MCG Losartan Potassium 25 mg DAILY PO 09/30/24 10:00 10/04/24 08:47 25 MG Diagnostic Test (Pha) 1 strip ACHS 09/29/24 22:00 10/05/24 05:49 1 STRIP Insulin Human Regular ACHS SC 09/29/24 22:00 10/04/24 21:23 2 UNITS Dextrose 50 ml UD PRN IV 09/29/24 21:15 Acetaminophen/ Hydrocodone Bitart 1 tab Q4HP PRN PO 09/29/24 21:15 Ondansetron HCl 4 mg Q4HP PRN IV 09/29/24 21:15 Acetaminophen 650 mg Q6HP PRN PO 09/29/24 21:15 Morphine Sulfate 2 mg Q4HPRN PRN IV 09/29/24 21:15 10/05/24 10:31 2 MG Nitroglycerin 0.4 mg Q5MINP PRN SL 09/29/24 21:15 Morphine Sulfate 2 mg Q30M PRN IV 09/29/24 21:15 Baclofen 5 mg Q8HP PRN PO 09/29/24 21:30 Docusate Sodium 100 mg BIDPRN PRN PO 10/02/24 13:15 10/02/24 15:32 100 MG Laboratory Results Laboratory Tests 10/05/24 04:25 Chemistry Test 10/05/24 04:25 Calcium Level 10.5 mg/dL (8.7-10.4) H Coagulation Test 10/05/24 04:25 Prothrombin Time 10.4 sec (9.3-11.8) Prothrombin Time INR 0.98 (0.9-1.15) Activated Partial Thromboplast Time 24.9 SEC (24.5-34.5) Urinalysis Test 10/05/24 03:05 Urine Color Light-yellow (Yellow) Urine Clarity Clear (Clear) Urine pH 6.0 (5.0-9.0) Urine Specific [place] 1.015 (1.001-1.035) Urine Protein Negative (Negative) Urine Ketones Negative (Negative) Urine Blood Negative /uL (Negative) Urine Nitrite Negative (Negative) Urine Bilirubin Negative (Negative) Urine Urobilinogen Normal mg/dL (Negative) Urine Leukocyte Esterase Negative /uL (Negative) Urine RBC None seen /hpf (0 - 4) Urine Microscopic WBC 1 /HPF (0-5) Urine Squamous Epithelial Cells None seen /hpf (<5) Urine Bacteria None seen /hpf (None Seen) Urine Glucose Normal mg/dL (Normal) Microbiology Microbiology Date/Time Source Procedure Growth Status 09/30/24 01:00 Nose MRSA Screen - Final Complete Labs and/or images reviewed: Labs reviewed by me, Image(s) reviewed by me Assessment/Plan Assessment/Plan Acute exacerbation of chronic low back pain Hypertension Dyslipidemia Right lower extremity DVT with IVC filter (on Eliquis) Herniated lumbar intervertebral disc, Dr. Flores planning for surgery today, cleared for surgery by Cardiology Lumbar radiculopathy Diabetes COPD Asthma Thyroid disease History of tobacco use Patient is full code Plan discussed with: Patient Date of Service: Oct 05, 2024 Billing Provider: KACEY VANG MD Common Visit Codes: [id number] INP/OBS CARE(HIGH) KACEY VANG MD Oct 05, 2024 11:14
[2024-10-05] MEDS ORDERED: MIDAZOLAM HCL 2MG/2ML 2ml VIAL (1mg/ml) ONE (15:05)
[2024-10-05] MEDS ORDERED: fentaNYL CITRATE 5 ML ONE (15:05)
[2024-10-05] MEDS ORDERED: fentaNYL CITRATE 100 MCG/2 ML VL ONE (15:05)
[2024-10-05] MEDS ORDERED: HYDROmorphone HCL 2 MG/ML VL/or syr ONE (15:05)
[2024-10-05] MEDS ORDERED: KETAMINE 50mg/ML 1ml syringe ONE (15:05)
[2024-10-05] MEDS ORDERED: KETOROLAC TROMETH 30 MG/ML 1ML VIAL ONE (15:06)
[2024-10-05] MEDS ORDERED: ROCURONIUM 10MG/ML 10ML VIAL IV ONE (15:06)
[2024-10-05] MEDS ORDERED: GLYCOPYRROLATE 0.2 MG/ML 1ML VIAL ONE (15:06)
[2024-10-05] MEDS ORDERED: PROPOFOL 10 MG/ML 20 ML IV ONE (15:06)
[2024-10-05] MEDS ORDERED: ONDANSETRON HCL 4 MG/2 ML VIAL ONE ×2 (15:06→18:20)
[2024-10-05] MEDS: ceFAZolin 1GM/50ML 100 ML IV ONE (15:31)
[2024-10-05] MEDS: SUCCINYLCHOLINE CHLORIDE 20 MG/ML 10ML VIAL IV ONE (16:27)
[2024-10-05] MEDS: TRANEXAMIC ACID 20 ML ONE (16:39)
[2024-10-05] MEDS ORDERED: ALBUTEROL SULF HFA 90MCG INH 200DOSE IN PRN (20:00)
--- NOTE | 2024-10-05 20:09 | DVHOP2 ---
Operative Report - 2 Report Details Date: 10/05/24 Preop Diagnosis: lumbar spinal stenosis with severe neurogenic claudication Postop Diagnosis: same Surgeon: Josh Flores MD Dining Room Busser: Lindsey Pino NP Anesthesiologist: karl Anesthesia: General Consent: The patient was informed of the risks and benefits of the procedure. These include but are not limited to complications of anesthesia, postoperative infection, incomplete relief of symptoms, recurrence of symptoms, damage to blood vessels, nerves and tendons, deep venous thrombosis, pulmonary embolism and possible need for repeat surgery in the future. Name of Procedure Performed see detailed note Procedure Details Procedure Details: Pre-op Diagnosis: Lumbar Degenerative Disk Disease and Lumbar Spinal Stenosis causing Incapacitating back pain, radiculopathy and progressive neurologic deficit Post-op Diagnosis: Lumbar Degenerative Disk Disease and Lumbar Spinal Stenosis causing Incapacitating back pain, radiculopathy and progressive neurologic deficit Procedure: Lumbar 5 laminectomy with Lumbar 5 foraminotomies and facetectomies to decompress central canal and Lumbar 5 nerve roots Lumbar 4 laminectomy with Lumbar 4 foraminotomies and facetectomies to decompress central canal and Lumbar 4 nerve roots Lumbar 4 to 5 posterior spinal interbody fusion with PEEK cage / bone graft Lumbar 4 to 5 posterior spinal instrumentation with pedicle screws Local Bone Autograft For Fusion Allograft Bone Substitute to augment Fusion Use of Demineralized Bone Matrix to Augment Fusion Microscope For Microdissection Surgeon: Josh Flores MD Assist: PASHA Marin Anesthesia: General Fluids and EBL: See anesthesia note Patient was seen in the Pre Anesthesia Care Unit (PACU) and the operative site was initialed by me. All questions were answered to the patients satisfaction and chart reviewed. The patient was taken to the operative room where pre- operative antibiotics were given 30 minutes prior to incision. General anesthesia was induced and neuro-monitoring leads placed. Villalobos catheter was placed. The patient was turned prone onto the [facility] spinal table. While positioning, I made sure that the belly was free to allow proper expansion of the lungs. The hips were extended and all bony prominences padded. The shoulders were abducted 80 degree and the elbows flexed 100 degrees with no tension on the brachial plexus. I check the foot arterial pulses and they were palpable. The patient was prepped and draped and time out was taken at this time per usual protocol. At this time, the C-arm fluoroscope was brought in and was used to mathew the incision borders proximally and distally. Using a Number 10 Blade, an incision was made extending it proximally and distally per C arm mathew from the posterior spinous process of lumbar 4,5 down to the lumbo-dorsal fascia. All bleeding was controlled with electrocautery. Self-retaining retractors were placed. Electrocautery was then used to take down the lumbo- dorsal fascia, to free the muscle off the bone bilaterally. A Nayan retractor was placed over the posterior spinous process proximally and a lateral C-arm fluoroscope image was taken to insure we were at the correct level. Next, using bovie electro cautery, The deep fascia laterally to the facet joints was removed to expose the transverse processes of lumbar 4 and 5 while taking care to avoid injuring the facet capsule at the proximal end of the incision. Next, the microscope was bought in for visualization and using a Luxell rongeur, the posterior spinous process of lumbar 4 and 5 bone were removed and the bone was saved for use as local autograft. I used alternating Kerison 2 mm and 3 mm rongeurs to perform central laminectomies lumbar 5 and 4 to decompress the central canal. Next using alternating Kerison 2mm and 3 mm rongeurs, the superior articular facets of lumbar 4 and 5 were removed bilaterally to decompress the lateral recess (facetectomies) and then extended proximally to decompress the foramen bilaterally (foraminotomies). I used a ball tipped nerve probed to insure that the respective nerve roots were able to be mobilized 5mm in each direction were unimpeded in the lateral recess and foramen. Next I carefully inspected the dura to make sure no durotomy was visible and it was not. Next I retracted the lumbar 5 nerve root on the right side medially and used increased size prosper to prepare the disk space. Further preparation was done the curved curettes and a pituitary ronegour to remove loose tissue to get down to a clean bed of bleeding bone. Next I used trials until the proper size and tension achieved and placed a PEEK inter body device with bone graft placed in it into the L4/5 disc space. I covered the exposed dura with gelfoam soaked in thrombin and the microscope was wheeled away from the operative filed. The C-arm fluoroscope was brought in and perfect AP views of the lumbar 4 and 5 pedicles were obtained. I placed bilateral pedicle screws at these levels by: using a Lenke awl to make a ship's pilot hole, then a ball tip robe to make sure there was no pedicle breach, then a tap to prepare the track and a 6.5 mm diameter 45 mm length pedicle screw was placed bilaterally. This step to place bilateral pedicle screws was repeated up to the lumbar 4 and 5 level. Next, the c-arm fluoroscope took an AP and lateral x-ray to ensure proper placement of the pedicle screws. Next, the neuro-stimulation probe was placed over the tip of each screw and each screw stimulated only after a current greater than 10 mA was delivered to the screw. Next , I took a Midas Kulwinder Drill to decorticate the transverse process which were exposed and local bone graft, Bacterin allograft bone substitute and Demineralized bone matrix were placed along the inter transverse process intervals bilaterally (the fusion bed). Next a curved cesar sized to fit the pedicle screw interval was placed and secured to each pedicle screw using set screws, The set screws were tightened using a torque screwdriver (set to 10 N*M torque) to secure the cesar to the pedicle screws bilaterally. Final AP and lateral C arm fluoroscopic films were taken at this time. Next a 10 Cook Islander diameter Hemovac drain was laced deep to the lumbo- dorsal fascia. The lumbo-dorsal fascia was closed with interrupted 0-Vicryl sutures. The subcutaneous tissue was closed with interrupted 2-0 Vicryl sutures. The skin was closed with running 2-0 nylon suture. Sterile dressings were place. The pt. was turned supine onto the stretcher, extubated and taken to the recovery room in stable condition. Cpt code: [id number] Condition Stable Disposition Still a Patient JOSH FLORES MD Oct 05, 2024 20:08
[2024-10-05] MEDS ORDERED: MORPHINE SULFATE INJ 2 MG/ml SYRG IV PRN ×2 (20:15)
[2024-10-05] MEDS ORDERED: HYDROcodone-ACET 10/325MG TAB PO PRN (20:15)
[2024-10-05] MEDS ORDERED: NITROGLYCERIN 0.4 MG SL TAB SL PRN (20:15)
[2024-10-05] MEDS ORDERED: ONDANSETRON HCL 4 MG/2 ML VIAL IV ONE (20:30)
[2024-10-05] MEDS: HYDROmorphone HCL 2 MG/ML VL/or syr IV PRN (20:36)
[2024-10-05] MEDS: ONDANSETRON HCL 4 MG/2 ML VIAL IV PRN ×2 (20:39→22:36)
[2024-10-05] MEDS: D5W/SOD CHLO 0.9% 1,000 ML IV SCH (20:39)
[2024-10-05] MEDS: HYDROmorphone HCL 2 MG/ML VL/or syr ONE (20:53)
[2024-10-05] MEDS: ACETAMINOPHEN IV 1000 MG/100ML (10MG/ML) IV PRN (20:55)
[2024-10-05] MEDS ORDERED: METOCLOPRAMIDE HCL 5MG/ml INJ 2ml VIAL ONE (21:32)
[2024-10-05] MEDS: METOCLOPRAMIDE HCL 5MG/ml INJ 2ml VIAL IV ONE (21:32)
[2024-10-05] MEDS: InsuLIN REG 1unit/0.01ml Soln (100units/ml)(for Drip) SC SCH (22:50)
[2024-10-05] MEDS: CYCLOBENZAPRINE HCL 10 MG TAB PO SCH (22:56)
[2024-10-05] MEDS: DOCUSATE SOD 100 MG CAP PO SCH (22:56)
[2024-10-05] MEDS: GABAPENTIN 400 MG CAP PO SCH (22:57)
[2024-10-05] MEDS: ceFAZolin 1GM/50ML 50 ML IV SCH (23:26)
[2024-10-06] VITALS (7 sets, daily range): BP systolic 118–160; BP diastolic 52–91; PULSE 62–122; RESP 16–22; TEMP 97.9–99; O2SAT 94–98
[2024-10-06 05:22] LABS: Hematocrit 33.4 % (36.0-46.0); Hemoglobin 10.7 g/dL (12.2-16.2); Mean Corpuscular Hemoglobin 27.8 pg (28.0-32.0); Mean Corpuscular Volume 86.6 fL (80.0-100.0); Nucleated Red Blood Cells % 0.0 %
[2024-10-06 05:30] LABS: Chloride 106 mmol/L (98-107); Potassium 4.4 mmol/L (3.5-5.1); Sodium 137 mmol/L (136-145)
[2024-10-06 05:31] LABS: Anion Gap 11 (5-15); Calcium 9.3 mg/dL (8.7-10.4)
[2024-10-06 05:33] LABS: Carbon Dioxide 20 mmol/L (20-31)
[2024-10-06 05:36] LABS: BUN/Creatinine Ratio 19.6 (10.0-20.0)
[2024-10-06 05:37] LABS: Blood Urea Nitrogen 27 mg/dL (9-23); Glucose 260 mg/dL (74-106)
[2024-10-06] MEDS: LEVOTHYROXINE SODIUM 50 MCG TAB PO SCH (07:00)
[2024-10-06] MEDS: ceFAZolin 1GM/50ML 50 ML IV SCH (08:27)
[2024-10-06] MEDS: LOSARTAN POTASSIUM 25 MG TAB PO SCH (09:17)
--- NOTE | 2024-10-06 11:32 | DVH ---
C-ARM FLUOROSCOPY: PROCEDURE: Lumbar spine fixation FLUOROSCOPY TIME: 107.1 seconds DAP: 94.2 mgy FINDINGS: Spot intraoperative C arm radiographs demonstrating lumbar spine fixation. IMPRESSION: Please refer to surgical report for detailed findings.
--- NOTE | 2024-10-06 11:58 | DVHPN2 ---
Reviewed: Care Plan, H&P, Labs, Medications, Previous Orders, Radiology Changes from previous H/P or p: No Changes Objective Vitals Vital Signs Date Time Temp Pulse Resp B/P (MAP) Pulse Ox O2 Delivery O2 Flow Rate FiO2 10/06/24 09:44 109 18 145/72 10/06/24 08:50 98.2 97 98.2 10/06/24 08:17 Room Air* 0 21 Intake/Output Intake and Output 10/06/24 07:00 Intake Total 100 ml Balance 100 ml Intake Oral 0 ml IV Total 100 ml # Voids 7 # Bowel Movements 1 Medications Current Medications Medications Dose Ordered Sig/Iliana Route Start Time Stop Time Status Last Admin Dose Admin Atorvastatin Calcium 20 mg HS PO 09/29/24 22:00 10/05/24 22:57 20 MG Diagnostic Test (Pha) 1 strip ACHS 09/29/24 22:00 10/06/24 11:24 1 STRIP Insulin Human Regular ACHS SC 09/29/24 22:00 10/06/24 11:27 3 UNITS Dextrose 50 ml UD PRN IV 09/29/24 21:15 Acetaminophen/ Hydrocodone Bitart 1 tab Q4HP PRN PO 09/29/24 21:15 Cancel Acetaminophen 650 mg Q6HP PRN PO 09/29/24 21:15 Cancel Morphine Sulfate 2 mg Q4HPRN PRN IV 09/29/24 21:15 10/06/24 08:28 2 MG Baclofen 5 mg Q8HP PRN PO 09/29/24 21:30 Cancel Docusate Sodium 100 mg BIDPRN PRN PO 10/02/24 13:15 10/02/24 15:32 100 MG Gabapentin 400 mg BID PO 10/05/24 22:00 Insulin Human Regular 10 units TID SC 10/05/24 22:00 Losartan Potassium 25 mg DAILY PO 10/06/24 10:00 Levothyroxine Sodium 150 mcg QAM PO 10/06/24 07:00 Dextrose/Sodium Chloride 1,000 ml @ 100 mls/hr Q10H IV 10/05/24 20:15 10/06/24 11:24 100 MLS/HR Ondansetron HCl 4 mg Q4HP PRN IV 10/05/24 20:15 10/06/24 02:27 4 MG Acetaminophen 650 mg Q6HP PRN PO 10/05/24 20:15 Acetaminophen/ Hydrocodone Bitart 1 tab Q6HP PRN PO 10/05/24 20:15 Morphine Sulfate 1 mg Q4HP PRN IV 10/05/24 20:15 Cyclobenzaprine HCl 10 mg TID PO 10/05/24 22:00 10/05/24 22:56 10 MG Docusate Sodium 100 mg BID PO 10/05/24 22:00 10/05/24 22:56 100 MG Nitroglycerin 0.4 mg Q5MINP PRN SL 10/05/24 20:15 Morphine Sulfate 2 mg Q30M PRN IV 10/05/24 20:15 Cefazolin Sodium 50 ml @ 100 mls/hr Q8H IV 10/06/24 07:30 10/07/24 15:59 10/06/24 08:27 100 MLS/HR Laboratory Results Laboratory Tests 10/06/24 04:30 Chemistry Test 10/06/24 04:30 Calcium Level 9.3 mg/dL (8.7-10.4) Urinalysis Test 10/05/24 03:05 Urine Color Light-yellow (Yellow) Urine Clarity Clear (Clear) Urine pH 6.0 (5.0-9.0) Urine Specific [place] 1.015 (1.001-1.035) Urine Protein Negative (Negative) Urine Ketones Negative (Negative) Urine Blood Negative /uL (Negative) Urine Nitrite Negative (Negative) Urine Bilirubin Negative (Negative) Urine Urobilinogen Normal mg/dL (Negative) Urine Leukocyte Esterase Negative /uL (Negative) Urine RBC None seen /hpf (0 - 4) Urine Microscopic WBC 1 /HPF (0-5) Urine Squamous Epithelial Cells None seen /hpf (<5) Urine Bacteria None seen /hpf (None Seen) Urine Glucose Normal mg/dL (Normal) Microbiology Microbiology Date/Time Source Procedure Growth Status 09/30/24 01:00 Nose MRSA Screen - Final Complete Labs and/or images reviewed: Labs reviewed by me, Image(s) reviewed by me Assessment/Plan Assessment/Plan Acute exacerbation of chronic low back pain Hypertension Dyslipidemia Right lower extremity DVT with IVC filter (on Eliquis) Herniated lumbar intervertebral disc, status post lumbar laminectomy at multiple levels by Dr. Flores 10/05/2024 Lumbar radiculopathy Diabetes COPD Asthma Thyroid disease History of tobacco use Patient is full code Plan discussed with: Patient Date of Service: Oct 06, 2024 Billing Provider: KACEY VANG MD Common Visit Codes: [id number] INP/OBS CARE(HIGH) KACEY VANG MD Oct 06, 2024 11:58
[2024-10-06] MEDS: HYDROmorphone HCL 2 MG/ML VL/or syr IV PRN (15:29)
--- NOTE | 2024-10-06 16:55 | DVHPN2 ---
Progress Note - Surgical Date Seen: Oct 06, 2024 Post op day Post op day: 1 Subjective Patient reports: No new complaints, Feels better Review of Systems: HEENT:Normal, CVS:Normal, RESPIRATORY:Normal, GI:Normal, :Normal, MSK:Normal, NEURO:Normal (lag are better now) Objective Vital signs Vital Sign Date Time Temp Pulse Resp B/P (MAP) Pulse Ox O2 Delivery O2 Flow Rate FiO2 10/06/24 15:29 106 20 131/54 10/06/24 12:59 97.9 94 97.9 10/06/24 08:17 Room Air* 0 21 Total Intake and Output 10/05/24 10/05/24 10/06/24 15:00 23:00 07:00 Intake Total 0 ml 100 ml Balance 0 ml 100 ml Medications Current Medications Medications Dose Ordered Sig/Iliana Route Start Time Stop Time Status Last Admin Dose Admin Atorvastatin Calcium 20 mg HS PO 09/29/24 22:00 10/05/24 22:57 20 MG Diagnostic Test (Pha) 1 strip ACHS 09/29/24 22:00 10/06/24 11:24 1 STRIP Insulin Human Regular ACHS SC 09/29/24 22:00 10/06/24 11:27 3 UNITS Dextrose 50 ml UD PRN IV 09/29/24 21:15 Acetaminophen/ Hydrocodone Bitart 1 tab Q4HP PRN PO 09/29/24 21:15 Cancel Acetaminophen 650 mg Q6HP PRN PO 09/29/24 21:15 Cancel Baclofen 5 mg Q8HP PRN PO 09/29/24 21:30 Cancel Docusate Sodium 100 mg BIDPRN PRN PO 10/02/24 13:15 10/02/24 15:32 100 MG Gabapentin 400 mg BID PO 10/05/24 22:00 Losartan Potassium 25 mg DAILY PO 10/06/24 10:00 Levothyroxine Sodium 150 mcg QAM PO 10/06/24 07:00 Dextrose/Sodium Chloride 1,000 ml @ 100 mls/hr Q10H IV 10/05/24 20:15 10/06/24 11:24 100 MLS/HR Ondansetron HCl 4 mg Q4HP PRN IV 10/05/24 20:15 10/06/24 13:02 4 MG Acetaminophen 650 mg Q6HP PRN PO 10/05/24 20:15 Acetaminophen/ Hydrocodone Bitart 1 tab Q6HP PRN PO 10/05/24 20:15 Cancel Morphine Sulfate 1 mg Q4HP PRN IV 10/05/24 20:15 Cancel Cyclobenzaprine HCl 10 mg TID PO 10/05/24 22:00 10/06/24 13:02 10 MG Docusate Sodium 100 mg BID PO 10/05/24 22:00 10/05/24 22:56 100 MG Nitroglycerin 0.4 mg Q5MINP PRN SL 10/05/24 20:15 Morphine Sulfate 2 mg Q30M PRN IV 10/05/24 20:15 Cefazolin Sodium 50 ml @ 100 mls/hr Q8H IV 10/06/24 07:30 10/07/24 15:59 10/06/24 15:28 100 MLS/HR Hydromorphone HCl 2 mg Q4HPRN PRN IV 10/06/24 13:15 10/06/24 15:29 2 MG Laboratory Laboratory Tests 10/06/24 04:30 Test 10/06/24 04:30 Range/Units Serum Glucose 260 H 74-106 mg/dL Microbiology Date/Time Source Procedure Growth Status 09/30/24 01:00 Nose MRSA Screen - Final Complete Examination: GENERAL:Normal, HEENT:Normal, NECK:Normal, LUNGS:Normal, CVS:Normal, ABDOMEN:Normal, MSK:Normal, SKIN:Normal (herber intact drain intact), NEURO:Normal (improved preop symptoms), :Normal Problem List/Assessment/Plan Problems: (1) Muscle spasm of back (2) Acute post-operative pain Assessment and Plan POD # 1 events of today patient refused PT this morning, stated it was too soon, patient educated. keep drains, IS to bedside with education pain well controlled -Disposition: -Pending -Discharge RX: -Follow up appointment: [place] [id number] [facility] [address] [place] [phone] -Pain: - IV pain meds post op day 1, with PO supplementation, goal is to progress weaning off IV medications and control pain with PO only. morphine 1mg q 4 hours (PAIN 7-10) - P.O. analgesics:Tylenol 650MG (PAIN 1-3) Wilmar 10/325 mg (PAIN 4-6) - Muscle relaxers scheduled administration. This is a beneficial medications for the incisional pain as it is mostly related to muscle spasms. Flexeril 10 mg TID - Cepacol throat lozenges as needed for sore throat -Antibiotics Operative recommendations: -Postoperative dose:-Post operative antibiotics cefazolin 1 g IV piggyback every 8 hours x 48 hours total of 6 doses -DVT PPX: -Hold all chemical DVT/ blood thinners for 14 days postoperatively -use mechanical DVT PPX such as SCD's, ambulation -Activity: -Pending PT evaluation and patients progression -Sit at side of bed for meals -Goal: Ambulate independently and safely (may use assistive devices if needed) -Medical Therapy goals: -Afebrile- Patient may develop a expected post operative fever by day 2-3, this may not be accompanied with a elevation in WBC. if fever develops: Acetaminophen for fever. Albuterol nebulizer Tx every 12 hours for 24 hours to facilitate adequate lung expansion and prevent development of atelectasis. -Euglycemic: bloods sugars under 130mmol/L for optimal healing -Normotensive: Avoid events of hypertension. This helps to keep post operative healing intact and avoids destabilization of beneficial hemostatic coagulation. -Lumbar: -If patient is comfortable encouraged the patient to lay on their side to facilitate wound healing -Drains: -Hemovac drains: These will be to full compression unless otherwise ordered. Please record and document output AND characteristic of fluid present independently EVERY 6 hours more often as needed. if there in no output indicate this by documenting 0ml. If output is greater than 100 ml in one hour of fanny blood call provider. These drains will be removed once the drainage is at a acceptable level (generally less than 100ml in 24 hours) -Herber dressing: This will stay in place and will be removed at the patients follow up visit. Nursing is to assess the seal and power source. The seal should be intact and the power source should have a green flashing light indicating it is functioning well. Batteries can last up to 14 days. If a leak develops the dressing edges can be reinforced with a Tegaderm dressing to reestablish intact seal. The Herber dressing is NOT a wound vac. This does not get changed, it does not need home health management. -Record output independently, drain 1. Is a deep drain and drain 2. Is a superficial drain. Wound drainage is described by type, color, amount, and odor. Drainage can be 1 Serous: Clear and thin, may be present in healing healthy wound. 2 Serosanguineous containing blood may also be present and healthy healing wound 3. Sanguinous primarily blood 4. Purulent this is thick, white, and pus like. It may be indicated to give of a infection and should constitute a call to the provider immediately with the plan that the sample should be cultured. -Villalobos: discontinued in OR -Dressings Take care not to disrupt the HERBER dressing seal. If there is a break in the seal it can be trouble shot with a Tegaderm dressing. -Dressing to Hemovac drains may be changed once the drains have been removed by the provider. -Bowel management: -Colace 100mg bid -Diet: -Clear liquid diet and advance as patient tolerates within dietary limitations ( example: diabetic, Cardiac) -Incentive Spirometer: -10 x hour while awake, RN please educate and observe repeat demonstration, have IS at bedside POD #1 -X-rays: - none indicated at this time -Consults: -Physical Therapy evaluation, treatment recommendations, and discharge recommendations Call with questions Angle Vital [facility]- Orthopaedic Spine Surgery nurse practitioner For Dr Yoan Flores Patient was examined, chart reviewed, labs evaluated, and diagnostic studies and findings analyzed. Case was discussed with Dr. Josh Flores who formulated the plan of care. This medical document was created using an electronic medical record system with [employer] dictation system. Although this document has been carefully reviewed, there might still be some phonetic and typographical errors. These areas are purely typographical due to imperfections of the software programs, and do not reflect any compromise in the patient's medical care. Saw Plan discussed with Plan discussed with: Patient, Other (bedside RN) Visit Coding Surgery Date of Service if different f: Oct 05, 2024 Billing Provider: ALICIA VITAL NP Surgery Visit Codes: NOT BILLABLE ALICIA VITAL NP Oct 06, 2024 16:55
[2024-10-07] VITALS (7 sets, daily range): BP systolic 101–141; BP diastolic 56–85; PULSE 106–118; RESP 16–20; TEMP 98–98.9; O2SAT 94–99
--- NOTE | 2024-10-07 13:08 | DVHPN2 ---
Reviewed: Care Plan, H&P, Labs, Medications, Previous Orders, Radiology Changes from previous H/P or p: No Changes Objective Vitals Vital Signs Date Time Temp Pulse Resp B/P (MAP) Pulse Ox O2 Delivery O2 Flow Rate FiO2 10/07/24 10:18 107 16 115/63 10/07/24 09:00 98.7 99 98.7 10/06/24 20:00 Nasal Cannula* 2 28 Intake/Output Intake and Output 10/07/24 07:00 Intake Total 2650 ml Output Total 330 ml Balance 2320 ml Intake Oral 950 ml IV Total 1700 ml Output Urine Total 5 ml Drainage Total 255 ml Other 70 ml # Voids 2 Medications Current Medications Medications Dose Ordered Sig/Iliana Route Start Time Stop Time Status Last Admin Dose Admin Atorvastatin Calcium 20 mg HS PO 09/29/24 22:00 10/06/24 22:30 20 MG Diagnostic Test (Pha) 1 strip ACHS 09/29/24 22:00 10/07/24 11:30 1 STRIP Insulin Human Regular ACHS SC 09/29/24 22:00 10/07/24 12:18 2 UNITS Dextrose 50 ml UD PRN IV 09/29/24 21:15 Acetaminophen/ Hydrocodone Bitart 1 tab Q4HP PRN PO 09/29/24 21:15 Cancel Acetaminophen 650 mg Q6HP PRN PO 09/29/24 21:15 Cancel Baclofen 5 mg Q8HP PRN PO 09/29/24 21:30 Cancel Docusate Sodium 100 mg BIDPRN PRN PO 10/02/24 13:15 10/02/24 15:32 100 MG Gabapentin 400 mg BID PO 10/05/24 22:00 10/06/24 22:30 400 MG Losartan Potassium 25 mg DAILY PO 10/06/24 10:00 10/07/24 10:17 25 MG Levothyroxine Sodium 150 mcg QAM PO 10/06/24 07:00 10/07/24 05:57 150 MCG Dextrose/Sodium Chloride 1,000 ml @ 100 mls/hr Q10H IV 10/05/24 20:15 10/07/24 02:52 100 MLS/HR Ondansetron HCl 4 mg Q4HP PRN IV 10/05/24 20:15 10/06/24 13:02 4 MG Acetaminophen 650 mg Q6HP PRN PO 10/05/24 20:15 Acetaminophen/ Hydrocodone Bitart 1 tab Q6HP PRN PO 10/05/24 20:15 Cancel Morphine Sulfate 1 mg Q4HP PRN IV 10/05/24 20:15 Cancel Cyclobenzaprine HCl 10 mg TID PO 10/05/24 22:00 10/07/24 05:43 10 MG Docusate Sodium 100 mg BID PO 10/05/24 22:00 10/07/24 10:16 100 MG Nitroglycerin 0.4 mg Q5MINP PRN SL 10/05/24 20:15 Morphine Sulfate 2 mg Q30M PRN IV 10/05/24 20:15 Cefazolin Sodium 50 ml @ 100 mls/hr Q8H IV 10/06/24 07:30 10/07/24 15:59 10/07/24 06:35 100 MLS/HR Hydromorphone HCl 2 mg Q4HPRN PRN IV 10/06/24 13:15 10/07/24 10:18 2 MG Laboratory Results Laboratory Tests 10/06/24 04:30 Urinalysis Test 10/05/24 03:05 Urine Color Light-yellow (Yellow) Urine Clarity Clear (Clear) Urine pH 6.0 (5.0-9.0) Urine Specific [place] 1.015 (1.001-1.035) Urine Protein Negative (Negative) Urine Ketones Negative (Negative) Urine Blood Negative /uL (Negative) Urine Nitrite Negative (Negative) Urine Bilirubin Negative (Negative) Urine Urobilinogen Normal mg/dL (Negative) Urine Leukocyte Esterase Negative /uL (Negative) Urine RBC None seen /hpf (0 - 4) Urine Microscopic WBC 1 /HPF (0-5) Urine Squamous Epithelial Cells None seen /hpf (<5) Urine Bacteria None seen /hpf (None Seen) Urine Glucose Normal mg/dL (Normal) Microbiology Microbiology Date/Time Source Procedure Growth Status 09/30/24 01:00 Nose MRSA Screen - Final Complete Labs and/or images reviewed: Labs reviewed by me, Image(s) reviewed by me Assessment/Plan Assessment/Plan Acute exacerbation of chronic low back pain Hypertension Dyslipidemia Right lower extremity DVT with IVC filter (on Eliquis) Herniated lumbar intervertebral disc, status post lumbar laminectomy at multiple levels by Dr. Flores 10/05/2024 Lumbar radiculopathy Diabetes COPD Asthma Thyroid disease History of tobacco use Patient is full code PHYSICAL THERAPY ORDERED Plan discussed with: Patient My Orders Orders - KACEY VANG MD Procedure Category Date Status Time Hydromorphone PHA 10/06/24 In Process Injection (Dilaudid 13:15 Date of Service: Oct 07, 2024 Billing Provider: KACEY VANG MD Common Visit Codes: [id number] INP/OBS CARE(HIGH) KACEY VANG MD Oct 07, 2024 13:08
--- NOTE | 2024-10-07 15:04 | DVHPN2 ---
Progress Note - Surgical Date Seen: Oct 07, 2024 Post op day Post op day: 2 Subjective Patient reports: No new complaints Review of Systems: HEENT:Normal, CVS:Normal, RESPIRATORY:Normal, GI:Normal, :Normal, MSK:Normal, NEURO:Normal (improving) Objective Vital signs Vital Sign Date Time Temp Pulse Resp B/P (MAP) Pulse Ox O2 Delivery O2 Flow Rate FiO2 10/07/24 13:00 98.0 118 20 101/56 (71) 94 98.0 10/06/24 20:00 Nasal Cannula* 2 28 Total Intake and Output 10/06/24 10/06/24 10/07/24 15:00 23:00 07:00 Intake Total 1050 ml 650 ml 950 ml Output Total 70 ml 165 ml 95 ml Balance 980 ml 485 ml 855 ml Medications Current Medications Medications Dose Ordered Sig/Iliana Route Start Time Stop Time Status Last Admin Dose Admin Atorvastatin Calcium 20 mg HS PO 09/29/24 22:00 10/06/24 22:30 20 MG Diagnostic Test (Pha) 1 strip ACHS 09/29/24 22:00 10/07/24 11:30 1 STRIP Insulin Human Regular ACHS SC 09/29/24 22:00 10/07/24 12:18 2 UNITS Dextrose 50 ml UD PRN IV 09/29/24 21:15 Acetaminophen/ Hydrocodone Bitart 1 tab Q4HP PRN PO 09/29/24 21:15 Cancel Acetaminophen 650 mg Q6HP PRN PO 09/29/24 21:15 Cancel Baclofen 5 mg Q8HP PRN PO 09/29/24 21:30 Cancel Docusate Sodium 100 mg BIDPRN PRN PO 10/02/24 13:15 10/02/24 15:32 100 MG Gabapentin 400 mg BID PO 10/05/24 22:00 10/06/24 22:30 400 MG Losartan Potassium 25 mg DAILY PO 10/06/24 10:00 10/07/24 10:17 25 MG Levothyroxine Sodium 150 mcg QAM PO 10/06/24 07:00 10/07/24 05:57 150 MCG Dextrose/Sodium Chloride 1,000 ml @ 100 mls/hr Q10H IV 10/05/24 20:15 10/07/24 02:52 100 MLS/HR Ondansetron HCl 4 mg Q4HP PRN IV 10/05/24 20:15 10/06/24 13:02 4 MG Acetaminophen 650 mg Q6HP PRN PO 10/05/24 20:15 Acetaminophen/ Hydrocodone Bitart 1 tab Q6HP PRN PO 10/05/24 20:15 Cancel Morphine Sulfate 1 mg Q4HP PRN IV 10/05/24 20:15 Cancel Cyclobenzaprine HCl 10 mg TID PO 10/05/24 22:00 10/07/24 05:43 10 MG Docusate Sodium 100 mg BID PO 10/05/24 22:00 10/07/24 10:16 100 MG Nitroglycerin 0.4 mg Q5MINP PRN SL 10/05/24 20:15 Morphine Sulfate 2 mg Q30M PRN IV 10/05/24 20:15 Cefazolin Sodium 50 ml @ 100 mls/hr Q8H IV 10/06/24 07:30 10/07/24 15:59 10/07/24 06:35 100 MLS/HR Hydromorphone HCl 2 mg Q4HPRN PRN IV 10/06/24 13:15 10/07/24 10:18 2 MG Laboratory Laboratory Tests 10/06/24 04:30 Test 10/06/24 04:30 Range/Units Serum Glucose 260 H 74-106 mg/dL Microbiology Date/Time Source Procedure Growth Status 09/30/24 01:00 Nose MRSA Screen - Final Complete Examination: GENERAL:Normal, HEENT:Normal, NECK:Normal, LUNGS:Normal, CVS:Normal, ABDOMEN:Normal, MSK:Normal (improving), SKIN:Normal (HERBER intact, drains intact), NEURO:Normal (improving), :Normal Problem List/Assessment/Plan Problems: (1) Muscle spasm of back (2) Acute post-operative pain Assessment and Plan POD # 2 events of today patient worked with PT this morning, patient able to ambulate out DC drain #2 today IS to bedside with education pain well controlled at this time -Disposition: -Pending -Discharge RX: -Follow up appointment: with Dr Flores proximally postop day two Call for an appointment [phone] [facility] [address] [place] [id number] -Pain: - IV pain meds post op day 1, with PO supplementation, goal is to progress weaning off IV medications and control pain with PO only. morphine 1mg q 4 hours (PAIN 7-10) - P.O. analgesics:Tylenol 650MG (PAIN 1-3) [place] 10/325 mg (PAIN 4-6) - Muscle relaxers scheduled administration. This is a beneficial medications for the incisional pain as it is mostly related to muscle spasms. Flexeril 10 mg TID - Cepacol throat lozenges as needed for sore throat -Antibiotics Operative recommendations: -Postoperative dose:-Post operative antibiotics cefazolin 1 g IV piggyback every 8 hours x 48 hours total of 6 doses -DVT PPX: -Hold all chemical DVT/ blood thinners for 14 days postoperatively -use mechanical DVT PPX such as SCD's, ambulation -Activity: -Pending PT evaluation and patients progression -Sit at side of bed for meals -Goal: Ambulate independently and safely (may use assistive devices if needed) -Medical Therapy goals: -Afebrile- Patient may develop a expected post operative fever by day 2-3, this may not be accompanied with a elevation in WBC. if fever develops: Acetaminophen for fever. Albuterol nebulizer Tx every 12 hours for 24 hours to facilitate adequate lung expansion and prevent development of atelectasis. -Euglycemic: bloods sugars under 130mmol/L for optimal healing -Normotensive: Avoid events of hypertension. This helps to keep post operative healing intact and avoids destabilization of beneficial hemostatic coagulation. -Lumbar: -If patient is comfortable encouraged the patient to lay on their side to facilitate wound healing -Drains: -Hemovac drains: These will be to full compression unless otherwise ordered. Please record and document output AND characteristic of fluid present independently EVERY 6 hours more often as needed. if there in no output indicate this by documenting 0ml. If output is greater than 100 ml in one hour of fanny blood call provider. These drains will be removed once the drainage is at a acceptable level (generally less than 100ml in 24 hours) -Herber dressing: This will stay in place and will be removed at the patients follow up visit. Nursing is to assess the seal and power source. The seal should be intact and the power source should have a green flashing light indicating it is functioning well. Batteries can last up to 14 days. If a leak develops the dressing edges can be reinforced with a Tegaderm dressing to reestablish intact seal. The Herber dressing is NOT a wound vac. This does not get changed, it does not need home health management. -Record output independently, drain 1. Is a deep drain. Wound drainage is described by type, color, amount, and odor. Drainage can be 1 Serous: Clear and thin, may be present in healing healthy wound. 2 Serosanguineous containing blood may also be present and healthy healing wound 3. Sanguinous primarily blood 4. Purulent this is thick, white, and pus like. It may be indicated to give of a infection and should constitute a call to the provider immediately with the plan that the sample should be cultured. -Dressings Take care not to disrupt the HERBER dressing seal. If there is a break in the seal it can be trouble shot with a Tegaderm dressing. -Dressing to Hemovac drains may be changed once the drains have been removed by the provider. -Bowel management: -Colace 100mg bid -Diet: -Clear liquid diet and advance as patient tolerates within dietary limitations ( example: diabetic, Cardiac) -Incentive Spirometer: -10 x hour while awake, RN please educate and observe repeat demonstration, have IS at bedside POD #1 -X-rays: - none indicated at this time -Consults: -Physical Therapy evaluation, treatment recommendations, and discharge recommendations Call with questions Angle Pino ACNP- Orthopaedic Spine Surgery nurse practitioner For Dr Yoan Flores Patient was examined, chart reviewed, labs evaluated, and diagnostic studies and findings analyzed. Case was discussed with Dr. Josh Flores who formulated the plan of care. This medical document was created using an electronic medical record system with [employer] dictation system. Although this document has been carefully reviewed, there might still be some phonetic and typographical errors. These areas are purely typographical due to imperfections of the software programs, and do not reflect any compromise in the patient's medical care. Saw My Orders My Orders Orders - ALICIA PINO NP Procedure Category Date Status Time Communication Order ORDERS 10/06/24 Transmitted 21:26 Is At Bedside. HAYDEN 10/06/24 In Process 21:26 Plan discussed with Plan discussed with: Patient Visit Coding Surgery Date of Service if different f: Oct 05, 2024 Billing Provider: ALICIA PINO NP Surgery Visit Codes: NOT BILLABLE ALICIA PINO NP Oct 07, 2024 15:04
[2024-10-08] VITALS (9 sets, daily range): BP systolic 77–178; BP diastolic 36–88; PULSE 92–117; RESP 12–20; TEMP 97.2–98.9; O2SAT 79–100
[2024-10-08 10:49] LABS: Hematocrit 27.2 % (36.0-46.0); Hemoglobin 8.6 g/dL (12.2-16.2); Mean Corpuscular Hemoglobin 27.5 pg (28.0-32.0); Mean Corpuscular Volume 86.9 fL (80.0-100.0); Nucleated Red Blood Cells % 0.0 %
[2024-10-08 11:07] LABS: Alanine Aminotransferase 18 U/L (7-40); Alkaline Phosphatase 85 U/L (46-116); Anion Gap 5 (5-15); BUN/Creatinine Ratio 19.3 (10.0-20.0); Blood Urea Nitrogen 21 mg/dL (9-23); Calcium 8.8 mg/dL (8.7-10.4); Carbon Dioxide 24 mmol/L (20-31); Potassium 4.0 mmol/L (3.5-5.1); Sodium 142 mmol/L (136-145); Total Protein 5.8 g/dL (5.7-8.2)
[2024-10-08 11:08] LABS: Bilirubin, Total 0.3 mg/dL (0.2-1.0)
[2024-10-08 11:09] LABS: Albumin 3.2 g/dL (3.2-4.8); Chloride 113 mmol/L (98-107); Glucose 163 mg/dL (74-106)
--- NOTE | 2024-10-08 13:14 | DVHPN2 ---
Progress Note - Surgical Date Seen: Oct 08, 2024 Post op day Post op day: 3 Subjective Patient reports: No new complaints, Feels better Review of Systems: HEENT:Normal, CVS:Normal, RESPIRATORY:Normal, GI:Normal, :Normal, MSK:Normal, NEURO:Normal (no change from prior days assessment) Objective Vital signs Vital Sign Date Time Temp Pulse Resp B/P (MAP) Pulse Ox O2 Delivery O2 Flow Rate FiO2 10/08/24 12:55 97.2 92 20 178/75 (109) 80 97.2 10/08/24 08:00 Nasal Cannula* 2 28 Total Intake and Output 10/07/24 10/07/24 10/08/24 15:00 23:00 07:00 Intake Total 50 ml 2000 ml 675 ml Output Total 0 ml Balance 50 ml 2000 ml 675 ml Medications Current Medications Medications Dose Ordered Sig/Iliana Route Start Time Stop Time Status Last Admin Dose Admin Atorvastatin Calcium 20 mg HS PO 09/29/24 22:00 10/07/24 22:45 20 MG Diagnostic Test (Pha) 1 strip ACHS 09/29/24 22:00 10/08/24 11:30 1 STRIP Insulin Human Regular ACHS SC 09/29/24 22:00 10/08/24 12:08 2 UNITS Dextrose 50 ml UD PRN IV 09/29/24 21:15 Acetaminophen/ Hydrocodone Bitart 1 tab Q4HP PRN PO 09/29/24 21:15 Cancel Acetaminophen 650 mg Q6HP PRN PO 09/29/24 21:15 Cancel Baclofen 5 mg Q8HP PRN PO 09/29/24 21:30 Cancel Docusate Sodium 100 mg BIDPRN PRN PO 10/02/24 13:15 10/02/24 15:32 100 MG Gabapentin 400 mg BID PO 10/05/24 22:00 10/07/24 22:45 400 MG Losartan Potassium 25 mg DAILY PO 10/06/24 10:00 10/07/24 10:17 25 MG Levothyroxine Sodium 150 mcg QAM PO 10/06/24 07:00 10/08/24 07:01 150 MCG Dextrose/Sodium Chloride 1,000 ml @ 100 mls/hr Q10H IV 10/05/24 20:15 10/07/24 22:47 100 MLS/HR Ondansetron HCl 4 mg Q4HP PRN IV 10/05/24 20:15 10/06/24 13:02 4 MG Acetaminophen 650 mg Q6HP PRN PO 10/05/24 20:15 Acetaminophen/ Hydrocodone Bitart 1 tab Q6HP PRN PO 10/05/24 20:15 Cancel Morphine Sulfate 1 mg Q4HP PRN IV 10/05/24 20:15 Cancel Cyclobenzaprine HCl 10 mg TID PO 10/05/24 22:00 10/08/24 07:01 10 MG Docusate Sodium 100 mg BID PO 10/05/24 22:00 10/07/24 22:45 100 MG Nitroglycerin 0.4 mg Q5MINP PRN SL 10/05/24 20:15 Morphine Sulfate 2 mg Q30M PRN IV 10/05/24 20:15 Hydromorphone HCl 2 mg Q4HPRN PRN IV 10/06/24 13:15 10/08/24 07:10 2 MG Laboratory Laboratory Tests 10/08/24 10:16 Test 10/08/24 10:16 Range/Units Serum Glucose 163 H 74-106 mg/dL Microbiology Date/Time Source Procedure Growth Status 09/30/24 01:00 Nose MRSA Screen - Final Complete Examination: GENERAL:Normal, HEENT:Normal, NECK:Normal, LUNGS:Normal, CVS:Normal, ABDOMEN:Normal, MSK:Normal (improving strength), SKIN:Normal (herber intact, drain #1 with decreased output will dc), NEURO:Normal (improvment reported in preop symp), :Normal Problem List/Assessment/Plan Problems: (1) Muscle spasm of back (2) Acute post-operative pain Assessment and Plan POD # events of today patient should continue to work with PT DC drain #1 today IS to bedside with education pain well controlled at this time Patient is clear to DC follow up with DR Flores at approx 2 weeks post op for wound check and suture removal. -Disposition: -As per admitting team discretion -Discharge RX: Pain pille and muscle relaxers -Follow up appointment: with Dr Flores proximally postop day 14 Call for an appointment [phone] [facility] [address] [place] [phone] -Pain: - IV pain meds post op day 1, with PO supplementation, goal is to progress weaning off IV medications and control pain with PO only. morphine 1mg q 4 hours (PAIN 7-10) - P.O. analgesics:Tylenol 650MG (PAIN 1-3) [place] 10/325 mg (PAIN 4-6) - Muscle relaxers scheduled administration. This is a beneficial medications for the incisional pain as it is mostly related to muscle spasms. Flexeril 10 mg TID - Cepacol throat lozenges as needed for sore throat -DVT PPX: -Hold all chemical DVT/ blood thinners for 14 days postoperatively -use mechanical DVT PPX such as SCD's, ambulation -Activity: -PT evaluation and patients progression -Sit at side of bed for meals -Goal: Ambulate independently and safely (may use assistive devices if needed) -Medical Therapy goals: -Afebrile- Patient may develop a expected post operative fever by day 2-3, this may not be accompanied with a elevation in WBC. if fever develops: Acetaminophen for fever. Albuterol nebulizer Tx every 12 hours for 24 hours to facilitate adequate lung expansion and prevent development of atelectasis. -Euglycemic: bloods sugars under 130mmol/L for optimal healing -Normotensive: Avoid events of hypertension. This helps to keep post operative healing intact and avoids destabilization of beneficial hemostatic coagulation. -Lumbar: -If patient is comfortable encouraged the patient to lay on their side to facilitate wound healing -Dressings Take care not to disrupt the HERBER dressing seal. If there is a break in the seal it can be trouble shot with a Tegaderm dressing. -Dressing to Hemovac drain site may be changed per nursing discretion PRN -Bowel management: -Colace 100mg bid -Diet: -Tolerating -Incentive Spirometer: -10 x hour while awake, RN please educate and observe repeat demonstration, have IS at bedside POD #1 -X-rays: - none indicated at this time -Consults: -Physical Therapy evaluation, treatment recommendations, and discharge recommendations Call with questions Angle Pino ACNP- Orthopaedic Spine Surgery nurse practitioner For Dr Yoan Flores Patient was examined, chart reviewed, labs evaluated, and diagnostic studies and findings analyzed. Case was discussed with Dr. Josh Flores who formulated the plan of care. This medical document was created using an electronic medical record system with [employer] dictation system. Although this document has been carefully reviewed, there might still be some phonetic and typographical errors. These areas are purely typographical due to imperfections of the software programs, and do not reflect any compromise in the patient's medical care. Saw Plan discussed with Plan discussed with: Patient, Other (core RN ) Visit Coding Surgery Date of Service if different f: Oct 05, 2024 Billing Provider: ALICIA PINO NP Surgery Visit Codes: NOT BILLABLE ALICIA PINO NP Oct 08, 2024 13:14
[2024-10-08] MEDS: HYDROcodone-ACET 10/325MG TAB PO PRN (15:01)
[2024-10-09] VITALS (9 sets, daily range): BP systolic 99–151; BP diastolic 43–79; PULSE 68–117; RESP 16–20; TEMP 98.6–99; O2SAT 95–98
[2024-10-10] VITALS (8 sets, daily range): BP systolic 117–145; BP diastolic 64–82; PULSE 90–118; RESP 16–19; TEMP 97.7–100.3; O2SAT 92–99
--- NOTE | 2024-10-10 16:29 | DVHPN2 ---
Progress Note - Dictate Date Seen: Oct 10, 2024 Medical Necessity Reason Pt with a Central, PICC or Fol: No vital signs Vital Sign Date Time Temp Pulse Resp B/P (MAP) Pulse Ox O2 Delivery O2 Flow Rate FiO2 10/10/24 12:33 98.9 90 19 122/69 (86) 97 98.9 10/10/24 08:00 Nasal Cannula* 2 28 Total Intake and Output 10/09/24 10/09/24 10/10/24 15:00 23:00 07:00 Intake Total 1080 ml 450 ml Balance 1080 ml 450 ml medications Current Medications Medications Dose Ordered Sig/Iliana Route Start Time Stop Time Status Last Admin Dose Admin Atorvastatin Calcium 20 mg HS PO 09/29/24 22:00 10/09/24 22:09 20 MG Diagnostic Test (Pha) 1 strip ACHS 09/29/24 22:00 10/10/24 12:15 1 STRIP Insulin Human Regular ACHS SC 09/29/24 22:00 10/10/24 12:20 4 UNITS Dextrose 50 ml UD PRN IV 09/29/24 21:15 Acetaminophen/ Hydrocodone Bitart 1 tab Q4HP PRN PO 09/29/24 21:15 Cancel Acetaminophen 650 mg Q6HP PRN PO 09/29/24 21:15 Cancel Baclofen 5 mg Q8HP PRN PO 09/29/24 21:30 Cancel Docusate Sodium 100 mg BIDPRN PRN PO 10/02/24 13:15 10/02/24 15:32 100 MG Gabapentin 400 mg BID PO 10/05/24 22:00 10/10/24 09:26 400 MG Losartan Potassium 25 mg DAILY PO 10/06/24 10:00 10/10/24 09:26 25 MG Levothyroxine Sodium 150 mcg QAM PO 10/06/24 07:00 10/10/24 06:05 150 MCG Dextrose/Sodium Chloride 1,000 ml @ 100 mls/hr Q10H IV 10/05/24 20:15 10/09/24 18:18 100 MLS/HR Ondansetron HCl 4 mg Q4HP PRN IV 10/05/24 20:15 10/06/24 13:02 4 MG Acetaminophen 650 mg Q6HP PRN PO 10/05/24 20:15 Acetaminophen/ Hydrocodone Bitart 1 tab Q6HP PRN PO 10/05/24 20:15 Cancel Morphine Sulfate 1 mg Q4HP PRN IV 10/05/24 20:15 Cancel Cyclobenzaprine HCl 10 mg TID PO 10/05/24 22:00 10/10/24 14:04 10 MG Docusate Sodium 100 mg BID PO 10/05/24 22:00 10/09/24 22:09 100 MG Nitroglycerin 0.4 mg Q5MINP PRN SL 10/05/24 20:15 Morphine Sulfate 2 mg Q30M PRN IV 10/05/24 20:15 Hydromorphone HCl 2 mg Q4HPRN PRN IV 10/06/24 13:15 10/09/24 20:37 2 MG Acetaminophen/ Hydrocodone Bitart 1 tab Q6HP PRN PO 10/08/24 14:15 10/10/24 12:23 1 TAB laboratory and microbiology Laboratory Tests 10/08/24 10:16 Test 10/08/24 10:16 Range/Units Serum Glucose 163 H 74-106 mg/dL Assessment/Plan Impression Acute hypoxemic respiratory failure Herniated disk Atelectasis COPD-stable Patient seen and examined Events Low oxygen requirements On 2 liters nasal cannula No acute events S/p laminectomy with Dr. Flores Labs and imaging reviewed Chest x-ray shows atelectasis, most likely due to splinting Previous CT from 2023 was reviewed and showed no discernible emphysema Management Supplemental oxygen Titrate to maintain sats 90% or above Incentive spirometry Bronchodilators Monitor renal function Monitor electrolytes Supplement as needed Pain control Avoid oversedation F/u with orthopedic surgery DVT prophylaxis Dietary Evaluation Review Comments: Continue current poc Refer CDE on DC Expected Outcomes/Goals: To meet >75% estimated needs Fu 3-5 days Plan discussed with: Patient WHITNEY MELARA MD Oct 10, 2024 16:29
--- NOTE | 2024-10-10 16:29 | DVHINCON2 ---
Date of service: Oct 09, [address] Persaud Reason for Consultation COPD management History of Present Illness History Source: Patient Exam Limitations: No limitations HPI Patient is a 69-year old lady with a history of COPD, diabetes and hypertension who presented with back pain. Was seen in the emergency room where workup up demonstrated herniated lumbar disk and the patient was admitted for further workup. Pulmonology was consulted to assist in COPD management. Home Meds Active Scripts Lancets (ACTI-TOMAS LANCETS 28G) 28 G Mis, G XX AC, #200 3 Refills use to measure blood glucuse Prov:AKSHAT JENSEN RESIDENT 10/01/23 Insulin Syringe/Needle U-100 (Aq Insulin Syringe/1Ml/29 29G X 1/2" 1 ml) 1 Mis Mis, MIS XX AC, #200 3 Refills use to admisitration of insulin Prov:AKSHAT JENSEN RESIDENT 10/01/23 Ergocalciferol (VITAMIN D 15684 UNIT) 50,[place], [address] UNIT PO Q7D for 42 Days, #6 CAP take once every week Prov:AKSHAT JENSEN RESIDENT 10/01/23 Hydrocodone-Acetaminophen (Hydrocodone Bitartrate/AC 10-325 mg) 1 Tab Tab, 1 TAB PO TIDPRN, #30 TAB Prov:CHILO HILTON MD 11/01/22 Reported Medications Methocarbamol (Methocarbamol) 500 Mg Tab, 500 MG PO BID for 30 Days, MG 09/30/24 Ciprofloxacin Hcl (Cipro) 500 Mg Tab, 500 MG PO BID 09/30/24 Levothyroxine Sodium (Levothyroxine Sodium) 150 Mcg Tab, 150 MCG PO QAM for 30 Days 09/30/24 Melatonin (KP MELATONIN) 3 Mg Tab, 10 MG PO HS, TAB 09/18/24 Cetirizine Hcl (CETIRIZINE HCL ALLERGY CH) 5 Mg/5 Ml Whitney, 5 MG PO DAILY, ML 09/18/24 Insulin Regular (Human) (Novolin R) 100 Unit/Ml Inj, 10 UNIT SC TID, INJ 09/17/24 Insulin Degludec (Tresiba Flextouch) 100 Unit/Ml Inj, 10 UNIT SC HS, INJ 09/17/24 Fluticasone-Salmeterol (Advair Diskus 250/50) 1 Puff Ih, 1 PUFF IN BID, INH 08/18/24 Alendronate Sodium (Alendronate Sodium) 70 Mg Tab, 70 MG PO Q7D, TAB 08/13/24 Pantoprazole Sodium Sesquihydr (Pantoprazole Sodium Dr) 40 Mg Tab, 40 MG PO DAILY, TAB 08/13/24 Albuterol Sulfate (VENTOLIN MDI) 90 Mcg Ih, 90 MCG IN, INH 08/13/24 Gabapentin (Neurontin) 400 Mg Cap, 1 CAP PO BID, #90 CAP 1 Refill 09/28/23 Losartan Potassium (Losartan Potassium) 25 Mg Tab, 25 MG PO DAILY for 30 Days, MG 09/28/23 Atorvastatin Calcium (ATORVASTATIN CALCIUM) 20 Mg Tab, 1 TAB PO DAILY, #30 TAB 5 Refills 09/28/23 Apixaban Base (ELIQUIS) 5 Mg Tab, 1 TAB PO BID 12/12/21 Past Medical History Cardiac: HTN Pulmonary: COPD Central Nervous System: No pertinent Hx GI: No pertinent Hx Hemotology/Oncology: No pertinent Hx Hepatobiliary: No pertinent Hx Psychiatric: No pertinent Hx Musculoskeletal: No pertinent Hx Rheumotologic: No pertinent Hx Infectious Disease: No peritnent Hx ENT: No pertinent Hx Renal/: No pertinent Hx Endocrine: NIDDM Dermatology: No pertinent Hx Others Past Medical History COPD, diabetes mellitus, GERD, dyslipidemia, hypertension, cancer Past Surgical History Hysterectomy, hernia repair, Family History: DM, Hypertension Patient Family History: Diabetes mellitus G8 MOTHER, G8 FATHER, FH: HTN (hypertension) FH: chronic kidney disease G8 MOTHER, FH: diabetes mellitus Hypertension G8 MOTHER, G8 FATHER, Smoker: Quit Alocohol: None Drugs: None Lives with: With family Domestic Violence: Neg Review of Systems Constitutional: No symptom reported Ears, Nose, & Throat: No symptom reported Eyes: No symptom reported Pulmonary/Respiratory: No symptom reported Cardiovascular: No symptom reported Gastrointestinal: No symptom reported Genitourinary: No symptom reported Musculoskeletal: Back pain Skin: No symptom reported Psychiatric: No symptom reported Endocrine: No symptom reported Hemotologic/Lymphatic: No symptom reported H&P Exam Vital Signs Vital Signs Date Time Temp Pulse Resp B/P (MAP) Pulse Ox O2 Delivery O2 Flow Rate FiO2 10/10/24 12:33 98.9 90 19 122/69 (86) 97 98.9 10/10/24 08:00 Nasal Cannula* 2 28 General Appeara: Well developed, Well nourished, Normal Appearance Head Exam: Normal inspection Neck Exam: Normal inspection, Non-tender, Normal alignment Eye Exam: bilateral eye Normal inspection, bilateral eye PERRL, bilateral eye EOMI Ear Exam: bilateral ear Auricle normal, bilateral ear Canal normal, bilateral ear TM normal Nasal Exam: Normal inspection Mouth: Normal Inspection Pulmonary/Respiratory: Normal inspection, Normal breath sounds, Chest non- tender, Lungs clear Cardiovascular/Chest: Normal inspection, Regular rate, Normal Rhythm Peripheral Pulses: 4+ Radial (R), 4+ Radial (L), 4+ Brachial (R), 4+ Brachial (L) Abdominal Exam: Normal bowel sounds Labs/Xrays Labs Test 10/10/24 12:13 10/08/24 10:16 10/05/24 04:25 10/05/24 03:05 Range/Units POC Glucose 226 H 70-106 mg/dl White Blood Count 6.2 # 4.4-10.8 10^3/uL Red Blood Count 3.13 L 4.0-5.20 10^6/uL Hemoglobin 8.6 #L 12.2-16.2 g/dL Hematocrit 27.2 #L 36.0-46.0 % Mean Corpuscular Volume 86.9 80.0-100.0 fL Mean Corpuscular Hemoglobin 27.5 L 28.0-32.0 pg Mean Corpuscular Hemoglobin Concent 31.7 L 32.0-36.0 g/dL Red Cell Distribution Width 15.0 H 11.8-14.3 % Platelet Count 158 140-450 10^3/uL Mean Platelet Volume 8.3 6.9-10.8 fL Neutrophils (%) (Auto) 62.3 37.0-80.0 % Lymphocytes (%) (Auto) 21.8 10.0-50.0 % Monocytes (%) (Auto) 13.8 H 0.0-12.0 % Eosinophils (%) (Auto) 1.8 0.0-7.0 % Basophils (%) (Auto) 0.3 0.0-2.0 % Neutrophils # (Auto) 3.9 1.6-8.6 10 ^3/uL Lymphocytes # (Auto) 1.3 0.4-5.4 10 ^3/uL Monocytes # (Auto) 0.9 0-1.3 10 ^3/uL Eosinophils # (Auto) 0.1 0-0.8 10 ^3/uL Basophils # (Auto) 0 0-0.2 10 ^3/uL Nucleated Red Blood Cells 0.0 % Sodium Level 142 # 136-145 mmol/L Potassium Level 4.0 3.5-5.1 mmol/L Chloride Level 113 H 98-107 mmol/L Carbon Dioxide Level 24 20-31 mmol/L Anion Gap 5 5-15 Blood Urea Nitrogen 21 9-23 mg/dL Creatinine 1.09 H 0.550-1.02 mg/dL Glomerular Filtration Rate Calc 56 >90 mL/min BUN/Creatinine Ratio 19.3 10.0-20.0 Serum Glucose 163 H 74-106 mg/dL Calcium Level 8.8 8.7-10.4 mg/dL Total Bilirubin 0.3 0.2-1.0 mg/dL Aspartate Amino Transferase (AST) 86 H 13-40 U/L Alanine Aminotransferase (ALT) 18 7-40 U/L Alkaline Phosphatase 85 46-116 U/L Total Protein 5.8 5.7-8.2 g/dL Albumin 3.2 3.2-4.8 g/dL Prothrombin Time 10.4 9.3-11.8 sec Prothrombin Time INR 0.98 0.9-1.15 Activated Partial Thromboplast Time 24.9 24.5-34.5 SEC Urine Color Light-yellow Yellow Urine Clarity Clear Clear Urine pH 6.0 5.0-9.0 Urine Specific [place] 1.015 1.001-1.035 Urine Protein Negative Negative Urine Ketones Negative Negative Urine Blood Negative Negative /uL Urine Nitrite Negative Negative Urine Bilirubin Negative Negative Urine Urobilinogen Normal Negative mg/dL Urine Leukocyte Esterase Negative Negative /uL Urine RBC None seen 0 - 4 /hpf Urine Microscopic WBC 1 0-5 /HPF Urine Squamous Epithelial Cells None seen <5 /hpf Urine Bacteria None seen None Seen /hpf Urine Glucose Normal Normal mg/dL Microbiology Date/Time Source Procedure Growth Status 09/30/24 01:00 Nose MRSA Screen - Final Complete Assessment/Plan Plan Impression Acute hypoxemic respiratory failure Herniated disk Atelectasis COPD-stable Patient seen and examined Events Low oxygen requirements On 2 liters nasal cannula Vital signs stable S/p laminectomy with Dr. Flores Labs and imaging reviewed Chest x-ray shows atelectasis, most likely due to splinting Previous CT from 2023 was reviewed and showed no discernible emphysema Management Supplemental oxygen Titrate to maintain sats 90% or above Incentive spirometry Bronchodilators Monitor renal function Monitor electrolytes Supplement as needed Pain control Avoid oversedation F/u with orthopedic surgery DVT prophylaxis Plan discussed with: Patient WHITNEY MELARA MD Oct 10, 2024 16:29
--- NOTE | 2024-10-10 19:30 | DVHINCON2 ---
Date of service: Oct 09, 2024 Referring Physician Orlando Persaud MD Reason for Consultation Acute kidney injury History of Present Illness Dimple Chambers is a 69-year old F with a Past Medical History pertinent for COPD, Diabetes and Hypertension who presented with back pain. During ED course, workup up demonstrated herniated lumbar disk and the patient was admitted for further workup. Orthopedic Surgery consulted. Patient is status post lumbar laminectomy at multiple levels by Dr. Flores 10/05/2024, tolerated surgery well. Patient reports feeling better. Continues working with Physical Therapy. Patient was also found with NAN. Creatinine improved to 1.09 yesterday with normal BUN. Na is 142. K wnl. Allergies: Coded Allergies: NO KNOWN ALLERGIES (Unverified , 06/09/21) Home Meds Active Scripts Lancets (ACTI-TOMAS LANCETS 28G) 28 G Mis, G XX AC, #200 3 Refills use to measure blood glucuse Prov:AKSHAT JENSEN RESIDENT 10/01/23 Insulin Syringe/Needle U-100 (Aq Insulin Syringe/1Ml/29 29G X 1/2" 1 ml) 1 Mis Mis, MIS XX AC, #200 3 Refills use to admisitration of insulin Prov:AKSHAT JENSEN RESIDENT 10/01/23 Ergocalciferol (VITAMIN D 05755 UNIT) 50,000 [place], [address] UNIT PO Q7D for 42 Days, #6 CAP take once every week Prov:AKSHAT JENSEN RESIDENT 10/01/23 Hydrocodone-Acetaminophen (Hydrocodone Bitartrate/AC 10-325 mg) 1 Tab Tab, 1 TAB PO TIDPRN, #30 TAB Prov:CHILO HILTON MD 11/01/22 Reported Medications Methocarbamol (Methocarbamol) 500 Mg Tab, 500 MG PO BID for 30 Days, MG 09/30/24 Ciprofloxacin Hcl (Cipro) 500 Mg Tab, 500 MG PO BID 09/30/24 Levothyroxine Sodium (Levothyroxine Sodium) 150 Mcg Tab, 150 MCG PO QAM for 30 Days 09/30/24 Melatonin (KP MELATONIN) 3 Mg Tab, 10 MG PO HS, TAB 09/18/24 Cetirizine Hcl (CETIRIZINE HCL ALLERGY CH) 5 Mg/5 Ml Whitney, 5 MG PO DAILY, ML 09/18/24 Insulin Regular (Human) (Novolin R) 100 Unit/Ml Inj, 10 UNIT SC TID, INJ 09/17/24 Insulin Degludec (Tresiba Flextouch) 100 Unit/Ml Inj, 10 UNIT SC HS, INJ 09/17/24 Fluticasone-Salmeterol (Advair Diskus 250/50) 1 Puff Ih, 1 PUFF IN BID, INH 08/18/24 Alendronate Sodium (Alendronate Sodium) 70 Mg Tab, 70 MG PO Q7D, TAB 08/13/24 Pantoprazole Sodium Sesquihydr (Pantoprazole Sodium Dr) 40 Mg Tab, 40 MG PO DAILY, TAB 08/13/24 Albuterol Sulfate (VENTOLIN MDI) 90 Mcg Ih, 90 MCG IN, INH 08/13/24 Gabapentin (Neurontin) 400 Mg Cap, 1 CAP PO BID, #90 CAP 1 Refill 09/28/23 Losartan Potassium (Losartan Potassium) 25 Mg Tab, 25 MG PO DAILY for 30 Days, MG 09/28/23 Atorvastatin Calcium (ATORVASTATIN CALCIUM) 20 Mg Tab, 1 TAB PO DAILY, #30 TAB 5 Refills 09/28/23 Apixaban Base (ELIQUIS) 5 Mg Tab, 1 TAB PO BID 12/12/21 Family History: Diabetes mellitus G8 MOTHER, G8 FATHER, FH: HTN (hypertension) FH: chronic kidney disease G8 MOTHER, FH: diabetes mellitus Hypertension G8 MOTHER, G8 FATHER, Review of Systems Musculoskeletal: Back pain All other systems reviewed and negative unless noted in HPI. H&P Exam Vital Signs/I&O Vital Sign Date Time Temp Pulse Resp B/P (MAP) Pulse Ox O2 Delivery O2 Flow Rate FiO2 10/10/24 16:47 98.7 97 17 144/79 (100) 99 98.7 10/10/24 08:00 Nasal Cannula* 2 28 Intake and Output 10/09/24 10/10/24 19:00 07:00 Intake Total 1080 ml 450 ml Balance 1080 ml 450 ml Intake Oral 580 ml 450 ml IV Total 500 ml # Voids 1 4 # Bowel Movements 1 Physical Exam Vitals and nursing notes reviewed. General Appearance: Cooperative. Well-developed. Well-nourished. No acute distress. HENT: NC/AT. MMM Pulmonary/Respiratory: Clear, bilateral breaths sounds. Cardiovascular/Chest: Regular rate and rhythm. Abdominal Exam: Normal bowel sounds. Non-distended, non-tender. Lower extremities: Negative lower extremity edema Neuro/Mental Status: A/OX4, coherent. Thoughts/Psych: Normal thought pattern. Appropriate mood and affect. Skin Exam: Missing all toes on left foot. Normal inspection. Normal color. Warm and dry. Labs/Diagnostic Data Labs/Diagnostic Data Laboratory Tests Test 10/10/24 16:55 10/10/24 12:13 10/10/24 06:03 10/09/24 22:13 Range/Units POC Glucose 215 H 226 H 206 H 130 H 70-106 mg/dl Test 10/09/24 18:12 10/09/24 11:14 10/09/24 04:54 10/08/24 20:30 Range/Units POC Glucose 223 H 193 H 235 H 119 H 70-106 mg/dl Test 10/08/24 17:11 10/08/24 11:54 10/08/24 10:16 10/08/24 06:27 Range/Units POC Glucose 174 H 147 H 206 H 70-106 mg/dl White Blood Count 6.2 # 4.4-10.8 10^3/uL Red Blood Count 3.13 L 4.0-5.20 10^6/uL Hemoglobin 8.6 #L 12.2-16.2 g/dL Hematocrit 27.2 #L 36.0-46.0 % Mean Corpuscular Volume 86.9 80.0-100.0 fL Mean Corpuscular Hemoglobin 27.5 L 28.0-32.0 pg Mean Corpuscular Hemoglobin Concent 31.7 L 32.0-36.0 g/dL Red Cell Distribution Width 15.0 H 11.8-14.3 % Platelet Count 158 140-450 10^3/uL Mean Platelet Volume 8.3 6.9-10.8 fL Neutrophils (%) (Auto) 62.3 37.0-80.0 % Lymphocytes (%) (Auto) 21.8 10.0-50.0 % Monocytes (%) (Auto) 13.8 H 0.0-12.0 % Eosinophils (%) (Auto) 1.8 0.0-7.0 % Basophils (%) (Auto) 0.3 0.0-2.0 % Neutrophils # (Auto) 3.9 1.6-8.6 10 ^3/uL Lymphocytes # (Auto) 1.3 0.4-5.4 10 ^3/uL Monocytes # (Auto) 0.9 0-1.3 10 ^3/uL Eosinophils # (Auto) 0.1 0-0.8 10 ^3/uL Basophils # (Auto) 0 0-0.2 10 ^3/uL Nucleated Red Blood Cells 0.0 % Sodium Level 142 # 136-145 mmol/L Potassium Level 4.0 3.5-5.1 mmol/L Chloride Level 113 H 98-107 mmol/L Carbon Dioxide Level 24 20-31 mmol/L Anion Gap 5 5-15 Blood Urea Nitrogen 21 9-23 mg/dL Creatinine 1.09 H 0.550-1.02 mg/dL Glomerular Filtration Rate Calc 56 >90 mL/min BUN/Creatinine Ratio 19.3 10.0-20.0 Serum Glucose 163 H 74-106 mg/dL Calcium Level 8.8 8.7-10.4 mg/dL Total Bilirubin 0.3 0.2-1.0 mg/dL Aspartate Amino Transferase (AST) 86 H 13-40 U/L Alanine Aminotransferase (ALT) 18 7-40 U/L Alkaline Phosphatase 85 46-116 U/L Total Protein 5.8 5.7-8.2 g/dL Albumin 3.2 3.2-4.8 g/dL Test 10/07/24 22:15 10/07/24 17:19 10/07/24 12:08 10/07/24 05:51 Range/Units POC Glucose 148 H 198 H 152 H 213 H 70-106 mg/dl Test 10/06/24 22:28 10/06/24 17:12 10/06/24 10:56 10/06/24 06:58 Range/Units POC Glucose 183 H 166 H 180 H 255 H 70-106 mg/dl Test 10/06/24 04:30 10/05/24 23:11 10/05/24 20:43 10/05/24 11:06 Range/Units White Blood Count 9.5 # 4.4-10.8 10^3/uL Red Blood Count 3.85 L 4.0-5.20 10^6/uL Hemoglobin 10.7 L 12.2-16.2 g/dL Hematocrit 33.4 L 36.0-46.0 % Mean Corpuscular Volume 86.6 80.0-100.0 fL Mean Corpuscular Hemoglobin 27.8 L 28.0-32.0 pg Mean Corpuscular Hemoglobin Concent 32.1 32.0-36.0 g/dL Red Cell Distribution Width 15.0 H 11.8-14.3 % Platelet Count 212 140-450 10^3/uL Mean Platelet Volume 8.6 6.9-10.8 fL Neutrophils (%) (Auto) 90.0 H 37.0-80.0 % Lymphocytes (%) (Auto) 4.9 L 10.0-50.0 % Monocytes (%) (Auto) 4.9 0.0-12.0 % Eosinophils (%) (Auto) 0.1 0.0-7.0 % Basophils (%) (Auto) 0.1 0.0-2.0 % Neutrophils # (Auto) 8.5 1.6-8.6 10 ^3/uL Lymphocytes # (Auto) 0.5 0.4-5.4 10 ^3/uL Monocytes # (Auto) 0.5 0-1.3 10 ^3/uL Eosinophils # (Auto) 0 0-0.8 10 ^3/uL Basophils # (Auto) 0 0-0.2 10 ^3/uL Nucleated Red Blood Cells 0.0 % Sodium Level 137 136-145 mmol/L Potassium Level 4.4 3.5-5.1 mmol/L Chloride Level 106 98-107 mmol/L Carbon Dioxide Level 20 20-31 mmol/L Anion Gap 11 5-15 Blood Urea Nitrogen 27 H 9-23 mg/dL Creatinine 1.38 H 0.550-1.02 mg/dL Glomerular Filtration Rate Calc 42 >90 mL/min BUN/Creatinine Ratio 19.6 10.0-20.0 Serum Glucose 260 H 74-106 mg/dL Calcium Level 9.3 8.7-10.4 mg/dL POC Glucose 271 H 166 H 137 H 70-106 mg/dl Test 10/05/24 05:52 10/05/24 04:25 10/05/24 03:05 10/04/24 20:04 Range/Units POC Glucose 126 H 157 H 70-106 mg/dl White Blood Count 5.4 4.4-10.8 10^3/uL Red Blood Count 3.77 L 4.0-5.20 10^6/uL Hemoglobin 10.3 L 12.2-16.2 g/dL Hematocrit 31.6 #L 36.0-46.0 % Mean Corpuscular Volume 83.7 80.0-100.0 fL Mean Corpuscular Hemoglobin 27.2 L 28.0-32.0 pg Mean Corpuscular Hemoglobin Concent 32.5 32.0-36.0 g/dL Red Cell Distribution Width 15.1 H 11.8-14.3 % Platelet Count 230 140-450 10^3/uL Mean Platelet Volume 8.4 6.9-10.8 fL Neutrophils (%) (Auto) 54.9 37.0-80.0 % Lymphocytes (%) (Auto) 30.5 10.0-50.0 % Monocytes (%) (Auto) 8.4 0.0-12.0 % Eosinophils (%) (Auto) 5.6 0.0-7.0 % Basophils (%) (Auto) 0.6 0.0-2.0 % Neutrophils # (Auto) 3.0 1.6-8.6 10 ^3/uL Lymphocytes # (Auto) 1.6 0.4-5.4 10 ^3/uL Monocytes # (Auto) 0.5 0-1.3 10 ^3/uL Eosinophils # (Auto) 0.3 0-0.8 10 ^3/uL Basophils # (Auto) 0 0-0.2 10 ^3/uL Nucleated Red Blood Cells 0.1 % Prothrombin Time 10.4 9.3-11.8 sec Prothrombin Time INR 0.98 0.9-1.15 Activated Partial Thromboplast Time 24.9 24.5-34.5 SEC Sodium Level 141 136-145 mmol/L Potassium Level 4.8 3.5-5.1 mmol/L Chloride Level 109 H 98-107 mmol/L Carbon Dioxide Level 25 20-31 mmol/L Anion Gap 7 5-15 Blood Urea Nitrogen 34 H 9-23 mg/dL Creatinine 1.33 H 0.550-1.02 mg/dL Glomerular Filtration Rate Calc 44 >90 mL/min BUN/Creatinine Ratio 25.6 H 10.0-20.0 Serum Glucose 134 H 74-106 mg/dL Calcium Level 10.5 H 8.7-10.4 mg/dL Urine Color Light-yellow Yellow Urine Clarity Clear Clear Urine pH 6.0 5.0-9.0 Urine Specific [place] 1.015 1.001-1.035 Urine Protein Negative Negative Urine Ketones Negative Negative Urine Blood Negative Negative /uL Urine Nitrite Negative Negative Urine Bilirubin Negative Negative Urine Urobilinogen Normal Negative mg/dL Urine Leukocyte Esterase Negative Negative /uL Urine RBC None seen 0 - 4 /hpf Urine Microscopic WBC 1 0-5 /HPF Urine Squamous Epithelial Cells None seen <5 /hpf Urine Bacteria None seen None Seen /hpf Urine Glucose Normal Normal mg/dL Test 10/04/24 16:50 10/04/24 10:54 10/04/24 05:40 10/03/24 21:09 Range/Units POC Glucose 187 H 183 H 140 H 277 H 70-106 mg/dl Test 10/03/24 17:28 10/03/24 11:49 10/03/24 06:10 10/02/24 21:23 Range/Units POC Glucose 191 H 190 H 121 H 157 H 70-106 mg/dl Test 10/02/24 17:19 10/02/24 12:11 10/02/24 04:58 10/01/24 19:54 Range/Units POC Glucose 227 H 245 H 139 H 215 H 70-106 mg/dl Test 10/01/24 17:55 10/01/24 11:42 10/01/24 06:01 09/30/24 21:03 Range/Units POC Glucose 198 H 290 H 124 H 189 H 70-106 mg/dl Test 09/30/24 17:42 09/30/24 11:33 09/30/24 05:51 09/30/24 05:48 Range/Units POC Glucose 105 253 H 119 H 70-106 mg/dl Sodium Level 144 136-145 mmol/L Potassium Level 3.9 3.5-5.1 mmol/L Chloride Level 110 H 98-107 mmol/L Carbon Dioxide Level 25 20-31 mmol/L Anion Gap 9 5-15 Blood Urea Nitrogen 36 H 9-23 mg/dL Creatinine 1.57 H 0.550-1.02 mg/dL Glomerular Filtration Rate Calc 36 >90 mL/min BUN/Creatinine Ratio 22.9 H 10.0-20.0 Serum Glucose 111 H 74-106 mg/dL Calcium Level 9.3 8.7-10.4 mg/dL Test 09/29/24 23:20 09/29/24 18:28 Range/Units POC Glucose 308 H 70-106 mg/dl White Blood Count 6.3 # 4.4-10.8 10^3/uL Red Blood Count 4.23 4.0-5.20 10^6/uL Hemoglobin 11.5 #L 12.2-16.2 g/dL Hematocrit 35.4 #L 36.0-46.0 % Mean Corpuscular Volume 83.5 80.0-100.0 fL Mean Corpuscular Hemoglobin 27.2 L 28.0-32.0 pg Mean Corpuscular Hemoglobin Concent 32.6 32.0-36.0 g/dL Red Cell Distribution Width 15.2 H 11.8-14.3 % Platelet Count 257 140-450 10^3/uL Mean Platelet Volume 8.0 6.9-10.8 fL Neutrophils (%) (Auto) 63.3 37.0-80.0 % Lymphocytes (%) (Auto) 26.5 10.0-50.0 % Monocytes (%) (Auto) 6.9 0.0-12.0 % Eosinophils (%) (Auto) 2.9 0.0-7.0 % Basophils (%) (Auto) 0.4 0.0-2.0 % Neutrophils # (Auto) 4.0 1.6-8.6 10 ^3/uL Lymphocytes # (Auto) 1.7 0.4-5.4 10 ^3/uL Monocytes # (Auto) 0.4 0-1.3 10 ^3/uL Eosinophils # (Auto) 0.2 0-0.8 10 ^3/uL Basophils # (Auto) 0 0-0.2 10 ^3/uL Nucleated Red Blood Cells 0.1 % Sodium Level 142 136-145 mmol/L Potassium Level 4.3 3.5-5.1 mmol/L Chloride Level 108 H 98-107 mmol/L Carbon Dioxide Level 23 20-31 mmol/L Anion Gap 11 5-15 Blood Urea Nitrogen 31 H 9-23 mg/dL Creatinine 1.49 H 0.550-1.02 mg/dL Glomerular Filtration Rate Calc 38 >90 mL/min BUN/Creatinine Ratio 20.8 H 10.0-20.0 Serum Glucose 231 H 74-106 mg/dL Calcium Level 10.6 H 8.7-10.4 mg/dL Total Bilirubin 0.4 0.2-1.0 mg/dL Aspartate Amino Transferase (AST) 27 13-40 U/L Alanine Aminotransferase (ALT) 20 7-40 U/L Alkaline Phosphatase 108 46-116 U/L Total Protein 8.3 H 5.7-8.2 g/dL Albumin 4.5 3.2-4.8 g/dL Microbiology Date/Time Source Procedure Growth Status 09/30/24 01:00 Nose MRSA Screen - Final Complete Assessment Acute exacerbation of chronic low back pain Acute kidney injury Right lower extremity DVT with IVC filter (on Eliquis) Herniated lumbar intervertebral disc, status post lumbar laminectomy at multiple levels by Dr. Flores 10/05/2024 Lumbar radiculopathy Hypertension Diabetes COPD Asthma Thyroid disease History of tobacco use Plan/Recommendation Agreement with your ongoing assessment and plan of care. PT as recommended. F/u AM labs. IVFs. Electrolyte replacement prn. Avoid nephrotoxins. Pain management prn. Bowel care regimen. Wound care. Additional plan as per the hospital course. Plan discussed with: Patient, Other (RN) LISA HOBBS DO Oct 10, 2024 19:30
--- NOTE | 2024-10-10 19:34 | DVHPN2 ---
Progress Note - Dictate Date Seen: Oct 10, 2024 Medical Necessity Reason Pt with a Central, PICC or Fol: No Subjective Patient was seen and evaluated in follow up. No acute events overnight. Patient denies any new complaints. Pain is controlled. Remains on 2L NC. vital signs Vital Sign Date Time Temp Pulse Resp B/P (MAP) Pulse Ox O2 Delivery O2 Flow Rate FiO2 10/10/24 16:47 98.7 97 17 144/79 (100) 99 98.7 10/10/24 08:00 Nasal Cannula* 2 28 Total Intake and Output 10/09/24 10/09/24 10/10/24 15:00 23:00 07:00 Intake Total 1080 ml 450 ml Balance 1080 ml 450 ml medications Current Medications Medications Dose Ordered Sig/Iliana Route Start Time Stop Time Status Last Admin Dose Admin Atorvastatin Calcium 20 mg HS PO 09/29/24 22:00 10/09/24 22:09 Diagnostic Test (Pha) 1 strip ACHS 09/29/24 22:00 10/10/24 16:58 Insulin Human Regular ACHS SC 09/29/24 22:00 10/10/24 17:00 Dextrose 50 ml UD PRN IV 09/29/24 21:15 Acetaminophen/ Hydrocodone Bitart 1 tab Q4HP PRN PO 09/29/24 21:15 Cancel Acetaminophen 650 mg Q6HP PRN PO 09/29/24 21:15 Cancel Baclofen 5 mg Q8HP PRN PO 09/29/24 21:30 Cancel Docusate Sodium 100 mg BIDPRN PRN PO 10/02/24 13:15 10/02/24 15:32 Gabapentin 400 mg BID PO 10/05/24 22:00 10/10/24 09:26 Losartan Potassium 25 mg DAILY PO 10/06/24 10:00 10/10/24 09:26 Levothyroxine Sodium 150 mcg QAM PO 10/06/24 07:00 10/10/24 06:05 Dextrose/Sodium Chloride 1,000 ml @ 100 mls/hr Q10H IV 10/05/24 20:15 10/09/24 18:18 Ondansetron HCl 4 mg Q4HP PRN IV 10/05/24 20:15 10/06/24 13:02 Acetaminophen 650 mg Q6HP PRN PO 10/05/24 20:15 Acetaminophen/ Hydrocodone Bitart 1 tab Q6HP PRN PO 10/05/24 20:15 Cancel Morphine Sulfate 1 mg Q4HP PRN IV 10/05/24 20:15 Cancel Cyclobenzaprine HCl 10 mg TID PO 10/05/24 22:00 10/10/24 14:04 Docusate Sodium 100 mg BID PO 10/05/24 22:00 10/09/24 22:09 Nitroglycerin 0.4 mg Q5MINP PRN SL 10/05/24 20:15 Morphine Sulfate 2 mg Q30M PRN IV 10/05/24 20:15 Hydromorphone HCl 2 mg Q4HPRN PRN IV 10/06/24 13:15 10/09/24 20:37 Acetaminophen/ Hydrocodone Bitart 1 tab Q6HP PRN PO 10/08/24 14:15 10/10/24 12:23 objective Vitals and nursing notes reviewed. General Appearance: Cooperative. Well-developed. Well-nourished. No acute distress. HENT: NC/AT. MMM Pulmonary/Respiratory: Clear, bilateral breaths sounds. Cardiovascular/Chest: Regular rate and rhythm. Abdominal Exam: Normal bowel sounds. Non-distended, non-tender. Lower extremities: Negative lower extremity edema Neuro/Mental Status: A/OX4, coherent. Thoughts/Psych: Normal thought pattern. Appropriate mood and affect. Skin Exam: Missing all toes on left foot. Normal inspection. Normal color. Warm and dry. laboratory and microbiology Laboratory Tests 10/08/24 10:16 Test 10/08/24 10:16 Range/Units Serum Glucose 163 H 74-106 mg/dL Problem List Acute exacerbation of chronic low back pain Acute kidney injury Right lower extremity DVT with IVC filter (on Eliquis) Herniated lumbar intervertebral disc, status post lumbar laminectomy at multiple levels by Dr. Flores 10/05/2024 Lumbar radiculopathy Hypertension Diabetes COPD Asthma Thyroid disease History of tobacco use Assessment/Plan Agree with current supportive medical care. Pulmonary Medicine following for COPD. PT as recommended. IVFs. Electrolyte replacement prn. Avoid nephrotoxins. Home medications resumed. Pain management prn. Bowel care regimen. Wound care. No further input from Nephrology standpoint. Will go ahead and sign off. Dietary Evaluation Review Comments: Continue current poc Refer CDE on DC Expected Outcomes/Goals: To meet >75% estimated needs Fu 3-5 days Plan discussed with: Patient, Other (RN) LISA HOBBS DO Oct 10, 2024 19:34
[2024-10-11] VITALS (9 sets, daily range): BP systolic 122–146; BP diastolic 64–79; PULSE 62–109; RESP 17–19; TEMP 97.6–98.3; O2SAT 94–100
[2024-10-11] MEDS: ACETAMINOPHEN 325 MG TAB PO PRN (11:04)
--- NOTE | 2024-10-11 12:47 | DVHPN2 ---
Progress Note - Dictate Date Seen: Oct 11, 2024 Medical Necessity Reason Pt with a Central, PICC or Fol: No vital signs Vital Sign Date Time Temp Pulse Resp B/P (MAP) Pulse Ox O2 Delivery O2 Flow Rate FiO2 10/11/24 11:03 131/79 10/11/24 09:30 97.6 97 18 94 97.6 10/11/24 08:00 Nasal Cannula* 2 28 Total Intake and Output 10/10/24 10/10/24 10/11/24 15:00 23:00 07:00 Intake Total 1230 ml 1100 ml Balance 1230 ml 1100 ml medications Current Medications Medications Dose Ordered Sig/Iliana Route Start Time Stop Time Status Last Admin Dose Admin Atorvastatin Calcium 20 mg HS PO 09/29/24 22:00 10/10/24 22:54 20 MG Diagnostic Test (Pha) 1 strip ACHS 09/29/24 22:00 10/11/24 11:10 1 STRIP Insulin Human Regular ACHS SC 09/29/24 22:00 10/11/24 11:12 4 UNITS Dextrose 50 ml UD PRN IV 09/29/24 21:15 Acetaminophen/ Hydrocodone Bitart 1 tab Q4HP PRN PO 09/29/24 21:15 Cancel Acetaminophen 650 mg Q6HP PRN PO 09/29/24 21:15 Cancel Baclofen 5 mg Q8HP PRN PO 09/29/24 21:30 Cancel Docusate Sodium 100 mg BIDPRN PRN PO 10/02/24 13:15 10/02/24 15:32 100 MG Gabapentin 400 mg BID PO 10/05/24 22:00 10/11/24 11:02 400 MG Losartan Potassium 25 mg DAILY PO 10/06/24 10:00 10/11/24 11:03 25 MG Levothyroxine Sodium 150 mcg QAM PO 10/06/24 07:00 10/11/24 07:31 150 MCG Dextrose/Sodium Chloride 1,000 ml @ 100 mls/hr Q10H IV 10/05/24 20:15 10/10/24 20:15 100 MLS/HR Ondansetron HCl 4 mg Q4HP PRN IV 10/05/24 20:15 10/06/24 13:02 4 MG Acetaminophen 650 mg Q6HP PRN PO 10/05/24 20:15 10/11/24 11:04 650 MG Acetaminophen/ Hydrocodone Bitart 1 tab Q6HP PRN PO 10/05/24 20:15 Cancel Morphine Sulfate 1 mg Q4HP PRN IV 10/05/24 20:15 Cancel Cyclobenzaprine HCl 10 mg TID PO 10/05/24 22:00 10/11/24 07:31 10 MG Docusate Sodium 100 mg BID PO 10/05/24 22:00 10/10/24 22:54 100 MG Nitroglycerin 0.4 mg Q5MINP PRN SL 10/05/24 20:15 Morphine Sulfate 2 mg Q30M PRN IV 10/05/24 20:15 Hydromorphone HCl 2 mg Q4HPRN PRN IV 10/06/24 13:15 10/09/24 20:37 2 MG Acetaminophen/ Hydrocodone Bitart 1 tab Q6HP PRN PO 10/08/24 14:15 10/11/24 07:42 1 TAB laboratory and microbiology Laboratory Tests 10/08/24 10:16 Test 10/08/24 10:16 Range/Units Serum Glucose 163 H 74-106 mg/dL Assessment/Plan Impression Acute hypoxemic respiratory failure Herniated disk Atelectasis COPD-stable Patient seen and examined Events Low oxygen requirements On 2 liters nasal cannula No acute events S/p laminectomy with Dr. Flores Labs and imaging reviewed Chest x-ray shows atelectasis, most likely due to splinting Previous CT from 2023 was reviewed and showed no discernible emphysema Management Supplemental oxygen Titrate to maintain sats 90% or above Incentive spirometry Bronchodilators Monitor renal function Monitor electrolytes Supplement as needed Pain control Avoid oversedation F/u with orthopedic surgery DVT prophylaxis Dietary Evaluation Review Comments: Continue current poc Refer CDE on DC Expected Outcomes/Goals: To meet >75% estimated needs Fu 3-5 days Plan discussed with: Patient WIHTNEY MELARA MD Oct 11, 2024 12:46
[2024-10-12] VITALS (7 sets, daily range): BP systolic 120–142; BP diastolic 66–84; PULSE 67–127; RESP 18–19; TEMP 36.8; O2SAT 95–98
--- NOTE | 2024-10-12 13:50 | DVHPN2 ---
Progress Note - Dictate Date Seen: Oct 12, 2024 Medical Necessity Reason Pt with a Central, PICC or Fol: No vital signs Vital Sign Date Time Temp Pulse Resp B/P (MAP) Pulse Ox O2 Delivery O2 Flow Rate FiO2 10/12/24 12:32 98.1 80 18 137/72 (93) 98 98.1 10/12/24 08:00 Nasal Cannula* 2 28 Total Intake and Output 10/11/24 10/11/24 10/12/24 15:00 23:00 07:00 Intake Total 1350 ml 500 ml Balance 1350 ml 500 ml medications Current Medications Medications Dose Ordered Sig/Iliana Route Start Time Stop Time Status Last Admin Dose Admin Atorvastatin Calcium 20 mg HS PO 09/29/24 22:00 10/11/24 21:55 20 MG Diagnostic Test (Pha) 1 strip ACHS 09/29/24 22:00 10/12/24 11:53 1 STRIP Insulin Human Regular ACHS SC 09/29/24 22:00 10/12/24 11:56 4 UNITS Dextrose 50 ml UD PRN IV 09/29/24 21:15 Acetaminophen/ Hydrocodone Bitart 1 tab Q4HP PRN PO 09/29/24 21:15 Cancel Acetaminophen 650 mg Q6HP PRN PO 09/29/24 21:15 Cancel Baclofen 5 mg Q8HP PRN PO 09/29/24 21:30 Cancel Docusate Sodium 100 mg BIDPRN PRN PO 10/02/24 13:15 10/02/24 15:32 100 MG Gabapentin 400 mg BID PO 10/05/24 22:00 10/12/24 11:03 400 MG Losartan Potassium 25 mg DAILY PO 10/06/24 10:00 10/12/24 11:11 25 MG Levothyroxine Sodium 150 mcg QAM PO 10/06/24 07:00 10/12/24 05:22 150 MCG Dextrose/Sodium Chloride 1,000 ml @ 100 mls/hr Q10H IV 10/05/24 20:15 10/11/24 16:15 100 MLS/HR Ondansetron HCl 4 mg Q4HP PRN IV 10/05/24 20:15 10/06/24 13:02 4 MG Acetaminophen 650 mg Q6HP PRN PO 10/05/24 20:15 10/11/24 11:04 650 MG Acetaminophen/ Hydrocodone Bitart 1 tab Q6HP PRN PO 10/05/24 20:15 Cancel Morphine Sulfate 1 mg Q4HP PRN IV 10/05/24 20:15 Cancel Cyclobenzaprine HCl 10 mg TID PO 10/05/24 22:00 10/12/24 05:21 10 MG Docusate Sodium 100 mg BID PO 10/05/24 22:00 10/12/24 11:03 100 MG Nitroglycerin 0.4 mg Q5MINP PRN SL 10/05/24 20:15 Morphine Sulfate 2 mg Q30M PRN IV 10/05/24 20:15 Hydromorphone HCl 2 mg Q4HPRN PRN IV 10/06/24 13:15 10/12/24 05:24 2 MG Acetaminophen/ Hydrocodone Bitart 1 tab Q6HP PRN PO 10/08/24 14:15 10/11/24 07:42 1 TAB laboratory and microbiology Laboratory Tests 10/08/24 10:16 Test 10/08/24 10:16 Range/Units Serum Glucose 163 H 74-106 mg/dL Assessment/Plan Impression Acute hypoxemic respiratory failure Herniated disk Atelectasis COPD-stable Patient seen and examined Events Low oxygen requirements On 2 liters nasal cannula No distress S/p laminectomy with Dr. Flores Labs and imaging reviewed Management Supplemental oxygen Titrate to maintain sats 90% or above Incentive spirometry Bronchodilators Monitor renal function Monitor electrolytes Supplement as needed Pain control Avoid oversedation F/u with orthopedic surgery Okay to discharge from pulmonary standpoint Home oxygen evaluation prior to discharge DVT prophylaxis Dietary Evaluation Review Comments: Continue current poc Refer CDE on DC Expected Outcomes/Goals: To meet >75% estimated needs Fu 3-5 days Plan discussed with: Patient WHITNEY MELARA MD Oct 12, 2024 13:50
--- NOTE | 2024-10-12 15:59 | DVHPN2 ---
Reviewed: Care Plan, H&P, Labs, Medications, Previous Orders, Radiology Changes from previous H/P or p: No Changes General: Per HPI Objective Vitals Vital Signs Date Time Temp Pulse Resp B/P (MAP) Pulse Ox O2 Delivery O2 Flow Rate FiO2 10/12/24 15:23 127 10/12/24 12:32 98.1 18 137/72 (93) 98 98.1 10/12/24 08:00 Nasal Cannula* 2 28 Intake/Output Intake and Output 10/12/24 07:00 Intake Total 1850 ml Balance 1850 ml Intake Oral 1850 ml # Voids 4 # Bowel Movements 2 Medications Current Medications Medications Dose Ordered Sig/Iliana Route Start Time Stop Time Status Last Admin Dose Admin Atorvastatin Calcium 20 mg HS PO 09/29/24 22:00 10/11/24 21:55 20 MG Diagnostic Test (Pha) 1 strip ACHS 09/29/24 22:00 10/12/24 11:53 1 STRIP Insulin Human Regular ACHS SC 09/29/24 22:00 10/12/24 11:56 4 UNITS Dextrose 50 ml UD PRN IV 09/29/24 21:15 Acetaminophen/ Hydrocodone Bitart 1 tab Q4HP PRN PO 09/29/24 21:15 Cancel Acetaminophen 650 mg Q6HP PRN PO 09/29/24 21:15 Cancel Baclofen 5 mg Q8HP PRN PO 09/29/24 21:30 Cancel Docusate Sodium 100 mg BIDPRN PRN PO 10/02/24 13:15 10/02/24 15:32 100 MG Gabapentin 400 mg BID PO 10/05/24 22:00 10/12/24 11:03 400 MG Losartan Potassium 25 mg DAILY PO 10/06/24 10:00 10/12/24 11:11 25 MG Levothyroxine Sodium 150 mcg QAM PO 10/06/24 07:00 10/12/24 05:22 150 MCG Dextrose/Sodium Chloride 1,000 ml @ 100 mls/hr Q10H IV 10/05/24 20:15 10/11/24 16:15 100 MLS/HR Ondansetron HCl 4 mg Q4HP PRN IV 10/05/24 20:15 10/06/24 13:02 4 MG Acetaminophen 650 mg Q6HP PRN PO 10/05/24 20:15 10/11/24 11:04 650 MG Acetaminophen/ Hydrocodone Bitart 1 tab Q6HP PRN PO 10/05/24 20:15 Cancel Morphine Sulfate 1 mg Q4HP PRN IV 10/05/24 20:15 Cancel Cyclobenzaprine HCl 10 mg TID PO 10/05/24 22:00 10/12/24 14:23 10 MG Docusate Sodium 100 mg BID PO 10/05/24 22:00 10/12/24 11:03 100 MG Nitroglycerin 0.4 mg Q5MINP PRN SL 10/05/24 20:15 Morphine Sulfate 2 mg Q30M PRN IV 10/05/24 20:15 Hydromorphone HCl 2 mg Q4HPRN PRN IV 10/06/24 13:15 10/12/24 05:24 2 MG Acetaminophen/ Hydrocodone Bitart 1 tab Q6HP PRN PO 10/08/24 14:15 10/11/24 07:42 1 TAB Laboratory Results Laboratory Tests 10/08/24 10:16 Urinalysis Test 10/05/24 03:05 Urine Color Light-yellow (Yellow) Urine Clarity Clear (Clear) Urine pH 6.0 (5.0-9.0) Urine Specific [place] 1.015 (1.001-1.035) Urine Protein Negative (Negative) Urine Ketones Negative (Negative) Urine Blood Negative /uL (Negative) Urine Nitrite Negative (Negative) Urine Bilirubin Negative (Negative) Urine Urobilinogen Normal mg/dL (Negative) Urine Leukocyte Esterase Negative /uL (Negative) Urine RBC None seen /hpf (0 - 4) Urine Microscopic WBC 1 /HPF (0-5) Urine Squamous Epithelial Cells None seen /hpf (<5) Urine Bacteria None seen /hpf (None Seen) Urine Glucose Normal mg/dL (Normal) Microbiology Microbiology Date/Time Source Procedure Growth Status 09/30/24 01:00 Nose MRSA Screen - Final Complete Assessment/Plan Assessment/Plan Acute exacerbation of chronic low back pain Hypertension Dyslipidemia Right lower extremity DVT with IVC filter (on Eliquis) Herniated lumbar intervertebral disc, status post lumbar laminectomy at multiple levels by Dr. Flores 10/05/2024 Lumbar radiculopathy Diabetes COPD Asthma Thyroid disease History of tobacco use daily assessment for improvement pt likely needs HH Plan discussed with: Patient My Orders Orders - BARRIE QUIJANO DO Procedure Category Date Status Time Insert Midline ORDERS 10/11/24 Transmitted 16:27 Date of Service: Oct 08, 2024 Billing Provider: BARRIE QUIJANO DO Common Visit Codes: [id number] INP/OBS CARE(HIGH) BARRIE QUIJANO DO Oct 12, 2024 15:59
[2024-10-12] MEDS ORDERED: CYCL-611 PO (16:01)
--- NOTE | 2024-10-16 17:01 | DVHDS2 ---
Discharge Summary Date of Admission Sep 29, 2024 at 21:15 Date of Discharge: Oct 12, 2024 Labs/Diagnostic Data: Laboratory Results Test 10/12/24 17:37 10/08/24 10:16 10/05/24 04:25 10/05/24 03:05 POC Glucose 181 mg/dl (70-106) White Blood Count 6.2 10^3/uL (4.4-10.8) Red Blood Count 3.13 10^6/uL (4.0-5.20) Hemoglobin 8.6 g/dL (12.2-16.2) Hematocrit 27.2 % (36.0-46.0) Mean Corpuscular Volume 86.9 fL (80.0-100.0) Mean Corpuscular Hemoglobin 27.5 pg (28.0-32.0) Mean Corpuscular Hemoglobin Concent 31.7 g/dL (32.0-36.0) Red Cell Distribution Width 15.0 % (11.8-14.3) Platelet Count 158 10^3/uL (140-450) Mean Platelet Volume 8.3 fL (6.9-10.8) Neutrophils (%) (Auto) 62.3 % (37.0-80.0) Lymphocytes (%) (Auto) 21.8 % (10.0-50.0) Monocytes (%) (Auto) 13.8 % (0.0-12.0) Eosinophils (%) (Auto) 1.8 % (0.0-7.0) Basophils (%) (Auto) 0.3 % (0.0-2.0) Neutrophils # (Auto) 3.9 10 ^3/uL (1.6-8.6) Lymphocytes # (Auto) 1.3 10 ^3/uL (0.4-5.4) Monocytes # (Auto) 0.9 10 ^3/uL (0-1.3) Eosinophils # (Auto) 0.1 10 ^3/uL (0-0.8) Basophils # (Auto) 0 10 ^3/uL (0-0.2) Nucleated Red Blood Cells 0.0 % Sodium Level 142 mmol/L (136-145) Potassium Level 4.0 mmol/L (3.5-5.1) Chloride Level 113 mmol/L (98-107) Carbon Dioxide Level 24 mmol/L (20-31) Anion Gap 5 (5-15) Blood Urea Nitrogen 21 mg/dL (9-23) Creatinine 1.09 mg/dL (0.550-1.02) Glomerular Filtration Rate Calc 56 mL/min (>90) BUN/Creatinine Ratio 19.3 (10.0-20.0) Serum Glucose 163 mg/dL (74-106) Calcium Level 8.8 mg/dL (8.7-10.4) Total Bilirubin 0.3 mg/dL (0.2-1.0) Aspartate Amino Transferase (AST) 86 U/L (13-40) Alanine Aminotransferase (ALT) 18 U/L (7-40) Alkaline Phosphatase 85 U/L (46-116) Total Protein 5.8 g/dL (5.7-8.2) Albumin 3.2 g/dL (3.2-4.8) Prothrombin Time 10.4 sec (9.3-11.8) Prothrombin Time INR 0.98 (0.9-1.15) Activated Partial Thromboplast Time 24.9 SEC (24.5-34.5) Urine Color Light-yellow (Yellow) Urine Clarity Clear (Clear) Urine pH 6.0 (5.0-9.0) Urine Specific [place] 1.015 (1.001-1.035) Urine Protein Negative (Negative) Urine Ketones Negative (Negative) Urine Blood Negative /uL (Negative) Urine Nitrite Negative (Negative) Urine Bilirubin Negative (Negative) Urine Urobilinogen Normal mg/dL (Negative) Urine Leukocyte Esterase Negative /uL (Negative) Urine RBC None seen /hpf (0 - 4) Urine Microscopic WBC 1 /HPF (0-5) Urine Squamous Epithelial Cells None seen /hpf (<5) Urine Bacteria None seen /hpf (None Seen) Urine Glucose Normal mg/dL (Normal) Other Laboratory Tests 10/08/24 10:16 Brief Hx & Hospital Course: Acute exacerbation of chronic low back pain Hypertension Dyslipidemia Right lower extremity DVT with IVC filter (on Eliquis) Herniated lumbar intervertebral disc, status post lumbar laminectomy at multiple levels by Dr. Flores 10/05/2024 Lumbar radiculopathy Diabetes COPD Asthma Thyroid disease History of tobacco use discharge to home with Condition at Discharge: Fair Final Diagnosis/Problems List same Discharge Disposition: Home with Health Services Discharge Instruct/Medications Diet: Cardiac 2g Na,low cholest Activity: No Restrictions, As Tolerated Scheduled Alendronate Sodium (Alendronate Sodium), 70 MG PO Q7D, (Reported) Apixaban Base (Eliquis), 1 TAB PO BID, (Reported) Atorvastatin Calcium (Atorvastatin Calcium), 1 TAB PO DAILY, (Reported) Cetirizine Hcl (Cetirizine Hcl Allergy Ch), 5 MG PO DAILY, (Reported) Ciprofloxacin Hcl (Cipro), 500 MG PO BID, (Reported) Cyclobenzaprine HCl (Cyclobenzaprine Hydrochlo), 10 MG PO TID Ergocalciferol (Vitamin D 03531 Unit), 50,000 UNIT PO Q7D Fluticasone-Salmeterol (Advair Diskus 250/50), 1 PUFF IN BID, (Reported) Gabapentin (Neurontin), 1 CAP PO BID, (Reported) Hydrocodone-Acetaminophen (Hydrocodone Bitartrate/AC 10-325 mg), 1 TAB PO TIDPRN Insulin Degludec (Tresiba Flextouch), 10 UNIT SC HS, (Reported) Insulin Regular (Human) (Novolin R), 10 UNIT SC TID, (Reported) Levothyroxine Sodium (Levothyroxine Sodium), 150 MCG PO QAM, (Reported) Losartan Potassium (Losartan Potassium), 25 MG PO DAILY, (Reported) Melatonin (Kp Melatonin), 10 MG PO HS, (Reported) Methocarbamol (Methocarbamol), 500 MG PO BID, (Reported) Pantoprazole Sodium Sesquihydr (Pantoprazole Sodium Dr), 40 MG PO DAILY, (Reported) Miscellaneous Medications Albuterol Sulfate (Ventolin Mdi), 90 MCG IN, (Reported) Durable Medical Equipment Insulin Syringe/Needle U-100 (Aq Insulin Syringe/1Ml/29 29G X 1/2" 1 ml), MIS XX AC, (DME) Lancets (Acti-Arsen Lancets 28G), G XX AC, (DME) Discharge Statement: "Patient was advised to return to the ER or call 911 if any headaches, dizziness, shortness of breath, chest pain, abdominal pain, bleeding, fevers, or worsening of medical condition. Patient was counseled about treatment plan, medications, possible side effects, patientverbalized understanding. All questions were answered to the best of my ability. This discharge took greater then 30 minutes in planning, reviewing documentation, counseling the patient, and discussing with other team members." ASSESSMENT ASSESSMENT Assessment same Date of Service: Oct 12, 2024 Billing Provider: BARRIE QUIJANO DO Common Visit Codes: [id number] DISCH DAY >30min BARRIE QUIJANO DO Oct 16, 2024 17:01
== END 2024-10-12 18:55 | disposition home health service (06) | DRG 450 ==
LOC: ER 15:06 → OVERFLOW 21:15 → WEST WING 21:26 → OVERFLOW 10-05 20:01 → TELE-WESTW 10-05 21:55
PROVIDERS: ADMIT Internal Medicine; ATTEND Internal Medicine
PROC: 01NB0ZZ Release Lumbar Nerve, Open Approach (ICD-10-PCS; 2024-10-05)
PROC: 00NY0ZZ Release Lumbar Spinal Cord, Open Approach (ICD-10-PCS; 2024-10-05)
PROC: 4A11X4G Monitoring of Peripheral Nervous Electrical Activity, Intraoperative, External Approach (ICD-10-PCS; 2024-10-05)
PROC: 0SG00AJ Fusion of Lumbar Vertebral Joint with Interbody Fusion Device, Posterior Approach, Anterior Column, Open Approach (ICD-10-PCS; principal; 2024-10-05 17:23)
DX: M48.062 Spinal stenosis, lumbar region with neurogenic claudication (principal); J96.01 Acute respiratory failure with hypoxia; N17.9 Acute kidney failure, unspecified; J98.11 Atelectasis; M51.16 Intervertebral disc disorders with radiculopathy, lumbar region; M21.372 Foot drop, left foot; J44.89 Other specified chronic obstructive pulmonary disease; E11.9 Type 2 diabetes mellitus without complications; E78.5 Hyperlipidemia, unspecified; E07.9 Disorder of thyroid, unspecified; G89.29 Other chronic pain; M81.0 Age-related osteoporosis without current pathological fracture; K21.9 Gastro-esophageal reflux disease without esophagitis; I07.1 Rheumatic tricuspid insufficiency; Z79.4 Long term (current) use of insulin; Z79.01 Long term (current) use of anticoagulants; Z95.828 Presence of other vascular implants and grafts; Z90.710 Acquired absence of both cervix and uterus; Z83.3 Family history of diabetes mellitus; Z82.49 Family history of ischemic heart disease and other diseases of the circulatory system; Z87.891 Personal history of nicotine dependence; Z79.84 Long term (current) use of oral hypoglycemic drugs; Z86.718 Personal history of other venous thrombosis and embolism; Z79.51 Long term (current) use of inhaled steroids; G89.18 Other acute postprocedural pain; I12.9 Hypertensive chronic kidney disease with stage 1 through stage 4 chronic kidney disease, or unspecified chronic kidney disease; N18.32 Chronic kidney disease, stage 3b
CPT/HCPCS: 36415; 71045; 72100; 76000; 80048; 80053; 81001; 82962; 85025; 85610; 85730; 86850; 86900; 86901; 87081; 93005; 93306; 96374; 96375; 97110; 97116; 97163; A4344; G0378; J0131; J0330; J1100; J1815; J1885; J1956; J2250; J2405; J2704; J7042

== ENCOUNTER 2024-11-24 12:05 | Outpatient (CLI) | payer MEDICARE, MEDICAID ==
[~2024-11-24 12:05] MED LIST changes: +CIPR-173 PO; +CYCL-611 PO; +LEVO150T10 PO; +METH-1181 PO
== END 2024-11-24 17:00 | disposition home or self-care (01) ==
LOC: LAB 12:05
PROVIDERS: ATTEND Internal Medicine
DX: I10 Essential (primary) hypertension (principal); E11.42 Type 2 diabetes mellitus with diabetic polyneuropathy; E03.9 Hypothyroidism, unspecified
CPT/HCPCS: 36415; 84439; 84443

== ENCOUNTER 2024-12-09 15:16 | Emergency (ER) | payer MEDICARE, MEDICAID ==
[~2024-12-09] VITALS: Ht 167.6 cm; Wt 77.7 kg
--- NOTE | 2024-12-09 15:46 | ED.PDOC ---
SOB-HPI HPI Comments Patient is a morbidly obese 69 y/o F, with PMHx of anxiety, asthma, cancer, COPD, DM, GERD, HLD, and HTN presents to the ED for CC of shortness of breath. Patient ambulates with a walker due to a history of multiple low back surgeries and back pain issues. Patient states, she has been experiencing increased shortness of breath which worsens upon exertion x4days. Patient reports, associated abdominal pain at the breast line with feelings of being "winded". Patient denies cough, nasal congestion, sore-throat, or chest pain. No other symptoms or modifying factors are present at this time. Chief Complaint: Shortness of Breath Time Seen by MD: 15:35 Primary Care Provider: DR TODD Reviewed notes: Nurses Notes, Medications, Allergies Information Source: Patient Mode of Arrival: Ambulatory Severity: Moderate Timing: Days Duration: Since onset Context: With Light Exertion PE Risk Factors: None History of: Asthma, Anxiety Prehospital treatment: None Modifying Factors: Nothing Associated Signs and Symptoms: None Quality: Sharp, Stabbing Radiation: Abdomen Past Medical History PAST MEDICAL HISTORY: Anxiety, Asthma, Cancer, COPD, DM, GERD, High Lipids, HTN, UTI'S Surgical History: , Hernia Repair, Hysterectomy COURT MESSENGER History: No Pertinent COURT MESSENGER History Family History Family History: Unknown Social History Smoker: Non-Smoker Alcohol: Denies ETOH Use Drugs: Denies Drug Use Lives In: Home Constitutional: denies: chills, diaphoresis, fatigue, fever, malaise, sweats, weakness, others EENTM: denies: blurred vision, double vision, ear bleeding, ear discharge, ear drainage, ear pain, ear ringing, eye pain, eye redness, hearing loss, mouth pain, mouth swelling, nasal discharge, nose bleeding, nose congestion, nose pain, photophobia, tearing, throat pain, throat swelling, voice changes, others Respiratory: reports: shortness of breath; denies: cough, hemoptysis, orthopnea, SOB at rest, SOB with excertion, stridor, wheezing, others Cardiovascular: denies: chest pain, dizzy spells, diaphoresis, Dyspnea on exertion, edema, irregular heart beat, left arm pain, lightheadedness, palpitations, PND, syncope, others Gastrointestinal: reports: abdominal pain; denies: abdomen distended, blood streaked bowels, constipated, diarrhea, dysphagia, difficulty swallowing, hematemesis, melena, nausea, poor appetite, poor fluid intake, rectal bleeding, rectal pain, vomiting, others Genitourinary: denies: abnormal vagina bleeding, burning, dyspareunia, dysuria, flank pain, frequency, hematuria, incontinence, pain, , vagina discharge, urgency, others Neurological: denies: dizziness, fainting, headache, left sided numbness, left sided weakness, numbness, paresthesia, pre-existing deficit, right sided numbness, right sided weakness, seizure, speech problems, tingling, tremors, weakness, others Musculoskeletal: denies: back pain, gout, joint pain, joint swelling, muscle pain, muscle stiffness, neck pain, others Integumetry: denies: bruises, change in color, change in hair/nails, dryness, laceration, lesions, lumps, rash, wounds, others Allergic/Immunocompromised: denies: Difficulty Healing, Frequent Infections, Hives, Itching, others Hematologic/Lymphatic: denies: anemia, blood clots, easy bleeding, easy bruising, swollen glands, others Endocrine: denies: excessive hunger, excessive sweating, excessive thirst, excessive urination, flushing, intolerance to cold, intolerance to heat, unexplained weight gain, unexplained weight loss, others Psychiatric: denies: anxiety, bipolar disorder, depression, hopeless, panic disorder, schizophrenia, sleepless, suicidal, others All Other Systems: Reviewed and Negative Physical Exam General Appearance: Moderate Distress (Moderate distress due to abdominal pain concerns. Patient appears to be in poor overall health.), Obese HEENT: Normal ENT Inspection, Pharynx Normal, TMs Normal Neck: Full Range of Motion, Non-Tender, Normal, Normal Inspection Respiratory: Chest Non-Tender, Lungs Clear, No Accessory Muscle Use, No Respiratory Distress, Normal Breath Sounds, Other (Unremarkable auscultation bilateral lung kilpatrick.) Cardiovascular: No Edema, No JVD, No Murmur, No Gallop, Normal Peripheral Pulses, Regular Rate/Rhythm Breast Exam: Deferred Gastrointestinal: Other (Diffuse nonspecific tenderness to palpation throughout global abdomen. No pulsatile masses. Difficult to assess due to body habitus.) Genitalia: Deferred Pelvic: Deferred Rectal: Deferred Extremities: No calf tenderness, Normal range of motion, No pedal edema Neurologic: Alert Cerebellar Function: NOT DONE Reflexes: NOT DONE Skin: Dry, Normal Color, Warm Lymphatic: No Adenopathy Was a procedure done? Was a procedure done?: No Differential Dx Differential Diagnosis: Asthma, Bronchitis, URI, Other (Gastroenteritis, fatty liver, cirrhotic liver, pancreatitis) X-Ray, Labs, Meds, VS Vital Signs Date Time Temp Pulse Resp B/P (MAP) Pulse Ox O2 Delivery O2 Flow Rate FiO2 12/09/24 16:45 18 96 Room Air* 0 21 12/09/24 15:30 92 12/09/24 15:19 97.9 96 16 119/68 94 97.9 Lab Test 12/09/24 16:43 12/09/24 15:55 Range/Units Troponin I High Sensitivity < 3 L < 3 L </=34 ng/L White Blood Count 5.6 4.4-10.8 10^3/uL Red Blood Count 4.34 4.0-5.20 10^6/uL Hemoglobin 10.8 L 12.2-16.2 g/dL Hematocrit 34.2 L 36.0-46.0 % Mean Corpuscular Volume 78.6 L 80.0-100.0 fL Mean Corpuscular Hemoglobin 24.8 L 28.0-32.0 pg Mean Corpuscular Hemoglobin Concent 31.6 L 32.0-36.0 g/dL Red Cell Distribution Width 16.4 H 11.8-14.3 % Platelet Count 231 140-450 10^3/uL Mean Platelet Volume 8.5 6.9-10.8 fL Neutrophils (%) (Auto) 61.4 37.0-80.0 % Lymphocytes (%) (Auto) 28.8 10.0-50.0 % Monocytes (%) (Auto) 7.1 0.0-12.0 % Eosinophils (%) (Auto) 2.3 0.0-7.0 % Basophils (%) (Auto) 0.4 0.0-2.0 % Neutrophils # (Auto) 3.4 1.6-8.6 10 ^3/uL Lymphocytes # (Auto) 1.6 0.4-5.4 10 ^3/uL Monocytes # (Auto) 0.4 0-1.3 10 ^3/uL Eosinophils # (Auto) 0.1 0-0.8 10 ^3/uL Basophils # (Auto) 0 0-0.2 10 ^3/uL Nucleated Red Blood Cells 0.0 % Sodium Level 142 136-145 mmol/L Potassium Level 4.5 3.5-5.1 mmol/L Chloride Level 111 H 98-107 mmol/L Carbon Dioxide Level 21 20-31 mmol/L Anion Gap 10 5-15 Blood Urea Nitrogen 26 H 9-23 mg/dL Creatinine 1.43 H 0.550-1.02 mg/dL Glomerular Filtration Rate Calc 40 >90 mL/min BUN/Creatinine Ratio 18.2 10.0-20.0 Serum Glucose 191 H 74-106 mg/dL Lactic Acid Level 1.7 0.4-2.0 mmol/L Calcium Level 9.8 8.7-10.4 mg/dL Lipase 42 12-53 U/L Current Medications Medications (Trade) Dose Ordered Sig/Iliana Route Start Time Stop Time Status Last Admin Albuterol (Ventolin Medneb) 5 mg ONCE ONCE NEB 12/09/24 15:45 12/09/24 15:46 DC 12/09/24 16:45 Ipratropium [place] (Atrovent Medneb) 0.5 mg ONCE ONCE NEB 12/09/24 15:45 12/09/24 15:46 DC 12/09/24 16:45 [place] [id number] Ph: [phone] DIAGNOSTIC IMAGING Diagnostic Imaging Report : [id number] Signed PATIENT: ARIEL ROBLES ACCT: [id number] UNIT: [id number] : 1955 LOC: ER ROOM / BED: / AGE / SEX: 69 / F ADM STATUS: REG ER SERVICE 1537 ORDERING PHYSICIAN: LANA CASILLAS PAC PROCEDURE(s): ABPL - CT AB PEL WO CON-NO ORAL OR IV REASON: Diffuse abdominal pain ORDER NUMBER(s): [id number], ACCESSION NUMBER(s): [id number] Indication: Diffuse abdominal pain Technique: CT axial images of the abdomen and pelvis are obtained without contrast. Coronal and sagittal reformats were obtained. Radiation Dose Information: CTDI volume is 19 mGy. Dose-length product is 925 mGy*cm Comparison: CT CT AB PEL WO CON-NO ORAL OR IV on DOS: 09/17/24, CT CT AB PEL WO CON-NO ORAL OR IV on DOS: 05/01/23, CT CT AB PEL WO CON-NO ORAL OR IV on DOS: 01/28/23, CT CT AB PEL WO CON-NO ORAL OR IV on DOS: 12/28/22, CT CT AB PEL WO CON- NO ORAL OR IV on DOS: 11/27/22 FINDINGS: There is limited interpretation of the abdomen and pelvis without administration of intravenous contrast. The lung bases demonstrate emesis. Moderate size hernia. Adrenal glands,, pancreas are unremarkable in shape. Liver capsule mildly nodular morphology. Cholecystectomy. The kidneys demonstrate no hydronephrosis / nephrolithiasis. Small bowel loops are normal in caliber. Moderate volume stool within the colon. No secondary signs for appendicitis. IVC filter. Abdominal aortic atherosclerotic disease. Bladder contracted. No free pelvic fluid. No inguinal lymphadenopathy. Periumbilical hernia which contains fat measuring 7.3 x 5.2 cm. Posterior fixation of the L4 and L5 vertebral bodies. Chronic L2 compression deformity with 90% loss height, 4 mm retropulsion. Vertebroplasty changes at T12. Corpectomy /interbody spacer at T8 through T10. IMPRESSION: Limited evaluation without contrast. Moderate size hiatal hernia. Moderate volume stool within the colon. Paraumbilical hernia containing fat as described. Thoracic/ lumbar spine findings as described. IVC filter. Liver capsule nodular morphology could represent cirrhosis. Cholecystectomy. Other findings as described. ATED BY: JUAN CARLOS NUGENT MD DICTATED DATE/TIME: 12/09/241635 SIGNED BY: JUAN CARLOS NUGENT MD SIGNED DATE/TIME: 12/09/24 163 CC: X-Ray, Labs, Meds, VS Comment All studies performed the ED were evaluated by me personally. Serum studies revealed a mild anemia, confirmation of renal concerns with elevated BUN and creatinine as well as hyperglycemic concerns. Imaging studies were unremarkable for any acute concerns. Patient did display a hiatal hernia and abdominal hernia. Probable liver cirrhosis was noted. Advised patient follow up with her primary care provider in the next few days for re-evaluation and long-term management of her multiple comorbidities. Time of 1ST Reevaluation: 18:42 Reevaluation 1ST: Improved Consultation: PCP Patient Education/Counseling: Diagnosis, Treatment Family Education/Counseling: Diagnosis, Treatment, No Family Present SEPSIS Sepsis Screen Date sepsis recognized/suspect: Dec 09, 2024 Time Sepsis recognized/suspect: 1521 Recent Procedure: No On Antibiotic Therapy: No Respiratory Rate >20: No Heart Rate >90: No Temp<36 C (96.8 F) or >38.3 C: No SBP <90 or MAP <65 mmHG: No New Acute Mental Status Change: No Is the patient on CPAP, BIPAP,: No Physician Orders Ct Ab Pel Wo Con-No Oral Or Iv (12/09/24 15:37) Vital Signs Date Time Temp Pulse Resp B/P (MAP) Pulse Ox O2 Delivery O2 Flow Rate FiO2 12/09/24 16:45 18 96 Room Air* 0 21 12/09/24 15:30 92 12/09/24 15:19 97.9 96 16 119/68 94 97.9 Laboratory Tests Test 12/09/24 15:55 Lactic Acid Level 1.7 mmol/L (0.4-2.0) White Blood Count 5.6 10^3/uL (4.4-10.8) Medications Medications Dose Ordered Sig/Iliana Route Start Time Stop Time Status Last Admin Dose Admin Albuterol 5 mg ONCE ONCE NEB 12/09/24 15:45 12/09/24 15:46 DC 12/09/24 16:45 Ipratropium [place] 0.5 mg ONCE ONCE NEB 12/09/24 15:45 12/09/24 15:46 DC 12/09/24 16:45 Departure 1 Departure Time of Disposition: 18:43 Impression: Primary Impression: Liver disease Additional Impressions: Renal disease Hyperglycemia Anemia Disposition: HOME / SELF CARE / HOMELESS Condition: Stable Additional Instructions: Advised patient utilize pain medication as needed and additionally, patient needs to follow up with the primary care provider for discussions related to today's visit as well as our radiology findings. e-Prescriptions Ondansetron Odt 4MG Tab (ZOFRAN PO) 4 Mg Tb 4 MG PO Q6HP PRN, #20 TAB ODT TAB-DISSOLVE IN MOUTH, THEN SWALLOW Prov: LANA CASILLAS PAC 12/09/24 Tramadol Hcl (Tramadol Hcl) 50 Mg Tab 50 MG PO Q8HP PRN, #20 TAB Prov: LANA CASILLAS PAC 12/09/24 Discharged With: Self, Friend Critical Care Note Critical Care Time?: No Stability Stability form required: No Heart Score Heart Score: Heart Score Response (Comments) Value History N/A 0 EKG N/A 0 Age N/A 0 Risk Factors N/A 0 Troponin N/A 0 Total 0 I personally scribed for VINNYLANA WADE B PAC ([email or web address]) on 12/09/24 at 15:46. E lectronically submitted by Lizette Orosco ([email or web address]). I personally scribed for VINNYLANA B PAC ([email or web address]) on 12/09/24 at 16:18. Elec tronically submitted by Lizette Orosco ([email or web address]). I personally scribed for VINNYLANA WADE B PAC ([email or web address]) on 12/09/24 at 17:10. Electronically submitted by Lizette Orosco ([email or web address]). I personally scribed for VINNYLANA WADE B PAC ([email or web address]) on 12/09/24 at 17:30. Electronically submitted by Lizette Orosco ([email or web address]). VINNYLANA B PAC Dec 09, 2024 15:46
[2024-12-09 16:08] LABS: Hematocrit 34.2 % (36.0-46.0); Hemoglobin 10.8 g/dL (12.2-16.2); Mean Corpuscular Hemoglobin 24.8 pg (28.0-32.0); Mean Corpuscular Volume 78.6 fL (80.0-100.0); Nucleated Red Blood Cells % 0.0 %
[2024-12-09 16:19] LABS: Potassium 4.5 mmol/L (3.5-5.1); Sodium 142 mmol/L (136-145)
[2024-12-09 16:20] LABS: Anion Gap 10 (5-15); Carbon Dioxide 21 mmol/L (20-31)
[2024-12-09 16:21] LABS: Calcium 9.8 mg/dL (8.7-10.4)
[2024-12-09 16:26] LABS: BUN/Creatinine Ratio 18.2 (10.0-20.0); Lipase 42 U/L (12-53)
[2024-12-09 16:28] LABS: Blood Urea Nitrogen 26 mg/dL (9-23); Chloride 111 mmol/L (98-107); Glucose 191 mg/dL (74-106)
--- NOTE | 2024-12-09 16:35 | DVH ---
Indication: Diffuse abdominal pain Technique: CT axial images of the abdomen and pelvis are obtained without contrast. Coronal and sagit rudy reformats were obtained. Radiation Dose Information: CTDI volume is 19 mGy. Dose-length product is 925 mGy*cm Comparison: CT CT AB PEL WO CON-NO ORAL OR IV on DOS: 09/17/24, CT CT AB PEL WO CON-NO ORAL OR IV on D OS: 05/01/23, CT CT AB PEL WO CON-NO ORAL OR IV on DOS: 01/28/23, CT CT AB PEL WO CON-NO ORAL OR IV on D OS: 12/28/22, CT CT AB PEL WO CON-NO ORAL OR IV on DOS: 11/27/22 FINDINGS: There is limited interpretation of the abdomen and pelvis without administration of intravenous contr ast. The lung bases demonstrate emesis. Moderate size hernia. Adrenal glands,, pancreas are unremarkable in shape. Liver capsule mildly nodular morphology. Cholecystectomy. The kidneys demonstrate no hydronephrosis / nephrolithiasis. Small bowel loops are normal in caliber. Moderate volume stool within the colon. No secondary signs for appendicitis. IVC filter. Abdominal aortic atherosclerotic disease. Bladder contracted. No free pelvic fluid. No inguinal lymph adenopathy. Periumbilical hernia which contains fat measuring 7.3 x 5.2 cm. Posterior fixation of the L4 and L5 vertebral bodies. Chronic L2 compression deformity with 90% loss height, 4 mm retropulsion. Vertebroplasty changes at T12. Corpectomy /interbody spacer at T8 through T10. IMPRESSION: Limited evaluation without contrast. Moderate size hiatal hernia. Moderate volume stool within the colon. Paraumbilical hernia containing fat as described. Thoracic/ lumbar spine findings as described. IVC filter. Liver capsule nodular morphology could represent cirrhosis. Cholecystectomy. Other findings as described.
--- NOTE | 2024-12-09 16:43 | ECG ---
[facility] Test Date: 2024-12-09 Test Time: 15:30:17 Pat Name: ARIEL ROBLES Department: Room: Gender: F Sleep Tech: ORIN : 1955 Requested By: MICKEY THAYER Order Number: [id number] Reading MD: Measurements Intervals [place] Rate: 92 P: 23 TX: 161 QRS: -19 QRSD: 80 T: 62 QT: 340 QTc: 421 Interpretive Statements Sinus rhythm Borderline left axis deviation Please click the below link to view image of tracing.
[2024-12-09] MEDS: IPRATROPIUM BROM 0.5 MG/2.5ML INH SOL NEB ONE (16:45)
[2024-12-09] MEDS: ALBUTEROL SULF 2.5 MG/0.5ML(0.5%) NEB SOLN NEB ONE (16:45)
[2024-12-09] MEDS ORDERED: TRAM50TA2 PO (18:44)
[2024-12-09] MEDS ORDERED: ZOFR4T PO (18:44)
[2024-12-09] MEDS: HYDROcodone-ACET 10/325MG TAB PO ONE (19:33)
[2024-12-09 20:53] VITALS: BP 117/56; PULSE 90; RESP 20; TEMP 98.4; O2SAT 96
== END 2024-12-09 21:05 | disposition home or self-care (01) ==
LOC: ER 15:21
DX: E11.65 Type 2 diabetes mellitus with hyperglycemia (principal); K76.9 Liver disease, unspecified; N28.9 Disorder of kidney and ureter, unspecified; D64.9 Anemia, unspecified; F41.9 Anxiety disorder, unspecified; J45.909 Unspecified asthma, uncomplicated; J44.89 Other specified chronic obstructive pulmonary disease; K21.9 Gastro-esophageal reflux disease without esophagitis; E78.5 Hyperlipidemia, unspecified; I10 Essential (primary) hypertension; E66.01 Morbid (severe) obesity due to excess calories; Z68.27 Body mass index [BMI] 27.0-27.9, adult; Z98.890 Other specified postprocedural states; Z90.710 Acquired absence of both cervix and uterus; Z87.440 Personal history of urinary (tract) infections
CPT/HCPCS: 36415; 74176; 80048; 83605; 83690; 84484; 85025; 93005; 94640; 96372; 99285; J1100